=== PATIENT | female | born 1960 | race Caucasian/White ===

== ENCOUNTER 2016-03-16 11:37 | Emergency (ER) | payer OTHER ==
[~2016-03-16] VITALS: Ht 167.6 cm; Wt 55.0 kg
[~2016-03-16 11:37] MED LIST: FRRS300 PO; GLC5 PO; GLIPPOW PO; LISI-729 PO; METH2.5T PO; PRED-301 PO; SIMV20TA2 PO; SITA50TA3 PO
[2016-03-16 11:40] VITALS: Ht 167.6 cm; Wt 55.0 kg
[2016-03-16] MEDS ORDERED: METH2.5T PO (11:56)
[2016-03-16] MEDS ORDERED: GLIP5TAB3 PO (11:56)
--- NOTE | 2016-03-16 13:07 | DIAGNOSTIC IMAGING REPORT ---
LEFT HUMERUS MIN 2 VIEWS ROUTINE CLINICAL HISTORY: Left humeral pain status post trauma COMPARISON: None DISCUSSION: The bones are osteopenic. No acute fractures or dislocations are visualized. 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 Electronically signed by: Yordy Alexander M.D. 03/16/2016 1:05 PM Dictated Date/Time: 03/16/2016 1:05 PM
--- NOTE | 2016-03-16 13:56 | EMERGENCY ROOM VISIT NOTE ---
ED Visit Note First contact with patient: 12:25 Chief Complaint: Sore LEFT Arm and Shoulder History of Present Illness: Patient is a 55 year old female who presents to the emergency department this afternoon for evaluation of her LEFT neck and shoulder pain. She reports that while at work, the ceiling tiles collapsed striking her on the LEFT-sided neck and arm. She was not knocked to the ground. She did not lose consciousness. She complains of pain to the LEFT upper arm which has since resolved. She rates her current discomfort as a 0/ 10. The patient does take methotrexate as well as prednisone daily secondary to rheumatoid arthritis. She has had occult fractures in the past. Patient denies any neck pain, shoulder pain, numbness/tingling into the extremity, or new/worsening trauma since the event. Medications: Reviewed in discussed with the patient. Allergies: No known allergies. PMH: As above. SHx: Patient is a 55-year-old female who lives locally. ROS: All pertinent positive and negative review of systems are appropriately documented in the History of Present Illness. Physical Exam: VITAL SIGNS - Vital signs and nursing notes were reviewed. GENERAL - 55-year-old female appearing her stated age and in noticeable discomfort throughout the exam. NECK - FROM of the cervical spine. No spinous process or paraspinal muscle tenderness to palpation. No nuchal rigidity. LUNGS - Chest wall symmetric without accessory muscle use, intercostals retractions, or central cyanosis. Normal vesicular breath sounds CTA B/L. No wheezes, rales, or rhonchi appreciated. CARDIAC - RRR with S1/S2. No murmur, rubs, or gallops appreciated. MUSCULOSKELETAL - Active ROM of the LEFT shoulder was assessed as full. Developing ecchymosis over the lateral surface of the LEFT upper arm. No step- off deformities noted. Full range of motion with +/5 strength appreciated of the upper extremity. NEUROLOGIC - SENSORY: Spinothalamic tract was found to be intact with ability to discriminate sharp versus dull sensation at the level of the LEFT side of the neck down to the fingertips. No sensory deficits of the dorsal column were appreciated utilizing light touch for evaluation. VASCULAR - Capillary refill was brisk. +3/5 radial pulse palpated. IMAGING: LEFT HUMERUS MIN 2 VIEWS ROUTINE CLINICAL HISTORY: Left humeral pain status post trauma COMPARISON: None DISCUSSION: The bones are osteopenic. No acute fractures or dislocations are visualized. 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 ED Course: Patient was seen and evaluated by myself. Patient declines anything for pain while in the emergency department. She was provided an ice pack for comfort. X -ray of the affected arm was obtained. Imaging results as above. Imaging results were reviewed with the patient who acknowledges understanding. The patient was educated on worrisome symptoms for return visit to the emergency department. Patient discharged home in good condition. In the evaluation and treatment of this patient, the following differential diagnoses were considered: Shoulder Contusion, Shoulder Fracture, Shoulder Dislocation, Thoracic Outlet Syndrome, Adhesive Capsulitis, Rotator Cuff Tear, Proximal Clavicle Head Fracture, Apical Pneumonia, Pneumothorax, Hemothorax, or TB. Impression: LEFT Upper Extremity Contusion Discharge Instructions: You have been treated in the Emergency Department for a Contusion of the LEFT Upper Extremity. For pain control, you can use the following [id number] medicines (if >12 yo): - Regular strength (325mg/tab) Tylenol (acetaminophen) 2 tabs every 4-6 hours as needed. Do not exceed 12 tablets in a 24 hour period. Avoid taking more than 4 grams (4000 mg) of Tylenol per day. This includes any other sources of acetaminophen you may take on a regular basis. - Regular strength (200 mg/tab) Advil (ibuprofen) 1-2 tabs every 4-6 hours as needed. Do not exceed a dose of 3200 mg per day. If this is a recent injury (<24 hrs), ice can be applied to the area of pain for the first 3 days to help decrease pain and inflammation. Return to the Emergency Department if your current symptoms worsen despite treatment course outlined above, or if you develop any of the following symptoms : intractable pain despite aforementioned treatment course or new onset of numbness or tingling of the arm. Current/Historical Medications Scheduled Glipizide (Glucotrol), 5 MG PO DAILY Methotrexate Sodium (Methotrexate), 6 MG PO wkly Prednisone (Prednisone), 5 MG PO QAM Allergies Coded Allergies: No Known Allergies (Unverified , 10/10/09) Vital Signs Date Time Temp Pulse Resp B/P Pulse Ox O2 Delivery O2 Flow Rate FiO2 03/16/16 14:13 36.5 75 14 100 Room Air 03/16/16 14:13 75 14 145/69 100 03/16/16 11:40 36.5 95 16 146/73 100 Room Air Departure Information Impression Primary Impression: Contusion, upper extremity Dispostion Home / Self-Care Condition GOOD Referrals Cornelius Osorio M.D. (PCP) Patient Instructions My [facility] Additional Instructions You have been treated in the Emergency Department for a Contusion of the LEFT Upper Extremity. For pain control, you can use the following [id number] medicines (if >12 yo): - Regular strength (325mg/tab) Tylenol (acetaminophen) 2 tabs every 4-6 hours as needed. Do not exceed 12 tablets in a 24 hour period. Avoid taking more than 4 grams (4000 mg) of Tylenol per day. This includes any other sources of acetaminophen you may take on a regular basis. - Regular strength (200 mg/tab) Advil (ibuprofen) 1-2 tabs every 4-6 hours as needed. Do not exceed a dose of 3200 mg per day. If this is a recent injury (<24 hrs), ice can be applied to the area of pain for the first 3 days to help decrease pain and inflammation. Return to the Emergency Department if your current symptoms worsen despite treatment course outlined above, or if you develop any of the following symptoms : intractable pain despite aforementioned treatment course or new onset of numbness or tingling of the arm. Problem Qualifiers Primary Impression: Contusion, upper extremity Encounter type: initial encounter Laterality: left Qualified Codes: S40.022A - Contusion of left upper arm, initial encounter
[2016-03-16 14:13] VITALS: BP 145/69; PULSE 75; TEMP 36.5; O2SAT 100
== END 2016-03-16 14:14 | disposition home or self-care (01) ==
LOC: C.EDB 11:38 → C.EDD 14:14
DX: S40.022A Contusion of left upper arm, initial encounter (principal); W20.8XXA Other cause of strike by thrown, projected or falling object, initial encounter; Y99.0 Civilian activity done for income or pay; Z79.899 Other long term (current) drug therapy

== ENCOUNTER 2019-11-27 13:42 | Inpatient (IN) ==
[2019-11-27] MEDS ORDERED: VANCOMYCIN HCL 1,500 MG in SODIUM CHLORIDE 0.9% 500 ML IV ONE (14:15)
[2019-11-27] MEDS ORDERED: VANCOMYCIN CONSULT ACTIVE PRN ×2 (14:15→18:40)
[2019-11-27] MEDS ORDERED: cefTRIAXone SODIUM 1,000 MG/50 ML BAG IV STA (14:15)
--- NOTE | 2019-11-27 14:34 | Emergency Department Note ---
Impression & Plan Pressure ulcer of right leg, Traumatic open wound of right lower leg with delayed healing ED Provider Note NAME: ESTUARDO CAMILO AGE: 59 SEX: F : 1960 ARRIVES VIA: Walk-In INFORMANT: Patient, ED PROVIDER(S): Segundo Mccartney DO CHIEF COMPLAINT: Right lower extremity pain HPI: The patient is a 59-year-old female who presented to the emergency department at the request of the wound care center for an evaluation of an ulcer ation on the right leg. The patient had a right lower leg injury which led to a chronic wound that was not healing. She was referred to the wound care center approximately 3 weeks ago for this nonhealing wound. She had cultures obtained. She was on antibiotics. She was following up for frequent wound care. She had a wound VAC placed last week but started to develop another ulceration distally over the right ankle. This ulceration appears to be worsening and appears to now involve the deep structures. She has exposed tendon on the extensor surface of the right ankle. For this reason she was sent to the emergency department for further evaluation. She is been taking Cipro. She denies having any nausea or vomiting. She does have a burning sensation in the right ankle. The patient does not have any proximal swelling but does note swelling in the right foot as well as drainage from the wound. Cultures were obtained previously. ROS: See above HPI for pertinent positives & negatives. A total of 10 systems reviewed and were otherwise negative. PAST MEDICAL HISTORY: See Below PAST SURGICAL HISTORY: See Below FAMILY HISTORY: See Below SOCIAL HISTORY: See Below HOME MEDICATIONS: See Below ALLERGIES: See Below VITALS: See Below PHYSICAL EXAMINATION: GENERAL: Patient is awake alert in no acute distress patient is resting comfortably and showing no signs of anxiety EYES: The conjunctivae are clear. The pupils are round and reactive. EARS, NOSE, MOUTH AND THROAT: The nose is without any evidence of any deformity. NECK: The neck is nontender and supple. RESPIRATORY: Normal respiratory effort is noted there is no evidence of wheezing rhonchi or rales CARDIOVASCULAR: Regular rate and rhythm noted there no murmurs rubs or gallops normal S1 normal S2. GASTROINTESTINAL: The abdomen is soft. Abdomen is nontender. MUSCULOSKELETAL/EXTREMITIES: There is no evidence of gross deformity full range of motion is noted in the hips and shoulders. SKIN: There is erythema and swelling to the right lower extremity. There is an ulceration over the mid right lower leg. This is dressed with Vaseline gauze. There is also a large defect greater than 5 cm over the right flexor surface of the ankle. There is exposed extensor tendon noted. There is surrounding erythema. NEUROLOGIC: Patient is awake alert and oriented x3. MEDICAL DECISION MAKING: The patient is a 59-year-old female who presented to the emergency department from the [facility] care center for an evaluation of right lower extremity pain and u lceration. The patient had a wound VAC placed and developed an ulceration to her anterior right leg. This appears to be associated with a large area of missing skin and exposed extensor tendons. The patient was treated with IV fluids and IV antibiotics in the emergency department. She was reevaluated multiple times. I discussed her condition with the [facility]-call [facility]. She was also evaluated by Dr. Interiano from cardiology. He does recommend that we obtained arterial Dopplers to determine the patient's arterial status in her lower extremities. I discussed this with the patient. She was agreeable. I did review the patient's wound cultures prior to initiating antibiotic therapy. Triage Nursing notes reviewed. Prior medical records reviewed Vital Signs: reviewed and remarkable for hypotension Differential diagnosis: Cellulitis, abscess, MRSA infection, DVT, necrotizing fasciitis, dermatitis, drug eruption, allergic reaction, as well as other pathologies. ER treatment provided: See below Diagnostics interpreted by me: ECG: none Cardiac Monitoring: An order was placed for continuous cardiac monitoring. The monitor shows a rate of 82 bpm with sinus rhythm. Laboratory studies: As stated above and show below. Imaging studies: See below Consultation(s): 1520: I discussed this case with Jelena who is on-call for the [facility]. They will evaluate the patient Past Med/Surg History Medical History (Updated 11/27/19 @ 16:29 by Jelena Londono PA-C) CAD (coronary artery disease) Cardiac murmur A CHILD Diabetes mellitus, type 2 IDDM History of anesthesia reaction SLOW TO WAKE History of rheumatic fever as a child Hyperlipidemia Rheumatoid arthritis Surgical History History of cardiac cath 08/2017 - [facility] - SOB --> CABG - FOLLOWS W/ DR. PRESTON History of colonoscopy History of coronary artery bypass graft 08/2017 - [facility] - 3 VESSELS - FOLLOWS W/ DR. 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 Beliefs That Will Affect Care: None marital status: Current Living Situation: Spouse Feels Safe at Home: Yes Assistive Devices: Glasses Allergies Allergies Allergy/AdvReac Type Severity Reaction Status Date / Time Sulfa (Sulfonamide Allergy Rash Verified 11/27/19 13:24 Antibiotics) Home Meds Home Medications Medication Instructions Recorded Confirmed aspirin 81 mg PO QAM 05/13/18 11/27/19 carvedilol 3.125 mg PO BID 05/13/18 11/27/19 insulin NPH and regular human 20 unit SUBCUT BID 05/13/18 11/27/19 [Novolin 70/30 U-100 Insulin] lisinopril 2.5 mg PO QAM 05/13/18 11/27/19 multivitamin [One-A-Day Essential] 1 tab PO QAM 05/13/18 11/27/19 prednisone 7.5 mg PO QAM 05/13/18 11/27/19 acetaminophen [Tylenol Extra 500 mg PO TID 11/19/19 11/27/19 Strength] atorvastatin 20 mg PO HS 11/27/19 11/27/19 calcium carbonate [Calcium 500] 1,000 mg PO DAILY 11/27/19 11/27/19 cholecalciferol (vitamin D3) 1,250 mcg PO WK 11/27/19 11/27/19 folic acid 1 mg PO DAILY 11/27/19 11/27/19 methotrexate sodium [Methotrexate 15 mg PO FR 11/27/19 11/27/19 (Anti-Rheumatic)] valacyclovir [Valtrex] 500 mg PO DAILY 11/27/19 11/27/19 Previous Rx's Medication Instructions Recorded ciprofloxacin HCl 250 mg tablet 250 mg PO BID 14 Days #28 tab 11/22/19 Results & Data (ED) Vital Signs Vital Signs - 24 hr 11/27/19 13:54 11/27/19 15:29 Temperature 36.7 C Temperature Source Oral Pulse Rate 108 H Pulse Rate [Apical] 80 Respiratory Rate 19 19 Respiratory Depth Normal Normal Respiratory Pattern Regular Blood Pressure 120/63 Blood Pressure [Right Arm] 106/58 L Blood Pressure Mean 82 Blood Pressure Mean [Right Arm] 74 Pulse Oximetry 91 96 Oxygen Delivery Method Room Air Room Air Sepsis Recent Fever Within 48 Hours No Sepsis New/Unexplained Change in Mental Status N/A Sepsis Action Taken by Nursing No Action Required Home Medications Current Medication List: was personally reviewed by me Laboratory Data Attestation: I reviewed the patient's lab results. Result diagrams: 11/27/19 14:29 11/27/19 14:29 Lab Results 11/27/19 11/27/19 11/27/19 Range/Units 14:29 14:29 14:29 WBC 12.09 H (4.8-10.8) K/uL RBC 3.67 L (4.2-5.4) M/uL Hgb 11.3 L (12.0-16.0) g/dL Hct 34.9 L (37-47) % MCV 95.1 (80-100) fL MCH 30.8 (25-34) pg MCHC 32.4 (32-36) g/dL RDW Std Deviation 66.0 H (36.4-46.3) fL RDW Coeff of [place] 19.0 H (11.5-14.5) % Plt Count 280 (130-400) K/uL MPV 9.6 (7.4-10.4) fL Immature Gran % (Auto) 4.5 % Neut % (Auto) 82.6 % Lymph % (Auto) 6.7 % Green % (Auto) 5.7 % Eos % (Auto) 0.3 % Baso % (Auto) 0.2 % Neut # (Auto) 9.98 H (1.4-6.5) K/uL Lymph # (Auto) 0.81 L (1.2-3.4) K/uL Green # (Auto) 0.69 H (0.11-0.59) K/uL Eos # (Auto) 0.04 (0-0.5) K/uL Baso # (Auto) 0.03 (0-0.2) K/uL Immature Gran # (Auto) 0.54 H (0.00-0.02) K/uL ESR 49 H (0-21) mm/hr Sodium 141 (136-145) mmol/L Potassium 3.9 (3.5-5.1) mmol/L Chloride 110 H (98-107) mmol/L Carbon Dioxide 27 (21-32) mmol/L Anion Gap 4.0 (3-11) BUN 20 H (7-18) mg/dl Creatinine 1.09 (0.6-1.2) mg/dl Est Cr Clr Drug Dosing 51.4 ml/min Est GFR ( Amer) 63.9 Est GFR (Non-Af Amer) 55.1 BUN/Creatinine Ratio 17.9 (10-20) Glucose 136 H (70-99) mg/dl Lactate (0.4-2.0) mmol/L Calcium 9.8 (8.5-10.1) mg/dl Total Bilirubin 0.5 (0.2-1) mg/dl AST 20 (15-37) U/L ALT 18 (12-78) U/L Alkaline Phosphatase 76 (45-117) U/L Total Creatine Kinase (26-192) U/L C-Reactive Protein 3.61 H (0-0.29) mg/dl Total Protein 7.2 (6.4-8.2) gm/dl Albumin 2.8 L (3.4-5.0) gm/dl Globulin 4.4 H (2.5-4.0) gm/dl Albumin/Globulin Ratio 0.6 L (0.9-2) Procalcitonin (0-0.5) ng/ml 11/27/19 11/27/19 11/27/19 Range/Units 14:29 15:35 15:36 WBC (4.8-10.8) K/uL RBC (4.2-5.4) M/uL Hgb (12.0-16.0) g/dL Hct (37-47) % MCV (80-100) fL MCH (25-34) pg MCHC (32-36) g/dL RDW Std Deviation (36.4-46.3) fL RDW Coeff of [place] (11.5-14.5) % Plt Count (130-400) K/uL MPV (7.4-10.4) fL Immature Gran % (Auto) % Neut % (Auto) % Lymph % (Auto) % Green % (Auto) % Eos % (Auto) % Baso % (Auto) % Neut # (Auto) (1.4-6.5) K/uL Lymph # (Auto) (1.2-3.4) K/uL Green # (Auto) (0.11-0.59) K/uL Eos # (Auto) (0-0.5) K/uL Baso # (Auto) (0-0.2) K/uL Immature Gran # (Auto) (0.00-0.02) K/uL ESR (0-21) mm/hr Sodium (136-145) mmol/L Potassium (3.5-5.1) mmol/L Chloride (98-107) mmol/L Carbon Dioxide (21-32) mmol/L Anion Gap (3-11) BUN (7-18) mg/dl Creatinine (0.6-1.2) mg/dl Est Cr Clr Drug Dosing ml/min Est GFR ( Amer) Est GFR (Non-Af Amer) BUN/Creatinine Ratio (10-20) Glucose (70-99) mg/dl Lactate 1.8 (0.4-2.0) mmol/L Calcium (8.5-10.1) mg/dl Total Bilirubin (0.2-1) mg/dl AST (15-37) U/L ALT (12-78) U/L Alkaline Phosphatase (45-117) U/L Total Creatine Kinase 37 (26-192) U/L C-Reactive Protein (0-0.29) mg/dl Total Protein (6.4-8.2) gm/dl Albumin (3.4-5.0) gm/dl Globulin (2.5-4.0) gm/dl Albumin/Globulin Ratio (0.9-2) Procalcitonin 0.33 (0-0.5) ng/ml Administered Medications Vancomycin HCl 1,500 mg/ (Sodium Chloride) 530 mls @ 200 mls/hr IV NOW ONE Stop: 11/27/19 16:53 Last Admin: 11/27/19 14:37 Dose: 200 mls/hr Documented by: [id number] Discontinued Medications Ceftriaxone Sodium (Rocephin) 1,000 mg in 50 mls @ 100 mls/hr IV NOW STA Stop: 11/27/19 14:44 Last Infusion: 11/27/19 15:00 Dose: 0 mls/hr Documented by: [id number] Admin: 11/27/19 14:41 Dose: 100 mls/hr Documented by: [id number] Imaging Data Radiologist's Impression: XR ankle RT min 3V routine HISTORY: 59 years-old Female pain acute right ankle pain COMPARISON: None TECHNIQUE: 3 views of the right ankle FINDINGS: Bones appear mildly demineralized. Mild osteoarthritis of the midfoot and hindfoot. Soft tissue calcifications project over the medial malleolus. Arterial calcifications. No acute fracture, dislocation or opaque foreign body. Ill- defined lucencies project over the distal pretibial tissues which may be pro jectional or reflect soft tissue injury. IMPRESSION: No acute fracture or dislocation. ACT 112: Negative or not required by law. The above report was generated using voice recognition software. It may contain grammatical, syntax or spelling errors. Electronically signed by: Solo Hutchins M.D. 11/27/2019 2:57 PM Dictated: 11/27/191454 Transcribed: 11/27/191454 Blood Pressure Blood Pressure Findings: Low blood pressure Discharge Plan Visit Data Chief Complaint: Leg Injury/Pain Stated Complaint: SENT WOUND CLINIC RT LEG TENDON EXPOSED ED Provider: Segundo Mccartney Discharge Problem: Pressure ulcer of right leg, Traumatic open wound of right lower leg with delayed healing Patient Disposition: Being Evaluated by Hospitalist Condition: Good Forms Stand Alone Forms: My [facility] [employer] Prescriptions Prescriptions: No Action ciprofloxacin HCl 250 mg tablet 250 mg PO BID 14 Days Qty: 28 RF: 0 multivitamin [One-A-Day Essential] Tablet 1 tab PO QAM RF: 0 carvedilol 6.25 mg Tablet 3.125 mg PO BID RF: 0 prednisone 5 mg Tablet 7.5 mg PO QAM RF: 0 Novolin 70/30 U-100 Insulin 100 unit/mL (70-30) Suspension 20 unit SUBCUT BID RF: 0 aspirin 81 mg Tablet,Delayed Release (Dr/Ec) 81 mg PO QAM RF: 0 lisinopril 2.5 mg Tablet 2.5 mg PO QAM RF: 0 atorvastatin 20 mg Tablet 20 mg PO HS RF: 0 valacyclovir [Valtrex] 500 mg Tablet 500 mg PO DAILY RF: 0 methotrexate sodium [Methotrexate (Anti-Rheumatic)] 2.5 mg Tablet 15 mg PO FR RF: 0 folic acid 1 mg Tablet 1 mg PO DAILY RF: 0 cholecalciferol (vitamin D3) 1,250 mcg (50,000 unit) capsule 1,250 mcg PO WK RF: 0 calcium carbonate [Calcium 500] 500 mg calcium (1,250 mg) Tablet 1,000 mg PO DAILY RF: 0 acetaminophen [Tylenol Extra Strength] 500 mg Tablet 500 mg PO TID RF: 0 Referrals Referrals: Cornelius Osorio MD [Primary Care Provider] -
[2019-11-27 14:40] LABS: Basophils # (auto) 0.03 K/uL (0-0.2); Basophils % (auto) 0.2 %; Eosinophils # (auto) 0.04 K/uL (0-0.5); Eosinophils % (auto) 0.3 %; Hematocrit (blood only) 34.9 % (37-47); Hemoglobin 11.3 g/dL (12.0-16.0); Immature Granulocytes # (auto) 0.54 K/uL (0.00-0.02); Immature Granulocytes % (auto) 4.5 %; Lymphocytes # (auto) 0.81 K/uL (1.2-3.4); Lymphocytes % (auto) 6.7 %; Mean Corpuscular Hemoglobin 30.8 pg (25-34); Mean Corpuscular Hgb Conc 32.4 g/dL (32-36); Mean Corpuscular Volume 95.1 fL (80-100); Mean Platelet Volume 9.6 fL (7.4-10.4); Monocytes # (auto) 0.69 K/uL (0.11-0.59); Monocytes % (auto) 5.7 %; Neutrophils # (auto) 9.98 K/uL (1.4-6.5); Neutrophils % (auto) 82.6 %; Platelet Count 280 K/uL (130-400); Red Blood Count 3.67 M/uL (4.2-5.4); White Blood Count 12.09 K/uL (4.8-10.8)
--- NOTE | 2019-11-27 14:58 | XRay Report ---
XR ankle RT min 3V routine HISTORY: 59 years-old Female pain acute right ankle pain COMPARISON: None TECHNIQUE: 3 views of the right ankle FINDINGS: Bones appear mildly demineralized. Mild osteoarthritis of the midfoot and hindfoot. Soft tissue calci fications project over the medial malleolus. Arterial calcifications. No acute fracture, dislocation or opaque foreign body. Ill-defined lucencies project over the distal pretibial tissues which may be projectional or reflect soft tissue injury. IMPRESSION: No acute fracture or dislocation. ACT 112: Negative or not required by law. The above report was generated using voice recognition software. It may contain grammatical, syntax o r spelling errors. Electronically signed by: Solo Hutchins M.D. 11/27/2019 2:57 PM
[2019-11-27 15:06] LABS: Albumin Level 2.8 gm/dl (3.4-5.0); BUN Creatinine Ratio 17.9 (10-20); Bilirubin,Total 0.5 mg/dl (0.2-1); C Reactive Protein 3.61 mg/dl (0-0.29); Calcium 9.8 mg/dl (8.5-10.1); Creatinine Clr Calc Pharmacy 51.4 ml/min; Est GFR (African American) 63.9; Est GFR (Non-African American) 55.1; Potassium 3.9 mmol/L (3.5-5.1)
[2019-11-27 15:07] LABS: Albumin Globulin Ratio 0.6 (0.9-2); Globulin 4.4 gm/dl (2.5-4.0); Total Protein 7.2 gm/dl (6.4-8.2)
--- NOTE | 2019-11-27 16:03 | History & Physical Report ---
Date of Service November 27, 2019 Assessment & Plan (1) Ulcer of right ankle: (2) Traumatic open wound of right lower leg with delayed healing: This is a 59-year-old female with significant past medical history of insulin- dependent T2DM, CAD with history of CABG x3, HLD, CKD stage III, history of PAF, bilateral carotid artery stenosis, rheumatoid arthritis on immunosuppressants with methotrexate and prednisone, anemia, monoclonal paraproteinemia who presents to ED secondary to worsening wound to right lower extremity with tendon exposure x3 days. Pt with 2 wounds, Proximal tibial wound stage 2 - appears to be healing well - grew E. Coli and has been on Cipro as outpt Distal wound Stage 4 traumatic wound to R ankle with extensor tendon exposed admit to med tele continue broad spectrum antibiotics with vancomycin and zosyn wound cultures consult wound care and Dr. Rodriguez Vascular medicine on board - appreciate his input - recommending angiogram with likely b/l intervention consult ortho Dr. Murray Please refer to Dr. Galindo addendum for details regarding discussion with [facility] [place] (3) Diabetes mellitus, type 2: Last A1c 9.0 09/2018 Obtain A1c in a.m. NPH every 12 with parameters Consult glycemic pharmacy, appreciate their input (4) CAD (coronary artery disease): hx of 3V CABG 08/2017 (NOWAK to LAD, SVG to D1, SVG to OM1), ischemic cardiomyopathy EF 40 to 45% 11/2017 continue ASA, lisinopril, coreg, statin also hx of asymptomatic carotid artery disease - follows Vascular at [place] (5) Hyperlipidemia: continue statin (6) Rheumatoid arthritis: On prednisone 7.5 mg daily along with methotrexate 15 mg every Wednesday Hold methotrexate currently due to concern for infection Continue folic acid (7) Anemia: H&H stable, likely in setting of chronic disease H&H 11.3 and 34.9 (8) DVT prophylaxis: SQ Lovenox Disposition: admit to tele Follow up: PCP Dr. Osorio upon discharge Pt was seen and examined in collaboration with Dr. Galindo, please see addendum History of Present Illness Chief Complaint: Worsening wound to right lower extremity with tendon exposed x3 days. Primary Care Provider: Cornelius Osorio MD This is a 59-year-old female with significant past medical history of insulin- dependent T2DM, CAD with history of CABG x3, HLD, CKD stage III, history of PAF, bilateral carotid artery stenosis, rheumatoid arthritis on immunosuppressants with methotrexate and prednisone, anemia, monoclonal paraproteinemia who presents to ED secondary to worsening wound to right lower extremity with tendon exposure x3 days. Patient [place] [facility] [place] due to pretibial traumatic wound that she suffered in July 2019 when trying to enter father's home. She had a wound VAC in place as well as compressive dressing that was very tight. Dressing caused additional wound distally to proximal wound with eventual opening and wound exposure starting Thursday 11/23. Only minimal tendon was exposed at this time until today when a significant amount of tendon became exposed. Daughter at bedside and patient went to see wound clinic today who referred patient to ED for admission and IV antibiotics. Patient denies any fever, chills, sweats, lightheadedness, dizziness, chest pain, shortness breath, cough, nausea, vomiting, abdominal pain, change in bowel or urinary habits. Her appetite has otherwise been well. She currently denies any pain. In ED she was seen and evaluated and started on broad-spectrum IV antibiotics with Rocephin and IV vancomycin. As an outpatient she currently is on ciprofloxacin due to a positive culture for E. coli. Daughter is very displeased with wound. She has been on multiple antibiotics without significant improvement. She continues to bear weight on right lower extremity but only for transfer purposes to bathroom. In ED she remained hemodynamically stable. Lab work notable for WBC 12.09k, H&H 11.3 and 31.9, ESR 49, CRP 3.61, BUN 20, creatinine 1.09, glucose 136, procalcitonin 0.33. Vascular medicine was consulted in ED and recommended bilateral arterial Dopplers to rule out vascular disease due to prior history of CABG and carotid artery disease. Allergies Allergy/AdvReac Type Severity Reaction Status Date / Time Sulfa (Sulfonamide Allergy Rash Verified 11/27/19 13:24 Antibiotics) Home Medications Home Medications Medication Instructions Recorded Confirmed Type aspirin 81 mg PO QAM 05/13/18 11/27/19 History carvedilol 3.125 mg PO BID 05/13/18 11/27/19 History insulin NPH and regular human 20 unit SUBCUT BID 05/13/18 11/27/19 History [Novolin 70/30 U-100 Insulin] lisinopril 2.5 mg PO QAM 05/13/18 11/27/19 History multivitamin [One-A-Day Essential] 1 tab PO QAM 05/13/18 11/27/19 History prednisone 7.5 mg PO QAM 05/13/18 11/27/19 History acetaminophen [Tylenol Extra 500 mg PO TID 11/19/19 11/27/19 History Strength] ciprofloxacin HCl 250 mg tablet 250 mg PO BID 14 Days #28 tab 11/22/19 11/27/19 Rx atorvastatin 20 mg PO HS 11/27/19 11/27/19 History calcium carbonate [Calcium 500] 1,000 mg PO DAILY 11/27/19 11/27/19 History cholecalciferol (vitamin D3) 1,250 mcg PO WK 11/27/19 11/27/19 History folic acid 1 mg PO DAILY 11/27/19 11/27/19 History methotrexate sodium [Methotrexate 15 mg PO FR 11/27/19 11/27/19 History (Anti-Rheumatic)] valacyclovir [Valtrex] 500 mg PO DAILY 11/27/19 11/27/19 History Past Med/Surg History Medical History (Updated 11/27/19 @ 16:29 by Jelena Londono PA-C) CAD (coronary artery disease) Cardiac murmur A CHILD Diabetes mellitus, type 2 IDDM History of anesthesia reaction SLOW TO WAKE History of rheumatic fever as a child Hyperlipidemia Rheumatoid arthritis Surgical History History of cardiac cath 08/2017 - [facility] - SOB --> CABG - FOLLOWS W/ DR. PRESTON History of colonoscopy History of coronary artery bypass graft 08/2017 - [facility] - 3 VESSELS - FOLLOWS W/ DR. 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 Beliefs That Will Affect Care: None marital status: Current Living Situation: Spouse Feels Safe at Home: Yes Assistive Devices: Glasses Review of Systems Review of Systems: All systems reviewed & are unremarkable except as noted in HPI & below Physical Exam Physical Exam: Constitutional: WD/WN, vitals as above, NAD, sitting up in bed, pleasant, conversing easily Head: Normocephalic, Atraumatic Eyes: PERRL, conjunctivae normal, anicteric sclerae ENMT: external ear and nose normal, oropharynx normal Neck: trachea midline, no thyromegaly normal visual inspection Respiratory: normal respiratory effort, lungs clear to auscultation, no wheeze, rales, rhonchi. Normal insp/exp effort, no accessory muscle use Cardiovascular: RRR, 2/6 BAILEY at RUSB, no edema Vessels: no JVD or carotid bruit Chest: normal inspection of chest, sternotomy scar noted Abdomen: normal bowel sounds, soft, nontender, no hepatosplenomegaly Musculoskeletal: no cyanosis or clubbing, right lower extremity pretibial area wound x2, proximal wound 1 inch x 1 inch with well-appearing wound bed, distal wound erythematous edges with extensor tendon exposed managed by 1 inch, bilateral pedal pulse +2 and equal, skin warm Skin: no rashes, warm and dry normal turgor Neurologic: PERRL, EOMI, accommodation nl, no face palsy, no dysarthria CN's II-XI intact bilaterally and moves all extremities Psychiatric: A+Ox3, euthymic affect Lymphatic: no cervical or axillary lymphadenopathy : deferred Results & Data Results & Data ([facility]) Vital Signs (Past 12 Hours) Vital Signs Temp Pulse Pulse Resp BP BP Pulse Ox 11/27/19 15:29 80 19 106/58 L 96 11/27/19 13:54 36.7 C 108 H 19 120/63 91 Laboratory Results Short CBC 11/27/19 Range/Units 14:29 WBC 12.09 H (4.8-10.8) K/uL Hgb 11.3 L (12.0-16.0) g/dL Hct 34.9 L (37-47) % Plt Count 280 (130-400) K/uL BMP 10/05/20 14:29 Sodium 141 Potassium 3.9 Chloride 110 H Carbon Dioxide 27 BUN 20 H Creatinine 1.09 Glucose 136 H Calcium 9.8 Liver Function 11/27/19 Range/Units 14:29 Total Bilirubin 0.5 (0.2-1) mg/dl AST 20 (15-37) U/L ALT 18 (12-78) U/L Alkaline Phosphatase 76 (45-117) U/L Albumin 2.8 L (3.4-5.0) gm/dl Diagnostic Findings CXR: IMPRESSION: No acute fracture or dislocation. Medications Administered Vancomycin HCl 1,500 mg/ (Sodium Chloride) 530 mls @ 200 mls/hr IV NOW ONE Stop: 11/27/19 16:53 Last Admin: 11/27/19 14:37 Dose: 200 mls/hr Documented by: [id number] Discontinued Medications Ceftriaxone Sodium (Rocephin) 1,000 mg in 50 mls @ 100 mls/hr IV NOW STA Stop: 11/27/19 14:44 Last Infusion: 11/27/19 15:00 Dose: 0 mls/hr Documented by: [id number] Admin: 11/27/19 14:41 Dose: 100 mls/hr Documented by: [id number] Code Status & VTE Plan Code Status Full Code VTE Prophylaxis Plan VTE Prophylaxis will be ordered: Yes Supervising Physician Co-Signing Physician Notes I, Dr. Kenan Galindo, have seen and examined the patient Lindsey Eason with physician broker assistant and would like to comment that On Physical Exam General: no acute distress, patient had echocardiogram just completed Heart: regular heart rate Lung: clear to auscultation bilaterally, no wheezing Abdomen: soft, nontender, positive bowel sounds Neuro: moves all extremities, no facial droop Right lower extremity: there is a stage 2 healing ulcer above the right ankle. 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 Patient also had debridement of the 2nd ulcer around the right ankle area and left with some exp osure of the right ankle tendon and this wound has increased in size (now stage 4 ulcer with right ankle tendon exposed of 3 inches long and 1 inch wide) -patient was started on ceftriaxone and Vancomycin in the ED, transition to Zosyn and Vancomycin upon admission from ED by [facility] hospitalist team at [facility] -admitting hospitalist, discussed with [facility] in [place], about possibly needing plastic surgery evaluation. Dr. Rodney of plastic surgery discussed that the affected area not amenable for plastic surgery at this time and would like to have patient follow up with him or his plastic surgery clinic in [place]. Dr. Dougherty, the [facility] triage officer, was also made aware that patient and her family were unhappy with [facility] wound care clinic and that this is the only local service for inpatient wound care. Dr. Dougherty recommends that since patient can be treated with current services at [facility] at this time, that if further needs for hospital transfer can be discussed at later time since [facility] is short of hospital beds. Patient and family member informed about these telephone discussions and agree to be followed by [facility] wound care services as inpatient at this time -Vascular service Dr. Interiano also following the patient -Orthopedic consult also being requested by hospitalist team -monitor the renal function while on vancomycin -DVT prophylaxis with subcutaneous Lovenox for now -agree with other assessments and plans as documented by physician broker assistant -My colleague Dr. Gage will be following the patient as hospitalist starting on 11/28/2019
--- NOTE | 2019-11-27 16:10 | Vascular Medicine Consultation ---
Date of Consultation November 27, 2019 Assessment & Plan (1) Ulcer of right ankle: 2. Cellulitis 3. Suspected peripheral arterial disease 4. Insulin-dependent type 2 diabetes 5. Rheumatoid arthritis on chronic steroids 6. Chronic kidney disease, stage III 7. Ischemic heart disease, post three-vessel CABG Patient with progressing, large ulceration at the level of the ankle with visible tendon and concern for associated infection. Has been started on broad- spectrum IV antibiotics and is to be admitted. Patient is a longstanding diabetic and exam suggestive of tibial vessel/small vessel disease and potentially impaired distal arterial perfusion. Further imaging with arterial duplex pending. Suspect tibial imaging will be limited. In the setting of high risk wound favor potential angiography at some point. No changes to current cardiac regimen. Further recommendations pending duplex findings. History of Present Illness History of Present Illness Ms. Eason is a very pleasant 59-year-old woman seen in the emergency department for lower extremity ulceration in the setting of suspected PAD. Prior medical history remarkable for coronary artery disease post three-vessel CABG 08/2017 (NOAWK to LAD, SVG to D1, SVG to OM1), ischemic cardiomyopathy EF 40 to 45% 11/2017, mild mitral regurgitation insulin-dependent diabetes, rheumatoid arthritis on chronic steroids, stage III chronic kidney disease, anemia. Remote smoker for 6 years. Vascular history asymptomatic bilateral carotid artery stenosis being followed by [facility] vascular. No other history of vascular interventions. Right anterior anderson wound present since July 2019 occurring in the setting of fall. Treated at wound care center starting 09/2019. Treatment has included standard wound therapy, and multiple courses of antibiotics for wound cultures persistently growing E. coli, most recently on ciprofloxacin. For the last 10 days or so has had a wound VAC in place. Initial wound improving but has now developed a large ulceration involving the anterior aspect of the ankle with visible tendon, drainage and surrounding erythema. Seen by wound clinic today and directed to ED. No fevers or chills. No significant pain at rest. Prior to initial wound has been doing well. Active and denied any symptoms of claudication or rest pain Allergies Allergy/AdvReac Type Severity Reaction Status Date / Time Sulfa (Sulfonamide Allergy Rash Verified 11/27/19 13:24 Antibiotics) Home Medications Home Medications Medication Instructions Recorded Confirmed Type aspirin 81 mg PO QAM 05/13/18 11/27/19 History carvedilol 3.125 mg PO BID 05/13/18 11/27/19 History insulin NPH and regular human 20 unit SUBCUT BID 05/13/18 11/27/19 History [Novolin 70/30 U-100 Insulin] lisinopril 2.5 mg PO QAM 05/13/18 11/27/19 History multivitamin [One-A-Day Essential] 1 tab PO QAM 05/13/18 11/27/19 History prednisone 7.5 mg PO QAM 05/13/18 11/27/19 History acetaminophen [Tylenol Extra 500 mg PO TID 11/19/19 11/27/19 History Strength] ciprofloxacin HCl 250 mg tablet 250 mg PO BID 14 Days #28 tab 11/22/19 11/27/19 Rx atorvastatin 20 mg PO HS 11/27/19 11/27/19 History calcium carbonate [Calcium 500] 1,000 mg PO DAILY 11/27/19 11/27/19 History cholecalciferol (vitamin D3) 1,250 mcg PO WK 11/27/19 11/27/19 History folic acid 1 mg PO DAILY 11/27/19 11/27/19 History methotrexate sodium [Methotrexate 15 mg PO FR 11/27/19 11/27/19 History (Anti-Rheumatic)] valacyclovir [Valtrex] 500 mg PO DAILY 11/27/19 11/27/19 History Patient History Medical History (Updated 11/27/19 @ 16:29 by Jelena Londono PA-C) CAD (coronary artery disease) Cardiac murmur A CHILD Diabetes mellitus, type 2 IDDM History of anesthesia reaction SLOW TO WAKE History of rheumatic fever as a child Hyperlipidemia Rheumatoid arthritis Surgical History History of cardiac cath 08/2017 - [facility] - SOB --> CABG - FOLLOWS W/ DR. PRESTON History of colonoscopy History of coronary artery bypass graft 08/2017 - [facility] - 3 VESSELS - FOLLOWS W/ DR. PRESTON History of total knee replacement BL History of wisdom tooth extraction Hx of tonsillectomy Family History Brother Family hx of colon cancer Father Family history of diabetes mellitus Mother Family history of diabetes mellitus Aunt Family history of diabetes mellitus Grandmother (Maternal) Family history of diabetes mellitus Social History (Updated 11/27/19 @ 16:01 by Jelena Londono PA-C) Smoking Status: Former smoker Second Hand Exposure: No; Hx Alcohol Use: No Hx Substance Use: No Preferred Language: Sudanese Communication Ability: Effective Dermatology Sales Representative Required: No Beliefs That Will Affect Care: None marital status: Current Living Situation: Spouse Feels Safe at Home: Yes Assistive Devices: Glasses Review of Systems Review of Systems: All systems reviewed & are unremarkable except as noted in HPI & below Physical Exam Physical Exam: General: Comfortable, no acute distress Eyes: Sclerae anicteric, extraocular movements intact HENT: Oropharynx clear mucous membranes moist Lungs: Clear to auscultation bilaterally, no rhonchi or wheezes Cardiac: Regular rate and rhythm, 2 out of 6 holosystolic murmur at the apex Abdomen: Soft, nontender, nondistended, positive bowel sounds. Neuro: Nonfocal Psych: Alert orient x3, normal affect and mood Extremities/Vascular: -- 2+ radial bilaterally -- 2+ femoral bilaterally 2+ popliteal pulses bilaterally --Diminished DP and PT pulses bilaterally. Sluggish capillary refill bilaterally --Trace edema, erythema surrounding large ulceration over anterior aspect of right ankle. Visible tendon present. 2 cm superficial ulceration over anterior anderson without surrounding erythema. --Bilateral mild hyperpigmentation over anterior shins bilaterally. No varicose veins Results & Data ([facility]) Vital Signs (Past 12 Hours) Vital Signs Temp Pulse Pulse Resp BP BP Pulse Ox 11/27/19 15:29 80 19 106/58 L 96 11/27/19 13:54 98.1 F 108 H 19 120/63 91 PG Care Time/CCT Total # of Minutes Spent Total Time Spent with Patient: Total time spent is greater than 50% in coordination of care (as documented) at patient's floor/unit and/or counseling patient: Coding Level of Care Code 32943 Inpt Consult Level 4 Diagnoses Ulcer of right ankle L97.319
--- NOTE | 2019-11-27 18:25 | Ultrasound Report ---
US arterial duplex LE BI HISTORY: 59 years-old Female swelling acute pain and swelling of the lower extremities COMPARISON: Duplex venous Doppler study 08/19/2017 TECHNIQUE: Multiple real-time sonographic images of the lower extremity arterial structures were obta ined assessing grayscale appearance, color and spectral flow. Segmental blood pressures were also obt ained bilaterally. FINDINGS: SEGMENTAL BLOOD PRESSURES: Right: Brachial-129 (index); posterior tibial-noncompressible; dorsalis pedis-118 (0.87). Left: Brachial-126 (index); posterior tibial-140 (1.03); dorsalis pedis-143 (1.05). RIGHT: Multifocal calcified plaque. Triphasic waveforms are noted within the common femoral, profunda femori s, and superficial femoral arteries. Areas of triphasic and biphasic waveforms are noted within the p opliteal artery. Monophasic and biphasic waveforms within the calf arteries without occlusion or sign ificantly elevated peak velocities to suggest high-grade stenosis. LEFT: Multifocal calcified plaque. Triphasic waveforms are noted within the common femoral, femoris and sup erficial femoral arteries. Areas of triphasic and biphasic waveforms noted within the popliteal arter y. Scattered monophasic waveforms are noted within the calf arteries without occlusion or significant ly elevated peak systolic velocities to suggest high-grade stenosis. Notably, blunted monophasic wave forms with spectral broadening noted within the peroneal artery. IMPRESSION: 1. Atherosclerotic vascular disease with monophasic waveforms within the calf arteries. 2. No arterial occlusion or significantly elevated peak systolic velocities to suggest high-grade sammie nosis. ACT 112: Negative or not required by law. The above report was generated using voice recognition software. It may contain grammatical, syntax o r spelling errors. Electronically signed by: Solo Hutchins M.D. 11/27/2019 6:24 PM
[2019-11-27] MEDS ORDERED: GLUCOSE 40% GEL 15 GM TUBE PO PRN (18:40)
[2019-11-27] MEDS ORDERED: GLUCAGON FOR INJ 1 MG VIAL SQ PRN (18:40)
[2019-11-27] MEDS ORDERED: ACETAMINOPHEN 325 MG TAB PO PRN (18:40)
[2019-11-27] MEDS ORDERED: CARBOHYDRATES FOR HYPOGLYCEMIA PO PRN (18:40)
[2019-11-27] MEDS ORDERED: PIPERACILL/TAZOBAC CONSULT ACTIVE PRN (18:40)
[2019-11-27] MEDS ORDERED: ONDANSETRON INJ 2 MG/ML 2 ML VIAL IV PRN (18:40)
[2019-11-27] MEDS ORDERED: POLYETHYLENE (MIRALAX) 17 GM PACK PO PRN (18:40)
[2019-11-27] MEDS ORDERED: GLUCOSE 10 TABS/TUBE PO PRN (18:40)
[2019-11-27] MEDS ORDERED: ALUMINUM/MAGNESIUM SUSP 30 ML UDC PO PRN (18:40)
[2019-11-27] MEDS ORDERED: DEXTROSE 50% 50 ML SYRINGE IV PRN (18:40)
[2019-11-27] MEDS ORDERED: MAGNESIUM HYDROXIDE SUSP 30 ML UDC PO PRN (18:40)
[2019-11-27] MEDS ORDERED: PHARMACY GLYCEMIC MGMT CONSULT PRN (18:53)
--- NOTE | 2019-11-27 19:25 | Orthopedic Consultation ---
Date of Consultation November 27, 2019 Assessment & Plan (1) Unstageable pressure ulcer of ankle: (2) Traumatic open wound of right lower leg with delayed healing: This full-thickness skin loss is in a critical zone for healing. There is exposed tendon. The ulceration of the borders of the wound are very concerning for potential wound healing. I agree with vascular work-up for the ability to heal this area. No surgical irrigation debridement is indicated today. I recommend a plastic surgery consult for soft tissue coverage options, in coordination with vascular surgery. And I discussed with the patient and her family member margret that this may be an area that would require amputation for definitive treatment. This is a complicated decision with vascular and plastics. I defer management to vascular and plastic surgery opinion. No further inpatient orthopedic surgery needs for now. I suspect that she will be able to go outpatient status until definitive management can be coordinated. Recommend wound care opinion on dressing options. At a minimum, this should be dressed every 24-48 hours with a nonadherent dressing such as Adaptic and a light cover to ensure no gross contamination. Contact with further questions. History of Present Illness Reason for Consultation: Right lower extremity full-thickness wound with exposed tendon Attending Physician: Kenan Galindo MD History of Present Illness 59-year-old female who is undergoing treatment at the [facility] wound care clinic for a more proximal pretibial wound from trauma, unfortunate developed full-thickness skin loss anterior to the ankle is posing her anterior tibialis and toe extensor tendons. She has a history of vasculopathy, diabetes mellitus 2, and coronary artery disease. She also has bilateral total knees. Prior to undergoing treatment for this wound she was healthy and active. She denies any previous history of pretibial wounds from vascular origin. She was admitted due to development of this wound during interval exam today. This was an area that had significant compression from a compressive wrap to treat the other wound. The other one also had a wound VAC placed. Unfortunately, there was some pressure ulceration that was minimal in this area. On follow-up today had extended significantly and revealed significant soft tissue loss. There are also concerns for vascular disorder contributing to this wound. Allergies Allergy/AdvReac Type Severity Reaction Status Date / Time Sulfa (Sulfonamide Allergy Rash Verified 11/27/19 13:24 Antibiotics) Home Medications Home Medications Medication Instructions Recorded Confirmed Type aspirin 81 mg PO QAM 05/13/18 11/27/19 History carvedilol 3.125 mg PO BID 05/13/18 11/27/19 History insulin NPH and regular human 20 unit SUBCUT BID 05/13/18 11/27/19 History [Novolin 70/30 U-100 Insulin] lisinopril 2.5 mg PO QAM 05/13/18 11/27/19 History multivitamin [One-A-Day Essential] 1 tab PO QAM 05/13/18 11/27/19 History prednisone 7.5 mg PO QAM 05/13/18 11/27/19 History acetaminophen [Tylenol Extra 500 mg PO TID 11/19/19 11/27/19 History Strength] ciprofloxacin HCl 250 mg tablet 250 mg PO BID 14 Days #28 tab 11/22/19 11/27/19 Rx atorvastatin 20 mg PO HS 11/27/19 11/27/19 History calcium carbonate [Calcium 500] 1,000 mg PO DAILY 11/27/19 11/27/19 History cholecalciferol (vitamin D3) 1,250 mcg PO WK 11/27/19 11/27/19 History folic acid 1 mg PO DAILY 11/27/19 11/27/19 History methotrexate sodium [Methotrexate 15 mg PO FR 11/27/19 11/27/19 History (Anti-Rheumatic)] valacyclovir [Valtrex] 500 mg PO DAILY 11/27/19 11/27/19 History Patient History Medical History CAD (coronary artery disease) Cardiac murmur A CHILD Diabetes mellitus, type 2 IDDM History of anesthesia reaction SLOW TO WAKE History of rheumatic fever as a child Hyperlipidemia Rheumatoid arthritis Surgical History History of cardiac cath 08/2017 - [facility] - SOB --> CABG - FOLLOWS W/ DR. PRESTON History of colonoscopy History of coronary artery bypass graft 08/2017 - [facility] - 3 VESSELS - FOLLOWS W/ DR. PRESTON History of total knee replacement BL History of wisdom tooth extraction Hx of tonsillectomy Family History Brother Family hx of colon cancer Father Family history of diabetes mellitus Mother Family history of diabetes mellitus Aunt Family history of diabetes mellitus Grandmother (Maternal) Family history of diabetes mellitus Social History Smoking Status: Former smoker Second Hand Exposure: No; Hx Alcohol Use: No Hx Substance Use: No Preferred Language: Serbian Communication Ability: Effective Vending Mechanic Required: No Beliefs That Will Affect Care: None marital status: Current Living Situation: Spouse Current Living Situation Comment: Lives with spouse who has cancer Feels Safe at Home: Yes Assistive Devices: Glasses and Walker Review of Systems Review of Systems: All systems reviewed & are unremarkable except as noted in HPI & below Physical Exam Physical Exam: Right lower extremity: The dressings were removed to reveal a well granulated more proximal wound over the anterior compartment. More distally, there is an estimated 7 x 10 cm full-thickness skin loss exposing the tendinous portion of the tibialis anterior at the level of the ankle joint. There is no fely purulence or other evidence of infection. The wound margins appear to be ulcerated. She has full active range of motion of her digits and ankle. There is no palpable dorsalis pedis pulse however there was a 1+ posterior tibial pulse on palpation. Sensation was grossly intact to light touch in all distributions in the foot. Results & Data ([facility]) Vital Signs (Past 12 Hours) Vital Signs Temp Pulse Pulse Pulse Resp BP BP 11/27/19 18:40 36.5 C 91 H 19 132/79 11/27/19 18:00 80 19 138/63 11/27/19 15:29 80 19 106/58 L 11/27/19 13:54 36.7 C 108 H 19 120/63 Pulse Ox 11/27/19 18:40 98 11/27/19 18:00 100 11/27/19 15:29 96 11/27/19 13:54 91 PG Care Time/CCT Total # of Minutes Spent Total Time Spent with Patient: Total time spent is greater than 50% in coordination of care (as documented) at patient's floor/unit and/or counseling patient: Coding Level of Care Code 00950 Inpt Consult Level 3 Diagnoses Unstageable pressure ulcer of ankle L89.500 Traumatic open wound of right lower leg with delayed healing S81.801D
[2019-11-27] MEDS ORDERED: PIPERACILLIN/TAZOBACTAM 3.375 GM in DEXTROSE 5% 100 ML IV ONE (19:45)
[2019-11-27] MEDS: INSULIN ASPART 100 UNITS/ML 3 ML PEN SC SCH ×2 (20:26→21:00)
[2019-11-27] MEDS: ATORVASTATIN 20 MG TAB PO SCH (20:30)
[2019-11-27] MEDS: ACETAMINOPHEN 500 MG TAB PO SCH (20:31)
[2019-11-27] MEDS: carvediloL 3.125 MG TAB PO SCH (20:31)
[2019-11-27] MEDS ORDERED: INSULIN HUMAN NPH SC SCH (21:00)
[2019-11-27] MEDS ORDERED: INSULIN GLARGINE SOLOSTAR 100 UNITS/ML 3 ML PEN SC ONE (21:00)
--- NOTE | 2019-11-27 21:00 | Pharmacy Report ---
Pharmacy Abx Dose Short Note - Date of Service November 27, 2019 - Assessment & Plan Assessment 59 year old F receiving IV Vancomycin and Zosyn for treatment of R ankle ulcer Day # 1 of antimicrobial therapy. * No renal impairment noted. sCr = 1.09 mg/dL with estimated CrCl ~51 mL/min * Vancomycin 1500mg (~22 mg/kg) IV x 1 as a loading dose in the ED Patient meets criteria for vancomycin AUC dosing nomogram AUC/JUSTIN is the preferred PK/PD target for vancomycin Target AUC/JUSTIN = 400-600 AUC guided dosing is effective and associated with decreased risk of nephrotoxicity Plan Vancomycin * Initiate Vancomycin 750mg IV q12 per Vancomycin AUC protocol for CrCl 45-54 and weight 65-74 kg * Goal trough level for cellulitis: ~15 mcg/mL * Trough or random level ordered for: 11/29/19 @ 1330 Zosyn * Give Zosyn 3.375g IV x 1, then initiate Zosyn 3.375g IV q8 (extended infusion over 4 hours) for CrCl >20 mL/min Pharmacy will continue to follow and will adjust dose/frequency as necessary. Thank you.
[2019-11-27] MEDS: ENOXAPARIN INJ 40 MG/0.4 ML SYR SQ SCH (22:01)
[2019-11-28] MEDS ORDERED: INSULIN ASPART 100 UNITS/ML 3 ML PEN SC ONE (02:00)
[2019-11-28] MEDS: PIPERACILLIN/TAZOBACTAM 3.375 GM in DEXTROSE 5% 100 ML IV SCH ×3 (02:19→18:36)
[2019-11-28] MEDS: VANCOMYCIN HCL 750 MG in SODIUM CHLORIDE 0.9% 250 ML IV SCH ×2 (02:19→14:46)
[2019-11-28 07:20] LABS: Hematocrit (blood only) 35.5 % (37-47); Hemoglobin 10.8 g/dL (12.0-16.0); Mean Corpuscular Hemoglobin 29.1 pg (25-34); Mean Corpuscular Hgb Conc 30.4 g/dL (32-36); Mean Corpuscular Volume 95.7 fL (80-100); Mean Platelet Volume 9.2 fL (7.4-10.4); Platelet Count 262 K/uL (130-400); RDW Coefficient of Variation 19.4 % (11.5-14.5); RDW Standard Deviation 67.4 fL (36.4-46.3); Red Blood Count 3.71 M/uL (4.2-5.4); White Blood Count 9.18 K/uL (4.8-10.8)
[2019-11-28] MEDS: CALCIUM CARBONATE 1250MG TAB PO SCH (07:47)
[2019-11-28] MEDS: valACYclovir HCL 500 MG TABLET PO SCH (07:47)
[2019-11-28] MEDS: ACETAMINOPHEN 500 MG TAB PO SCH ×3 (07:47→20:36)
[2019-11-28] MEDS: MULTIVITAMIN TAB PO SCH (07:47)
[2019-11-28] MEDS: FOLIC ACID 1 MG TAB PO SCH (07:48)
[2019-11-28] MEDS: carvediloL 3.125 MG TAB PO SCH ×2 (07:48→20:35)
[2019-11-28] MEDS: ASPIRIN 81 MG ECTAB PO SCH (07:48)
[2019-11-28 07:53] LABS: Anisocytosis Present; Basophils # (auto) 0.02 K/uL (0-0.2); Basophils % (auto) 0.2 %; Eosinophils # (auto) 0.12 K/uL (0-0.5); Eosinophils % (auto) 1.3 %; Immature Granulocytes # (auto) 0.47 K/uL (0.00-0.02); Immature Granulocytes % (auto) 5.1 %; Lymphocytes # (auto) 1.46 K/uL (1.2-3.4); Lymphocytes % (auto) 15.9 %; Monocytes # (auto) 0.95 K/uL (0.11-0.59); Monocytes % (auto) 10.3 %; Neutrophils # (auto) 6.16 K/uL (1.4-6.5); Neutrophils % (auto) 67.2 %
[2019-11-28 08:10] LABS: Albumin Globulin Ratio 0.6 (0.9-2); Albumin Level 2.3 gm/dl (3.4-5.0); Bilirubin,Total 0.4 mg/dl (0.2-1); Calcium 9.1 mg/dl (8.5-10.1); Creatinine Clr Calc Pharmacy 44.4 ml/min; Est GFR (African American) 53.6; Est GFR (Non-African American) 46.3; Globulin 4.1 gm/dl (2.5-4.0); Magnesium 2.1 mg/dl (1.8-2.4); Potassium 3.4 mmol/L (3.5-5.1); Total Protein 6.4 gm/dl (6.4-8.2)
[2019-11-28] MEDS: INSULIN ASPART 100 UNITS/ML 3 ML PEN SC SCH ×5 (08:24→23:59)
[2019-11-28 08:43] LABS: Estimated Average Glucose 237 mg/dl; Hemoglobin A1C 9.9 % (4.5-5.6)
[2019-11-28] MEDS ORDERED: predniSONE 5 MG TAB PO SCH (09:00)
[2019-11-28] MEDS ORDERED: lisinopril 2.5 MG TAB PO SCH (09:00)
[2019-11-28] MEDS ORDERED: INSULIN GLARGINE SOLOSTAR 100 UNITS/ML 3 ML PEN SC ONE (09:00)
[2019-11-28] MEDS: SODIUM CHLORIDE 0.9% 1000ML 1,000 ML IV SCH ×2 (10:58→22:39)
--- NOTE | 2019-11-28 11:00 | Pharmacy Report ---
Glycemic Control Consultation - Date of Service November 28, 2019 - Scope Scope: Glycemic Pharmacist consulted for glycemic control and to write orders per [facility] inpatient glycemic control protocol. - Objective Weight: 68.2 kg [place]ks BSG (last 24hrs): 11/27/19 11/27/19 11/27/19 14:29 18:19 21:54 Glucose 136 H POC Glucose 135 H 192 H 11/28/19 11/28/19 11/28/19 02:10 07:06 07:47 Glucose 116 H POC Glucose 112 H 135 H Laboratory Data (last 24hrs): 11/27/19 11/28/19 14:29 07:06 Potassium 3.9 3.4 L Carbon Dioxide 27 23 Anion Gap 4.0 9.0 Creatinine 1.09 1.26 H Est Cr Clr Drug Dosing 51.4 44.4 HbA1c: Hemoglobin A1c 9.9 % (4.5-5.6) H 11/28/19 07:06 - Recent Pertinent Medications Outpatient Anti-diabetic Regimen: * Novolin 70/30 - 20 units SC BIDM * A1c = 9.9% (11/28/2019) Risk Factors for Insulin Resistance: * Steroids: * Prednisone 7.5 mg PO qAM * Infection: * Vancomycin + Zosyn for possible SST infection * Diets: * T2DM - Assessment & Plan Assessment & Plan: ASSESSMENT: * 59 yo F admitted secondary to worsening right lower extremity wound with tendon exposure. Pharmacy is consulted for inpatient glycemic management. Patient's most recent HbA1c is 9.9% which is uncontrolled. She is on chronic Prednisone at home secondary to PMHx of RA. * Upon admission, patient's BSG was well controlled at 135 mg/dL. She took her 20 units of 70/30 yesterday morning and was transitioned to Lantus last evening. She received 15 units of Lantus. Given that Lantus pen was already charged to patient, will continue with BID Lantus until pen is gone. * Fasting BSG today was 135 mg/dL - controlled * Novolog CF/CR to be adjusted as necessary PLAN FOR INPATIENT GLYCEMIC CONTROL: * Basal insulin * Lantus 10 units SQ BID * Bolus insulin * NovoLog per scale ACHS or Q6hrs while NPO * Goal Range: Low 110 mg/dL - High 140 mg/dL * Correction Factor: 20 mg/dL/unit * Nutritional / Prandial insulin per carb ratio of 1 unit per 7 grams CHO consumed * Please note that the plan above was derived based on current level of insulin resistance and hospital stress. These recommendations are appropriate for in patient admission only. Plan of care upon discharge will need to be reassessed to avoid potential outpatient hypo/hyperglycemia. Thank you.
[2019-11-28] MEDS ORDERED: GADOBUTROL 65ML VIAL IV ONE (14:13)
--- NOTE | 2019-11-28 15:00 | Magnetic Resonance Report ---
MR ankle RT wo/w con HISTORY: 59 years-old Female rt ankle non healing wound patient presents with reported chronic nonhe aling wound of the heel. COMPARISON: Right ankle radiographs 11/27/2019 TECHNIQUE: Multiplanar multisequence MRI of the right ankle was obtained both with and without the us e of 6.5 mL Gadavist FINDINGS: Motion degraded exam. Technologist reports that the patient was unable to withstand the entirety of t he study. The exam was then terminated with nodule of the sequences obtained. Lateral tendons appear intact. Peroneal tendons are intact. The tibialis posterior, flexor hallucis l ongus and flexor digitorum longus appear intact. The syndesmotic ligaments appear intact. There is mo derate thickening with intermediate T2 and PD signal involving the tibialis anterior compatible with tendinosis. Additionally, there is congestion high-grade split tearing at the level of the distal tib ia and talus extending for a length of approximately 2 cm. Fluid surrounding the tendon is noted with mild peripheral enhancement. Lisfranc ligament is partially imaged and appears intact. Intact Achill es tendon. Unremarkable plantar fascia. Spring ligament appears intact. There is diffuse atrophy of t he intrinsic musculature of the foot. Moderate diffuse subcutaneous edema. Moderate edema involves th e sinus Tarsi. Mild tibiotalar, subtalar and midfoot osteoarthritis. Arterial calcifications. No flui d collection to suggest abscess. No acute fracture, bone marrow edema or osseous erosion. No abnormal enhancement. IMPRESSION: 1. Motion degraded exam. The study was also prematurely terminated secondary to patient inability to complete the study. Not all of the sequences were obtained. 2. Tibialis anterior tendinosis with probable split tear. Additionally, there is tibialis anterior te nosynovitis with mild peripheral enhancement which is likely reactive. Infectious tenosynovitis is co nsidered less likely. 3. No evidence of osteomyelitis or abscess. 4. Moderate diffuse subcutaneous edema. Cellulitis, venous stasis or lymphedema are the differential considerations. ACT 112: Negative or not required by law. The above report was generated using voice recognition software. It may contain grammatical, syntax o r spelling errors. Electronically signed by: Solo Hutchins M.D. 11/28/2019 2:59 PM
--- NOTE | 2019-11-28 15:00 | Vascular Medicine ProgressNote ---
Date of Service November 28, 2019 Assessment & Plan (1) Ulcer of right ankle: 2. Cellulitis 3. Suspected peripheral arterial disease 4. Insulin-dependent type 2 diabetes 5. Rheumatoid arthritis on chronic steroids 6. Chronic kidney disease, stage III 7. Ischemic heart disease, post three-vessel CABG Remains on broad-spectrum antibiotics. MRI pending. Reviewed patient's arterial duplex. Right 0.87, left 1.03. PROTOTYPE ENGINEER to popliteal arteries widely patent. Has monophasic flow in right lower extremity tibials without clear evidence of high-grade stenosis. Recommend proceeding with right lower extremity angiogram to confirm adequate direct inline flow to large ulcer bed. Discussed procedure with patient and she is willing to proceed. Tentatively plan on procedure tomorrow morning, please keep n.p.o. Admission and Anticipated Discharge Date Admission Date: November 27, 2019 Subjective Feeling well today. No fevers or chills. No significant pain in right lower extremity. Review of Systems Review of Systems: All systems reviewed & are unremarkable except as noted in HPI & below Physical Exam Physical Exam: General: Comfortable, no acute distress Eyes: Sclerae anicteric, extraocular movements intact HENT: Oropharynx clear mucous membranes moist Lungs: Clear to auscultation bilaterally, no rhonchi or wheezes Cardiac: Regular rate and rhythm, 2 out of 6 holosystolic murmur at the apex Abdomen: Soft, nontender, nondistended, positive bowel sounds. Neuro: Nonfocal Psych: Alert orient x3, normal affect and mood Extremities/Vascular: --Diminished DP and PT pulses bilaterally. Sluggish capillary refill bilaterally --Right lower extremity dressing in place. No surrounding drainage, erythema. Wound clinic images reviewed Results & Data ([facility]) Vital Signs (Past 12 Hours) Vital Signs Temp Pulse Resp BP Pulse Ox 11/28/19 11:36 98.2 F 91 H 18 101/55 L 92 11/28/19 07:27 97.9 F 92 H 18 116/69 97 11/28/19 03:10 97.7 F 81 16 110/64 97 PG Care Time/CCT Total # of Minutes Spent Total Time Spent with Patient: Total time spent is greater than 50% in coordination of care (as documented) at patient's floor/unit and/or counseling patient: Coding Level of Care Code 04349 Subseq Hosp Care Lvl 3 Diagnoses Ulcer of right ankle L97.319
--- NOTE | 2019-11-28 17:05 | Hospitalist Progress Note ---
Date of Service November 28, 2019 Assessment & Plan (1) Ulcer of right ankle: (2) Traumatic open wound of right lower leg with delayed healing: This is a 59-year-old female with significant past medical history of insulin- dependent T2DM, CAD with history of CABG x3, HLD, CKD stage III, history of PAF, bilateral carotid artery stenosis, rheumatoid arthritis on immunosuppressants with methotrexate and prednisone, anemia, monoclonal paraproteinemia who presents to ED secondary to worsening wound to right lower extremity with tendon exposure x3 days. Pt with 2 wounds, Proximal tibial wound stage 2 - appears to be healing well - grew E. Coli and has been on Cipro as outpt Distal wound Stage 4 traumatic wound to R ankle with extensor tendon exposed Patient been followed up with wound care clinic with Dr. Rodriguez Had a small opening wound on right lower leg, which extended to a almost 3 cm open wounds with destruction of overlying skin and muscle, exposure of tendons No evidence of sepsis . Input from wound care doctor Lower extremity Doppler ultrasound shows no evidence of arterial stenosis, vascular surgery consulted, appreciate input, Plan for arterial angiogram in a.m. continue broad spectrum antibiotics with vancomycin and zosyn Ortho evaluation appreciated, no evidence of abscess, that needs to be drained MRI of right foot, no subcutaneous drainage or abscess collection noted, evidence of extensor tendinitis Given the presentation and rapid progression of skin ulcer, consideration for autoimmune skin disease: Patient has underlying rheumatoid arthritis already, versus pyoderma gangrenosum? Rheumatology consulted, plan of care discussed with on-call rheumatology Dr. Dill-patient follows with [facility] rheumatology in clinic Will be evaluated by rheumatology during this hospital stay Dermatology consulted (3) Diabetes mellitus, type 2: NPH every 12 with parameters Consult glycemic pharmacy, appreciate their input (4) CAD (coronary artery disease): hx of 3V CABG 08/2017 (NOWAK to LAD, SVG to D1, SVG to OM1), ischemic cardiomyopathy EF 40 to 45% 11/2017 continue ASA, lisinopril, coreg, statin also hx of asymptomatic carotid artery disease - follows Vascular at [place] V[facility] surgery Dr. Nam Rosado consulted, appreciate input Scheduled for arterial angiogram lower extremity tomorrow (5) Hyperlipidemia: continue statin (6) Rheumatoid arthritis: On prednisone 7.5 mg daily along with methotrexate 15 mg every Wednesday Hold methotrexate currently due to concern for infection Continue folic acid Rheumatology up-to-date, patient will be evaluated by rheumatology clinic for nonhealing skin ulcer (7) Anemia: H&H stable, likely in setting of chronic disease H&H 11.3 and 34.9 (8) DVT prophylaxis: SQ Lovenox Admission and Anticipated Discharge Date Admission Date: November 27, 2019 Subjective Seen and examined at bedside, Wound care attending Dr. Rodriguez is present as well, Right lower extremity open wound noted, with exposure of extensor tendon Patient reports minimum pain and discomfort that area, No fever or chills, Review of Systems Review of Systems: All systems reviewed & are unremarkable except as noted in HPI & below Musculoskeletal: Nonhealing open wound on right lower extremity Physical Exam Constitutional: WD/WN, vitals as above Eyes: PERRL, conjunctivae normal, anicteric sclerae ENMT: external ear and nose normal, oropharynx normal Neck: trachea midline, no thyromegaly Respiratory: normal respiratory effort, lungs clear to auscultation Cardiovascular: RRR, no murmur, no edema Gastrointestinal (Abdomen): normal bowel sounds, soft, nontender, no hepatosplenomegaly Musculoskeletal: Right lower extremity, nonhealing open wounds, with exposure of bit sharpener tendons, area of the wound noted to have purulent drainage A surrounding area of erythema noted Skin: + ulcer (Open wound on lower third of right leg) Nonhealing open wound on right lower extremity Neurologic: PERRL, EOMI, accommodation nl, no face palsy, no dysarthria Psychiatric: A+Ox3, euthymic affect Results & Data Results & Data ([facility]) Vital Signs (Past 12 Hours) Vital Signs Temp Pulse Resp BP Pulse Ox 11/28/19 15:05 36.6 C 112 H 17 94/59 L 97 11/28/19 11:36 36.8 C 91 H 18 101/55 L 92 11/28/19 07:27 36.6 C 92 H 18 116/69 97
--- NOTE | 2019-11-28 17:15 | Dermatology Progress Note ---
Date of Service November 28, 2019 Assessment & Plan Admission and Anticipated Discharge Date Admission Date: November 27, 2019 Subjective Stopped by patient's room to complete consult at 16:55. Patient/nursing were preparing for a scheduled infectious disease telemedicine consult with Satya at 1700. I will stop back (likely tomorrow at noon hour) to complete consult. Results & Data ([facility]) Vital Signs (Past 12 Hours) Vital Signs Temp Pulse Resp BP Pulse Ox 11/28/19 15:05 36.6 C 112 H 17 94/59 L 97 11/28/19 11:36 36.8 C 91 H 18 101/55 L 92 11/28/19 07:27 36.6 C 92 H 18 116/69 97 Coding Level of Care Code None
--- NOTE | 2019-11-28 17:20 | Communication Note ---
Date of Service: November 28, 2019 Contacted by [facility] infectious disease : Dr. Anselmo Pennington MRI of lower extremity shows a tenosynovitis, Gorge recommends to continue with broad-spectrum antibiotic with IV Zosyn and vancomycin Follow the wound culture report may need 4-6 weeks of IV antibiotics for tenosynovitis, will wait for the culture report come back Whitney Gage MD
--- NOTE | 2019-11-28 18:14 | Communication Note ---
Date of Service: November 28, 2019 pt noted to be borderline hypotensive BP 94/59 no symptoms of dizzy spell or lightheadedness on chronic prednisone therapy will D/c PO prednisone IV hydrocortisone stress dose 100 mg TID Acute renal failure on CKD stage 3: cr 1.2 hold lisinopril ordered for IV fluid 100 ml/hr scheduled for angiogram of rt lower ext tomorrow by Dr Pappas follow BMP no monitor renal function post contrast exposure Pt's sister Jenn present at bedside -updated , all questions answered Whitney Gage MD
--- NOTE | 2019-11-28 19:44 | Wound Consultation ---
Date of Consultation November 28, 2019 Assessment & Plan (1) Ulcer of right ankle: 59 year old female with rapidly deteriorating right ankle wound with exposed tendon. Patient was seen at bedside with Dr. Gage. Sed rate and CRP noted to be elevated even with patient on prednisone and methotrexate. No debridement was done. Wound will be dressed with adptic touch and aquacel ag. Will apply kaltistat until after MRI. Recommend mri, and rheumatology consult. Continue broad antibiotics. Will continue to follow while patient is in hospital. Thank you for the consult. Please call with any questions. (2) Traumatic open wound of right lower leg with delayed healing: Wound is clinically improving. Will hold wound vac. wound will be dressed with adaptic touch and aquacel ag. Will apply kaltistat until after MRI. History of Present Illness Reason for Consultation: Right leg wounds Attending Physician: Whitney Gage MD History of Present Illness This is a 59 year old female with a history of rheumatoid arthritis on prednisone and methotrexate, dyslipidemia, type 2 diabetes, traumatic wound of right leg and atypical wound of right ankle. Patient was receiving treatment of traumatic wound in the wound clinic. On 11/16 patient reported the coban wrap was to tight and was causing discomfort. Wrap was held. 11/19 patient returned for vac change. Leg noted to be red. Wound culture was obtained and wound vac was placed. Patient came in on 11/21 complaining of increased discomfort. It was noted there was an area on the anterior aspect of ankle that was draining. Wound vac held 1 day. Antibiotics changed to cipro. 11/22 wounds covered with adaptic and aquacel ag. Repeat culture was negative. Patient continued cipro. 11/23 distal wound worse. More exposed tendon. Wound dressed with adaptic touch, silvercel and coban lite. Patient returned on 11/26 for nurse visit. Wound is significantly worse. Patient referred to ED for evaluation. Atypical presentation of deep tissue injury needed further workup for infectious or autoimmune cause. e wounf Allergies Allergy/AdvReac Type Severity Reaction Status Date / Time Sulfa (Sulfonamide Allergy Rash Verified 11/27/19 13:24 Antibiotics) Home Medications Home Medications Medication Instructions Recorded Confirmed Type aspirin 81 mg PO QAM 05/13/18 11/27/19 History carvedilol 3.125 mg PO BID 05/13/18 11/27/19 History insulin NPH and regular human 20 unit SUBCUT BID 05/13/18 11/27/19 History [Novolin 70/30 U-100 Insulin] lisinopril 2.5 mg PO QAM 05/13/18 11/27/19 History multivitamin [One-A-Day Essential] 1 tab PO QAM 05/13/18 11/27/19 History prednisone 7.5 mg PO QAM 05/13/18 11/27/19 History acetaminophen [Tylenol Extra 500 mg PO TID 11/19/19 11/27/19 History Strength] ciprofloxacin HCl 250 mg tablet 250 mg PO BID 14 Days #28 tab 11/22/19 11/27/19 Rx atorvastatin 20 mg PO HS 11/27/19 11/27/19 History calcium carbonate [Calcium 500] 1,000 mg PO DAILY 11/27/19 11/27/19 History cholecalciferol (vitamin D3) 1,250 mcg PO WK 11/27/19 11/27/19 History folic acid 1 mg PO DAILY 11/27/19 11/27/19 History methotrexate sodium [Methotrexate 15 mg PO FR 11/27/19 11/27/19 History (Anti-Rheumatic)] valacyclovir [Valtrex] 500 mg PO DAILY 11/27/19 11/27/19 History Patient History Medical History CAD (coronary artery disease) Cardiac murmur A CHILD Diabetes mellitus, type 2 IDDM History of anesthesia reaction SLOW TO WAKE History of rheumatic fever as a child Hyperlipidemia Rheumatoid arthritis Surgical History History of cardiac cath 08/2017 - [facility] - SOB --> CABG - FOLLOWS W/ DR. PRESTON History of colonoscopy History of coronary artery bypass graft 08/2017 - [facility] - 3 VESSELS - FOLLOWS W/ DR. PRESTON History of total knee replacement BL History of wisdom tooth extraction Hx of tonsillectomy Family History Brother Family hx of colon cancer Father Family history of diabetes mellitus Mother Family history of diabetes mellitus Aunt Family history of diabetes mellitus Grandmother (Maternal) Family history of diabetes mellitus Social History Smoking Status: Former smoker Second Hand Exposure: No; Hx Alcohol Use: No Hx Substance Use: No Preferred Language: Israeli Communication Ability: Effective Poultry Hanger Required: No Beliefs That Will Affect Care: None marital status: Current Living Situation: Spouse Current Living Situation Comment: Lives with spouse who has cancer Feels Safe at Home: Yes Assistive Devices: Walker Review of Systems Review of Systems: All systems reviewed & are unremarkable except as noted in HPI & below Physical Exam Physical Exam: Temp Pulse Resp BP Pulse Ox 36.9 C 91 H 16 98/54 L 97 11/28/19 19:32 11/28/19 19:32 11/28/19 19:32 11/28/19 19:32 11/28/19 19:32 Constitutional: WD/WN, vitals as above Eyes: PERRL, conjunctivae normal, anicteric sclerae Skin: Wounds measuring as recorded in documentation. Distal wound with large area of exposed extensor tendon. Wound borders appear rolled. Proximal wound bed is clean and healthy appearing. Neurologic: awake; not confused Results & Data ([place]) Vital Signs (Past 12 Hours) Vital Signs Temp Pulse Resp BP Pulse Ox 11/28/19 19:32 36.9 C 91 H 16 98/54 L 97 11/28/19 15:05 36.6 C 112 H 17 94/59 L 97 11/28/19 11:36 36.8 C 91 H 18 101/55 L 92 Laboratory Results 11/28/19 11/28/19 11/28/19 Range/Units 16:39 11:51 07:47 WBC (4.8-10.8) K/uL RBC (4.2-5.4) M/uL Hgb (12.0-16.0) g/dL Hct (37-47) % MCV (80-100) fL MCH (25-34) pg MCHC (32-36) g/dL RDW Std Deviation (36.4-46.3) fL RDW Coeff of [place] (11.5-14.5) % Plt Count (130-400) K/uL MPV (7.4-10.4) fL Immature Gran % (Auto) % Neut % (Auto) % Lymph % (Auto) % [place] % (Auto) % Eos % (Auto) % Baso % (Auto) % Neut # (Auto) (1.4-6.5) K/uL Lymph # (Auto) (1.2-3.4) K/uL [place] # (Auto) (0.11-0.59) K/uL Eos # (Auto) (0-0.5) K/uL Baso # (Auto) (0-0.2) K/uL Immature Gran # (Auto) (0.00-0.02) K/uL Anisocytosis Sodium (136-145) mmol/L Potassium (3.5-5.1) mmol/L Chloride (98-107) mmol/L Carbon Dioxide (21-32) mmol/L Anion Gap (3-11) BUN (7-18) mg/dl Creatinine (0.6-1.2) mg/dl Est Cr Clr Drug Dosing ml/min Est GFR ( Amer) Est GFR (Non-Af Amer) BUN/Creatinine Ratio (-20) Glucose (70-99) mg/dl POC Glucose 240 H 283 H 135 H (70-99) mg/dl Estimat Average Glucose mg/dl Hemoglobin A1c (4.5-5.6) % Calcium (8.5-10.1) mg/dl Magnesium (1.8-2.4) mg/dl Total Bilirubin (0.2-1) mg/dl AST (15-37) U/L ALT (12-78) U/L Alkaline Phosphatase (45-117) U/L Total Protein (6.4-8.2) gm/dl Albumin (3.4-5.0) gm/dl Globulin (2.5-4.0) gm/dl Albumin/Globulin Ratio (0.9-2) 11/28/19 11/28/19 11/28/19 Range/Units 07:06 07:06 07:06 WBC 9.18 (4.8-10.8) K/uL RBC 3.71 L (4.2-5.4) M/uL Hgb 10.8 L (12.0-16.0) g/dL Hct 35.5 L (37-47) % MCV 95.7 (80-100) fL MCH 29.1 (25-34) pg MCHC 30.4 L (32-36) g/dL RDW Std Deviation 67.4 H (36.4-46.3) fL RDW Coeff of [place] 19.4 H (11.5-14.5) % Plt Count 262 (130-400) K/uL MPV 9.2 (7.4-10.4) fL Immature Gran % (Auto) 5.1 % Neut % (Auto) 67.2 % Lymph % (Auto) 15.9 % [place] % (Auto) 10.3 % Eos % (Auto) 1.3 % Baso % (Auto) 0.2 % Neut # (Auto) 6.16 (1.4-6.5) K/uL Lymph # (Auto) 1.46 (1.2-3.4) K/uL [place] # (Auto) 0.95 H (0.11-0.59) K/uL Eos # (Auto) 0.12 (0-0.5) K/uL Baso # (Auto) 0.02 (0-0.2) K/uL Immature Gran # (Auto) 0.47 H (0.00-0.02) K/uL Anisocytosis Present Sodium 143 (136-145) mmol/L Potassium 3.4 L (3.5-5.1) mmol/L Chloride 111 H (98-107) mmol/L Carbon Dioxide 23 (21-32) mmol/L Anion Gap 9.0 (3-11) BUN 20 H (7-18) mg/dl Creatinine 1.26 H (0.6-1.2) mg/dl Est Cr Clr Drug Dosing 44.4 ml/min Est GFR ( Amer) 53.6 Est GFR (Non-Af Amer) 46.3 BUN/Creatinine Ratio 16.0 (10-20) Glucose 116 H (70-99) mg/dl POC Glucose (70-99) mg/dl Estimat Average Glucose 237 mg/dl Hemoglobin A1c 9.9 H (4.5-5.6) % Calcium 9.1 (8.5-10.1) mg/dl Magnesium 2.1 (1.8-2.4) mg/dl Total Bilirubin 0.4 (0.2-1) mg/dl AST 18 (15-37) U/L ALT 14 (12-78) U/L Alkaline Phosphatase 62 (45-117) U/L Total Protein 6.4 (6.4-8.2) gm/dl Albumin 2.3 L (3.4-5.0) gm/dl Globulin 4.1 H (2.5-4.0) gm/dl Albumin/Globulin Ratio 0.6 L (0.9-2) 11/28/19 11/27/19 Range/Units 02:10 21:54 WBC (4.8-10.8) K/uL RBC (4.2-5.4) M/uL Hgb (12.0-16.0) g/dL Hct (37-47) % MCV (80-100) fL MCH (25-34) pg MCHC (32-36) g/dL RDW Std Deviation (36.4-46.3) fL RDW Coeff of [place] (11.5-14.5) % Plt Count (130-400) K/uL MPV (7.4-10.4) fL Immature Gran % (Auto) % Neut % (Auto) % Lymph % (Auto) % [place] % (Auto) % Eos % (Auto) % Baso % (Auto) % Neut # (Auto) (1.4-6.5) K/uL Lymph # (Auto) (1.2-3.4) K/uL [place] # (Auto) (0.11-0.59) K/uL Eos # (Auto) (0-0.5) K/uL Baso # (Auto) (0-0.2) K/uL Immature Gran # (Auto) (0.00-0.02) K/uL Anisocytosis Sodium (136-145) mmol/L Potassium (3.5-5.1) mmol/L Chloride (98-107) mmol/L Carbon Dioxide (21-32) mmol/L Anion Gap (3-11) BUN (7-18) mg/dl Creatinine (0.6-1.2) mg/dl Est Cr Clr Drug Dosing ml/min Est GFR ( Amer) Est GFR (Non-Af Amer) BUN/Creatinine Ratio (10-20) Glucose (70-99) mg/dl POC Glucose 112 H 192 H (70-99) mg/dl Estimat Average Glucose mg/dl Hemoglobin A1c (4.5-5.6) % Calcium (8.5-10.1) mg/dl Magnesium (1.8-2.4) mg/dl Total Bilirubin (0.2-1) mg/dl AST (15-37) U/L ALT (12-78) U/L Alkaline Phosphatase (45-117) U/L Total Protein (6.4-8.2) gm/dl Albumin (3.4-5.0) gm/dl Globulin (2.5-4.0) gm/dl Albumin/Globulin Ratio (0.9-2) Diagnostic Findings Arterial Duplex IMPRESSION: 1. Atherosclerotic vascular disease with monophasic waveforms within the calf arteries. 2. No arterial occlusion or significantly elevated peak systolic velocities to suggest high-grade stenosis. ankle xray IMPRESSION: No acute fracture or dislocation. PG Care Time/CCT Total # of Minutes Spent Total Time Spent with Patient: Total time spent is greater than 50% in coordination of care (as documented) at patient's floor/unit and/or counseling patient: Coding Level of Care Code 40299 Inpt Consult Level 3 Diagnoses Ulcer of right ankle L97.319 Traumatic open wound of right lower leg with delayed healing S81.801D
[2019-11-28] MEDS: HYDROCORTISONE SOD 100 MG in SYRINGE 0 ML IV SCH ×2 (20:35→20:48)
[2019-11-28] MEDS: ENOXAPARIN INJ 40 MG/0.4 ML SYR SQ SCH (20:36)
[2019-11-28] MEDS: ATORVASTATIN 20 MG TAB PO SCH (20:52)
[2019-11-28] MEDS ORDERED: INSULIN GLARGINE SOLOSTAR 100 UNITS/ML 3 ML PEN SC SCH (21:00)
[2019-11-29] MEDS: PIPERACILLIN/TAZOBACTAM 3.375 GM in DEXTROSE 5% 100 ML IV SCH ×3 (02:11→18:03)
[2019-11-29] MEDS: VANCOMYCIN HCL 750 MG in SODIUM CHLORIDE 0.9% 250 ML IV SCH ×3 (02:11→16:48)
[2019-11-29] MEDS: INSULIN ASPART 100 UNITS/ML 3 ML PEN SC SCH ×5 (04:53→22:58)
--- NOTE | 2019-11-29 07:07 | Rheumatology Consultation ---
Rheumatology Consultation DOS November 29, 2019 Assessment & Plan (1) Ulcer of right ankle: Given extend of the rapid development of her 2nd stage IV ulcer in the setting of RA, I am concerned about pyoderma gangrenosum vs neutrophilic dermatosis --Recommend biopsy of the ulcer to rule out an inflammatory/autoimmune skin involvement on top of the infection she has. If this cannot be done during this admission, would recommend outpatient follow-up with dermatology for biopsy --I will discuss with [facility] dermatology Present on Admission?: Yes (2) Rheumatoid arthritis: Her RA is stable with no active joint inflammation --hold methotrexate while on antibiotics --agree with IV steroids --if biopsy shows PG or ND, she will need more aggressive immunosuppression in addition to treatment of the cellulitis Present on Admission?: Yes (3) Diabetes mellitus, type 2: (4) Laceration of left index finger: Damage to nail status: without damage Encounter type: initial encounter Foreign body presence: without foreign body Qualified Code(s): S61.211A - Laceration without foreign body of left index finger without damage to nail, initial encounter History of Present Illness Attending Physician: Whitney Gage MD 59 year old woman with insulin dependent type 2 diabetes and rheumatoid arthritis for the past 32 years maintained on prednisone and methotrexate (past intolerance to leflunomide) who was in her usual state of health until july of this year when she reports that she tripped on a stoop at her father's home and injured her right lower leg. The wound was initially the size of a quarter. She tried to treat the wound but it would not heal so in September, she began to attend the wound center. The wound was debrided and dressing changes were applied. Wound cultures grew E.coli and she was treated with antibiotics. Subsequent cultures taken in October grew E.coli and a wound culture from 11/09/19 grew E.coli and Natalie. Towards the end of October, patient had a wound vac placed on the wound. She reports that last week in addition to the wound vac, she had a compression dressing applied to her right ankle which she felt was too tight. When the dressing was removed on 11/18/19 she took pictures of her right lower leg which she shared with me and it showed erythema along the lower part of her leg below the initial ulcer. There was no skin breakdown at the time. By Wednesday11/22/19 she noted a small area of skin breakdown along her anderson with small exposure of her tendon. On 11/24/19 she reported that her leg was again wrapped in the compression dressing. On 11/27/19 when she went for follow-up and the dressing was removed there was significant amount of tendon exposed so she was referred to the ED for further evaluation and was admitted to the medicine service. She reports that she has not had any fevers, chills, trouble breathing, or a flare of her RA during this time. She had been having bilateral hip pain in September for which she had received fluoro-guided corticosteroid injections to both hips by interventional radiology. Last month, she was seen by [facility] Rheumatology for shoulder pain and received local steroid injections. Otherwise she was doing well and had continued her home prednisone of 10 mg daily and methotrexate. Allergies Allergy/AdvReac Type Severity Reaction Status Date / Time Sulfa (Sulfonamide Allergy Rash Verified 11/27/19 13:24 Antibiotics) Home Medications Home Medications Medication Instructions Recorded Confirmed Type aspirin 81 mg PO QAM 05/13/18 11/27/19 History carvedilol 3.125 mg PO BID 05/13/18 11/27/19 History insulin NPH and regular human 20 unit SUBCUT BID 05/13/18 11/27/19 History [Novolin 70/30 U-100 Insulin] lisinopril 2.5 mg PO QAM 05/13/18 11/27/19 History multivitamin [One-A-Day Essential] 1 tab PO QAM 05/13/18 11/27/19 History prednisone 7.5 mg PO QAM 05/13/18 11/27/19 History acetaminophen [Tylenol Extra 500 mg PO TID 11/19/19 11/27/19 History Strength] ciprofloxacin HCl 250 mg tablet 250 mg PO BID 14 Days #28 tab 11/22/19 11/27/19 Rx atorvastatin 20 mg PO HS 11/27/19 11/27/19 History calcium carbonate [Calcium 500] 1,000 mg PO DAILY 11/27/19 11/27/19 History cholecalciferol (vitamin D3) 1,250 mcg PO WK 11/27/19 11/27/19 History folic acid 1 mg PO DAILY 11/27/19 11/27/19 History methotrexate sodium [Methotrexate 15 mg PO FR 11/27/19 11/27/19 History (Anti-Rheumatic)] valacyclovir [Valtrex] 500 mg PO DAILY 11/27/19 11/27/19 History Patient History Medical History CAD (coronary artery disease) Cardiac murmur A CHILD Diabetes mellitus, type 2 IDDM History of anesthesia reaction SLOW TO WAKE History of rheumatic fever as a child Hyperlipidemia Rheumatoid arthritis Surgical History History of cardiac cath 08/2017 - [facility] - SOB --> CABG - FOLLOWS W/ DR. PRESTON History of colonoscopy History of coronary artery bypass graft 08/2017 - [facility] - 3 VESSELS - FOLLOWS W/ DR. PRESTON History of total knee replacement BL History of wisdom tooth extraction Hx of tonsillectomy Family History Brother Family hx of colon cancer Father Family history of diabetes mellitus Mother Family history of diabetes mellitus Aunt Family history of diabetes mellitus Grandmother (Maternal) Family history of diabetes mellitus Social History Smoking Status: Former smoker Second Hand Exposure: No; Hx Alcohol Use: No Hx Substance Use: No Preferred Language: Persian Communication Ability: Effective Founding Partner Required: No Beliefs That Will Affect Care: None marital status: Current Living Situation: Spouse Current Living Situation Comment: Lives with spouse who has cancer Feels Safe at Home: Yes Assistive Devices: Walker Review of Systems Review of Systems: All systems reviewed & are unremarkable except as noted in HPI & below Musculoskeletal: + stiffness; no muscle weakness Integumentary: + non-healing lesions and + skin ulcer Physical Exam Physical Exam: Gen: she is lying in bed in no acute distress ENT: no oral ulcers, scleral anicteric Resp: clear to auscultation CV: tachycardic without murmur, rubs, or gallps Abdomen: non tender MSK: degenerative changes in the hands, no joint swelling Skin: large ulcer along the lateral aspect of right lower leg; open wound along right lower anderson with exposed tendon; erythema along dorsum of right foot 2+ dorsal pedal pulses on right lower leg; stitches on left index finger Results & Data ([facility]) Vital Signs (Past 12 Hours) Vital Signs Temp Pulse Pulse Resp BP Pulse Ox 11/29/19 03:49 36.5 C 100 H 14 138/79 98 11/29/19 02:24 90 11/28/19 23:13 36.5 C 87 18 128/65 96 11/28/19 19:32 36.9 C 91 H 16 98/54 L 97 11/27/2019 MRI of right ankle with and without contrast IMPRESSION: 1. Motion degraded exam. The study was also prematurely terminated secondary to patient inability to complete the study. Not all of the sequences were obtained. 2. Tibialis anterior tendinosis with probable split tear. Additionally, there is tibialis anterior tenosynovitis with mild peripheral enhancement which is likely reactive. Infectious tenosynovitis is considered less likely. 3. No evidence of osteomyelitis or abscess. 4. Moderate diffuse subcutaneous edema. Cellulitis, venous stasis or lymphedema are the differential considerations.
[2019-11-29] MEDS: CALCIUM CARBONATE 1250MG TAB PO SCH (07:48)
[2019-11-29] MEDS: HYDROCORTISONE SOD 100 MG in SYRINGE 0 ML IV SCH ×2 (07:48→15:55)
[2019-11-29] MEDS: ACETAMINOPHEN 500 MG TAB PO SCH ×3 (07:48→22:47)
[2019-11-29] MEDS: valACYclovir HCL 500 MG TABLET PO SCH (07:48)
[2019-11-29 07:49] LABS: BUN Creatinine Ratio 18.5 (10-20); Calcium 8.3 mg/dl (8.5-10.1); Creatinine Clr Calc Pharmacy 46.7 ml/min; Est GFR (African American) 56.9; Est GFR (Non-African American) 49.1; Potassium 3.7 mmol/L (3.5-5.1)
[2019-11-29] MEDS: ASPIRIN 81 MG ECTAB PO SCH (07:49)
[2019-11-29] MEDS: carvediloL 3.125 MG TAB PO SCH ×2 (07:49→22:49)
[2019-11-29] MEDS: MULTIVITAMIN TAB PO SCH (07:49)
[2019-11-29] MEDS: FOLIC ACID 1 MG TAB PO SCH (07:49)
[2019-11-29] MEDS ORDERED: INSULIN GLARGINE SOLOSTAR 100 UNITS/ML 3 ML PEN SC SCH (09:00)
[2019-11-29] MEDS ORDERED: ERGOCALCIFEROL 50,000 UNITS CAP PO SCH (09:00)
[2019-11-29] MEDS ORDERED: MIDAZOLAM HCL 5 MG/ML 1 ML VIAL ONE (09:09)
[2019-11-29] MEDS ORDERED: fentaNYL citrate 100 MCG/2 ML VIAL ONE (09:09)
[2019-11-29] MEDS ORDERED: niCARdipine HCL INJ 2.5 MG/ML 10 ML AMP ONE (09:09)
[2019-11-29] MEDS ORDERED: HEPARIN (PORCINE) 1000 UNIT/ML 10 ML (CATH LAB USE ONLY) ONE (09:10)
[2019-11-29] MEDS ORDERED: NITROGLYCERIN/D5W 100MCG/ML 20ML SYR ONE (09:16)
--- NOTE | 2019-11-29 09:24 | Pre Anesthesia Assessment ---
Date of Service November 29, 2019 Pre Sedation Assessment Vital Signs Temp Pulse Pulse Resp BP BP Pulse Ox 11/29/19 08:55 85 17 102/53 L 98 11/29/19 07:48 97.9 F 94 H 17 136/80 94 11/29/19 03:49 97.7 F 100 H 14 138/79 98 11/29/19 02:24 90 11/28/19 23:13 97.7 F 87 18 128/65 96 11/28/19 19:32 98.4 F 91 H 16 98/54 L 97 11/28/19 15:05 97.9 F 112 H 17 94/59 L 97 11/28/19 11:36 98.2 F 91 H 18 101/55 L 92 Cardiovascular RRR, no murmur, no edema Respiratory normal respiratory effort, lungs clear to auscultation Pre-Sedation Airway Assessment Smoking Status: Former smoker Hx Sleep Apnea: No Hx Difficult Intubation: No Short, Thick Neck: No Thyromental Distance: > or= 3.5 Finger Breadths Oral Cavity: + WNL Mallampati Class: III ASA: ASA3 NPO Status Date of Last Intake of Fluids: 11/28/19 Time of Last Intake of Fluids: 21:00 Date of Last Intake of Solid Food: 11/28/19 Time of Last Intake of Solid Foods: 21:00 Procedure Planning Contraindications for Sedation: none Current Medications Reviewed: Yes Notes The planned sedation has been discussed with the patient. Informed Consent was obtained. I have identified the patient, determined the appropriateness of sedation and have assessed the patient immediately prior to the procedure. All medicine(s) and interventions are by my order.
--- NOTE | 2019-11-29 10:17 | Post Anesthesia Assessment ---
Date of Service November 29, 2019 Post Sedation Assessment Vital Signs Temp Pulse Pulse Resp BP BP Pulse Ox 11/29/19 10:06 79 16 104/56 L 99 11/29/19 08:55 85 17 102/53 L 98 11/29/19 07:48 97.9 F 94 H 17 136/80 94 11/29/19 03:49 97.7 F 100 H 14 138/79 98 11/29/19 02:24 90 11/28/19 23:13 97.7 F 87 18 128/65 96 11/28/19 19:32 98.4 F 91 H 16 98/54 L 97 11/28/19 15:05 97.9 F 112 H 17 94/59 L 97 11/28/19 11:36 98.2 F 91 H 18 101/55 L 92 Recovery Score Activity: Moves 4 extremities Respiration: Deep Breath/Cough Circulation: +/-20% PreAnes Value Consciousness: Fully Awake Oxygen Saturation: > 92% On Room Air Post Anesthesia Score: 10 Discharge Sedation Level of Care: Fast Track Phase II Post Sedation Plan On clinical assessment, the patient appears to have tolerated the sedation without complications. Patient is recovering as anticipated. Patient will continue to be monitored by nursing and may be discharged when sedation discharge criteria are met per below protocol. Upon Completions of procedure up to 15 minutes continue every 5 minute vital signs and the P.A.R. score; then discharge to a Phase I or Fast Track to Phase II per the following guidelines: * Discharge Patient to appropriate Phase II area if PAR is 8 or greater or return to pre- procedure baseline. The post - procedure orders will be as directed. * If PAR score is less than 8 or not return to pre-procedure baseline then patient will follow Phase I monitoring till PAR is reached for Phase II. The Phase I may be done in procedure room or may call to secure a Phase I area. * If naloxone or flumazenil are used for reversal, hold in Phase I for continued monitoring from when last reversal dose was given for a minimum of 60 minutes or longer pending the nurse and/or physician discretion of patient condition before discharge to Phase II. Please call the Sedation Physician to re-evaluate and complete post-note for discharge to Phase II area. Do NOT discharge from procedure sedation or Phase 1 until post- sedation evaluation note is complete by procedure /sedation MD Sedation Discharge Instructions to be given to the patient at discharge to home.
--- NOTE | 2019-11-29 10:20 | Endovascular Procedure Note ---
PG Endovascular Procedure Rpt Pre & Post Diagnosis Operation Date: 11/29/19 10:00 <No data on this case meets the specified criteria> I identified the patient and participated in the time-out.: Yes Procedure Operation Date: 11/29/19 10:00 Actual Procedures p Angio Extremity Unilateral - Renato Interiano MD Surgeon Nam Interiano MD Tank Builder Carlos Estimated Blood Loss 5 Findings See Below Aortacalcified, no aneurysmal or stenotic disease Right lower extremity Iliacs, PACKAGING DESIGN ENGINEER widely patent SFA with luminal irregularities, 30% proximal popliteal stenosis Anterior tibial artery widely patent to the foot and gives off DPA without significant disease TPT 30 to 40% stenosis. RIPRAP PLACING SUPERVISOR and peroneal widely patent the foot. RIPRAP PLACING SUPERVISOR gives off medial and lateral plantar arteries without significant disease Left lower extremity Iliacs, PACKAGING DESIGN ENGINEER widely patent SFA, popliteal with luminal irregularities VARGAS, peroneal, RIPRAP PLACING SUPERVISOR widely patent to the ankle Fluids 65 Anesthesia Type RN Sedation Radiation Exposure (mGv) Radiation (mGy): 82 Contrast Contrast: 55 Complications none Disposition Disposition: PCU Description of Procedure Left common femoral artery access obtained under ultrasound guidance using micropuncture needle Aortography, bilateral iliac angiography via RIM catheter Using rim, glide advantage wire 0.35 quick cross catheter placed to SFA distal angiography Mynx device used for left PACKAGING DESIGN ENGINEER closure Summary: 1. Right lower extremitywidely patent iliacs, SFA. 30% proximal popliteal, 30 to 40% TPT. Widely patent three-vessel runoff to the foot with direct inline flow to ulcer bed via disease-free anterior tibial artery. 2. Left lower extremitywidely patent iliacs, SFA, popliteal artery with three-vessel distal runoff. 3. Abdominal aortano significant aneurysmal or stenotic disease Recommendations: Lower extremity arterial supply adequate for wound healing. Continue current ASCVD risk factor modification. I attest to the content of the Intraoperative Record and any orders documented therein. Any exceptions are noted below. Vascular Charges Angiography/Venography Procedure 1: Angiography/Venography charges: [id number] Aortography, abd + b/l iliofem LE, catheter, radiological S&I Procedure 2: Angiography/Venography charges: [id number] Initial 3rd order or selective abd, pelvic, or LE branch Additional Services Procedure 1: Additional Services Charges: 53932 Ultrasound guidance - vascular access Procedure 2: Additional Services Charges: 63178 Moderate sedation initial 15 min
--- NOTE | 2019-11-29 10:45 | Vascular Medicine ProgressNote ---
Date of Service November 29, 2019 Assessment & Plan (1) Ulcer of right ankle: 2. Cellulitis 3. Suspected peripheral arterial disease 4. Insulin-dependent type 2 diabetes 5. Rheumatoid arthritis on chronic steroids 6. Chronic kidney disease, stage III 7. Ischemic heart disease, post three-vessel CABG Right lower extremity angiography revealed only mild peripheral arterial disease. Current ulceration is not secondary to large vessel disease and arterial blood supply should be adequate for wound healing. Ulcer unlikely to be venous in nature. Agree with additional work-up for uncommon causes of lower extremity ulcers. Continue ASCVD risk factor modification Admission and Anticipated Discharge Date Admission Date: November 27, 2019 Subjective Doing well this morning. No significant pain involving right lower extremity. Underwent uncomplicated bilateral lower extremity angiogram this morning. Review of Systems Review of Systems: All systems reviewed & are unremarkable except as noted in HPI & below Physical Exam Physical Exam: General: Comfortable, no acute distress HEENT: Sclerae anicteric, mucous membranes moist Lungs: Clear to auscultation bilaterally Cardiac: Regular rate and rhythm Abdomen: Soft, nontender Extremities: Warm, well perfused, right lower extremity dressed without surrounding erythema Neuro: Nonfocal Psych: Alert orient x3, normal affect and mood Results & Data ([facility]) Vital Signs (Past 12 Hours) Vital Signs Temp Pulse Pulse Resp BP BP Pulse Ox 11/29/19 10:35 74 16 119/56 L 99 11/29/19 10:20 78 16 110/56 L 98 11/29/19 10:06 79 16 104/56 L 99 11/29/19 08:55 85 17 102/53 L 98 11/29/19 07:48 97.9 F 94 H 17 136/80 94 11/29/19 03:49 97.7 F 100 H 14 138/79 98 11/29/19 02:24 90 11/28/19 23:13 97.7 F 87 18 128/65 96 PG Care Time/CCT Total # of Minutes Spent Total Time Spent with Patient: Total time spent is greater than 50% in coordination of care (as documented) at patient's floor/unit and/or counseling patient: Coding Level of Care Code 31301 Subseq Hosp Care Lvl 3 Diagnoses Ulcer of right ankle L97.319
--- NOTE | 2019-11-29 11:04 | Pharmacy Report ---
Pharmacy Glycemic Short Note 2 - Date of Service November 29, 2019 - Glycemic Short BSG Results (Last 24 hours): OUTPATIENT ANTIDIABETIC REGIMEN: * Novolin 70/30 - 20 units SC BID * HbA1c = 9.9% (11/28/2019) ASSESSMENT: 11/28: * Lindsey received a total of 72 units of insulin yesterday * 20 units basal + 52 units bolus * BSGs were [phone] mg/dL yesterday - uncontrolled * Fasting BSG was 224 mg/dL this AM - uncontrolled * Patient was switched from Prednisone 7.5 mg PO qAM to Hydrocortisone 100 mg IV Q8H last evening (equivalent to 75 mg of prednisone daily). This likely explains the elevated fasting BSG from this morning. * Will increased basal insulin dose today to account for this * Glucocorticoids most significantly effect post-prandial BSGs. Her post- prandial BSGs were significantly elevated yesterday even prior to the switch in steroids. Therefore, I will tighten her CF/CR further this morning. * Continue with current goal range as tight glycemic control can help facilitate wound/infection healing. 11/27: * 59 yo F admitted secondary to worsening right lower extremity wound with tendon exposure. Pharmacy is consulted for inpatient glycemic management. Patient's most recent HbA1c is 9.9% which is uncontrolled. She is on chronic Prednisone at home secondary to PMHx of RA. * Upon admission, patient's BSG was well controlled at 135 mg/dL. She took her 20 units of 70/30 yesterday morning and was transitioned to Lantus last evening. She received 15 units of Lantus. Given that Lantus pen was already charged to patient, will continue with BID Lantus until pen is gone. * Fasting BSG today was 135 mg/dL - controlled * Novolog CF/CR to be adjusted as necessary PLAN FOR INPATIENT GLYCEMIC CONTROL: * Basal insulin - increased * Lantus 20 units SQ qAM x 1 * Lantus 5-15 units SQ HS x 1 (see eMAR for further details) * Bolus insulin - tightened * NovoLog per scale ACHS or Q6hrs while NPO * Goal Range: Low 110 mg/dL - High 140 mg/dL * Correction Factor: 12 mg/dL/unit * Nutritional / Prandial insulin per carb ratio of 1 unit per 4 grams CHO consumed PLAN FOR DISCHARGE: * HbA1c from this admission was 9.9% - uncontrolled. The ideal A1c for this patient given her age and comorbidities would be less than 7.0%. * Patient will most likely require an increase in 70/30 insulin dose prior to discharge. 70/30 insulin is usually given as 2/3 TDD in the AM and 1/3 TDD in the PM. An increase in her AM dose would also coincide with her daily prednisone dose. Specific dose adjustments to follow once stress dose steroids are discontinued.
[2019-11-29] MEDS ORDERED: VANCOMYCIN TROUGH ONE (13:30)
--- NOTE | 2019-11-29 14:59 | Dermatology Consultation ---
Date of Consultation November 29, 2019 Assessment & Plan (1) Ulcer of right ankle: Lesion is definitely compatible with pyoderma gangrenosum based on its rapid expansion, her history of associated underlying disease (RA) and potential inciting pathergy (?pressure/trauma from prior compression bandage). Pyoderma gangrenosum is a diagnosis of exclusion, so all other potential etiologies do need to be ruled out: - Punch biopsy taken from the ulcer edge to further assess. The histopathology for PG is nonspecific, but it will allow to assess for/rule out other potential causes (i.e. Vasculitis/vasculopathy). - Additional tissue sample taken from the ulcer edge to assess for any deep inf ection (Bacterial, AFB, Fungal) - Vascular workup appears to rule out a direct circulatory cause. - Agree with systemic steroids as per Rheumatology at this point. She likely will need additional, steroid-sparing immunosuppression that will be driven by treatment of her underlying RA. - Agree with current local wound care at this point. Surgical debridement of any kind should be avoided. I question whether there will be the need for grafting once diagnosis is established and any inflammation/infection is controlled given the depth and location of this particular wound Present on Admission?: Yes History of Present Illness Reason for Consultation: Nonhealing ulceration on the right lower leg Requesting Physician: Whitney Gage MD Attending Physician: Aim Cao MD History of Present Illness Patient is a 59-year-old woman with significant past medical history including CAD, longstanding rheumatoid arthritis and type 2 diabetes mellitus [facility] a worsening ulceration on the right anterior ankle. Following history was taken from the patient, her son and her sister. They report that around the end of July she had a traumatic ulceration on the right anderson when she tripped getting into her father's house. Patient and her son report that the lesion was initially about the size of a quarter, maybe slightly larger. It would not completely heal at home, so she started seeing [facility] in September. According to her son, the lesion did not rapidly expand during the time treating it at home. This wound was apparently treated with debridement and dressing changes. She did have cultures performed which grew E coli and Natalie on different occasions. She was treated with courses of antibiotics to help treat the presumed secondary infection. Towards the end of October a wound vac was apparently placed on this wound in order to promote further healing. Her sister reports that a compression wrap was also applied over top of the wound VAC down to the level of the ankle, which they thought was maybe too tight. Her sister shows me photos from 11/18/2019 at the time that the compression wrap was removed. There is some linear erythema extending vertically along the right anterior ankle. At that time there was no skin breakdown. A small area of skin breakdown was noted 3-4 days later along the right anterior ankle, exposing a small area of her tendon. Over the next 5- 7 days it seemed to rapidly progress to the point on 11/27/2019 when she was seen in follow-up [facility]. The dressing was removed and there was a much larger and deeper area of ulceration with more exposed tendon. She was sent to the ER for additional evaluation and admission. As mentioned, she does have a longstanding history of rheumatoid arthritis for the past 30+ years, and she has been maintained on prednisone and methotrexate. At the time of admission, she was on prednisone 7.5 mg in the morning and methotrexate 15 mg weekly. She is followed by [facility] rheumatology. She denies a history of other ulcerations on the legs in the past. Since admission, she has been treated with broad-spectrum antibiotics (IV vancomycin and Zosyn) for possible secondary infection. A culture taken from the right ankle wound at the time of admission shows only minimal growth of coag-negative staph. Other consultations obtained since admission include Orthopedics on 11/27/2019, who did not see any reason for surgical debridement at this time. She has been followed by Vascular, who has performed both arterial duplex studies and and angiogram of the right lower leg. The arterial duplex did not show any sign for occlusion or stenosis. Angiogram of the right lower leg performed today revealed only mild peripheral arterial disease. [facility] rheumatology saw the patient this morning and reports that her RA stable. They are holding her methotrexate while on antibiotics and have transitioned her to IV steroids. There is some concern for possible pyoderma gangrenosum contributing to the ulceration given her history. Patient denies any pain in the lower leg currently. She otherwise reports that she is feeling well today. No other skin complaints. Allergies Allergy/AdvReac Type Severity Reaction Status Date / Time Sulfa (Sulfonamide Allergy Rash Verified 11/27/19 13:24 Antibiotics) Home Medications Home Medications Medication Instructions Recorded Confirmed Type aspirin 81 mg PO QAM 05/13/18 11/27/19 History carvedilol 3.125 mg PO BID 05/13/18 11/27/19 History insulin NPH and regular human 20 unit SUBCUT BID 05/13/18 11/27/19 History [Novolin 70/30 U-100 Insulin] lisinopril 2.5 mg PO QAM 05/13/18 11/27/19 History multivitamin [One-A-Day Essential] 1 tab PO QAM 05/13/18 11/27/19 History prednisone 7.5 mg PO QAM 05/13/18 11/27/19 History acetaminophen [Tylenol Extra 500 mg PO TID 11/19/19 11/27/19 History Strength] ciprofloxacin HCl 250 mg tablet 250 mg PO BID 14 Days #28 tab 11/22/19 11/27/19 Rx atorvastatin 20 mg PO HS 11/27/19 11/27/19 History calcium carbonate [Calcium 500] 1,000 mg PO DAILY 11/27/19 11/27/19 History cholecalciferol (vitamin D3) 1,250 mcg PO WK 11/27/19 11/27/19 History folic acid 1 mg PO DAILY 11/27/19 11/27/19 History methotrexate sodium [Methotrexate 15 mg PO FR 11/27/19 11/27/19 History (Anti-Rheumatic)] valacyclovir [Valtrex] 500 mg PO DAILY 11/27/19 11/27/19 History Patient History Medical History CAD (coronary artery disease) Cardiac murmur A CHILD Diabetes mellitus, type 2 IDDM History of anesthesia reaction SLOW TO WAKE History of rheumatic fever as a child Hyperlipidemia Rheumatoid arthritis Surgical History History of cardiac cath 08/2017 - [facility] - SOB --> CABG - FOLLOWS W/ DR. PRESTON History of colonoscopy History of coronary artery bypass graft 08/2017 - [facility] - 3 VESSELS - FOLLOWS W/ DR. PRESTON History of total knee replacement BL History of wisdom tooth extraction Hx of tonsillectomy Family History Brother Family hx of colon cancer Father Family history of diabetes mellitus Mother Family history of diabetes mellitus Aunt Family history of diabetes mellitus Grandmother (Maternal) Family history of diabetes mellitus Social History Smoking Status: Former smoker Second Hand Exposure: No; Hx Alcohol Use: No Hx Substance Use: No Preferred Language: Bhutanese Communication Ability: Effective Social Media Marketer Required: No Beliefs That Will Affect Care: None marital status: Current Living Situation: Spouse Current Living Situation Comment: Lives with spouse who has cancer Feels Safe at Home: Yes Assistive Devices: Walker Review of Systems Review of Systems: All systems reviewed & are unremarkable except as noted in HPI & below Musculoskeletal: + stiffness Integumentary: + skin ulcer Physical Exam Constitutional: WD/WN, vitals as above Skin: Right anterior ankle - 7.5cm x 2.5cm well-defined, geometric deep ulceration with erythematous, somewhat edematous border; +mild pustulation at the base; +exposed tendon Right mid anderson - well-healing, clean-based superficial ulceration Results & Data ([facility]) Vital Signs (Past 12 Hours) Vital Signs Temp Pulse Pulse Resp BP BP Pulse Ox 11/29/19 11:00 36.6 C 74 18 115/75 99 11/29/19 10:59 36.4 C L 74 16 117/75 99 11/29/19 10:54 70 11/29/19 10:35 74 16 119/56 L 99 11/29/19 10:20 78 16 110/56 L 98 11/29/19 10:06 79 16 104/56 L 99 11/29/19 08:55 85 17 102/53 L 98 11/29/19 07:48 36.6 C 94 H 17 136/80 94 11/29/19 03:49 36.5 C 100 H 14 138/79 98 PG Care Time/CCT Total # of Minutes Spent Total Time Spent with Patient: Total time spent is greater than 50% in co ordination of care (as documented) at patient's floor/unit and/or counseling patient: Coding Level of Care Code 88276 Inpt Consult Level 2 Diagnoses Ulcer of right ankle L97.312 Non-pressure ulcer stage: with fat layer exposed CPT Codes Punch Biopsy of 1 Lesion - [id number] ([id number]) Dermatology Procedure Derm Punch Biopsy Skin Lesion Number Lesion #1: Procedure performed by: Vickey Piña MD Indication: Vasculitis vs. Vasculopathy vs. PG vs. Deep fungal/bacterial infection Discussed: Patient, Risks, Benefits, Alternatives, Infection, Bleeding, Allergic Reaction and Consent Obtained/Signed Anesthesia:: Lidocaine with Epi 1% (2cc) Location: Right ankle ulcer edge Type of Biopsy: H & E Preparation: Alcohol Biopsy Technique: Punch 4mm Dressing: Pressure Dressing Applied Specimen Sent to Pathology: Yes Patient Status: Tolerated Well Complications:: No Complications Lesion #2: Procedure performed by: Vickey Piña MD Indication: Vasculitis vs. Vasculopathy vs. PG vs. Deep fungal/bacterial infection Discussed: Patient, Risks, Benefits, Alternatives, Infection, Bleeding, Allergic Reaction and Consent Obtained/Signed Anesthesia:: Lidocaine with Epi 1% (2cc) Location: Right ankle ulcer edge Type of Biopsy: Bacterial/AFB and Fungal tissue culture (bisected) Preparation: Alcohol Biopsy Technique: Punch 4mm Dressing: Pressure Dressing Applied Specimen Sent to Microbiology: Yes Patient Status: Tolerated Well Complications:: No Complications (1) Ulcer of right ankle Non-pressure ulcer stage: with fat layer exposed Qualified Code(s): L97.312 - Non-pressure chronic ulcer of right ankle with fat layer exposed
--- NOTE | 2019-11-29 15:14 | Hospitalist Progress Note ---
Date of Service November 29, 2019 Assessment & Plan (1) Ulcer of right ankle: (2) Traumatic open wound of right lower leg with delayed healing: This is a 59-year-old female with significant past medical history of insulin-dependent T2DM, CAD with history of CABG x3, HLD, CKD stage III, history of PAF, bilateral carotid artery stenosis, rheumatoid arthritis on immunosuppressants with methotrexate and prednisone, anemia, monoclonal paraproteinemia who presents to ED secondary to worsening wound to right lower extremity with tendon exposure x3 days. Distal wound Stage 4 traumatic wound to R ankle with extensor tendon exposed Failed outpatient therapy with cipro after wound cx grew E. Coli Right ankle MRI showed tibialis anterior tendinosis with probable split tear. Additionally, there is tibialis anterior tenosynovitis with mild peripheral enhancement which is likely reactive. No evidence of osteomyelitis or abscess. Moderate diffuse subcutaneous edema. Arterial doppler showed o arterial occlusion or significantly elevated peak systolic velocities to suggest high-grade stenosis. Right lower extremity angiography revealed only mild peripheral arterial disease. Current ulceration is not secondary to large vessel disease and arterial blood supply should be adequate for wound healing. has been follow with the wound care clinic Dr. Rodriguez Will hold wound vac as per wound provider dr. Clark No evidence of sepsis Ortho evaluation appreciated, no evidence of abscess, that needs to be drained Continue IV abx with Zosyn and Vanco Rheumatology on board recommended biopsy to evaluate for pyoderma gangrenosum vs neutrophilic dermatosis Dermatology on board and plan to do the biopsy later today continue daily wound care (3) Diabetes mellitus, type 2: HgbA1c 9.9 on this admission Pharmacy on board for glycemic management On Lantus and novolog sliding scale (4) CAD (coronary artery disease): hx of 3V CABG 08/2017 (NOWAK to LAD, SVG to D1, SVG to OM1), ischemic cardiomyopathy EF 40 to 45% 11/2017 continue ASA, lisinopril, coreg, statin also hx of asymptomatic carotid artery disease - follows Vascular at [place] Stable (5) Hyperlipidemia: continue statin (6) Rheumatoid arthritis: On prednisone 7.5 mg daily along with methotrexate 15 mg every Wednesday outpatient Continue to hold methotrexate currently due to concern for infection On Hydrocotisone TID stress dose, will decrease to 50mg TID (7) Anemia: H&H stable, likely in setting of chronic disease H&H 11.3 and 34.9 (8) DVT prophylaxis: SQ Lovenox CODE STATUS FULL CODE Admission and Anticipated Discharge Date Admission Date: November 27, 2019 Subjective Pt was seen and examined Lying in bed with no distress Pt said that she does not have any pain in the right foot Sister at bedside and provided with updates Denies any chest pain, palpitation, dizziness and SOB Physical Exam Physical Exam: General- No acute distress Head- atraumatic Eyes- PERRL, EOMI, ENT- oropharynx clear Neck- supple, no JVD Lungs- clear to auscultation Heart- regular rhythm; no murmur Abdomen- normal bowel sounds, soft, nontender Extremities- no calf tenderness, Right lower extremity, nonhealing open wounds, with exposure of medication nurse tendons Skin: + ulcer (Open wound on lower third of right leg) Nonhealing open wound on right lower extremity Neuro- alert, oriented x 3; PERRL, EOMI; no facial palsy; no dysarthria Results & Data Results & Data ([facility]) Vital Signs (Past 12 Hours) Vital Signs Temp Pulse Pulse Resp BP BP Pulse Ox 11/29/19 14:58 36.6 C 84 19 110/54 L 100 11/29/19 11:00 36.6 C 74 18 115/75 99 11/29/19 10:59 36.4 C L 74 16 117/75 99 11/29/19 10:54 70 11/29/19 10:35 74 16 119/56 L 99 11/29/19 10:20 78 16 110/56 L 98 11/29/19 10:06 79 16 104/56 L 99 11/29/19 08:55 85 17 102/53 L 98 11/29/19 07:48 36.6 C 94 H 17 136/80 94 11/29/19 03:49 36.5 C 100 H 14 138/79 98
--- NOTE | 2019-11-29 15:24 | Pharmacy Report ---
Pharmacy Abx Dose Short Note - Date of Service November 29, 2019 - Assessment & Plan Assessment 59 year old F receiving Vancomycin and Zosyn for treatment of R ankle cellulitis * Day #3 of abx therapy * Afebrile. White count improving. Renal fxn stable. * No evidence of osteomyelitis on CT. Plan Vancomycin * Trough level of 14.4 mcg/mL is subtherapeutic * Change to 750 mg IV every 10 hours * Goal trough level: 15 - 20 mcg/mL * Trough level ordered for tomorrow at 1130 Zosyn * Continue 3.375 gm IV every 8 hours Pharmacy will continue to follow and will adjust dose/frequency as necessary. Thank you.
[2019-11-29] MEDS ORDERED: INSULIN GLARGINE SOLOSTAR 100 UNITS/ML 3 ML PEN SC ONE (21:00)
[2019-11-29] MEDS: ENOXAPARIN INJ 40 MG/0.4 ML SYR SQ SCH (22:47)
[2019-11-29] MEDS: HYDROCORTISONE SOD 50 MG in SYRINGE 0 ML IV SCH (22:47)
[2019-11-29] MEDS: ATORVASTATIN 20 MG TAB PO SCH (22:49)
[2019-11-30] MEDS: INSULIN ASPART 100 UNITS/ML 3 ML PEN SC SCH ×6 (00:26→21:11)
[2019-11-30] MEDS: PIPERACILLIN/TAZOBACTAM 3.375 GM in DEXTROSE 5% 100 ML IV SCH ×3 (03:07→17:16)
[2019-11-30] MEDS: VANCOMYCIN HCL 750 MG in SODIUM CHLORIDE 0.9% 250 ML IV SCH ×2 (03:09→12:12)
[2019-11-30] MEDS: CALCIUM CARBONATE 1250MG TAB PO SCH (09:01)
[2019-11-30] MEDS: FOLIC ACID 1 MG TAB PO SCH (09:01)
[2019-11-30] MEDS: carvediloL 3.125 MG TAB PO SCH ×2 (09:01→21:09)
[2019-11-30] MEDS: ASPIRIN 81 MG ECTAB PO SCH (09:02)
[2019-11-30] MEDS: ACETAMINOPHEN 500 MG TAB PO SCH ×3 (09:02→21:20)
[2019-11-30] MEDS: HYDROCORTISONE SOD 50 MG in SYRINGE 0 ML IV SCH ×3 (09:02→21:06)
[2019-11-30] MEDS: valACYclovir HCL 500 MG TABLET PO SCH (09:03)
[2019-11-30] MEDS: MULTIVITAMIN TAB PO SCH (09:03)
--- NOTE | 2019-11-30 09:13 | Pharmacy Report ---
Pharmacy Glycemic Short Note 2 - Date of Service November 30, 2019 - Glycemic Short BSG Results (Last 24 hours): OUTPATIENT ANTIDIABETIC REGIMEN: * Novolin 70/30 - 20 units SC BID * HbA1c = 9.9% (11/28/2019) ASSESSMENT: 11/29: * Patient received a total of 105 units of insulin yesterday (45% increase from previous day) * 35 units basal + 70 units bolus * BSGs were [phone] mg/dL - uncontrolled * Fasting BSG this AM was 266 mg/dL - uncontrolled and worsening * Will increase basal insulin dose again today (~40%) * Remains on hydrocortisone IV but dose was decreased to 50 mg TID last evening * Lunchtime BSG was 100 mg/dL * Significant drop from AM fasting BSG. Will not adjust insulin regimen at this time. * Will have second shift pharmacist follow-up with PM BSGs. If continued trend downwards, regimen will need loosened. 11/28: * Lindsey received a total of 72 units of insulin yesterday * 20 units basal + 52 units bolus * BSGs were [phone] mg/dL yesterday - uncontrolled * Fasting BSG was 224 mg/dL this AM - uncontrolled * Patient was switched from Prednisone 7.5 mg PO qAM to Hydrocortisone 100 mg IV Q8H last evening (equivalent to 75 mg of prednisone daily). This likely explains the elevated fasting BSG from this morning. * Will increased basal insulin dose today to account for this * Glucocorticoids most significantly effect post-prandial BSGs. Her post- prandial BSGs were significantly elevated yesterday even prior to the switch in steroids. Therefore, I will tighten her CF/CR further this morning. * Continue with current goal range as tight glycemic control can help facilitate wound/infection healing. 11/27: * 59 yo F admitted secondary to worsening right lower extremity wound with tendon exposure. Pharmacy is consulted for inpatient glycemic management. Patient's most recent HbA1c is 9.9% which is uncontrolled. She is on chronic Prednisone at home secondary to PMHx of RA. * Upon admission, patient's BSG was well controlled at 135 mg/dL. She took her 20 units of 70/30 yesterday morning and was transitioned to Lantus last evening. She received 15 units of Lantus. Given that Lantus pen was already charged to patient, will continue with BID Lantus until pen is gone. * Fasting BSG today was 135 mg/dL - controlled * Novolog CF/CR to be adjusted as necessary PLAN FOR INPATIENT GLYCEMIC CONTROL: * Basal insulin - increased 40% * Lantus 25 units SQ BID * Bolus insulin - no change * NovoLog per scale ACHS or Q6hrs while NPO * Goal Range: Low 110 mg/dL - High 140 mg/dL * Correction Factor: 12 mg/dL/unit * Nutritional / Prandial insulin per carb ratio of 1 unit per 4 grams CHO consumed PLAN FOR DISCHARGE: * HbA1c from this admission was 9.9% - uncontrolled. The ideal A1c for this patient given her age and comorbidities would be less than 7.0%. * Patient will most likely require an increase in 70/30 insulin dose prior to discharge. 70/30 insulin is usually given as 2/3 TDD in the AM and 1/3 TDD in the PM. An increase in her AM dose would also coincide with her daily prednisone dose. Specific dose adjustments to follow once stress dose steroids are discontinued.
[2019-11-30] MEDS ORDERED: INSULIN GLARGINE SOLOSTAR 100 UNITS/ML 3 ML PEN SC SCH ×2 (09:15)
[2019-11-30] MEDS ORDERED: VANCOMYCIN TROUGH ONE (11:30)
[2019-11-30 12:01] LABS: Creatinine Clr Calc Pharmacy 46.3 ml/min; Est GFR (African American) 56.3; Est GFR (Non-African American) 48.6
--- NOTE | 2019-11-30 13:31 | Pharmacy Report ---
Pharmacy Abx Dose Short Note - Date of Service November 30, 2019 - Assessment & Plan Assessment 59 year old F receiving Vancomycin and Zosyn for treatment of R ankle cellulitis * Day #4 of abx therapy * Afebrile. Renal fxn stable * No evidence of osteomyelitis on CT * Awaiting [employer] ID input prior to de-escalation Plan Vancomycin * Trough level of 21.5 mcg/mL is supratherapeutic * Change to 750 mg IV every 12 hours * Goal trough level: 15 to 20 mcg/mL * Trough or random level ordered for: 12/02/2019 Pharmacy will continue to follow and will adjust dose/frequency as necessary. Thank you.
[2019-11-30] MEDS ORDERED: EUCERIN CR 120 GM JAR EXT PRN (15:00)
--- NOTE | 2019-11-30 19:15 | Hospitalist Progress Note ---
Date of Service November 30, 2019 Assessment & Plan (1) Ulcer of right ankle: (2) Traumatic open wound of right lower leg with delayed healing: This is a 59-year-old female with significant past medical history of insulin-dependent T2DM, CAD with history of CABG x3, HLD, CKD stage III, history of PAF, bilateral carotid artery stenosis, rheumatoid arthritis on immunosuppressants with methotrexate and prednisone, anemia, monoclonal paraproteinemia who presents to ED secondary to worsening wound to right lower extremity with tendon exposure x3 days. Distal wound Stage 4 traumatic wound to R ankle with extensor tendon exposed Failed outpatient therapy with cipro after wound cx grew E. Coli Right ankle MRI showed tibialis anterior tendinosis with probable split tear. Additionally, there is tibialis anterior tenosynovitis with mild peripheral enhancement which is likely reactive. No evidence of osteomyelitis or abscess. Moderate diffuse subcutaneous edema. Arterial doppler showed o arterial occlusion or significantly elevated peak systolic velocities to suggest high-grade stenosis. Right lower extremity angiography revealed only mild peripheral arterial disease. Current ulceration is not secondary to large vessel disease and arterial blood supply should be adequate for wound healing. has been follow with the wound care clinic Dr. Rodriguez Will hold wound vac as per wound provider dr. Clark No evidence of sepsis Ortho evaluation appreciated, no evidence of abscess, that needs to be drained ID on board and recommended to continue IV abx with Zosyn and Vanco for now Will discuss with ID for final abx course Rheumatology on board recommended biopsy to evaluate for pyoderma gangrenosum vs neutrophilic dermatosis Dermatology on board Very high probability for Pyoderma gangrenosum Punch biopsy taken from the ulcer edge to further assess, waiting for result continue daily wound care Continue IV steroid for now (3) Diabetes mellitus, type 2: HgbA1c 9.9 on this admission Pharmacy on board for glycemic management On Lantus and novolog sliding scale (4) CAD (coronary artery disease): hx of 3V CABG 08/2017 (NOWAK to LAD, SVG to D1, SVG to OM1), ischemic cardiomyopathy EF 40 to 45% 11/2017 continue ASA, lisinopril, coreg, statin also hx of asymptomatic carotid artery disease - follows Vascular at [place] Stable (5) Hyperlipidemia: continue statin (6) Rheumatoid arthritis: On prednisone 7.5 mg daily along with methotrexate 15 mg every Wednesday outpatient Continue to hold methotrexate currently due to concern for infection Continue Hydrocortisone TID 50mg (7) Anemia: H&H stable, likely in setting of chronic disease H&H 11.3 and 34.9 (8) DVT prophylaxis: SQ Lovenox CODE STATUS FULL CODE Admission and Anticipated Discharge Date Admission Date: November 27, 2019 Subjective Pt was seen and examined Lying in bed with no distress Pt said that she feel fine She said that she does not have any pain in her right LE Denies any chest pain, palpitation, dizziness and SOB Physical Exam Physical Exam: General- No acute distress Head- atraumatic Eyes- PERRL, EOMI, ENT- oropharynx clear Neck- supple, no JVD Lungs- clear to auscultation Heart- regular rhythm; no murmur Abdomen- normal bowel sounds, soft, nontender Extremities- no calf tenderness, Right lower extremity, nonhealing open wounds, with exposure of post office clerk tendons Skin: + ulcer (Open wound on lower third of right leg) Nonhealing open wound on right lower extremity Neuro- alert, oriented x 3; PERRL, EOMI; no facial palsy; no dysarthria Results & Data Results & Data ([facility]) Vital Signs (Past 12 Hours) Vital Signs Pulse Resp BP Pulse Ox 11/30/19 11:12 77 18 117/67 98 (1) Ulcer of right ankle Non-pressure ulcer stage: with fat layer exposed Qualified Code(s): L97.312 - Non-pressure chronic ulcer of right ankle with fat layer exposed
[2019-11-30] MEDS ORDERED: INSULIN GLARGINE SOLOSTAR 100 UNITS/ML 3 ML PEN SC ONE (21:00)
[2019-11-30] MEDS: ENOXAPARIN INJ 40 MG/0.4 ML SYR SQ SCH (21:09)
[2019-11-30] MEDS: ATORVASTATIN 20 MG TAB PO SCH (21:09)
[2019-12-01] MEDS: VANCOMYCIN HCL 750 MG in SODIUM CHLORIDE 0.9% 250 ML IV SCH ×3 (00:07→23:15)
[2019-12-01] MEDS: PIPERACILLIN/TAZOBACTAM 3.375 GM in DEXTROSE 5% 100 ML IV SCH ×3 (02:28→18:04)
[2019-12-01 06:36] LABS: Hematocrit (blood only) 29.9 % (37-47); Hemoglobin 9.5 g/dL (12.0-16.0); Mean Corpuscular Hemoglobin 30.3 pg (25-34); Mean Corpuscular Hgb Conc 31.8 g/dL (32-36); Mean Corpuscular Volume 95.2 fL (80-100); Mean Platelet Volume 9.2 fL (7.4-10.4); Nucleated RBC # (auto) 0.03 K/uL (0-0); Nucleated RBC % (auto) 0.3 %; Platelet Count 254 K/uL (130-400); RDW Coefficient of Variation 18.8 % (11.5-14.5); RDW Standard Deviation 65.8 fL (36.4-46.3); Red Blood Count 3.14 M/uL (4.2-5.4); White Blood Count 12.09 K/uL (4.8-10.8)
[2019-12-01 07:07] LABS: BUN Creatinine Ratio 23.2 (10-20); Calcium 8.6 mg/dl (8.5-10.1); Creatinine Clr Calc Pharmacy 45.5 ml/min; Est GFR (African American) 55.2; Est GFR (Non-African American) 47.6; Potassium 3.1 mmol/L (3.5-5.1)
[2019-12-01] MEDS ORDERED: INSULIN GLARGINE SOLOSTAR 100 UNITS/ML 3 ML PEN SC ONE ×2 (08:00→21:00)
--- NOTE | 2019-12-01 08:34 | Pharmacy Report ---
Pharmacy Glycemic Short Note 2 - Date of Service December 01, 2019 - Glycemic Short BSG Results (Last 24 hours): 11/30/19 11/30/19 11/30/19 08:59 11:18 16:56 Glucose POC Glucose 266 H 100 H 238 H 11/30/19 12/01/19 12/01/19 20:26 06:07 08:20 Glucose 98 POC Glucose 236 H 85 OUTPATIENT ANTIDIABETIC REGIMEN: * Novolin 70/30 - 20 units SC BID * HbA1c = 9.9% (11/28/2019) ASSESSMENT: 11/30: * Fasting AM BSG with significant drop down to 98 mg/dL w random AM lab draw and 85 mg/dL on POC. Etiology of significant decrease is both likely 2nd higher Lantus doses yesterday and steroid taper. Will decrease Lantus. * Two BSG's >180 mg/dL yesterday despite steroid taper. Of the last four BSG's >180 mg/dL, all of them occurred after the patient consumed >40 g CHO at the preceeding meal, suggesting a tighter CHO ratio is indicated. Will tighten. * Note - this regimen will require significant adjustment if/when steroids are adjusted 11/29: * Patient received a total of 105 units of insulin yesterday (45% increase from previous day) * 35 units basal + 70 units bolus * BSGs were [phone] mg/dL - uncontrolled * Fasting BSG this AM was 266 mg/dL - uncontrolled and worsening * Will increase basal insulin dose again today (~40%) * Remains on hydrocortisone IV but dose was decreased to 50 mg TID last evening * Lunchtime BSG was 100 mg/dL * Significant drop from AM fasting BSG. Will not adjust insulin regimen at this time. * Will have second shift pharmacist follow-up with PM BSGs. If continued trend downwards, regimen will need loosened. 11/28: * Lindsey received a total of 72 units of insulin yesterday * 20 units basal + 52 units bolus * BSGs were [phone] mg/dL yesterday - uncontrolled * Fasting BSG was 224 mg/dL this AM - uncontrolled * Patient was switched from Prednisone 7.5 mg PO qAM to Hydrocortisone 100 mg IV Q8H last evening (equivalent to 75 mg of prednisone daily). This likely explains the elevated fasting BSG from this morning. * Will increased basal insulin dose today to account for this * Glucocorticoids most significantly effect post-prandial BSGs. Her post- prandial BSGs were significantly elevated yesterday even prior to the switch in steroids. Therefore, I will tighten her CF/CR further this morning. * Continue with current goal range as tight glycemic control can help facilitate wound/infection healing. 11/27: * 59 yo F admitted secondary to worsening right lower extremity wound with tendon exposure. Pharmacy is consulted for inpatient glycemic management. Patient's most recent HbA1c is 9.9% which is uncontrolled. She is on chronic Prednisone at home secondary to PMHx of RA. * Upon admission, patient's BSG was well controlled at 135 mg/dL. She took her 20 units of 70/30 yesterday morning and was transitioned to Lantus last evening. She received 15 units of Lantus. Given that Lantus pen was already charged to patient, will continue with BID Lantus until pen is gone. * Fasting BSG today was 135 mg/dL - controlled * Novolog CF/CR to be adjusted as necessary PLAN FOR INPATIENT GLYCEMIC CONTROL: * Basal insulin - decrease * Lantus 20 units SQ x1 this AM with additional 0-10 units tonight based on BSG * Bolus insulin - tighten CHO ratio * NovoLog per scale ACHS or Q6hrs while NPO * Goal Range: Low 110 mg/dL - High 140 mg/dL * Correction Factor: 12 mg/dL/unit * Nutritional / Prandial insulin per carb ratio of 1 unit per 3.5 grams CHO consumed PLAN FOR DISCHARGE: * HbA1c from this admission was 9.9% - uncontrolled. The ideal A1c for this patient given her age and comorbidities would be less than 7.0%. * Patient will most likely require an increase in 70/30 insulin dose prior to discharge. 70/30 insulin is usually given as 2/3 TDD in the AM and 1/3 TDD in the PM. An increase in her AM dose would also coincide with her daily prednisone dose. Specific dose adjustments to follow once stress dose steroids are discontinued.
[2019-12-01] MEDS: CALCIUM CARBONATE 1250MG TAB PO SCH (08:37)
[2019-12-01] MEDS: ASPIRIN 81 MG ECTAB PO SCH (08:37)
[2019-12-01] MEDS: carvediloL 3.125 MG TAB PO SCH ×2 (08:37→20:46)
[2019-12-01] MEDS: valACYclovir HCL 500 MG TABLET PO SCH (08:37)
[2019-12-01] MEDS: FOLIC ACID 1 MG TAB PO SCH (08:37)
[2019-12-01] MEDS: HYDROCORTISONE SOD 50 MG in SYRINGE 0 ML IV SCH ×3 (08:37→20:50)
[2019-12-01] MEDS: ACETAMINOPHEN 500 MG TAB PO SCH ×3 (08:38→20:45)
[2019-12-01] MEDS: MULTIVITAMIN TAB PO SCH (08:38)
[2019-12-01] MEDS: INSULIN ASPART 100 UNITS/ML 3 ML PEN SC SCH ×4 (08:39→20:53)
[2019-12-01] MEDS ORDERED: POTASSIUM CHLORIDE 20 MEQ TABCR PO STA (08:52)
--- NOTE | 2019-12-01 20:07 | Hospitalist Progress Note ---
Date of Service December 01, 2019 Assessment & Plan (1) Ulcer of right ankle: (2) Traumatic open wound of right lower leg with delayed healing: This is a 59-year-old female with significant past medical history of insulin-dependent T2DM, CAD with history of CABG x3, HLD, CKD stage III, history of PAF, bilateral carotid artery stenosis, rheumatoid arthritis on immunosuppressants with methotrexate and prednisone, anemia, monoclonal paraproteinemia who presents to ED secondary to worsening wound to right lower extremity with tendon exposure x3 days. Distal wound Stage 4 traumatic wound to R ankle with extensor tendon exposed Failed outpatient therapy with cipro after wound cx grew E. Coli Right ankle MRI showed tibialis anterior tendinosis with probable split tear. Additionally, there is tibialis anterior tenosynovitis with mild peripheral enhancement which is likely reactive. No evidence of osteomyelitis or abscess. Moderate diffuse subcutaneous edema. Arterial doppler showed o arterial occlusion or significantly elevated peak systolic velocities to suggest high-grade stenosis. Right lower extremity angiography revealed only mild peripheral arterial disease. Current ulceration is not secondary to large vessel disease and arterial blood supply should be adequate for wound healing. has been follow with the wound care clinic Dr. Rodriguez Will hold wound vac as per wound provider dr. Clark No evidence of sepsis Ortho evaluation appreciated, no evidence of abscess, that needs to be drained ID on board and recommended to continue IV abx with Zosyn and Vanco for now Will discuss with ID for final abx course Rheumatology on board recommended biopsy to evaluate for pyoderma gangrenosum vs neutrophilic dermatosis Dermatology on board Very high probability for Pyoderma gangrenosum Punch biopsy taken from the ulcer edge to further assess, waiting for result continue daily wound care Continue IV steroid for now 11/30 biopsy result showed skin with ulceration, fibropurulent exudate, and focal vasculitis of small blood vessels in the deep dermis. Prominent features of a stasis ulcer, such as dermal hemosiderin, are not seen. Similarly, features suggestive of a "true" vasculitis are not present either. While the overall findings are somewhat non-specific, these features would be consistent with pyoderma gangrenosum in the correct clinical context. Case discussed with [facility] Dr. Piña that said that dx is pyoderma gangrenosum (Diagnosis of exclusion) Will transition to PO prednisone 60mg daily than taper by 10mg weekly No debridement as per dermatology Will need to see patient soon in his office (His office will arrange for that) Case discussed with Rheumatology Dr. Thornton that recommended to hold the Metrotrexate while on abx Will need to follow up with rheumatology Continue follow up with wound care clinic and continue daily wound change Case discussed with ID in [facility] that recommended to continue the Vanco IV for 4 weeks and discontinued the Zosyn Will need weekly CBC, BMP and Vanco trough weekly Will discuss with case mabgement to arrange for abx infusion outpatient Will get a picc line tomorrow (3) Diabetes mellitus, type 2: HgbA1c 9.9 on this admission Pharmacy on board for glycemic management On Lantus and novolog sliding scale (4) CAD (coronary artery disease): hx of 3V CABG 08/2017 (NOWAK to LAD, SVG to D1, SVG to OM1), ischemic cardiomyopathy EF 40 to 45% 11/2017 continue ASA, lisinopril, coreg, statin also hx of asymptomatic carotid artery disease - follows Vascular at [place] Stable (5) Hyperlipidemia: continue statin (6) Rheumatoid arthritis: On prednisone 7.5 mg daily along with methotrexate 15 mg every Wednesday outpatient Continue to hold methotrexate currently due to concern for infection On IV Hydrocortisone TID 50mg, will transition to PO prednisone tomorrow Continue to hold Metrotrexate while on abx (7) Anemia: H&H stable, likely in setting of chronic disease H&H 11.3 and 34.9 (8) DVT prophylaxis: SQ Lovenox CODE STATUS FULL CODE Admission and Anticipated Discharge Date Admission Date: November 27, 2019 Subjective Pt was seen and examined Lying in bed with no distress Pt said that she feels ok Denies any chest pain, palpitation, dizziness and SOB Physical Exam Physical Exam: General- No acute distress Head- atraumatic Eyes- PERRL, EOMI, ENT- oropharynx clear Neck- supple, no JVD Lungs- clear to auscultation Heart- regular rhythm; no murmur Abdomen- normal bowel sounds, soft, nontender Extremities- no calf tenderness, Right lower extremity, nonhealing open wounds, with exposure of overnight babysitter tendons Skin: + ulcer (Open wound on lower third of right leg) Nonhealing open wound on right lower extremity Neuro- alert, oriented x 3; PERRL, EOMI; no facial palsy; no dysarthria Results & Data Results & Data ([place]) Vital Signs (Past 12 Hours) Vital Signs Temp Pulse Resp BP Pulse Ox 12/01/19 15:21 36.4 C L 66 16 117/66 99 12/01/19 08:35 67 (1) Ulcer of right ankle Non-pressure ulcer stage: with fat layer exposed Qualified Code(s): L97.312 - Non-pressure chronic ulcer of right ankle with fat layer exposed
[2019-12-01] MEDS: ATORVASTATIN 20 MG TAB PO SCH (20:46)
[2019-12-01] MEDS: ENOXAPARIN INJ 40 MG/0.4 ML SYR SQ SCH (21:24)
[2019-12-02 06:54] LABS: Creatinine Clr Calc Pharmacy 57.7 ml/min; Est GFR (African American) 73.6; Est GFR (Non-African American) 63.5
[2019-12-02] MEDS: MULTIVITAMIN TAB PO SCH (08:29)
[2019-12-02] MEDS: carvediloL 3.125 MG TAB PO SCH ×2 (08:29→21:25)
[2019-12-02] MEDS: ASPIRIN 81 MG ECTAB PO SCH (08:30)
[2019-12-02] MEDS: valACYclovir HCL 500 MG TABLET PO SCH (08:30)
[2019-12-02] MEDS: CALCIUM CARBONATE 1250MG TAB PO SCH (08:30)
[2019-12-02] MEDS: FOLIC ACID 1 MG TAB PO SCH (08:30)
[2019-12-02] MEDS: predniSONE 20 MG TAB PO SCH (08:31)
[2019-12-02] MEDS: ACETAMINOPHEN 500 MG TAB PO SCH ×3 (08:37→21:26)
[2019-12-02] MEDS: INSULIN ASPART 100 UNITS/ML 3 ML PEN SC SCH ×4 (08:56→21:25)
[2019-12-02] MEDS ORDERED: INSULIN HUMAN NPH SC SCH (09:00)
[2019-12-02] MEDS ORDERED: INSULIN GLARGINE SOLOSTAR 100 UNITS/ML 3 ML PEN SC SCH (09:00)
[2019-12-02] MEDS ORDERED: VANCOMYCIN TROUGH ONE (11:30)
[2019-12-02 11:37] LABS: Hematocrit (blood only) 27.5 % (37-47); Hemoglobin 8.5 g/dL (12.0-16.0); Mean Corpuscular Hemoglobin 29.9 pg (25-34); Mean Corpuscular Hgb Conc 30.9 g/dL (32-36); Mean Corpuscular Volume 96.8 fL (80-100); Mean Platelet Volume 9.5 fL (7.4-10.4); Nucleated RBC # (auto) 0.13 K/uL (0-0); Nucleated RBC % (auto) 0.9 %; Platelet Count 279 K/uL (130-400); RDW Coefficient of Variation 19.2 % (11.5-14.5); RDW Standard Deviation 66.4 fL (36.4-46.3); Red Blood Count 2.84 M/uL (4.2-5.4); White Blood Count 14.36 K/uL (4.8-10.8)
--- NOTE | 2019-12-02 13:45 | Pharmacy Report ---
Pharmacy Abx Dose Short Note - Date of Service December 02, 2019 - Assessment & Plan Assessment 59 year old F receiving vancomycin for ulcer of right ankle/wound infection. Discussed with provider and patient to have half-way IV antibiotics. Cost issue with daptomycin, therefore want to utilize vancomycin on discharge. Spoke with case management, and home health services only able to give antibiotics at certain times outpatient (8 am, 8pm). Patient anticipated to be discharged on Sunday 12/03 Plan Vancomycin * Trough level this morning came back therapeutic at ~19.7 mcg/ml - goal level ~15 mcg/ml. No evidence of osteo/abscess so lower trough level appropriate * Will hold noon vancomycin dose and push back to start later this evening so that we can get on , regimen for outpatient purposes. * Estimated kinetics: t 1/2~13 hrs, ke~0.05 hr-1, Crcl 57 ml/min. Estimated level at time of next dose still would be close to therapeutic level ~13 mcg/ml * Will plan to obtain level prior to the 0800 dose on 12/03 before patient leaves to ensure therapeutic. Scr is improving today so dosing increase may be warranted, however will wait for next level Pharmacy will continue to follow and will adjust dose/frequency as necessary. Thank you.
--- NOTE | 2019-12-02 15:10 | Pharmacy Report ---
Glycemic Control Progress Note - Date of Service December 02, 2019 - Scope Glycemic Pharmacist consulted for glycemic control to write orders per [facility] inpatient glycemic control protocol. - Objective Accuchecks BSG(last 24 hours):: 12/01/19 12/01/19 12/02/19 17:20 20:34 08:17 POC Glucose 214 H 179 H 126 H 12/02/19 12:27 POC Glucose 181 H HbA1c:: Hemoglobin A1c 9.9 % (4.5-5.6) H 11/28/19 07:06 - Recent Pertinent Medications The patient is currently receiving: * Basal insulin: Lantus 20 units in the morning and 5 units in the evening * Correctional Insulin: Novolog Correction per scale ACHS Goal Range: Low 110 mg/dL - High 140 mg/dL Correction Factor: 12 mg/dL/unit * Prandial insulin: Per carb ratio of 1 unit per 3.5 grams CHO consumed - Outpatient Anti-Diabetic Meds Novolin 70/30 -- 20 units BID - Assessment & Plan ASSESSMENT: * See progress note from 11/28/2019 for more background info, in short: * Pt receiving SQ basal bolus insulin regimen for hyperglycemia secondary to baseline DM (outpatient regimen on hold), infection (currently on vancomycin), and steroids (was on hydrocortisone 50 mg IV TID which was stopped yesterday and started on prednisone 60 mg today). * Patient is currently receiving an average of 76 units of insulin per day * 25 units of basal insulin * 51 units of prandial/correctional insulin * BSGs ranging 85 - 214 mg/dl over the past 24hrs * Changes needed to insulin regimen: * AM Fasting BSG = 126 mg/dl. This is in goal range for patient based on inpatient targets and co-morbidities. Start Lantus 25 units daily as BSGs in the evening may be artificially elevated. Will start NPH 28 units SQ daily for PO prednisone. * Post-prandial BSGs were elevated yesterday but with addition of NPH for prednisone, will loosen CF/CR slightly. * Total daily dose = ~70 units. Expect daily dose to change with change from IV to PO steroids. PLAN FOR INPATIENT GLYCEMIC CONTROL: * STARTING Lantus 25 units SQ daily + NPH 28 units SQ daily * Continuing correction factor of 12 mg/dl/unit * TIGHTENING carb ratio to 1 unit per 4 grams CHO consumed * Continuing goal range of Low 110 mg/dL - High 140 mg/dL * Please note that the plan above was derived based on current level of insulin resistance and hospital stress. These recommendations are appropriate for inpatient admission only. Plan of care upon discharge will need to be reassessed to avoid potential outpatient hypo/hyperglycemia. Thank you.
--- NOTE | 2019-12-02 18:46 | Hospitalist Progress Note ---
Date of Service December 02, 2019 Assessment & Plan (1) Ulcer of right ankle: (2) Traumatic open wound of right lower leg with delayed healing: This is a 59-year-old female with significant past medical history of insulin-dependent T2DM, CAD with history of CABG x3, HLD, CKD stage III, history of PAF, bilateral carotid artery stenosis, rheumatoid arthritis on immunosuppressants with methotrexate and prednisone, anemia, monoclonal paraproteinemia who presents to ED secondary to worsening wound to right lower extremity with tendon exposure x3 days. Distal wound Stage 4 traumatic wound to R ankle with extensor tendon exposed Failed outpatient therapy with cipro after wound cx grew E. Coli Right ankle MRI showed tibialis anterior tendinosis with probable split tear. Additionally, there is tibialis anterior tenosynovitis with mild peripheral enhancement which is likely reactive. No evidence of osteomyelitis or abscess. Moderate diffuse subcutaneous edema. Arterial doppler showed o arterial occlusion or significantly elevated peak systolic velocities to suggest high-grade stenosis. Right lower extremity angiography revealed only mild peripheral arterial disease. Current ulceration is not secondary to large vessel disease and arterial blood supply should be adequate for wound healing. has been follow with the wound care clinic Dr. Rodriguez Will hold wound vac as per wound provider dr. Clark No evidence of sepsis Ortho evaluation appreciated, no evidence of abscess, that needs to be drained ID on board and recommended to continue IV abx with Zosyn and Vanco for now Will discuss with ID for final abx course Rheumatology on board recommended biopsy to evaluate for pyoderma gangrenosum vs neutrophilic dermatosis Dermatology on board Very high probability for Pyoderma gangrenosum Punch biopsy taken from the ulcer edge to further assess, waiting for result continue daily wound care Continue IV steroid for now 12/01 biopsy result showed skin with ulceration, fibropurulent exudate, and focal vasculitis of small blood vessels in the deep dermis. Prominent features of a stasis ulcer, such as dermal hemosiderin, are not seen. Similarly, features suggestive of a "true" vasculitis are not present either. While the overall findings are somewhat non-specific, these features would be consistent with pyoderma gangrenosum in the correct clinical context. Case discussed with [facility] Dr. Piña that said that dx is pyoderma gangrenosum (Diagnosis of exclusion) Will transition to PO prednisone 60mg daily than taper by 10mg weekly No debridement as per dermatology Will need to see patient soon in his office (His office will arrange for that) Case discussed with Rheumatology Dr. Thornton that recommended to hold the Metrotrexate while on abx Will need to follow up with rheumatology Continue follow up with wound care clinic and continue daily wound change Case discussed with ID in [facility] that recommended to continue the Vanco IV for 4 weeks and discontinued the Zosyn Will need weekly CBC, BMP and Vanco trough weekly Will discuss with case mabgement to arrange for abx infusion outpatient Will get a picc line tomorrow (3) Diabetes mellitus, type 2: HgbA1c 9.9 on this admission Pharmacy on board for glycemic management On Lantus and novolog sliding scale (4) CAD (coronary artery disease): hx of 3V CABG 08/2017 (NOWAK to LAD, SVG to D1, SVG to OM1), ischemic cardiomyopathy EF 40 to 45% 11/2017 continue ASA, lisinopril, coreg, statin also hx of asymptomatic carotid artery disease - follows Vascular at [place] Stable (5) Hyperlipidemia: continue statin (6) Rheumatoid arthritis: On prednisone 7.5 mg daily along with methotrexate 15 mg every Wednesday outpatient Continue to hold methotrexate currently due to concern for infection On IV Hydrocortisone TID 50mg, will transition to PO prednisone tomorrow Continue to hold Metrotrexate while on abx (7) Anemia: H&H stable, likely in setting of chronic disease H&H 11.3 and 34.9 (8) DVT prophylaxis: SQ Lovenox CODE STATUS FULL CODE Admission and Anticipated Discharge Date Admission Date: November 27, 2019 Subjective Pt was seen and examined Lying in bed with no distress Pt said that she feels ok Denies any chest pain, palpitation, dizziness and SOB Physical Exam Physical Exam: General- No acute distress Head- atraumatic Eyes- PERRL, EOMI, ENT- oropharynx clear Neck- supple, no JVD Lungs- clear to auscultation Heart- regular rhythm; no murmur Abdomen- normal bowel sounds, soft, nontender Extremities- no calf tenderness, Right lower extremity, nonhealing open wounds, with exposure of camp housekeeper tendons Skin: + ulcer (Open wound on lower third of right leg) Nonhealing open wound on right lower extremity Neuro- alert, oriented x 3; PERRL, EOMI; no facial palsy; no dysarthria Results & Data Results & Data ([place]) Vital Signs (Past 12 Hours) Vital Signs Temp Pulse Pulse Resp BP Pulse Ox 12/02/19 15:45 36.8 C 76 18 127/71 97 12/02/19 08:33 89 146/78 H 97 12/02/19 07:50 36.7 C 69 16 127/65 99 (1) Ulcer of right ankle Non-pressure ulcer stage: with fat layer exposed Qualified Code(s): L97.312 - Non-pressure chronic ulcer of right ankle with fat layer exposed
[2019-12-02] MEDS: VANCOMYCIN HCL 750 MG in SODIUM CHLORIDE 0.9% 250 ML IV SCH (21:25)
[2019-12-02] MEDS: ATORVASTATIN 20 MG TAB PO SCH (21:25)
[2019-12-02] MEDS: ENOXAPARIN INJ 40 MG/0.4 ML SYR SQ SCH (21:27)
[2019-12-03 06:40] LABS: Est GFR (African American) 75.5; Est GFR (Non-African American) 65.1
[2019-12-03] MEDS: VANCOMYCIN HCL 750 MG in SODIUM CHLORIDE 0.9% 250 ML IV SCH ×2 (07:47→19:39)
[2019-12-03] MEDS: carvediloL 3.125 MG TAB PO SCH ×2 (08:37→20:43)
[2019-12-03] MEDS: ASPIRIN 81 MG ECTAB PO SCH (08:37)
[2019-12-03] MEDS: FOLIC ACID 1 MG TAB PO SCH (08:38)
[2019-12-03] MEDS: MULTIVITAMIN TAB PO SCH (08:38)
[2019-12-03] MEDS: CALCIUM CARBONATE 1250MG TAB PO SCH (08:38)
[2019-12-03] MEDS: predniSONE 20 MG TAB PO SCH (08:38)
[2019-12-03] MEDS: valACYclovir HCL 500 MG TABLET PO SCH (08:38)
[2019-12-03] MEDS: ACETAMINOPHEN 500 MG TAB PO SCH ×3 (08:57→20:43)
[2019-12-03] MEDS ORDERED: INSULIN HUMAN NPH SC SCH ×2 (09:00→16:30)
[2019-12-03] MEDS: INSULIN ASPART 100 UNITS/ML 3 ML PEN SC SCH ×4 (09:11→20:44)
[2019-12-03] MEDS: INSULIN HUMAN NPH SC SCH (09:13)
[2019-12-03 09:17] LABS: Hematocrit (blood only) 24.2 % (37-47); Hemoglobin 7.8 g/dL (12.0-16.0); Mean Corpuscular Hemoglobin 30.7 pg (25-34); Mean Corpuscular Hgb Conc 32.2 g/dL (32-36); Mean Corpuscular Volume 95.3 fL (80-100); Mean Platelet Volume 9.4 fL (7.4-10.4); Nucleated RBC # (auto) 0.14 K/uL (0-0); Nucleated RBC % (auto) 1.3 %; Platelet Count 264 K/uL (130-400); RDW Coefficient of Variation 19.4 % (11.5-14.5); RDW Standard Deviation 66.1 fL (36.4-46.3); Red Blood Count 2.54 M/uL (4.2-5.4); White Blood Count 10.74 K/uL (4.8-10.8)
[2019-12-03] MEDS: LACTOBACILLUS ACIDOPHILUS (FLORANEX) TAB PO SCH ×2 (11:41→20:42)
--- NOTE | 2019-12-03 14:44 | Pharmacy Report ---
Glycemic Control Progress Note - Date of Service December 03, 2019 - Scope Glycemic Pharmacist consulted for glycemic control to write orders per [facility] inpatient glycemic control protocol. - Objective Accuchecks BSG(last 24 hours):: 12/02/19 12/02/19 12/03/19 17:04 20:43 08:08 POC Glucose 162 H 219 H 69 L* 12/03/19 12/03/19 08:09 12:14 POC Glucose 70 136 H HbA1c:: Hemoglobin A1c 9.9 % (4.5-5.6) H 11/28/19 07:06 - Recent Pertinent Medications The patient is currently receiving: * Basal insulin: Lantus 25 units every 24 hours + NPH 28 units SQ qAM * Correctional Insulin: Novolog Correction per scale ACHS Goal Range: Low 110 mg/dL - High 140 mg/dL Correction Factor: 12 mg/dL/unit * Prandial insulin: Per carb ratio of 1 unit per 4 grams CHO consumed - Outpatient Anti-Diabetic Meds Novoloin 70/30 --> 20 units BIDM - Assessment & Plan ASSESSMENT: * See progress note from 11/28/2019 for more background info, in short: * Pt receiving SQ basal bolus insulin regimen for hyperglycemia secondary to baseline DM (outpatient regimen on hold),stress/infection (currently on long- term vancomycin), and prednisone 60 mg daily. * Patient is currently receiving an average of 105 units of insulin per day * 53 units of basal insulin * 52 units of prandial/correctional insulin * BSGs ranging 126 - 219 mg/dl over the past 24hrs * Changes needed to insulin regimen: * AM Fasting BSG = 70 mg/dl. This is below goal range for patient based on inpatient targets and co-morbidities. Since patient is being sent home tomorrow, transitioned off Lantus to just NPH. Will start with 35 units th is morning (28 units for steroid coverage + additional 7 units for basal) then 15 units with dinner for total of 50 units today. * Post-prandial BSGs were elevated yesterday. Instead of increasing NPH will tighten carbohydrate coverage. * Total daily dose = ~110-120 units. Tightened insulin as mentioned above. PLAN FOR INPATIENT GLYCEMIC CONTROL: * INCREASING NPH to 35 units SQ QAM + 15 units SQ with dinner * D/C Lantus * Continuing correction factor of 12 mg/dl/unit * TIGHTENING carb ratio to 1 unit per 3 grams CHO consumed * Continuing goal range OF Low 110 mg/dL - High 140 mg/dL RECOMMENDATIONS FOR DISCHARGE: * WITH PREDNISONE 60 MG DAILY * Novolin 70/30 --> 60 units with breakfast and 30 units with dinner (please note will probably need titrated upwards). * WITH PREDNISONE 50 MG DAILY * Novolin 70/30 --> 54 units with breakfast and 27 units with dinner. * WITH PREDNISONE 40 MG DAILY * Novolin 70/30 --> 50 units with breakfast and 23 units with dinner. * WITH PREDNISONE 30 MG DAILY * Novolin 70/30 --> 45 units with breakfast and 20 units with dinner. * WITH PREDNISONE 20 MG DAILY * Novolin 70/30 --> 40 units with breakfast and 20 units with dinner. * WITH PREDNISONE 10 MG DAILY * Novolin 70/30 --> 35 units with breakfast and 20 units with dinner. * Please note that the plan above was derived based on current level of insulin resistance and hospital stress. These recommendations are appropriate for inpatient admission only. Plan of care upon discharge will need to be reassessed to avoid potential outpatient hypo/hyperglycemia. Thank you.
--- NOTE | 2019-12-03 19:51 | Hospitalist Progress Note ---
Date of Service December 03, 2019 Assessment & Plan (1) Pyoderma gangrenosum: (2) Ulcer of right ankle: (3) Traumatic open wound of right lower leg with delayed healing: This is a 59-year-old female with significant past medical history of insulin-dependent T2DM, CAD with history of CABG x3, HLD, CKD stage III, history of PAF, bilateral carotid artery stenosis, rheumatoid arthritis on immunosuppressants with methotrexate and prednisone, anemia, monoclonal paraproteinemia who presents to ED secondary to worsening wound to right lower extremity with tendon exposure x3 days. Distal wound Stage 4 traumatic wound to R ankle with extensor tendon exposed Failed outpatient therapy with cipro after wound cx grew E. Coli Right ankle MRI showed tibialis anterior tendinosis with probable split tear. Additionally, there is tibialis anterior tenosynovitis with mild peripheral enhancement which is likely reactive. No evidence of osteomyelitis or abscess. Moderate diffuse subcutaneous edema. Arterial doppler showed o arterial occlusion or significantly elevated peak systolic velocities to suggest high-grade stenosis. Right lower extremity angiography revealed only mild peripheral arterial disease. Current ulceration is not secondary to large vessel disease and arterial blood supply should be adequate for wound healing. has been follow with the wound care clinic Dr. Rodriguez Will hold wound vac as per wound provider dr. Clark No evidence of sepsis Ortho evaluation appreciated, no evidence of abscess, that needs to be drained ID on board and recommended to continue IV abx with Zosyn and Vanco for now Will discuss with ID for final abx course Rheumatology on board recommended biopsy to evaluate for pyoderma gangrenosum vs neutrophilic dermatosis Dermatology on board Very high probability for Pyoderma gangrenosum Punch biopsy taken from the ulcer edge to further assess, waiting for result continue daily wound care Continue IV steroid for now 12/03 biopsy result showed skin with ulceration, fibropurulent exudate, and focal vasculitis of small blood vessels in the deep dermis. Prominent features of a stasis ulcer, such as dermal hemosiderin, are not seen. Similarly, features suggestive of a "true" vasculitis are not present either. While the overall findings are somewhat non-specific, these features would be consistent with pyoderma gangrenosum in the correct clinical context. Case discussed with Dermathology Dr. Piña that said that dx is pyoderma gangrenosum (Diagnosis of exclusion) Will transition to PO prednisone 60mg daily than taper by 10mg weekly No debridement as per dermatology Will need to see patient soon in his office (His office will arrange for that) Case discussed with Rheumatology Dr. Thornton that recommended to hold the Metrotrexate while on abx Will need to follow up with rheumatology Continue follow up with wound care clinic and continue daily wound change Case discussed with ID in [facility] that recommended to continue the Vanco IV for 4 weeks and discontinued the Zosyn Will need weekly CBC, BMP and Vanco trough weekly Will discuss with case management to arrange for abx infusion outpatient Will get a picc line Consent signed after discussed PICC line risks with Sister and patient such as bleeding, infection, clot, nerve puncture, pain,... (4) Diabetes mellitus, type 2: HgbA1c 9.9 on this admission Pharmacy on board for glycemic management On Lantus and novolog sliding scale (5) CAD (coronary artery disease): hx of 3V CABG 08/2017 (NOWAK to LAD, SVG to D1, SVG to OM1), ischemic cardiomyopathy EF 40 to 45% 11/2017 continue ASA, lisinopril, coreg, statin also hx of asymptomatic carotid artery disease - follows Vascular at [place] Stable (6) Hyperlipidemia: continue statin (7) Rheumatoid arthritis: On prednisone 7.5 mg daily along with methotrexate 15 mg every Wednesday outpatient Continue to hold methotrexate currently due to concern for infection On IV Hydrocortisone TID 50mg, will transition to PO prednisone tomorrow Continue to hold Metrotrexate while on abx (8) Anemia: H&H stable, likely in setting of chronic disease H&H 11.3 and 34.9 (9) DVT prophylaxis: SQ Lovenox CODE STATUS FULL CODE Admission and Anticipated Discharge Date Admission Date: November 27, 2019 Subjective Pt was seen and examined Lying in bed with no distress with sister at bedside Pt said that she feels fine She said that she will be able to afford the copay for the Vanco Denies any chest pain, palpitation, dizziness and SOB Physical Exam Physical Exam: General- No acute distress Head- atraumatic Eyes- PERRL, EOMI, ENT- oropharynx clear Neck- supple, no JVD Lungs- clear to auscultation Heart- regular rhythm; no murmur Abdomen- normal bowel sounds, soft, nontender Extremities- no calf tenderness, Right lower extremity, nonhealing open wounds, with exposure of registered nurse teacher tendons Skin: + ulcer (Open wound on lower third of right leg) Nonhealing open wound on right lower extremity Neuro- alert, oriented x 3; PERRL, EOMI; no facial palsy; no dysarthria Results & Data Results & Data ([facility]) Vital Signs (Past 12 Hours) Vital Signs Temp Pulse Resp BP Pulse Ox 12/03/19 15:26 36.7 C 82 18 119/64 96 12/03/19 08:36 75 149/74 H 99 (1) Ulcer of right ankle Non-pressure ulcer stage: with fat layer exposed Qualified Code(s): L97.312 - Non-pressure chronic ulcer of right ankle with fat layer exposed
[2019-12-03] MEDS: ATORVASTATIN 20 MG TAB PO SCH (20:43)
[2019-12-03] MEDS: ENOXAPARIN INJ 40 MG/0.4 ML SYR SQ SCH (21:38)
[2019-12-04 07:02] LABS: Creatinine Clr Calc Pharmacy 63.6 ml/min; Est GFR (African American) 82.8; Est GFR (Non-African American) 71.4
[2019-12-04] MEDS ORDERED: VANCOMYCIN TROUGH ONE (07:30)
[2019-12-04] MEDS: VANCOMYCIN HCL 750 MG in SODIUM CHLORIDE 0.9% 250 ML IV SCH (08:56)
[2019-12-04] MEDS: CALCIUM CARBONATE 1250MG TAB PO SCH (08:58)
[2019-12-04] MEDS: valACYclovir HCL 500 MG TABLET PO SCH (08:58)
[2019-12-04] MEDS: ASPIRIN 81 MG ECTAB PO SCH (08:59)
[2019-12-04] MEDS: MULTIVITAMIN TAB PO SCH (08:59)
[2019-12-04] MEDS: predniSONE 20 MG TAB PO SCH (08:59)
[2019-12-04] MEDS: carvediloL 3.125 MG TAB PO SCH (08:59)
[2019-12-04] MEDS: FOLIC ACID 1 MG TAB PO SCH (08:59)
[2019-12-04] MEDS: LACTOBACILLUS ACIDOPHILUS (FLORANEX) TAB PO SCH (09:00)
[2019-12-04] MEDS: INSULIN ASPART 100 UNITS/ML 3 ML PEN SC SCH ×2 (09:03→12:44)
[2019-12-04] MEDS: INSULIN HUMAN NPH SC SCH (09:04)
[2019-12-04] MEDS: ACETAMINOPHEN 500 MG TAB PO SCH ×2 (09:10→13:41)
[2019-12-04] MEDS ORDERED: POTASSIUM CHLORIDE 20 MEQ TABCR PO STA (09:25)
[2019-12-04 09:51] LABS: Hematocrit (blood only) 25.2 % (37-47); Hemoglobin 7.9 g/dL (12.0-16.0); Mean Corpuscular Hemoglobin 30.3 pg (25-34); Mean Corpuscular Hgb Conc 31.3 g/dL (32-36); Mean Corpuscular Volume 96.6 fL (80-100); Mean Platelet Volume 9.6 fL (7.4-10.4); Nucleated RBC # (auto) 0.15 K/uL (0-0); Nucleated RBC % (auto) 1.4 %; Platelet Count 269 K/uL (130-400); RDW Standard Deviation 67.9 fL (36.4-46.3); Red Blood Count 2.61 M/uL (4.2-5.4); White Blood Count 10.95 K/uL (4.8-10.8)
--- NOTE | 2019-12-04 10:06 | Pharmacy Report ---
Pharmacy Abx Dose Short Note - Date of Service December 04, 2019 - Assessment & Plan Assessment 59 year old F receiving Vancomycin for treatment of right ankle wound/ulcer * Day #8 of Vancomycin therapy for CoNS growing in wound culture. ID has recommended 4 weeks of vancomycin (stop date = 12/25/2019). * Patient is planning on returning home with HH services and a PICC line to finish course of IV Vancomycin. HH services can only administer vancomycin at 0800 and 2000 so inpatient regimen was transitioned to these times. Plan Vancomycin * Trough level of 18.0 mcg/mL is therapeutic * Continue dose of 750 mg IV every 12 hours (0800 & 2000) Discharge Recommendations * Draw SCr every 2-3 days and CBC weekly. * Draw Vancomycin trough level 1-2 x per week * Goal trough level is ~ 15 mcg/mL. Supratherapeutic troughs (greater than 20 mcg/mL will require an adjustment in vancomycin dose and/or dosing interval). * Trough levels should be drawn 30 minutes prior to the next infusion time. * Recommend obtaining next trough on 12/07/2019 @ 0730. * Last dose should be 12/25/2019 at 2000. Pharmacy will continue to follow and will adjust dose/frequency as necessary. Thank you.
--- NOTE | 2019-12-04 14:02 | Hospitalist Progress Note ---
Date of Service December 04, 2019 Assessment & Plan (1) Pyoderma gangrenosum: (2) Ulcer of right ankle: (3) Traumatic open wound of right lower leg with delayed healing: This is a 59-year-old female with significant past medical history of insulin-dependent T2DM, CAD with history of CABG x3, HLD, CKD stage III, history of PAF, bilateral carotid artery stenosis, rheumatoid arthritis on immunosuppressants with methotrexate and prednisone, anemia, monoclonal paraproteinemia who presents to ED secondary to worsening wound to right lower extremity with tendon exposure x3 days. Distal wound Stage 4 traumatic wound to R ankle with extensor tendon exposed Failed outpatient therapy with cipro after wound cx grew E. Coli Right ankle MRI showed tibialis anterior tendinosis with probable split tear. Additionally, there is tibialis anterior tenosynovitis with mild peripheral enhancement which is likely reactive. No evidence of osteomyelitis or abscess. Moderate diffuse subcutaneous edema. Arterial doppler showed o arterial occlusion or significantly elevated peak systolic velocities to suggest high-grade stenosis. Right lower extremity angiography revealed only mild peripheral arterial disease. Current ulceration is not secondary to large vessel disease and arterial blood supply should be adequate for wound healing. has been follow with the wound care clinic Dr. Rodriguez Will hold wound vac as per wound provider dr. Clark No evidence of sepsis Ortho evaluation appreciated, no evidence of abscess, that needs to be drained ID on board and recommended to continue IV abx with Zosyn and Vanco for now Will discuss with ID for final abx course Rheumatology on board recommended biopsy to evaluate for pyoderma gangrenosum vs neutrophilic dermatosis Dermatology on board Very high probability for Pyoderma gangrenosum Punch biopsy taken from the ulcer edge to further assess, waiting for result continue daily wound care Continue IV steroid for now 12/03 biopsy result showed skin with ulceration, fibropurulent exudate, and focal vasculitis of small blood vessels in the deep dermis. Prominent features of a stasis ulcer, such as dermal hemosiderin, are not seen. Similarly, features suggestive of a "true" vasculitis are not present either. While the overall findings are somewhat non-specific, these features would be consistent with pyoderma gangrenosum in the correct clinical context. Case discussed with Dermathology Dr. Piña that said that dx is pyoderma gangrenosum (Diagnosis of exclusion) Will transition to PO prednisone 60mg daily than taper by 10mg weekly No debridement as per dermatology Will need to see patient soon in his office (His office will arrange for that) Case discussed with Rheumatology Dr. Thornton that recommended to hold the Metrotrexate while on abx Will need to follow up with rheumatology Continue follow up with wound care clinic and continue daily wound change Case discussed with ID in [facility] that recommended to continue the Vanco IV for 4 weeks and discontinued the Zosyn Will need weekly CBC, BMP and Vanco trough weekly Case management arranged for outpatient abx infusion with Vanco Consent signed after discussed PICC line risks with Sister and patient such as bleeding, infection, clot, nerve puncture, pain,... PICC line placed (4) Diabetes mellitus, type 2: HgbA1c 9.9 on this admission Pharmacy on board for glycemic management On Lantus and novolog sliding scale (5) CAD (coronary artery disease): hx of 3V CABG 08/2017 (NOWAK to LAD, SVG to D1, SVG to OM1), ischemic cardiomyopathy EF 40 to 45% 11/2017 continue ASA, lisinopril, coreg, statin also hx of asymptomatic carotid artery disease - follows Vascular at [place] Stable (6) Hyperlipidemia: continue statin (7) Rheumatoid arthritis: On prednisone 7.5 mg daily along with methotrexate 15 mg every Wednesday outpatient Continue to hold methotrexate currently due to concern for infection On IV Hydrocortisone TID 50mg, will transition to PO prednisone tomorrow Continue to hold Metrotrexate while on abx Follow up with rheumatology outpatient (8) Anemia: H&H stable, likely in setting of chronic disease hgb 7.9 today Check CBC 1 week (9) DVT prophylaxis: SQ Lovenox CODE STATUS FULL CODE Admission and Anticipated Discharge Date Admission Date: November 27, 2019 Subjective Pt was seen and examined Lying in bed with no distress Pt said that she feels fine Denies any chest pain, palpitation, dizziness and SOB Physical Exam Physical Exam: General- No acute distress Head- atraumatic Eyes- PERRL, EOMI, ENT- oropharynx clear Neck- supple, no JVD Lungs- clear to auscultation Heart- regular rhythm; no murmur Abdomen- normal bowel sounds, soft, nontender Extremities- no calf tenderness, Right lower extremity, nonhealing open wounds, with exposure of mechatronics technician tendons Skin: + ulcer (Open wound on lower third of right leg) Nonhealing open wound on right lower extremity Neuro- alert, oriented x 3; PERRL, EOMI; no facial palsy; no dysarthria Results & Data Results & Data ([facility]) Vital Signs (Past 12 Hours) Vital Signs Temp Pulse Resp BP Pulse Ox 12/04/19 07:46 36.4 C L 86 16 113/67 98 (1) Ulcer of right ankle Non-pressure ulcer stage: with fat layer exposed Qualified Code(s): L97.312 - Non-pressure chronic ulcer of right ankle with fat layer exposed
--- NOTE | 2019-12-04 14:49 | Pharmacy Report ---
Pharmacy Glycemic Short Note 2 - Date of Service December 04, 2019 - Glycemic Short BSG Results (Last 24 hours): OUTPATIENT ANTIDIABETIC REGIMEN: * Novolin 70/30 - 20 units SC BID * HbA1c = 9.9% (11/28/2019) ASSESSMENT: 12/03: * Patient required a total of 112 units of insulin yesterday * 50 units basal + 62 units bolus * BSGs were 19-71-189-197-154 mg/dL - adequate control * Fasting BSG this AM was 58 mg/dL. Patient required 15 gms of carbohydrates to improve BSG to 106 mg/dL. Recheck was then 101 mg/dL. * Given this event, will decrease PM NPH dose this evening to prevent hypoglycemia * No changes made to Novolog parameters at this time 11/30: * Fasting AM BSG with significant drop down to 98 mg/dL w random AM lab draw and 85 mg/dL on POC. Etiology of significant decrease is both likely 2nd higher Lantus doses yesterday and steroid taper. Will decrease Lantus. * Two BSG's >180 mg/dL yesterday despite steroid taper. Of the last four BSG's >180 mg/dL, all of them occurred after the patient consumed >40 g CHO at the preceeding meal, suggesting a tighter CHO ratio is indicated. Will tighten. * Note - this regimen will require significant adjustment if/when steroids are adjusted PLAN FOR INPATIENT GLYCEMIC CONTROL: * Basal insulin - decrease * NPH 35 units qAM (with prednisone) * NPH 10 units qPM * Bolus insulin - no change * NovoLog per scale ACHS or Q6hrs while NPO * Goal Range: Low 110 mg/dL - High 140 mg/dL * Correction Factor: 12 mg/dL/unit * Nutritional / Prandial insulin per carb ratio of 1 unit per 3.5 grams CHO consumed PLAN FOR DISCHARGE: * HbA1c from this admission was 9.9% - uncontrolled. The ideal A1c for this patient given her age and comorbidities would be less than 7.0%. * WITH PREDNISONE 60 MG DAILY * Novolin 70/30 --> 60 units with breakfast and 30 units with dinner (please note will probably need titrated upwards). * WITH PREDNISONE 50 MG DAILY * Novolin 70/30 --> 54 units with breakfast and 27 units with dinner. * WITH PREDNISONE 40 MG DAILY * Novolin 70/30 --> 50 units with breakfast and 23 units with dinner. * WITH PREDNISONE 30 MG DAILY * Novolin 70/30 --> 45 units with breakfast and 20 units with dinner. * WITH PREDNISONE 20 MG DAILY * Novolin 70/30 --> 40 units with breakfast and 20 units with dinner. * WITH PREDNISONE 10 MG DAILY * Novolin 70/30 --> 35 units with breakfast and 20 units with dinner.
--- NOTE | 2019-12-05 11:40 | Discharge Summary ---
Date of Service December 04, 2019 Admission HPI Per Admitting Provider This is a 59-year-old female with significant past medical history of insulin- dependent T2DM, CAD with history of CABG x3, HLD, CKD stage III, history of PAF, bilateral carotid artery stenosis, rheumatoid arthritis on immunosuppressants with methotrexate and prednisone, anemia, monoclonal paraproteinemia who presents to ED secondary to worsening wound to right lower extremity with tendon exposure x3 days. Patient has been following [facility] wound clinic due to pretibial traumatic wound that she suffered in July 2019 when trying to enter father's home. She had a wound VAC in place as well as compressive dressing that was very tight. Dressing caused additional wound distally to proximal wound with eventual opening and wound exposure starting Thursday 11/23. Only minimal tendon was exposed at this time until today when a significant amount of tendon became exposed. Daughter at bedside and patient went to see wound clinic today who referred patient to ED for admission and IV antibiotics. Patient denies any fever, chills, sweats, lightheadedness, dizziness, chest pain, shortness breath, cough, nausea, vomiting, abdominal pain, change in bowel or urinary habits. Her appetite has otherwise been well. She currently denies any pain. In ED she was seen and evaluated and started on broad-spectrum IV antibiotics with Rocephin and IV vancomycin. As an outpatient she currently is on ciprofloxacin due to a positive culture for E. coli. Daughter is very displeased with wound. She has been on multiple antibiotics without significant improvement. She continues to bear weight on right lower extremity but only for transfer purposes to bathroom. In ED she remained hemodynamically stable. Lab work notable for WBC 12.09k, H&H 11.3 and 31.9, ESR 49, CRP 3.61, BUN 20, creatinine 1.09, glucose 136, procalcitonin 0.33. Vascular medicine was consulted in ED and recommended bilateral arterial Dopplers to rule out vascular disease due to prior history of CABG and carotid artery disease. Admission Exam Per Admitting Provider Constitutional: WD/WN, vitals as above, NAD, sitting up in bed, pleasant, conversing easily Head: Normocephalic, Atraumatic Eyes: PERRL, conjunctivae normal, anicteric sclerae ENMT: external ear and nose normal, oropharynx normal Neck: trachea midline, no thyromegaly normal visual inspection Respiratory: normal respiratory effort, lungs clear to auscultation, no wheeze, rales, rhonchi. Normal insp/exp effort, no accessory muscle use Cardiovascular: RRR, 2/6 BAILEY at RUSB, no edema Vessels: no JVD or carotid bruit Chest: normal inspection of chest, sternotomy scar noted Abdomen: normal bowel sounds, soft, nontender, no hepatosplenomegaly Musculoskeletal: no cyanosis or clubbing, right lower extremity pretibial area wound x2, proximal wound 1 inch x 1 inch with well-appearing wound bed, distal wound erythematous edges with extensor tendon exposed managed by 1 inch, bilateral pedal pulse +2 and equal, skin warm Skin: no rashes, warm and dry normal turgor Neurologic: PERRL, EOMI, accommodation nl, no face palsy, no dysarthria CN's II-XI intact bilaterally and moves all extremities Psychiatric: A+Ox3, euthymic affect Lymphatic: no cervical or axillary lymphadenopathy : deferred Principal Diagnosis (1) Pyoderma gangrenosum: (2) Ulcer of right ankle: (3) Traumatic open wound of right lower leg with delayed healing: (4) Diabetes mellitus, type 2: (5) CAD (coronary artery disease): (6) Hyperlipidemia: (7) Rheumatoid arthritis: (8) Anemia: Discharge Exam General- No acute distress Head- atraumatic Eyes- PERRL, EOMI, ENT- oropharynx clear Neck- supple, no JVD Lungs- clear to auscultation Heart- regular rhythm; no murmur Abdomen- normal bowel sounds, soft, nontender Extremities- no calf tenderness, Right lower extremity, nonhealing open wounds, with exposure of box feeder tendons Skin: + ulcer (Open wound on lower third of right leg) Nonhealing open wound on right lower extremity Neuro- alert, oriented x 3; PERRL, EOMI; no facial palsy; no dysarthria Discharge Data Allergies Allergy/AdvReac Type Severity Reaction Status Date / Time Sulfa (Sulfonamide Allergy Rash Verified 11/27/19 13:24 Antibiotics) Consultations 11/27/19 15:19 ED Decision to Admit Stat 11/27/19 16:08 Consult Orthopedic Surgery Routine 11/27/19 18:40 Consult Case Management - Discharge Planning Routine Consult Wound Care Provider Routine 11/28/19 11:19 Consult Infectious Diseases Routine 11/28/19 11:20 Consult Vascular Surgery Routine 11/28/19 12:07 Consult Dermatology Routine Consult Rheumatology Routine 11/28/19 14:32 Consult Wound Care Provider Routine Procedures Performed Operation Date: 11/29/19 10:00 Actual Procedures p Angio Extremity Bilateral - Renato Interiano MD s Placement Art Occlusive Device - Renato Interiano MD s Ultrasound Vascular Access - Renato Interiano MD s SC Select Cath ALEP 3rd Order - Renato Interiano MD Ordered Studies 11/27/19 15:08 US arterial duplex LE BI Stat 11/28/19 11:18 MR ankle RT wo/w con Routine 11/29/19 06:47 CL Cath Imgs for PACS use only Routine MR ankle RT wo/w con HISTORY: 59 years-old Female rt ankle non healing wound patient presents with reported chronic nonhealing wound of the heel. COMPARISON: Right ankle radiographs 11/27/2019 TECHNIQUE: Multiplanar multisequence MRI of the right ankle was obtained both with and without the use of 6.5 mL Gadavist FINDINGS: Motion degraded exam. Technologist reports that the patient was unable to withstand the entirety of the study. The exam was then terminated with nodule of the sequences obtained. Lateral tendons appear intact. Peroneal tendons are intact. The tibialis posterior, flexor hallucis longus and flexor digitorum longus appear intact. The syndesmotic ligaments appear intact. There is moderate thickening with intermediate T2 and PD signal involving the tibialis anterior compatible with tendinosis. Additionally, there is congestion high-grade split tearing at the level of the distal tibia and talus extending for a length of approximately 2 cm. Fluid surrounding the tendon is noted with mild peripheral enhancement. Lisf ranc ligament is partially imaged and appears intact. Intact Achilles tendon. Unremarkable plantar fascia. Spring ligament appears intact. There is diffuse atrophy of the intrinsic musculature of the foot. Moderate diffuse subcutaneous edema. Moderate edema involves the sinus Tarsi. Mild tibiotalar, subtalar and midfoot osteoarthritis. Arterial calcifications. No fluid collection to suggest abscess. No acute fracture, bone marrow edema or osseous erosion. No abnormal enhancement. IMPRESSION: 1. Motion degraded exam. The study was also prematurely terminated secondary to patient inability to complete the study. Not all of the sequences were obtained. 2. Tibialis anterior tendinosis with probable split tear. Additionally, there is tibialis anterior tenosynovitis with mild peripheral enhancement which is likely reactive. Infectious tenosynovitis is considered less likely. 3. No evidence of osteomyelitis or abscess. 4. Moderate diffuse subcutaneous edema. Cellulitis, venous stasis or lymphedema are the differential considerations. ACT 112: Negative or not required by law. The above report was generated using voice recognition software. It may contain grammatical, syntax or spelling errors. Electronically signed by: Solo Hutchins M.D. 11/28/2019 2:59 PM Dictated: 11/28/19 143 Transcribed: 11/28/19 143 US arterial duplex LE BI HISTORY: 59 years-old Female swelling acute pain and swelling of the lower extremities COMPARISON: Duplex venous Doppler study 08/19/2017 TECHNIQUE: Multiple real-time sonographic images of the lower extremity arterial structures were obtained assessing grayscale appearance, color and spectral flow. Segmental blood pressures were also obtained bilaterally. FINDINGS: SEGMENTAL BLOOD PRESSURES: Right: Brachial-129 (index); posterior tibial-noncompressible; dorsalis pedis- 118 (0.87). Left: Brachial-126 (index); posterior tibial-140 (1.03); dorsalis pedis-143 (1.05). RIGHT: Multifocal calcified plaque. Triphasic waveforms are noted within the common femoral, profunda femoris, and superficial femoral arteries. Areas of triphasic and biphasic waveforms are noted within the popliteal artery. Monophasic and biphasic waveforms within the calf arteries without occlusion or significantly elevated peak velocities to suggest high-grade stenosis. LEFT: Multifocal calcified plaque. Triphasic waveforms are noted within the common femoral, femoris and superficial femoral arteries. Areas of triphasic and biphasic waveforms noted within the popliteal artery. Scattered monophasic waveforms are noted within the calf arteries without occlusion or significantly elevated peak systolic velocities to suggest high-grade stenosis. Notably, blunted monophasic waveforms with spectral broadening noted within the peroneal artery. IMPRESSION: 1. Atherosclerotic vascular disease with monophasic waveforms within the calf arteries. 2. No arterial occlusion or significantly elevated peak systolic velocities to suggest high-grade stenosis. ACT 112: Negative or not required by law. The above report was generated using voice recognition software. It may contain grammatical, syntax or spelling errors. Electronically signed by: Solo Hutchins M.D. 11/27/2019 6:24 PM Dictated: 11/27/191818 Transcribed: 11/27/191818 XR ankle RT min 3V routine HISTORY: 59 years-old Female pain acute right ankle pain COMPARISON: None TECHNIQUE: 3 views of the right ankle FINDINGS: Bones appear mildly demineralized. Mild osteoarthritis of the midfoot and hindfoot. Soft tissue calcifications project over the medial malleolus. Arterial calcifications. No acute fracture, dislocation or opaque foreign body. Ill- defined lucencies project over the distal pretibial tissues which may be projectional or reflect soft tissue injury. IMPRESSION: No acute fracture or dislocation. ACT 112: Negative or not required by law. The above report was generated using voice recognition software. It may contain grammatical, syntax or spelling errors. Electronically signed by: Solo Hutchins M.D. 11/27/2019 2:57 PM Dictated: 11/27/191454 Transcribed: 11/27/191454 Diabetes Follow up Diabetes Follow-up Needed for HgbA1c >9% Hospital Course (1) Pyoderma gangrenosum: (2) Ulcer of right ankle: (3) Traumatic open wound of right lower leg with delayed healing: This is a 59-year-old female with significant past medical history of insulin-dependent T2DM, CAD with history of CABG x3, HLD, CKD stage III, history of PAF, bilateral carotid artery stenosis, rheumatoid arthritis on immunosuppres sants with methotrexate and prednisone, anemia, monoclonal paraproteinemia who presents to ED secondary to worsening wound to right lower extremity with tendon exposure x3 days. Distal wound Stage 4 traumatic wound to R ankle with extensor tendon exposed Failed outpatient therapy with cipro after wound cx grew E. Coli Right ankle MRI showed tibialis anterior tendinosis with probable split tear. A dditionally, there is tibialis anterior tenosynovitis with mild peripheral enhancement which is likely reactive. No evidence of osteomyelitis or abscess. Moderate diffuse subcutaneous edema. Arterial doppler showed o arterial occlusion or significantly elevated peak systolic velocities to suggest high-grade stenosis. Right lower extremity angiography revealed only mild peripheral arterial disease. Current ulceration is not secondary to large vessel disease and arterial blood supply should be adequate for wound healing. has been follow with the wound care clinic Dr. Rodriguez Will hold wound vac as per wound provider dr. Clark No evidence of sepsis Ortho evaluation appreciated, no evidence of abscess, that needs to be drained ID on board and recommended to continue IV abx with Zosyn and Vanco for now Will discuss with ID for final abx course Rheumatology on board recommended biopsy to evaluate for pyoderma gangrenosum vs neutrophilic dermatosis Dermatology on board Very high probability for Pyoderma gangrenosum Punch biopsy taken from the ulcer edge to further assess, waiting for result continue daily wound care Continue IV steroid for now 12/03 biopsy result showed skin with ulceration, fibropurulent exudate, and focal vasculitis of small blood vessels in the deep dermis. Prominent features of a stasis ulcer, such as dermal hemosiderin, are not seen. Similarly, features suggestive of a "true" vasculitis are not present either. While the overall findings are somewhat non-specific, these features would be consistent with pyoderma gangrenosum in the correct clinical context. Case discussed with Dermathology Dr. Piña that said that dx is pyoderma gangrenosum (Diagnosis of exclusion) Will transition to PO prednisone 60mg daily than taper by 10mg weekly No debridement as per dermatology Will need to see patient soon in his office (His office will arrange for that) Case discussed with Rheumatology Dr. Thornton that recommended to hold the Metrotrexate while on abx Will need to follow up with rheumatology Continue follow up with wound care clinic and continue daily wound change Case discussed with [place] [facility] that recommended to continue the Vanco IV for 4 weeks and discontinued the Zosyn Will need weekly CBC, BMP and Vanco trough weekly Case management arranged for outpatient abx infusion with Vanco Consent signed after discussed PICC line risks with Sister and patient such as bleeding, infection, clot, nerve puncture, pain,... PICC line placed (4) Diabetes mellitus, type 2: HgbA1c 9.9 on this admission Pharmacy on board for glycemic management On Lantus and novolog sliding scale (5) CAD (coronary artery disease): hx of 3V CABG 08/2017 (NOWAK to LAD, SVG to D1, SVG to OM1), ischemic cardiomyopathy EF 40 to 45% 11/2017 continue ASA, lisinopril, coreg, statin also hx of asymptomatic carotid artery disease - follows Vascular at [place] Stable (6) Hyperlipidemia: continue statin (7) Rheumatoid arthritis: On prednisone 7.5 mg daily along with methotrexate 15 mg every Wednesday outpatient Continue to hold methotrexate currently due to concern for infection On IV Hydrocortisone TID 50mg, will transition to PO prednisone tomorrow Continue to hold Metrotrexate while on abx Follow up with rheumatology outpatient (8) Anemia: H&H stable, likely in setting of chronic disease hgb 7.9 today Check CBC 1 week (9) DVT prophylaxis: SQ Lovenox CODE STATUS FULL CODE Total Time Total Time Spent Total Time Spent (In Minutes): 35 minutes Total Time Includes: Examination of the Patient, Discharge Planning, Medication Reconciliation, Communication With Other Providers and Other Discharge Plan Discharge Items Patient Disposition: Home - Home Health Services Reason For Visit: TRAUMATIC WOUND W/EXPOSED EXTENSOR TENDON OF R SAURABH Discharge Diagnosis: (1) Pyoderma gangrenosum: (2) Ulcer of right ankle: (3) Traumatic open wound of right lower leg with delayed healing: (4) Diabetes mellitus, type 2: (5) CAD (coronary artery disease): (6) Hyperlipidemia: (7) Rheumatoid arthritis: (8) Anemia: Condition on Discharge: Good Activity: Resume your previous activity Non-emergency contact: Primary Care Provider Call non-emergency contact if: you have any medication questions and your temperature is above 101 Follow-up/Referrals: Cornelius Osorio MD [Primary Care Provider] - 12/11/19 9:40 am (Date & Time 12/11/2019 9:40 AM Provider Cornelius Osorio MD [facility] ) Vickey Piña MD [Physician] - 12/14/19 9:45 am Diet: Carb Consistent or DM2 Addtl Attending Provider Instructions: Follow up with your primary care provider Dr. Osorio on 12/11/19 @ 9:40 AM Follow up with dermatology Dr. Piña on 12/14/19 @ 9:45 AM Follow up with Rheumatology Dr. Easley (office will call you for the appointment) Follow up with wound care clinic Follow up with [facility] Infectious disease to evaluate if antibiotic needs to extend the course longer Check Vancomycin Trough level, CBC and BMP weekly while on IV vancomycin Continue daily wound care Wound care recommend to avoid any trauma to wound/wound edges such as pulling of stuck dressing or rubbing wound. Wet stuck dressing to facilitate with removal. Do not Allow wet dressing to remain in place. Change dressing every day. Fall precaution Continue prednisone 60mg daily, then taper weekly by 10mg Continue to hold Metrotrexate while on antibiotic (Your rheumatology will tell you when to resume it) Increase potassium supplement in your diet Pending Studies at Discharge: No Stand-Alone Forms: My [facility], Smoking Cessation Medications and DC Order Prescriptions: New vancomycin 750 mg recon soln 750 mg IV Q12H 28 Days Qty: 56 RF: 0 prednisone 20 mg Tablet 60 mg PO UD Qty: 70 RF: 0 Lactobacillus acidoph-L.bulgar [Floranex] 1 million cell Tablet 4 tab PO BID 30 Days Qty: 240 RF: 0 Continued multivitamin [One-A-Day Essential] Tablet 1 tab PO QAM RF: 0 carvedilol 6.25 mg Tablet 3.125 mg PO BID RF: 0 Novolin 70/30 U-100 Insulin 100 unit/mL (70-30) Suspension 20 unit SUBCUT BID RF: 0 aspirin 81 mg Tablet,Delayed Release (Dr/Ec) 81 mg PO QAM RF: 0 lisinopril 2.5 mg Tablet 2.5 mg PO QAM RF: 0 atorvastatin 20 mg Tablet 20 mg PO HS RF: 0 valacyclovir [Valtrex] 500 mg Tablet 500 mg PO DAILY RF: 0 folic acid 1 mg Tablet 1 mg PO DAILY RF: 0 cholecalciferol (vitamin D3) 1,250 mcg (50,000 unit) capsule 1,250 mcg PO WK RF: 0 calcium carbonate [Calcium 500] 500 mg calcium (1,250 mg) Tablet 1,000 mg PO DAILY RF: 0 acetaminophen [Tylenol Extra Strength] 500 mg Tablet 500 mg PO TID RF: 0 Discontinued ciprofloxacin HCl 250 mg tablet 250 mg PO BID 14 Days Qty: 28 RF: 0 prednisone 5 mg Tablet 7.5 mg PO QAM RF: 0 methotrexate sodium [Methotrexate (Anti-Rheumatic)] 2.5 mg Tablet 15 mg PO FR RF: 0 Discharge Orders: Discharge Order (Routine); Ordered 12/04/19 Ordered By: Ami Torre/Other Patient Handouts: Caring for Your PICC Dc Admission Data Admit Date/Time: 11/27/19 15:52 Attending Provider: Ami Cao Admit Provider: Kenan Galindo Primary Care Provider: Cornelius Osorio Other Providers: Dejan Rodriguez ; Whitney Gage ; Kenan Galindo ; Doc Murray ; Renato Interiano ; Vickey Piña ; Bowen Easley ; Abdirizak Allen ; Miguel A Martin ; Anselmo Pennington I. ; Abdirashid Corrigan II ; Jordana Vega ; Allan Jacobo ; [facility] Other Interventions: Discharge Summary Assessment (RN) Last Done: 12/04/19 11:47
== END 2019-12-04 16:51 | disposition home health service (06) | DRG 603 ==
LOC: ED 13:42 → 2N 15:52 → SUATTDRO 15:52 → 2N 18:00 → 2S 11-29 11:08 → 3E 11-30 19:31
PROC: CLB.AEB (2019-11-29 10:00)

== ENCOUNTER 2020-01-27 23:46 | Inpatient (IN) ==
[2020-01-28] MEDS ORDERED: SODIUM CHLORIDE 0.9% 1000ML 1,000 ML IV SCH (00:15)
[2020-01-28 00:24] LABS: Basophils # (auto) 0.02 K/uL (0-0.2); Basophils % (auto) 0.1 %; Eosinophils # (auto) 0.02 K/uL (0-0.5); Eosinophils % (auto) 0.1 %; Hematocrit (blood only) 25.8 % (37-47); Hemoglobin 7.5 g/dL (12.0-16.0); Immature Granulocytes # (auto) 0.53 K/uL (0.00-0.02); Immature Granulocytes % (auto) 2.9 %; Lymphocytes # (auto) 1.46 K/uL (1.2-3.4); Mean Corpuscular Hemoglobin 24.5 pg (25-34); Mean Corpuscular Hgb Conc 29.1 g/dL (32-36); Mean Corpuscular Volume 84.3 fL (80-100); Mean Platelet Volume 9.3 fL (7.4-10.4); Monocytes # (auto) 1.81 K/uL (0.11-0.59); Monocytes % (auto) 9.9 %; Neutrophils # (auto) 14.41 K/uL (1.4-6.5); Platelet Count 396 K/uL (130-400); RDW Coefficient of Variation 17.7 % (11.5-14.5); RDW Standard Deviation 54.9 fL (36.4-46.3); Red Blood Count 3.06 M/uL (4.2-5.4); White Blood Count 18.25 K/uL (4.8-10.8)
[2020-01-28 00:48] LABS: Base Excess VBG -2.1 mEq/L; HCO3 VBG 23 mmol/L; PCO2 VBG 45 mmHg (38-50); PO2 VBG 25 mmHg; pH VBG 7.34 (7.36-7.41)
[2020-01-28 01:07] LABS: Polychromasia 1+
[2020-01-28 01:12] LABS: Oxygen Saturation VBG < 60.0 %
[2020-01-28 01:12] LABS: Albumin Globulin Ratio 0.6 (0.9-2); BUN Creatinine Ratio 10.2 (10-20); Beta-Hydroxybutyrate 1.92 mg/dl (0.2-2.81); Bilirubin,Total 0.3 mg/dl (0.2-1); Calcium 10.7 mg/dl (8.5-10.1); Creatinine Clr Calc Pharmacy 24.8 ml/min; Est GFR (African American) 28.1; Est GFR (Non-African American) 24.3; Globulin 3.1 gm/dl (2.5-4.0); Magnesium 1.8 mg/dl (1.8-2.4); Potassium 4.4 mmol/L (3.5-5.1); Thyroid Stimulating Hormone 1.43 uIu/ml (0.300-4.500); Total Protein 5.1 gm/dl (6.4-8.2); Troponin I 0.033 ng/ml (0-0.045)
[2020-01-28] MEDS ORDERED: VANCOMYCIN CONSULT ACTIVE PRN (01:15)
[2020-01-28] MEDS ORDERED: PIPERACILL/TAZOBAC CONSULT ACTIVE PRN (01:15)
[2020-01-28] MEDS ORDERED: VANCOMYCIN HCL 1,250 MG in SODIUM CHLORIDE 0.9% 500 ML IV ONE (01:15)
[2020-01-28] MEDS ORDERED: PIPERACILLIN/TAZOBACTAM 4.5 GM/120 ML BAG IV ONE (01:15)
[2020-01-28] MEDS ORDERED: NovoLIN-R INSULIN PER UNIT CHARGE SC STA (01:18)
[2020-01-28] MEDS ORDERED: DEXAMETHASONE SOD PHOSPHATE 4 MG in SYRINGE 0 ML IV STA (01:53)
[2020-01-28 01:59] LABS: INR 1.2 (0.9-1.1); Partial Thromboplastin Ratio 0.7; Prothrombin Time 12.1 Seconds (9.0-12.0)
[2020-01-28] MEDS ORDERED: PANTOPRAZOLE BOLUS/DRIP 1 EA IV STA (02:21)
[2020-01-28] MEDS ORDERED: PANTOprazole 80 MG in DEXTROSE 5% 100 ML IV ONE (02:21)
[2020-01-28] MEDS ORDERED: LACTATED RINGER'S 1,000 ML IV ONE (02:41)
--- NOTE | 2020-01-28 02:48 | Emergency Department Note ---
History of Present Illness General Chief complaint: Hyperglycemia Stated complaint: WEAKNESS/DIARRHEA/HYPERGLYCEMIA History of Present Illness This is a 59-year-old female presenting to the emergency department for evaluation of elevated blood sugar at home. The patient states that she was not feeling very well today and has had intermittent diarrheal illness for the past few weeks. The patient did give a C. difficile sample for the [facility] lab yesterday that was negative. The patient was feeling lightheaded and confused this evening. She did not take her insulin until much later in the day compared to normal. There is possible history of unresponsive episode that did not persist and EMS was contacted. On arrival EMS noted that her blood sugar was greater than 450 and her blood pressure was roughly 60/30. The patient has several comorbidities and now presents to the ER for evaluation. She does not have reports of recent fever or exposure to Covid or other infectious disease. She does have a longstanding pressure ulcer of the right lower leg that has been treated with IV vancomycin recently. The patient rates her current discomfort a 3/10. She did receive roughly 500 mL of normal saline prehospital, and does feel slightly better after this. Home Medications Medication Instructions Recorded Confirmed Type Novolin 70/30 U-100 Insulin 20 unit SUBCUT BID 05/13/18 01/28/20 History carvedilol 3.125 mg PO BID 05/13/18 01/28/20 History lisinopril 2.5 mg PO QAM 05/13/18 01/28/20 History multivitamin [One-A-Day Essential] 1 tab PO QAM 05/13/18 01/28/20 History acetaminophen [Tylenol Extra 500 mg PO TID PRN 11/19/19 01/28/20 History Strength] atorvastatin 20 mg PO HS 11/27/19 01/28/20 History calcium carbonate [Calcium 500] 1,000 mg PO DAILY 11/27/19 01/28/20 History cholecalciferol (vitamin D3) 1,250 mcg PO WK 11/27/19 01/28/20 History valacyclovir [Valtrex] 500 mg PO DAILY 11/27/19 01/28/20 History aspirin 81 mg PO DAILY 01/28/20 01/28/20 History prednisone 7.5 mg PO DAILY 01/28/20 01/28/20 History Allergies Allergy/AdvReac Type Severity Reaction Status Date / Time Sulfa (Sulfonamide Allergy Intermediate Rash Verified 01/28/20 00:19 Antibiotics) Past Med/Surg History Medical History (Updated 01/28/20 @ 02:52 by Jairo Parsons PA-C) Cardiac murmur A CHILD History of anesthesia reaction SLOW TO WAKE History of rheumatic fever as a child Ulcer of right ankle Surgical History (Updated 01/28/20 @ 02:44 by Jairo Parsons PA-C) History of cardiac cath 08/2017 - [facility] - SOB --> CABG - FOLLOWS W/ DR. PRESTON History of colonoscopy History of coronary artery bypass graft 08/2017 - [facility] - 3 VESSELS - FOLLOWS W/ DR. PRESTON History of total knee replacement BL History of wisdom tooth extraction Hx of tonsillectomy Family History Brother Family hx of colon cancer Father Family history of diabetes mellitus Mother Family history of diabetes mellitus Aunt Family history of diabetes mellitus Grandmother (Maternal) Family history of diabetes mellitus Social History Smoking Status: Former smoker Second Hand Exposure: No; Hx Alcohol Use: No Hx Substance Use: No Preferred Language: [place] Communication Ability: Effective Mathematics Academic Chair Required: No Beliefs That Will Affect Care: None marital status: Current Living Situation: Spouse Current Living Situation Comment: Lives with spouse who has cancer Feels Safe at Home: Yes Assistive Devices: Walker Review of Systems A total of 10 systems reviewed and were otherwise negative Physical Exam Vital Signs Vital Signs - 24 hr 01/27/20 23:51 01/27/20 23:52 01/27/20 23:59 Temperature 36.4 C L Temperature Source Oral Pulse Rate 107 H 107 H 105 H Pulse Rate from SpO2 Sensor 105 H Respiratory Rate 20 20 14 Respiratory Effort / Characteristics Non-Labored Spontaneous Respiratory Depth Normal Blood Pressure 69/46 L 69/46 L 68/41 L Blood Pressure Mean 53 56 44 Pulse Oximetry 98 96 Oxygen Delivery Method Room Air Sepsis New/Unexplained Change in Mental Status N/A Sepsis Action Taken by Nursing No Action Required 01/28/20 00:01 01/28/20 00:09 01/28/20 00:15 Temperature Temperature Source Pulse Rate 105 H 106 H 111 H Pulse Rate from SpO2 Sensor 105 H 106 H Respiratory Rate 14 12 16 Respiratory Effort / Characteristics Respiratory Depth Blood Pressure 69/43 L 70/41 L 68/48 L Blood Pressure Mean 44 44 52 Pulse Oximetry 95 95 Oxygen Delivery Method Sepsis New/Unexplained Change in Mental Status Sepsis Action Taken by Nursing 01/28/20 00:17 01/28/20 00:30 01/28/20 00:41 Temperature Temperature Source Pulse Rate 89 90 Pulse Rate from SpO2 Sensor 90 88 Respiratory Rate 17 16 Respiratory Effort / Characteristics Respiratory Depth Blood Pressure 83/44 L 84/40 L Blood Pressure Mean 50 52 Pulse Oximetry 98 94 96 Oxygen Delivery Method Room Air Sepsis New/Unexplained Change in Mental Status Sepsis Action Taken by Nursing 01/28/20 01:15 01/28/20 01:30 01/28/20 01:45 Temperature Temperature Source Pulse Rate 91 H 93 H 91 H Pulse Rate from SpO2 Sensor 92 H 92 H Respiratory Rate 20 20 15 Respiratory Effort / Characteristics Respiratory Depth Blood Pressure 86/41 L 94/56 L 79/34 L Blood Pressure Mean 44 69 53 Pulse Oximetry 97 96 Oxygen Delivery Method Sepsis New/Unexplained Change in Mental Status Sepsis Action Taken by Nursing 01/28/20 01:47 Temperature Temperature Source Pulse Rate 97 H Pulse Rate from SpO2 Sensor 97 H Respiratory Rate 16 Respiratory Effort / Characteristics Respiratory Depth Blood Pressure 100/44 L Blood Pressure Mean 55 Pulse Oximetry 98 Oxygen Delivery Method Sepsis New/Unexplained Change in Mental Status Sepsis Action Taken by Nursing VITALS: Vitals are noted on the nurse's note and reviewed by myself. Vital signs with tachycardia and hypotension. GENERAL: Pale white female who appears ill on examination. She is answering questions appropriately. HEAD: Normocephalic atraumatic. HEART: Regular rate and rhythm without murmurs gallops or rubs. LUNGS: Clear to auscultation bilaterally without wheezes, rales or rhonchi. No retractions or accessory muscle use. ABDOMEN: Positive normal bowel sounds x 4. Soft, nontender, without masses or organomegaly. No guarding or rebound tenderness. MUSCULOSKELETAL: No muscle atrophy, erythema, or edema noted. Full range of motion in all extremities. There is a large healing pressure ulcer along the right lower anterior tibia which appears chronic. No distinct purulence noted. Neurovascular status appears intact distally. NEURO: Patient was alert and oriented to person place and time. CN II through XII grossly intact. GCS 15 Course Administered Medications Vancomycin HCl 1,250 mg/ (Sodium Chloride) 525 mls @ 200 mls/hr IV NOW ONE Stop: 01/28/20 03:52 Last Admin: 01/28/20 01:42 Dose: 200 mls/hr Documented by: [id number] Discontinued Medications Sodium Chloride (Nss 1000ml) 1,000 mls @ 999 mls/hr IV .Q1H1M NIESHA Stop: 01/28/20 01:15 Last Infusion: 01/28/20 01:28 Dose: 0 mls/hr Documented by: [id number] Admin: 01/28/20 00:24 Dose: 999 mls/hr Documented by: [id number] Piperacillin Sod/Tazobactam Sod (Zosyn) 4.5 gm in 120 mls @ 240 mls/hr IV NOW ONE Stop: 01/28/20 01:44 Last Admin: 01/28/20 01:42 Dose: 240 mls/hr Documented by: [id number] Insulin Human Regular (Novolin-R Insulin Per Unit Charge) 10 units SC NOW STA Stop: 01/28/20 01:19 Last Admin: 01/28/20 01:43 Dose: 10 units Documented by: [id number] Cosigned by: [id number] Critical Care Time Critical Care Time: Yes I have personally spent greater than 39 minutes of critical care time in the direct management of this patient. This includes bedside care, interpretation of diagnostic studies, and testing, discussion with consultants, patient, and family members, and other required patient management activities. This 39 minutes is in excess of all separately billable procedures. Medical Decision Making Differential Diagnosis Differential diagnosis: Etiologies such as sepsis, UTI, pneumonia, bacteremia, metabolic process, electrolyte abnormalities, cardiac sources, intracerebral event, intra-abdominal process, toxicological process, neurologic process, as well as others were entertained. Laboratory Data Result diagrams: 01/28/20 00:12 01/28/20 00:12 Lab Results 01/27/20 01/28/20 01/28/20 Range/Units 23:56 00:12 00:12 WBC 18.25 H (4.8-10.8) K/uL RBC 3.06 L (4.2-5.4) M/uL Hgb 7.5 L (12.0-16.0) g/dL Hct 25.8 L (37-47) % MCV 84.3 (80-100) fL MCH 24.5 L (25-34) pg MCHC 29.1 L (32-36) g/dL RDW Std Deviation 54.9 H (36.4-46.3) fL RDW Coeff of [place] 17.7 H (11.5-14.5) % Plt Count 396 (130-400) K/uL MPV 9.3 (7.4-10.4) fL Immature Gran % (Auto) 2.9 % Neut % (Auto) 79.0 % Lymph % (Auto) 8.0 % [place] % (Auto) 9.9 % Eos % (Auto) 0.1 % Baso % (Auto) 0.1 % Neut # (Auto) 14.41 H (1.4-6.5) K/uL Lymph # (Auto) 1.46 (1.2-3.4) K/uL [place] # (Auto) 1.81 H (0.11-0.59) K/uL Eos # (Auto) 0.02 (0-0.5) K/uL Baso # (Auto) 0.02 (0-0.2) K/uL Immature Gran # (Auto) 0.53 H (0.00-0.02) K/uL Polychromasia 1+ PT Cancelled INR Cancelled APTT Cancelled PTT Ratio Cancelled VBG pH (7.36-7.41) VBG pCO2 (38-50) mmHg VBG pO2 mmHg VBG HCO3 mmol/L VBG O2 Saturation % VBG Base Excess mEq/L Barometric Pressure mm/Hg Sodium (136-145) mmol/L Potassium (3.5-5.1) mmol/L Chloride (98-107) mmol/L Carbon Dioxide (21-32) mmol/L Anion Gap (3-11) BUN (7-18) mg/dl Creatinine (0.6-1.2) mg/dl Est Cr Clr Drug Dosing ml/min Est GFR ( Amer) Est GFR (Non-Af Amer) BUN/Creatinine Ratio (10-20) Glucose (70-99) mg/dl POC Glucose 432 H* (70-99) mg/dl Lactate (0.4-2.0) mmol/L Calcium (8.5-10.1) mg/dl Magnesium (1.8-2.4) mg/dl Total Bilirubin (0.2-1) mg/dl AST (15-37) U/L ALT (12-78) U/L Alkaline Phosphatase (45-117) U/L Ammonia (11-32) umol/L Total Creatine Kinase (26-192) U/L Troponin I (0-0.045) ng/ml Total Protein (6.4-8.2) gm/dl Albumin (3.4-5.0) gm/dl Globulin (2.5-4.0) gm/dl Albumin/Globulin Ratio (0.9-2) Lipase (73-393) U/L Beta-Hydroxybutyric Acd (0.2-2.81) mg/dl TSH (0.300-4.500) uIu/ml SARS-CoV-2 Ag (Rapid) (Negative) Blood Type Antibody Screen 01/28/20 01/28/20 01/28/20 Range/Units 00:12 00:22 00:22 WBC (4.8-10.8) K/uL RBC (4.2-5.4) M/uL Hgb (12.0-16.0) g/dL Hct (37-47) % MCV (80-100) fL MCH (25-34) pg MCHC (32-36) g/dL RDW Std Deviation (36.4-46.3) fL RDW Coeff of [place] (11.5-14.5) % Plt Count (130-400) K/uL MPV (7.4-10.4) fL Immature Gran % (Auto) % Neut % (Auto) % Lymph % (Auto) % [place] % (Auto) % Eos % (Auto) % Baso % (Auto) % Neut # (Auto) (1.4-6.5) K/uL Lymph # (Auto) (1.2-3.4) K/uL [place] # (Auto) (0.11-0.59) K/uL Eos # (Auto) (0-0.5) K/uL Baso # (Auto) (0-0.2) K/uL Immature Gran # (Auto) (0.00-0.02) K/uL Polychromasia PT INR APTT PTT Ratio VBG pH 7.34 L (7.36-7.41) VBG pCO2 45 (38-50) mmHg VBG pO2 25 mmHg VBG HCO3 23 mmol/L VBG O2 Saturation < 60.0 % VBG Base Excess -2.1 mEq/L Barometric Pressure 733.1 mm/Hg Sodium 138 (136-145) mmol/L Potassium 4.4 (3.5-5.1) mmol/L Chloride 103 (98-107) mmol/L Carbon Dioxide 23 (21-32) mmol/L Anion Gap 12.0 H (3-11) BUN 22 H (7-18) mg/dl Creatinine 2.15 H (0.6-1.2) mg/dl Est Cr Clr Drug Dosing 24.8 ml/min Est GFR ( Amer) 28.1 Est GFR (Non-Af Amer) 24.3 BUN/Creatinine Ratio 10.2 (10-20) Glucose 370 H* (70-99) mg/dl POC Glucose (70-99) mg/dl Lactate (0.4-2.0) mmol/L Calcium 10.7 H (8.5-10.1) mg/dl Magnesium 1.8 (1.8-2.4) mg/dl Total Bilirubin 0.3 (0.2-1) mg/dl AST 13 L (15-37) U/L ALT 9 L (12-78) U/L Alkaline Phosphatase 52 (45-117) U/L Ammonia 15.0 (11-32) umol/L Total Creatine Kinase 31 (26-192) U/L Troponin I 0.033 (0-0.045) ng/ml Total Protein 5.1 L (6.4-8.2) gm/dl Albumin 2.0 L (3.4-5.0) gm/dl Globulin 3.1 (2.5-4.0) gm/dl Albumin/Globulin Ratio 0.6 L (0.9-2) Lipase 266 (73-393) U/L Beta-Hydroxybutyric Acd 1.92 (0.2-2.81) mg/dl TSH 1.430 (0.300-4.500) uIu/ml SARS-CoV-2 Ag (Rapid) (Negative) Blood Type Antibody Screen 01/28/20 01/28/20 01/28/20 Range/Units 00:22 00:33 01:17 WBC (4.8-10.8) K/uL RBC (4.2-5.4) M/uL Hgb (12.0-16.0) g/dL Hct (37-47) % MCV (80-100) fL MCH (25-34) pg MCHC (32-36) g/dL RDW Std Deviation (36.4-46.3) fL RDW Coeff of [place] (11.5-14.5) % Plt Count (130-400) K/uL MPV (7.4-10.4) fL Immature Gran % (Auto) % Neut % (Auto) % Lymph % (Auto) % [place] % (Auto) % Eos % (Auto) % Baso % (Auto) % Neut # (Auto) (1.4-6.5) K/uL Lymph # (Auto) (1.2-3.4) K/uL [place] # (Auto) (0.11-0.59) K/uL Eos # (Auto) (0-0.5) K/uL Baso # (Auto) (0-0.2) K/uL Immature Gran # (Auto) (0.00-0.02) K/uL Polychromasia PT INR APTT PTT Ratio VBG pH (7.36-7.41) VBG pCO2 (38-50) mmHg VBG pO2 mmHg VBG HCO3 mmol/L VBG O2 Saturation % VBG Base Excess mEq/L Barometric Pressure mm/Hg Sodium (136-145) mmol/L Potassium (3.5-5.1) mmol/L Chloride (98-107) mmol/L Carbon Dioxide (21-32) mmol/L Anion Gap (3-11) BUN (7-18) mg/dl Creatinine (0.6-1.2) mg/dl Est Cr Clr Drug Dosing ml/min Est GFR ( Amer) Est GFR (Non-Af Amer) BUN/Creatinine Ratio (10-20) Glucose (70-99) mg/dl POC Glucose 329 H* (70-99) mg/dl Lactate 6.6 H* (0.4-2.0) mmol/L Calcium (8.5-10.1) mg/dl Magnesium (1.8-2.4) mg/dl Total Bilirubin (0.2-1) mg/dl AST (15-37) U/L ALT (12-78) U/L Alkaline Phosphatase (45-117) U/L Ammonia (11-32) umol/L Total Creatine Kinase (26-192) U/L Troponin I (0-0.045) ng/ml Total Protein (6.4-8.2) gm/dl Albumin (3.4-5.0) gm/dl Globulin (2.5-4.0) gm/dl Albumin/Globulin Ratio (0.9-2) Lipase (73-393) U/L Beta-Hydroxybutyric Acd (0.2-2.81) mg/dl TSH (0.300-4.500) uIu/ml SARS-CoV-2 Ag (Rapid) (Negative) Blood Type A Positive Antibody Screen NEGATIVE 01/28/20 01/28/20 Range/Units 01:30 02:05 WBC (4.8-10.8) K/uL RBC (4.2-5.4) M/uL Hgb (12.0-16.0) g/dL Hct (37-47) % MCV (80-100) fL MCH (25-34) pg MCHC (32-36) g/dL RDW Std Deviation (36.4-46.3) fL RDW Coeff of [place] (11.5-14.5) % Plt Count (130-400) K/uL MPV (7.4-10.4) fL Immature Gran % (Auto) % Neut % (Auto) % Lymph % (Auto) % [place] % (Auto) % Eos % (Auto) % Baso % (Auto) % Neut # (Auto) (1.4-6.5) K/uL Lymph # (Auto) (1.2-3.4) K/uL [place] # (Auto) (0.11-0.59) K/uL Eos # (Auto) (0-0.5) K/uL Baso # (Auto) (0-0.2) K/uL Immature Gran # (Auto) (0.00-0.02) K/uL Polychromasia PT 12.1 H INR 1.2 H APTT 20.0 L PTT Ratio 0.7 VBG pH (7.36-7.41) VBG pCO2 (38-50) mmHg VBG pO2 mmHg VBG HCO3 mmol/L VBG O2 Saturation % VBG Base Excess mEq/L Barometric Pressure mm/Hg Sodium (136-145) mmol/L Potassium (3.5-5.1) mmol/L Chloride (98-107) mmol/L Carbon Dioxide (21-32) mmol/L Anion Gap (3-11) BUN (7-18) mg/dl Creatinine (0.6-1.2) mg/dl Est Cr Clr Drug Dosing ml/min Est GFR ( Amer) Est GFR (Non-Af Amer) BUN/Creatinine Ratio (10-20) Glucose (70-99) mg/dl POC Glucose (70-99) mg/dl Lactate (0.4-2.0) mmol/L Calcium (8.5-10.1) mg/dl Magnesium (1.8-2.4) mg/dl Total Bilirubin (0.2-1) mg/dl AST (15-37) U/L ALT (12-78) U/L Alkaline Phosphatase (45-117) U/L Ammonia (11-32) umol/L Total Creatine Kinase (26-192) U/L Troponin I (0-0.045) ng/ml Total Protein (6.4-8.2) gm/dl Albumin (3.4-5.0) gm/dl Globulin (2.5-4.0) gm/dl Albumin/Globulin Ratio (0.9-2) Lipase (73-393) U/L Beta-Hydroxybutyric Acd (0.2-2.81) mg/dl TSH (0.300-4.500) uIu/ml SARS-CoV-2 Ag (Rapid) Negative (Negative) Blood Type Antibody Screen Imaging Data Radiologist's Impression: Preliminary Findings Only See Final Report For Complete Findings CT HEAD: No ICH, mass effect or edema. No evidence of acute cortical stroke. Visualized sinuses and mastoid air cells are clear. ECG Data Attestation: I personally reviewed and interpreted this ECG as follows: Indication: + altered mental status Additional Comments: Sinus tachycardia with occasional Premature ventricular complexes @105 bpm Possible Left atrial enlargement Bifascicular block Question Septal infarct , age undetermined Abnormal ECG When compared with ECG of 07-DEC-2019 19:29, Premature ventricular complexes are now Present. Question Septal infarct now Present Blood Pressure Blood Pressure Findings: Low blood pressure Blood Pressure Disposition: further management by hospitalist MDM Narrative Physical exam and history were performed. Nursing notes, EMR, and Medication List were personally reviewed. Patient appears to be quite ill on presentation. Her blood pressure is quite low and pulse is elevated. She was evaluated immediately upon arrival to the ER. She has had roughly 500 mL of saline prehospital, and the additional 500 was provided. A second liter of fluid was ordered. She does have 1 IV prehospital, and second IV was placed. Blood work was obtained. Patient was placed on the bus driver/monitor and sent to CT scan for imaging of her head becaus e of her vague confusion symptoms. Bedside glucose was in the 400s. Blood cultures and lactic acid were gathered. The patient's blood work is as above and was reviewed. She has an elevated white blood cell count of 18,000. She is anemic at 7.5. Lactic acid is notably elevated at 6.6 and she was given IV vancomycin and IV Zosyn. Additionally she was given subcutaneous insulin which brought her sugar down into the 300s. Ammonia is normal. Troponin, while negative, is detectable at 0.033. Beta hydroxy is normal. COVID-19 was negative. Type and screen was gathered. BUN is 22 and creatinine is 2.15. CT scan was reviewed by myself and radiology showing no acute process in the head. An order was placed for continuous cardiac monitoring. The monitor shows a rate of 97 with normal sinus rhythm. The case was discussed with my attending physician, Dr. Fragoso, who remained involved in patient care and decision making. The patient's course is concerning for septic shock with multiple systems involved. After fluids and starting antibiotics the patient symptomatically felt improved. Her blood pressure slowly and steadily improved after hydration and antibiotics. Overall the patient does not appear well for discharge home. Case was discussed with both the on-call hospitalist as well as the on-call ICU provider. Please see their dictations for further patient course, plan, and disposition. The chart was completed utilizing [employer] Speech Voice Recognition Software. Grammatical errors, random word insertions, pronoun errors, and incomplete sentences are an occasional consequence of this system due to software limitations, ambient noise, and hardware issues. Any formal questions or concerns about the content, text, or information contained within the body of this dictation should be directly addressed to the provider for clarification. . Impression & Plan Septic shock, Unstageable pressure ulcer of ankle, Sepsis, DWAYNE (acute kidney injury), Anemia, Hyperglycemia, Acute hypotension Discharge Plan Visit Data Chief Complaint: Hyperglycemia Stated Complaint: WEAKNESS/DIARRHEA/HYPERGLYCEMIA ED Provider: Josephine Fragoso ED Midlevel Provider: Jairo Parsons Discharge Problem: Septic shock, Unstageable pressure ulcer of ankle, Sepsis, DWAYNE (acute kidney injury), Anemia, Hyperglycemia, Acute hypotension Forms Stand Alone Forms: [facility] Prescriptions Prescriptions: No Action multivitamin [One-A-Day Essential] Tablet 1 tab PO QAM RF: 0 carvedilol 6.25 mg Tablet 3.125 mg PO BID RF: 0 Novolin 70/30 U-100 Insulin 100 unit/mL (70-30) Suspension 20 unit SUBCUT BID RF: 0 lisinopril 2.5 mg Tablet 2.5 mg PO QAM RF: 0 atorvastatin 20 mg Tablet 20 mg PO HS RF: 0 valacyclovir [Valtrex] 500 mg Tablet 500 mg PO DAILY RF: 0 cholecalciferol (vitamin D3) 1,250 mcg (50,000 unit) capsule 1,250 mcg PO WK RF: 0 calcium carbonate [Calcium 500] 500 mg calcium (1,250 mg) Tablet 1,000 mg PO DAILY RF: 0 acetaminophen [Tylenol Extra Strength] 500 mg Tablet 500 mg PO TID PRN (Reason: Pain) RF: 0 prednisone 5 mg tablet 7.5 mg PO DAILY RF: 0 aspirin 81 mg Tablet,Chewable 81 mg PO DAILY RF: 0 Referrals Referrals: Cornelius Osorio MD [Primary Care Provider] - Discharge Problem: Unstageable pressure ulcer of ankle Qualifiers: Laterality: right Qualified Code(s): L89.510 - Pressure ulcer of right ankle, unstageable Sepsis Qualifiers: Sepsis type: sepsis due to unspecified organism Sepsis acute organ dysfunction status: with acute organ dysfunction Severe sepsis acute organ dysfunction type: acute renal failure Acute renal failure type: unspecified Severe sepsis shock status: unspecified Qualified Code(s): A41.9 - Sepsis, unspecified organism Anemia Qualifiers: Anemia type: unspecified type Qualified Code(s): D64.9 - Anemia, unspecified
--- NOTE | 2020-01-28 03:37 | History & Physical Report ---
Date of Service January 28, 2020 Assessment & Plan (1) Hypotension: Multifactorial : Septic shock Immunocompromised patient History rheumatoid arthritis on steroid Rx Potential sources include : UTI, endocarditis Hypovolemia UGIB (ddx : Gastritis, PUD) Hemoglobin drop from baseline ARF, clinical dehydration secondary to diarrheal illness (outpatient stool C. difficile was negative) Possible adrenal insufficiency hx chronic systolic heart failure secondary ischemic cardiomyopathy (EF 40%, TTE 2018), patient on the dry side hx CAD status post CABG/PVD PAF, patient NSR DM2 insulin requiring, suboptimal control as of recent hemoglobin A1c of 9.01 December 2019 past tobacco abuse ICU admission given potential need for pressor tx in consideration of patient's cardiomyopathy CS, Daptomycin, Cefepime for now IVF, follow lactic acid Obtain UA CT abdomen pelvis RE abdominal pain IV PPI GI consult RE U GIB Hold aspirin for now given UGI B Transfuse PRBC to maintain hemoglobin greater than 8 given history of CAD Decadron 1 dose now for possible adrenal insufficiency. Appropriate to hold home BP medications for now given hypotension. IV insulin BG goal [id number] Update hemoglobin A1c DVT prophylaxis. TEDS (pharmacologic anticoagulation contraindicated with U GIB, SCDs contraindicated given history PAD) Full code Total critical care time was 50 minutes. Text document was generated using [employer] voice recognition software. It may contain grammatical or spelling errors. Kindly contact undersigned for clarification of any documentation item in question. History of Present Illness Chief Complaint: Diarrhea, weakness, lightheadedness Primary Care Provider: Cornelius Osorio MD History obtained from patient and records. Medical history significant for chronic systolic heart failure secondary ischemic cardiomyopathy (EF 40%, TTE 2018), CAD status post CABG, PVD, PAF, HTN, DM2 insulin requiring, rheumatoid arthritis on chronic steroid Rx, chronic anemia (baseline hemoglobin 8), past tobacco abuse. Last confinement November 2023 traumatic ulcerated wound right ankle. No osteomyelitis on MRI. Probable pyoderma gangrenosum on ulcerated wound biopsy. Patient discharged on 4-week IV Vancomycin course and steroid taper with improvement of ulcerated wound as per patient. Home Methotrexate held on discharge. IV Vancomycin course completed last month. Patient currently down to usual daily prednisone dose of 7.5 mg daily for rheumatoid arthritis as per records. 2 weeks history of diarrhea symptoms, dark tarry stools without emesis with achy abdominal discomfort. No chest pain, no S OB, no cough symptoms. No issues with right ankle wound as per patient Denies OTC NSAID intake. Poor appetite. Lightheadedness symptoms and hyperglycemia more than usual noted at home the last 2 days. Outpatient stool C. difficile obtained yesterday was negative. At the ER, patient SBP noted to be 60s. Patient received Vancomycin, Zosyn, NSS for sepsis. SBP currently 80s. IV insulin given for blood glucose of 300s. 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 Allergies Allergy/AdvReac Type Severity Reaction Status Date / Time Sulfa (Sulfonamide Allergy Intermediate Rash Verified 01/28/20 00:19 Antibiotics) Home Medications Medication Instructions Recorded Confirmed Type Novolin 70/30 U-100 Insulin 20 unit SUBCUT BID 05/13/18 01/28/20 History carvedilol 3.125 mg PO BID 05/13/18 01/28/20 History lisinopril 2.5 mg PO QAM 05/13/18 01/28/20 History multivitamin [One-A-Day Essential] 1 tab PO QAM 05/13/18 01/28/20 History acetaminophen [Tylenol Extra 500 mg PO TID PRN 11/19/19 01/28/20 History Strength] atorvastatin 20 mg PO HS 11/27/19 01/28/20 History calcium carbonate [Calcium 500] 1,000 mg PO DAILY 11/27/19 01/28/20 History cholecalciferol (vitamin D3) 1,250 mcg PO WK 11/27/19 01/28/20 History valacyclovir [Valtrex] 500 mg PO DAILY 11/27/19 01/28/20 History aspirin 81 mg PO DAILY 01/28/20 01/28/20 History prednisone 7.5 mg PO DAILY 01/28/20 01/28/20 History Past Med/Surg History Medical History (Updated 01/28/20 @ 04:29 by Kenneth Llanos MD) Cardiac murmur A CHILD History of anesthesia reaction SLOW TO WAKE History of rheumatic fever as a child Ulcer of right ankle Surgical History (Updated 01/28/20 @ 02:44 by Jairo Parsons PA-C) History of cardiac cath 08/2017 - [facility] - SOB --> CABG - FOLLOWS W/ DR. PRESTON History of colonoscopy History of coronary artery bypass graft 08/2017 - [facility] - 3 VESSELS - FOLLOWS W/ DR. PRESTON History of total knee replacement BL History of wisdom tooth extraction Hx of tonsillectomy Family History Brother Family hx of colon cancer Father Family history of diabetes mellitus Mother Family history of diabetes mellitus Aunt Family history of diabetes mellitus Grandmother (Maternal) Family history of diabetes mellitus Social History Smoking Status: Former smoker Second Hand Exposure: No; Hx Alcohol Use: No Hx Substance Use: No Preferred Language: Cape Verdean Communication Ability: Effective Oracle Adf Developer Required: No Beliefs That Will Affect Care: None marital status: Current Living Situation: Spouse Current Living Situation Comment: Lives with spouse who has cancer Feels Safe at Home: Yes Assistive Devices: Walker Review of Systems Review of Systems: As per HPI, all 10 systems reviewed, all other ROS negative Physical Exam Physical Exam: GENERAL: Comfortable, slightly anxious, chronically ill, no respiratory distress SKIN: Pallor, warm HEENT: Bespectacled, pale palpebral conjunctivae, no ptosis, dry buccal mucosa NECK : Supple, no tenderness CHEST : CTA, no tenderness HEART : RRR, apical systolic murmur ABDOMEN: Some distention, nontender RECTAL : Intact sphincter, melanotic stool (FOBT positive) EXTREMITIES : Dressing over right ankle, no other conspicuous deformities noted NEUROLOGIC : Coherent, no facial asymmetry, no other gross focality Results & Data Results & Data ([facility]) Vital Signs (Past 12 Hours) Vital Signs Temp Pulse Resp BP Pulse Ox 01/28/20 03:17 103 H 15 80/43 L 96 01/28/20 03:00 88 21 97/52 L 100 01/28/20 02:45 94 H 16 83/48 L 100 01/28/20 02:31 90 15 84/40 L 100 01/28/20 02:23 96 H 17 87/46 L 100 01/28/20 02:15 100 H 16 83/49 L 100 01/28/20 02:00 90 14 84/45 L 96 01/28/20 01:47 97 H 16 100/44 L 98 01/28/20 01:45 91 H 15 79/34 L 96 01/28/20 01:30 93 H 20 94/56 L 97 01/28/20 01:15 91 H 20 86/41 L 01/28/20 00:41 90 16 84/40 L 96 01/28/20 00:30 89 17 83/44 L 94 01/28/20 00:17 98 01/28/20 00:15 111 H 16 68/48 L 95 01/28/20 00:09 106 H 12 70/41 L 95 01/28/20 00:01 105 H 14 69/43 L 01/27/20 23:59 105 H 14 68/41 L 96 01/27/20 23:52 107 H 20 69/46 L 01/27/20 23:51 36.4 C L 107 H 20 69/46 L 98 Laboratory Results Laboratory Results WBC 18.25 K/uL (4.8-10.8) H 01/28/20 00:12 RBC 3.06 M/uL (4.2-5.4) L 01/28/20 00:12 Hgb 7.5 g/dL (12.0-16.0) L 01/28/20 00:12 Hct 25.8 % (37-47) L 01/28/20 00:12 MCV 84.3 fL (80-100) 01/28/20 00:12 MCH 24.5 pg (25-34) L 01/28/20 00:12 MCHC 29.1 g/dL (32-36) L 01/28/20 00:12 RDW Std Deviation 54.9 fL (36.4-46.3) H 01/28/20 00:12 RDW Coeff of [place] 17.7 % (11.5-14.5) H 01/28/20 00:12 Plt Count 396 K/uL (130-400) 01/28/20 00:12 MPV 9.3 fL (7.4-10.4) 01/28/20 00:12 Immature Gran % (Auto) 2.9 % 01/28/20 00:12 Neut % (Auto) 79.0 % 01/28/20 00:12 Lymph % (Auto) 8.0 % 01/28/20 00:12 [place] % (Auto) 9.9 % 01/28/20 00:12 Eos % (Auto) 0.1 % 01/28/20 00:12 Baso % (Auto) 0.1 % 01/28/20 00:12 Neut # (Auto) 14.41 K/uL (1.4-6.5) H 01/28/20 00:12 Lymph # (Auto) 1.46 K/uL (1.2-3.4) 01/28/20 00:12 [place] # (Auto) 1.81 K/uL (0.11-0.59) H 01/28/20 00:12 Eos # (Auto) 0.02 K/uL (0-0.5) 01/28/20 00:12 Baso # (Auto) 0.02 K/uL (0-0.2) 01/28/20 00:12 Immature Gran # (Auto) 0.53 K/uL (0.00-0.02) H 01/28/20 00:12 Polychromasia 1+ 01/28/20 00:12 PT 12.1 Seconds (9.0-12.0) H 01/28/20 01:30 INR 1.2 (0.9-1.1) H 01/28/20 01:30 APTT 20.0 Seconds (21.0-31.0) L 01/28/20 01:30 PTT Ratio 0.7 01/28/20 01:30 VBG pH 7.34 (7.36-7.41) L 01/28/20 00:22 VBG pCO2 45 mmHg (38-50) 01/28/20 00:22 VBG pO2 25 mmHg 01/28/20 00:22 VBG HCO3 23 mmol/L 01/28/20 00:22 VBG O2 Saturation < 60.0 % 01/28/20 00:22 VBG Base Excess -2.1 mEq/L 01/28/20 00:22 Barometric Pressure 733.1 mm/Hg 01/28/20 00:22 Sodium 138 mmol/L (136-145) 01/28/20 00:12 Potassium 4.4 mmol/L (3.5-5.1) 01/28/20 00:12 Chloride 103 mmol/L (98-107) 01/28/20 00:12 Carbon Dioxide 23 mmol/L (21-32) 01/28/20 00:12 Anion Gap 12.0 (3-11) H 01/28/20 00:12 BUN 22 mg/dl (7-18) H 01/28/20 00:12 Creatinine 2.15 mg/dl (0.6-1.2) H 01/28/20 00:12 Est Cr Clr Drug Dosing 24.8 ml/min 01/28/20 00:12 Est GFR ( Amer) 28.1 01/28/20 00:12 Est GFR (Non-Af Amer) 24.3 01/28/20 00:12 BUN/Creatinine Ratio 10.2 (10-20) 01/28/20 00:12 Glucose 370 mg/dl (70-99) H* 01/28/20 00:12 POC Glucose 329 mg/dl (70-99) H* 01/28/20 01:17 Lactate 6.6 mmol/L (0.4-2.0) H* 01/28/20 00:22 Calcium 10.7 mg/dl (8.5-10.1) H 01/28/20 00:12 Magnesium 1.8 mg/dl (1.8-2.4) 01/28/20 00:12 Total Bilirubin 0.3 mg/dl (0.2-1) 01/28/20 00:12 AST 13 U/L (15-37) L 01/28/20 00:12 ALT 9 U/L (12-78) L 01/28/20 00:12 Alkaline Phosphatase 52 U/L (45-117) 01/28/20 00:12 Ammonia 15.0 umol/L (11-32) 01/28/20 00:22 Total Creatine Kinase 31 U/L (26-192) 01/28/20 00:12 Troponin I 0.033 ng/ml (0-0.045) 01/28/20 00:12 Total Protein 5.1 gm/dl (6.4-8.2) L 01/28/20 00:12 Albumin 2.0 gm/dl (3.4-5.0) L 01/28/20 00:12 Globulin 3.1 gm/dl (2.5-4.0) 01/28/20 00:12 Albumin/Globulin Ratio 0.6 (0.9-2) L 01/28/20 00:12 Lipase 266 U/L (73-393) 01/28/20 00:12 Beta-Hydroxybutyric Acd 1.92 mg/dl (0.2-2.81) 01/28/20 00:12 TSH 1.430 uIu/ml (0.300-4.500) 01/28/20 00:12 Random Cortisol 30.99 mcg/dl 01/28/20 00:12 SARS-CoV-2 Ag (Rapid) Negative (Negative) 01/28/20 02:05 Blood Type A Positive 01/28/20 00:33 Antibody Screen NEGATIVE 01/28/20 00:[address] head initial read: No ICH, mass-effect or edema. No evidence of acute cortical stroke. Chest x-ray as per my interpretation: Elevated left hemidiaphragm, no infiltrate EKG as per my interpretation : Rate 105, sinus tachycardia, LAD, LAFB, RBBB, no ischemia, PVCs
[2020-01-28] MEDS: PANTOprazole 40 MG in DEXTROSE 5% 100 ML IV SCH ×5 (03:47→22:48)
[2020-01-28] MEDS ORDERED: ICU PROTOCOL FOR HYPERGLYCEMIA PRN (04:53)
[2020-01-28] MEDS ORDERED: PROMETHAZINE HCL 6.25 MG in SODIUM CHLORIDE 0.9% 50 ML IV PRN (04:53)
[2020-01-28] MEDS ORDERED: HYDROmorphone INJ 0.5 MG/0.5 ML SYR IV PRN (04:53)
[2020-01-28] MEDS ORDERED: INSULIN PROTOCOL GOAL RANGE ONE (04:53)
[2020-01-28] MEDS ORDERED: POTASSIUM CHLORIDE CRTAB 20 MEQ TABCR PO STA (04:53)
[2020-01-28] MEDS ORDERED: MAGNESIUM SULFATE / D5W 1 GM/100 ML BAG IV ONE (04:53)
[2020-01-28] MEDS ORDERED: ACETAMINOPHEN 325 MG TAB PO PRN (04:53)
[2020-01-28] MEDS ORDERED: INSULIN REGULAR 250 UNITS in SODIUM CHLORIDE 0.9% 247.5 ML IV SCH (04:53)
[2020-01-28] MEDS ORDERED: traMADol HCL 50 MG TABLET PO PRN (04:53)
[2020-01-28] MEDS ORDERED: SODIUM CHLORIDE 0.9% 250 ML IV PRN (04:53)
--- NOTE | 2020-01-28 05:13 | Critical Care Consultation ---
Date of Consultation January 28, 2020 Assessment & Plan (1) Septic shock: Impression: 59-year-old female presents to the ICU with hypotension and suspected septic shock Neuro - Currently alert and oriented, confusion appears to be resolved and likely secondary to a previous hypotension which has since improved. CT the head was unremarkable. Ammonia within normal limits. Cardiac - Hypotension/shock?Patient initially presented with a systolic blood pressure in the 60s, now improved to the 80s/90s after IV fluid resuscitation -We will hold on vasosuppressor support for the time being as patient has showed improvement with fluids, however given history of ischemic cardiomyopathy will be cautious with fluids -We will obtain echo this a.m., troponins negative -Most likely due to sepsis, see management below -Patient is on prednisone 7.5 mg daily, was given dexamethasone in the ED, random cortisol of 30. Will place on 50 mg hydrocortisone every 6 hours for now -Patient also found to be anemic and suspicious for GI bleed, to undergo 1 unit RBC transfusion for now, see management below -Improving, continue to monitor in ICU for now Respiratory - Currently maintaining sats on room air, no respiratory distress. No history of pulmonary disease Careful with IV fluid resuscitation considering that the patient has ischemic cardiomyopathy. Chest x-ray following 2 L bolus in the emergency department without evidence of pulmonary congestion. Continuous monitoring pulse ox GI - GI bleedpatient reports intermittent diarrhea for the past 2 weeks and presents as anemic, Hemoccult positive -Transfusing 1 unit RBCs and started on Protonix drip -CT abdomen pending read -GI consulted will follow up recommendations -N.p.o. for now -Trending H&H RENAL/LYTES - AKIlikely ATN in the setting of hypotension -Expect to improve with fluid resuscitation and map management -Continue to trend with routine BMPs, monitor electrolytes and replete as indicated -Avoid nephrotoxins and renally adjust medications -Hold lisinopril -Maintain maps greater than 65, continue IV fluid resuscitation - Strict I's and O's ENDO - DM type II (uncontrolled)currently hyperglycemic and A1c on previous admission of 9, repeat pending -Continue with sliding scale, BHA within normal limit -ICU hyperglycemic protocol HEME - Anemiapatient with recent hemoglobins 7-8 on last admissions, likely related to chronic illness but cannot rule out GI bleed vomited at this time -Undergoing 1 unit RBC transfusion as patient is currently hypotensive and has history of ischemic cardiomyopathy -We will continue to trend H&H and transfuse as indicated -Anemia work-up pending Lactic acidosispatient with lactate of 6 on admission, now improving following IV fluid resuscitation -Etiology ischemic versus sepsis -Continue to trend, continue IV fluid resuscitation and maintain maps greater than 65 ID - Sepsis?Unsure of source at this time as patient has been experiencing intermittent diarrhea over the past 2 weeks and also has a chronic wound that is undergoing treatment with vancomycin to the right lower extremity -Chest x-ray unremarkable, UA is pending, blood cultures pending -Lactate significantly elevated but improving -Vancomycin and Zosyn for now -CT abdomen pending -Obtaining CT of the right lower extremity for rule out osteomyelitis LINES/IV ACCESS - Peripheral IVs, patient currently not requiring vasopressors but will insert CVC and A-line if she declines DVT PROPHYLAXIS - SCDs CODE STATUS: I did speak with patient regarding her CODE STATUS and she stated that in the event she were to experience cardiac arrest she would not like chest compressions or defibrillation, however she was open to intubation and mechanical ventilation should she need it along with medications. Thank you for allowing us to participate in the care of this patient. Please refer to my attending physician's documentation for any further recommendations. (2) Hypotension: (3) Sepsis: (4) DWAYNE (acute kidney injury): (5) Anemia: (6) Hyperglycemia: (7) Traumatic open wound of right lower leg with delayed healing: Supervising Physician Co-Signing Physician Notes I evaluated the patient this morning and received signout from Brad VANESSA. The patient has undifferentiated shock and lactic acidosis. Etiologies include possible hemorrhagic shock and septic shock. She does have a history of pyoderma gangrenosum. CT of her leg did not demonstrate any osteomyelitis. We are following blood cultures. Procalcitonin was within normal limits. She is status post [address] abdomen suggest possible gastric ulceration. Gastroenterology consult has been placed. Continue to trend hemoglobin. Hold antiplatelet and anticoagulation. Continue IV hydration. She is on cefepime and daptomycin. I have also ordered Flagyl for possible gastric source. She notes that she had a C. difficile test yesterday which was negative. Continue hydrocortisone for possible adrenal insufficiency. Continue PPI drip. CT abdomen also notes a 4.8 x 2.8 cm oval-shaped circumscribed hyperdense focus in the bladder and a 4.7 cm left adnexal hyperdense focus. Pelvic ultrasound was recommended. This can be followed up on the floor. If she is stable and not requiring pressors by the afternoon, then she could transfer to the floor with telemetry. History of Present Illness Attending Physician: Ami Cao MD History of Present Illness Ms. Eason is a 59-year-old female with PMH significant for ischemic cardiomyopathy (s/p CABG), DM type II, RA, PAF who presented to the emergency department with complaints of elevated blood sugar at home, and intermittent diarrhea x2 weeks, and lightheadedness and confusion that started this afternoon. She had a recent hospitalization for a infection to the right lower extremity for which she was receiving IV vancomycin at home through PICC line which has recently completed. In the emergency department, blood pressure found to be roughly 60/30, she was given 2 L crystalloid and showed some improvement but continued to be hypotensive. She was also found to have lactic acidosis of 6 and an DWAYNE. Hemoglobin 7.5 and she was given 1 unit RBCs. Patient currently being transferred to the ICU for further management at this time. Currently patient is alert and oriented and does not appear to be in distress on exam. She denies headache, current dizziness, syncopal events, sore throat, fevers, or recent illness. She denies shortness of breath, wheezing, chest pain, palpitations, or abdominal pain. She reports urine stream and frequency is unchanged. She denies pain to the wound of the right lower extremity. She did verify that she has been having intermittent diarrhea over the past 2 weeks with last case on Wednesday. She denies black tarry stools or fely blood in stool. Allergies Allergy/AdvReac Type Severity Reaction Status Date / Time Sulfa (Sulfonamide Allergy Intermediate Rash Verified 01/28/20 00:19 Antibiotics) Home Medications Medication Instructions Recorded Confirmed Type Novolin 70/30 U-100 Insulin 20 unit SUBCUT BID 05/13/18 01/28/20 History carvedilol 3.125 mg PO BID 05/13/18 01/28/20 History lisinopril 2.5 mg PO QAM 05/13/18 01/28/20 History multivitamin [One-A-Day Essential] 1 tab PO QAM 05/13/18 01/28/20 History acetaminophen [Tylenol Extra 500 mg PO TID PRN 11/19/19 01/28/20 History Strength] atorvastatin 20 mg PO HS 11/27/19 01/28/20 History calcium carbonate [Calcium 500] 1,000 mg PO DAILY 11/27/19 01/28/20 History cholecalciferol (vitamin D3) 1,250 mcg PO WK 11/27/19 01/28/20 History valacyclovir [Valtrex] 500 mg PO DAILY 11/27/19 01/28/20 History aspirin 81 mg PO DAILY 01/28/20 01/28/20 History prednisone 7.5 mg PO DAILY 01/28/20 01/28/20 History Patient History Medical History Cardiac murmur A CHILD History of anesthesia reaction SLOW TO WAKE History of rheumatic fever as a child Ulcer of right ankle Surgical History History of cardiac cath 08/2017 - [facility] - [facility] --> CABG - FOLLOWS W/ DR. PRESTON History of colonoscopy History of coronary artery bypass graft 08/2017 - [facility] - 3 VESSELS - FOLLOWS W/ DR. PRESTON History of total knee replacement BL History of wisdom tooth extraction Hx of tonsillectomy Family History Brother Family hx of colon cancer Father Family history of diabetes mellitus Mother Family history of diabetes mellitus Aunt Family history of diabetes mellitus Grandmother (Maternal) Family history of diabetes mellitus Social History Smoking Status: Former smoker Smoking End Date: 2013; Second Hand Exposure: No; Hx Alcohol Use: No Hx Substance Use: No Preferred Language: [place]guillan Communication Ability: Effective Supervisor Diagnostic Required: No Beliefs That Will Affect Care: None marital status: Current Living Situation: Spouse Current Living Situation Comment: Spouse Other Information That Helps Us Care for You: No Feels Safe at Home: Yes Safety Concerns: Feels Safe At This Time Assistive Devices: Glasses and Wheelchair Review of Systems Review of Systems: All systems reviewed & are unremarkable except as noted in HPI & below Physical Exam Constitutional: + frail appearing, cooperative and comfortable Eyes: PERRL, conjunctivae normal, anicteric sclerae ENMT: external ear and nose normal, oropharynx normal Neck: trachea midline, no thyromegaly Respiratory: normal respiratory effort, lungs clear to auscultation Cardiovascular: RRR, no murmur, no edema Heart Sounds: normal S1 and normal S2 Vessels: no JVD Extremities: normal capillary refill; no edema Gastrointestinal (Abdomen): normal bowel sounds, soft, nontender, no hepatosplenomegaly Musculoskeletal: no cyanosis or clubbing, extremities motor strength 5/5 Neurologic: PERRL, EOMI, accommodation nl, no face palsy, no dysarthria Psychiatric: A+Ox3, euthymic affect Results & Data Results & Data ([facility]) Vital Signs (Past 12 Hours) Vital Signs Temp Pulse Resp BP Pulse Ox 01/28/20 04:00 94 H 17 88/40 L 96 01/28/20 03:46 106 H 15 99/41 L 100 01/28/20 03:30 93 H 13 85/47 L 99 01/28/20 03:17 103 H 15 80/43 L 96 01/28/20 03:00 88 21 97/52 L 100 01/28/20 02:45 94 H 16 83/48 L 100 01/28/20 02:31 90 15 84/40 L 100 01/28/20 02:23 96 H 17 87/46 L 100 01/28/20 02:15 100 H 16 83/49 L 100 01/28/20 02:00 90 14 84/45 L 96 01/28/20 01:47 97 H 16 100/44 L 98 01/28/20 01:45 91 H 15 79/34 L 96 01/28/20 01:30 93 H 20 94/56 L 97 01/28/20 01:15 91 H 20 86/41 L 01/28/20 00:41 90 16 84/40 L 96 01/28/20 00:30 89 17 83/44 L 94 01/28/20 00:17 98 01/28/20 00:15 111 H 16 68/48 L 95 01/28/20 00:09 106 H 12 70/41 L 95 01/28/20 00:01 105 H 14 69/43 L 01/27/20 23:59 105 H 14 68/41 L 96 01/27/20 23:52 107 H 20 69/46 L 01/27/20 23:51 36.4 C L 107 H 20 69/46 L 98 Coding Level of Care Code 23273 Office/OBS Consult Lvl 5 Diagnoses Septic shock A41.9; R65.21 Hypotension I95.9 Sepsis A41.9; R65.20; N17.9 Acute renal failure type: unspecified Sepsis acute organ dysfunction status: with acute organ dysfunction Sepsis type: sepsis due to unspecified organism Severe sepsis acute organ dysfunction type: acute renal failure Severe sepsis shock status: unspecified DWAYNE (acute kidney injury) N17.9 Anemia D64.9 Anemia type: unspecified type Hyperglycemia R73.9 Traumatic open wound of right lower leg with delayed healing S81.801D (1) Anemia Anemia type: unspecified type Qualified Code(s): D64.9 - Anemia, unspecified (2) Sepsis Acute renal failure type: unspecified Sepsis acute organ dysfunction status: with acute organ dysfunction Sepsis type: sepsis due to unspecified organism Severe sepsis acute organ dysfunction type: acute renal failure Severe sepsis shock status: unspecified Qualified Code(s): A41.9 - Sepsis, unspecified organism; R65.20 - Severe sepsis without septic shock; N17.9 - Acute kidney failure, unspecified
[2020-01-28] MEDS ORDERED: SODIUM CHLORIDE 0.9% 1000ML 500 ML IV ONE (05:50)
[2020-01-28 06:04] LABS: Estimated Average Glucose 171 mg/dl; Hemoglobin A1C 7.6 % (4.5-5.6)
[2020-01-28] MEDS ORDERED: GLUCOSE 40% GEL 15 GM TUBE PO PRN (06:09)
[2020-01-28] MEDS ORDERED: GLUCAGON FOR INJ 1 MG VIAL SQ PRN (06:09)
[2020-01-28] MEDS ORDERED: DEXTROSE 50% 50 ML SYRINGE IV PRN (06:09)
[2020-01-28] MEDS ORDERED: GLUCOSE 10 TABS/TUBE PO PRN (06:09)
[2020-01-28] MEDS ORDERED: CARBOHYDRATES FOR HYPOGLYCEMIA PO PRN (06:09)
[2020-01-28] MEDS: SODIUM CHLORIDE 0.9% 1000ML 1,000 ML IV SCH ×4 (06:11→22:26)
[2020-01-28] MEDS ORDERED: PHARMACY GLYCEMIC MGMT CONSULT PRN (06:20)
[2020-01-28 06:26] LABS: Appearance Urine Turbid (Clear); Bacteria Urine Automated 2+ (Negative); Bilirubin Urine Negative (Negative); Blood Urine 2+ (Negative); Color Urine Yellow; Epithelial Cell Urine Auto >30 /lpf (0-5); Glucose Urine UA 2+ (Negative); Ketones Urine Negative (Negative); Leukocyte Esterase Urine 3+ (Negative); Nitrite Urine Negative (Negative); Protein Urine 2+ (Negative); Specific Gravity Urine 1.017 (1.000-1.030); Urobilinogen Urine Negative (Negative); WBC Urine Automated >30 /hpf (0-5); pH Urine 5.5 (4.5-7.5)
[2020-01-28] MEDS ORDERED: INSULIN GLARGINE SOLOSTAR 100 UNITS/ML 3 ML PEN SC ONE ×2 (06:45→21:00)
[2020-01-28] MEDS ORDERED: CEFEPIME CONSULT ACTIVE PRN (06:50)
[2020-01-28 06:57] LABS: Cast Urine Automated 0 /lpf (0-5)
[2020-01-28] MEDS: INSULIN ASPART 100 UNITS/ML 3 ML PEN SC SCH ×4 (07:06→23:43)
--- NOTE | 2020-01-28 07:15 | CT Scan Report ---
CT head/brain wo con CLINICAL HISTORY: confusion COMPARISON STUDY: No previous studies for comparison. TECHNIQUE: Axial CT of the brain is performed from the vertex to the skull base. IV contrast was not administered for this examination. A dose lowering technique was utilized adhering to the principles of ALARA. CT DOSE: 614.27 mGy.cm FINDINGS: No intra or extra-axial mass lesions are visualized. There is no CT evidence of acute cortical infarc tion. There is no evidence of midline shift. There is no acute hemorrhage. No calvarial fractures ar e visualized. There are patchy white matter hypodensities likely on a small vessel basis. There is no evidence of pathologic ventricular dilatation. There is no evidence of acute sinusitis IMPRESSION: No acute intracranial findings ACT 112: Negative or not required by law. Electronically signed by: Yordy Alexander M.D. 01/28/2020 7:14 AM
[2020-01-28] MEDS ORDERED: INSULIN ASPART 100 UNITS/ML 3 ML PEN SC SCH (07:30)
--- NOTE | 2020-01-28 07:39 | XRay Report ---
XR chest 1V portable CLINICAL HISTORY: sepsis COMPARISON STUDY: Chest radiograph September 17, 2019. FINDINGS: Interval median sternotomy is noted. Cardiac size is normal. There is no evidence for pulmo nary edema. Mild left basilar opacity favors atelectasis. Elevation of the left hemidiaphragm has dev eloped since prior examination. There is no pneumothorax or pleural effusion. IMPRESSION: Interval development of mild elevation of the left hemidiaphragm since prior exam. Left basilar opaci ty favors atelectasis. ACT 112: Negative or not required by law. Electronically signed by: Paco Hanson M.D. 01/28/2020 7:38 AM
--- NOTE | 2020-01-28 07:49 | CT Scan Report ---
CT OF THE RIGHT ANKLE WITHOUT CONTRAST CLINICAL HISTORY: sepsis w/ R ankle wound. Evaluate for osteomyelitis. COMPARISON STUDY: Right ankle radiographs November 27, 2019. MRI of the right ankle November 28, 2019. TECHNIQUE: Axial images of the right ankle were obtained without IV contrast. Sagittal and coronal re constructions were viewed. Automated exposure control was utilized for the study. A dose lowering te chnique was utilized adhering to the principles of ALARA. FINDINGS: Note is made of a wound overlying the anterior medial aspect of the distal right tibia. The re is adjacent edema and several nodules of soft tissue gas. This represents cellulitis. Sensitivity for detection of abscess is diminished on this unenhanced exam but no well-defined fluid collection i s noted. There is slight indistinctness of the subjacent cortex of the distal right tibia. No clear b wiley destruction is present. No additional osseous abnormalities are identified. Alignment of the righ t ankle is anatomic. There is no acute fracture. There is extensive vascular calcification. Talar dom e is intact. IMPRESSION: Wound with associated cellulitis overlying the anteromedial aspect of the distal right tibia. Slight indistinctness of the subjacent cortex of the distal right tibia. The findings are equivocal for oste omyelitis. No definite bony destruction. ACT 112: Negative or not required by law. Electronically signed by: Paco Hanson M.D. 01/28/2020 7:47 AM
[2020-01-28] MEDS ORDERED: CEFEPIME 2,000 MG in SYRINGE 0 ML IV SCH (08:00)
[2020-01-28] MEDS ORDERED: LACTATED RINGER'S 1,000 ML IV SCH (08:00)
--- NOTE | 2020-01-28 08:09 | CT Scan Report ---
CT OF THE ABDOMEN AND PELVIS WITHOUT CONTRAST CLINICAL HISTORY: Abdominal pain. COMPARISON STUDY: No previous studies for comparison. TECHNIQUE: Axial images of the abdomen and pelvis were obtained without IV contrast. Images were revi ewed in the axial, sagittal, and coronal planes. Automated exposure control was utilized for the josseline dy. A dose lowering technique was utilized adhering to the principles of ALARA. FINDINGS: Note is made of mild elevation of the left hemidiaphragm. There is hyperdense material with in the gastric fundus and proximal body of the stomach. The stomach is mildly distended. Note is made of wall thickening of the proximal duodenum with adjacent infiltration. There is also apparent extra luminal gas along the medial wall of the proximal duodenum shown best on axial image 143 of 496. No p eripancreatic infiltration is noted. The gallbladder is not distended. Evaluation of the abdomen and pelvis is suboptimal as unenhanced examination. The liver, adrenal glands and left kidney are unremar kable. There is moderate right renal atrophy. There is no evidence for a bowel obstruction. Colonic d iverticulosis is noted without evidence for acute diverticulitis. There is no evidence for acute appe ndicitis. Note is made of a 4.7 x 2.1 cm left adnexal hyperdense focus on axial image 381 of 496. The re is also a 4.8 x 2.8 cm oval-shaped circumscribed hyperdense focus anterior to the bladder within t he space of Retzius. Note is made of mild bladder wall thickening with mild adjacent infiltration. An old L2 compression fracture is noted. There is an old fracture of the right inferior pubic ramus. Se regis osteoarthrosis of the right hip is noted. No suspicious osseous lesions are noted. No acute frac tures are identified within visualized skeletal structures. IMPRESSION: 1. Wall thickening of the proximal duodenum with adjacent infiltration. Small amount of gas along the medial wall of the duodenum could reflect a contained perforation or ulcer. These findings suggest p eptic ulcer disease. Findings discussed with Dr. Cao at time of dictation. 2. Hyperdense material within the stomach. This probably reflects ingested contents although hemorrha ge could appear similar. 3. 4.8 x 2.8 cm oval-shaped circumscribed hyperdense focus anterior to the bladder within the space o f Retzius. Although this could reflect a urachal remnant, this is more inferior than expected. This f inding is indeterminate and could reflect a cyst or solid lesion. This can be assessed on follow-up p elvic ultrasound. 4. 4.7 x 2.1 cm left adnexal hyperdense focus. This could reflect a left ovarian mass, cyst or endome trioma. Follow-up pelvic ultrasound is recommended. 5. Bladder wall thickening with adjacent infiltration which favor cystitis. ACT 112: Negative or not required by law. Electronically signed by: Paco Hanson M.D. 01/28/2020 8:07 AM
[2020-01-28] MEDS: HYDROCORTISONE SOD 50 MG in SYRINGE 0 ML IV SCH ×3 (08:16→20:22)
[2020-01-28] MEDS: MULTIVITAMIN TAB PO SCH (08:16)
--- NOTE | 2020-01-28 08:18 | Pharmacy Report ---
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 and suspected septic shock * Currently ordered broad spectrum antibiotics and hydrocortisone 50 mg IV q6h * BSG of 432 mg/dL with pH of 7.34 and anion gap of 12 on presentation * Given 10 units IV insulin bolus -> BSG of 158 mg/dL this morning * Will continue to manage with SC insulin * Currently NPO * Protonix gtt (in D5W) infusing PLAN FOR INPATIENT GLYCEMIC CONTROL: * Hold outpatient oral diabetes medications * Basal insulin * Lantus 20 units x 1 this morning * Lantus scale tonight to provide 0-10 units based on BSG (see EHR for details) * Bolus insulin * NovoLog per scale ACHS or Q6hrs while NPO * Goal Range: Low 110 mg/dL - High 140 mg/dL * Correction Factor: 20 mg/dL/unit * Nutritional / Prandial insulin per carb ratio of 1 unit per 7 grams CHO consumed PLAN FOR DISCHARGE: * tbd
--- NOTE | 2020-01-28 08:59 | Orthopedic Consultation ---
Date of Consultation January 28, 2020 Assessment & Plan (1) Traumatic open wound of right lower leg with delayed healing: (2) Pyoderma gangrenosum: The wound seems to be healing. She has a diagnosis of pyoderma gangrenosum from the oil well engineer and she is scheduled to meet with a plastic surgeon, Dr. Sneed, on February 06. According to the patient, the oil well engineer and the plastic surgeon feel they can treat this with a skin flap. According to the patient, the wound is improving. She has been admitted with hypotension and possible septic shock. I went over the CT scan personally with the radiologist. He does not feel that there is any osteomyelitis in the distal tibia at this time however he says he cannot ruled it out 100%. There is really no bony destruction. The elevated white blood cell count may be secondary to her cystitis or her duodenal ulcer. Her wound seems to be improving. At this time I think we should treat the other potential causes for infection. If those improve and if we have difficulty figuring out where the source of infection is coming from, then a repeat MRI of the right leg may be necessary. We will continue to follow. Present on Admission?: Yes History of Present Illness Reason for Consultation: Right distal tibial wound Attending Physician: Ami Cao MD History of Present Illness Lindsey is a pleasant 59-year-old female with hyperglycemia who is been dealing with a left distal tibial wound. It started about 2 months ago. She was treated at wound clinic for another wound and she fell that a compressive wrap was placed too tight around the anterior distal tibia. She went on to develop all wound in that area. She was in the hospital in early November. MRI at that time showed no signs of osteomyelitis. There was a rather large wound at that time with exposed anterior tibial tendon and extensor tendons. Dermatology and plastics were consulted. She has since been treated by wound care. They use Aquacel and Telfa dressings. She has been followed by dermatology and they have diagnosed her with pyoderma gangrenosum (which is a diagnosis of exclusion). Dr. Piña the oil well engineer made it clear in his last note that debridement is contraindicated. She also has an appointment to see Dr. Sneed, a plastic surgeon, on February 06. According to the patient, Dr. Sneed and Dr. Piña he feel that the wound can be covered with a flap. Unfortunately, she was admitted to the hospital last night with a possible septic shock. Her white blood cell count was elevated and she was hypotensive. CT scan of her abdomen pelvis did show duodenal ulcer station and cystitis. CT scan of the right leg did not show any bony destruction but he cannot completely rule out osteomyelitis. Orthopedics was consulted to evaluate and treat. Allergies Allergy/AdvReac Type Severity Reaction Status Date / Time Sulfa (Sulfonamide Allergy Intermediate Rash Verified 01/28/20 00:19 Antibiotics) Home Medications Medication Instructions Recorded Confirmed Type Novolin 70/30 U-100 Insulin 20 unit SUBCUT BID 05/13/18 01/28/20 History carvedilol 3.125 mg PO BID 05/13/18 01/28/20 History lisinopril 2.5 mg PO QAM 05/13/18 01/28/20 History multivitamin [One-A-Day Essential] 1 tab PO QAM 05/13/18 01/28/20 History acetaminophen [Tylenol Extra 500 mg PO TID PRN 11/19/19 01/28/20 History Strength] atorvastatin 20 mg PO HS 11/27/19 01/28/20 History calcium carbonate [Calcium 500] 1,000 mg PO DAILY 11/27/19 01/28/20 History cholecalciferol (vitamin D3) 1,250 mcg PO WK 11/27/19 01/28/20 History valacyclovir [Valtrex] 500 mg PO DAILY 11/27/19 01/28/20 History aspirin 81 mg PO DAILY 01/28/20 01/28/20 History prednisone 7.5 mg PO DAILY 01/28/20 01/28/20 History Patient History Medical History Cardiac murmur A CHILD History of anesthesia reaction SLOW TO WAKE History of rheumatic fever as a child Ulcer of right ankle Surgical History History of cardiac cath 08/2017 - [facility] - SOB --> CABG - FOLLOWS W/ DR. PRESTON History of colonoscopy History of coronary artery bypass graft 08/2017 - [facility] - 3 VESSELS - FOLLOWS W/ DR. 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 Beliefs That Will Affect Care: None marital status: Current Living Situation: Spouse Current Living Situation Comment: Spouse Other Information That Helps Us Care for You: No Feels Safe at Home: Yes Safety Concerns: Feels Safe At This Time Assistive Devices: Glasses and Wheelchair Review of Systems Review of Systems: All systems reviewed & are unremarkable except as noted in HPI & below Physical Exam Constitutional: WD/WN, vitals as above Eyes: PERRL, conjunctivae normal, anicteric sclerae ENMT: external ear and nose normal, oropharynx normal Neck: trachea midline, no thyromegaly Respiratory: normal respiratory effort Cardiovascular: RRR, no murmur, no edema Gastrointestinal (Abdomen): normal bowel sounds, soft, nontender, no hepatosplenomegaly Musculoskeletal: On physical examination of the right leg, I remove the dressing. There is some granulation covering the tibialis anterior. There is a wound of about 10 cm x 3 cm along the length of her anterior distal tibia. She has 5 out of 5 muscle strength with dorsiflexion plantarflexion of the right foot. I do not see any other large ulcerations. She does have a heel pad on her right heel. Psychiatric: A+Ox3, euthymic affect Results & Data ([facility]) Vital Signs (Past 12 Hours) Vital Signs Temp Pulse Pulse Resp BP BP Pulse Ox 01/28/20 07:49 36.7 C 104 H 14 113/62 100 01/28/20 06:49 36.4 C L 103 H 17 97/52 L 100 01/28/20 06:19 36.4 C L 104 H 15 92/47 L 98 01/28/20 06:04 36.4 C L 102 H 15 89/46 L 97 01/28/20 05:58 36.4 C L 106 H 16 92/47 L 97 01/28/20 05:47 36.7 C 105 H 18 87/45 L 98 01/28/20 05:41 94 H 15 87/45 L 99 01/28/20 04:53 36.7 C 93 H 13 88/45 L 01/28/20 04:41 36.7 C 97 H 23 88/45 L 96 01/28/20 04:00 94 H 17 88/40 L 96 01/28/20 03:46 106 H 15 99/41 L 100 01/28/20 03:30 93 H 13 85/47 L 99 01/28/20 03:17 103 H 15 80/43 L 96 01/28/20 03:00 88 21 97/52 L 100 01/28/20 02:45 94 H 16 83/48 L 100 01/28/20 02:31 90 15 84/40 L 100 01/28/20 02:23 96 H 17 87/46 L 100 01/28/20 02:15 100 H 16 83/49 L 100 01/28/20 02:00 90 14 84/45 L 96 01/28/20 01:47 97 H 16 100/44 L 98 01/28/20 01:45 91 H 15 79/34 L 96 01/28/20 01:30 93 H 20 94/56 L 97 01/28/20 01:15 91 H 20 86/41 L 01/28/20 00:41 90 16 84/40 L 96 01/28/20 00:30 89 17 83/44 L 94 01/28/20 00:17 98 01/28/20 00:15 111 H 16 68/48 L 95 01/28/20 00:09 106 H 12 70/41 L 95 01/28/20 00:01 105 H 14 69/43 L 01/27/20 23:59 105 H 14 68/41 L 96 01/27/20 23:52 107 H 20 69/46 L 01/27/20 23:51 36.4 C L 107 H 20 69/[address] scan of the right leg was reviewed by myself as well as radiology interpretation. It did show some signs of cellulitis. We cannot definitively rule out osteomyelitis however, the bony destruction did not look bad. I spoke with the radiologist personally. He can completely rule out osteomyelitis but he does not think that is likely the cause of infection. We just do not see any bony destruction. An MRI would really be a better test to rule out osteomyelitis. PG Care Time/CCT Total # of Minutes Spent Total Time Spent with Patient: Total time spent is greater than 50% in coordination of care (as documented) at patient's floor/unit and/or counseling patient: Coding Level of Care Code 77884 Inpt Consult Level 5 Diagnoses Traumatic open wound of right lower leg with delayed healing S81.801D Pyoderma gangrenosum L88
[2020-01-28 10:11] LABS: Basophils # (auto) 0.02 K/uL (0-0.2); Basophils % (auto) 0.2 %; Hematocrit (blood only) 24.6 % (37-47); Hemoglobin 7.4 g/dL (12.0-16.0); Immature Granulocytes # (auto) 0.34 K/uL (0.00-0.02); Immature Granulocytes % (auto) 2.6 %; Lymphocytes # (auto) 0.71 K/uL (1.2-3.4); Lymphocytes % (auto) 5.3 %; Mean Corpuscular Hemoglobin 25.3 pg (25-34); Mean Corpuscular Hgb Conc 30.1 g/dL (32-36); Mean Corpuscular Volume 84.2 fL (80-100); Mean Platelet Volume 9.4 fL (7.4-10.4); Monocytes # (auto) 0.38 K/uL (0.11-0.59); Monocytes % (auto) 2.9 %; Neutrophils # (auto) 11.85 K/uL (1.4-6.5); Platelet Count 204 K/uL (130-400); RDW Coefficient of Variation 16.6 % (11.5-14.5); RDW Standard Deviation 51.2 fL (36.4-46.3); Red Blood Count 2.92 M/uL (4.2-5.4)
[2020-01-28 10:30] LABS: BUN Creatinine Ratio 20.8 (10-20); Calcium 9.4 mg/dl (8.5-10.1); Creatinine Clr Calc Pharmacy 38.4 ml/min; Est GFR (African American) 44.9; Est GFR (Non-African American) 38.7; Potassium 4.5 mmol/L (3.5-5.1)
[2020-01-28 10:37] LABS: RBC Morphology Unremarkable
[2020-01-28] MEDS: metroNIDAZOLE 500 MG/100 ML BAG IV SCH ×2 (10:43→17:34)
--- NOTE | 2020-01-28 11:41 | Electrocardiogram Report ---
Test Reason : Blood Pressure : / mmHG Vent. Rate : 105 BPM Atrial Rate : 105 BPM P-R Int : 176 ms QRS Dur : 118 ms QT Int : 376 ms P-R-T Axes : 057 -63 054 degrees QTc Int : 496 ms Sinus tachycardia with occasional Premature ventricular complexes Possible Left atrial enlargement Right bundle branch block Left anterior fascicular block Bifascicular block Abnormal ECG When compared with ECG of 07-DEC-2019 19:29, Premature ventricular complexes are now Present T wave inversion no longer evident in Lateral leads Confirmed by Segundo Hernández ([id number]) on 01/28/2020 11:41:18 AM Referred By: REFERRED SELF Confirmed By:Segundo Hernández
[2020-01-28] MEDS ORDERED: DAPTOmycin 350 MG in SYRINGE 0 ML IV SCH (16:00)
[2020-01-28 16:24] LABS: Hematocrit (blood only) 25.6 % (37-47); Hemoglobin 7.7 g/dL (12.0-16.0)
--- NOTE | 2020-01-28 17:09 | Hospitalist Progress Note ---
Date of Service January 28, 2020 Assessment & Plan (1) Septic shock: Met sepsis criteria on admission with elevated WBC, Tachycardia, Hypotension, elevated lactate and procalcitonin Possible related UTI vs wound in the lower extremity UA positive for leukocytes and bacteria Received vanco and zosyn in the ER Received fluid hydration Blood, wound and urine cx pending Continue abx with cefepime and daptomycin for now Continue monitor in the ICU for now (2) Hypotension: Mostly due to septic shock Hydrocortisone IV for possible adrenal insufficiency Continue IVF Lisinopril on hold Anemia Possible related to UGI bleed since Pt has been having dark stool Hgb on admission 7.5, received 1 unit PRBC, repeat hgb 7.7 Gastro consult pending Continue PPI drip for now Will keep NPO to eval for possible EGD in am Questionable perforated ulcer vs Peptic ulcer CT scan showed wall thickening of the proximal duodenum with adjacent infiltration. Small amount of gas along the medial wall of the duodenum could reflect a contained perforation or ulcer. Imaging finding discussed with radiology that said that the finding mostly showed peptic ulcer disease Waiting for GI eval Will keep NPO for now Diarrhea Stools negative for Cdiff Continue monitor electrolytes Bladder mass CT showed 4.8 x 2.8 cm oval-shaped circumscribed hyperdense focus anterior to the bladder within the space of Retzius. Will need a pelvic u/s once stable Pyoderma gangrenosum: Ulcer of right ankle: Traumatic open wound of right lower leg with delayed healing Completed a long course of antibiotic and steroid last month Continue follow up with dermatology and plastic surgery Diabetes mellitus, type 2: Last HgbA1c 9.9 Pharmacy on board for glycemic management On Lantus and novolog sliding scale CAD (coronary artery disease): Hx of 3V CABG 08/2017 (NOWAK to LAD, SVG to D1, SVG to OM1), ischemic cardiomyopathy EF 40 to 45% 11/2017 continue ASA, lisinopril, coreg, statin Stable Hyperlipidemia: Continue statin Rheumatoid arthritis: On Methotrexate 15 mg every Wednesday outpatient Will hold methotrexate currently due to concern for infection On IV Hydrocortisone 50mg QID started for Adrenal insufficiency Follow up with rheumatology outpatient DVT prophylaxis SCD due to Low hgb and dark stool CODE STATUS NO chest compression, Ok for mechanical Ventilation Disposition Will transfer out of the ICU Admission and Anticipated Discharge Date Admission Date: January 28, 2020 Subjective Pt was seen and examined Lying in bed with no distress Pt said that she feels much better She said that she had 3 lose Bowel movement today Denies any chest pain, palpitation, dizziness and SOB Physical Exam Physical Exam: General- No acute distress Head- atraumatic Eyes- PERRL, EOMI, ENT- oropharynx clear Neck- supple, no JVD Lungs- clear to auscultation Heart- regular rhythm; no murmur Abdomen- normal bowel sounds, soft, nontender Extremities- no calf tenderness, Right lower extremity with dressing wrap Neuro- alert, oriented x 3; PERRL, EOMI; no facial palsy; no dysarthria Results & Data Results & Data ([facility]) Vital Signs (Past 12 Hours) Vital Signs Temp Pulse Pulse Resp BP BP Pulse Ox 01/28/20 16:00 105 H 15 98 01/28/20 15:53 105 H 15 107/55 L 99 01/28/20 15:50 104 H 18 97 01/28/20 15:40 120 H 18 97 01/28/20 15:38 113 H 23 113/55 L 98 01/28/20 15:30 111 H 18 98 01/28/20 15:23 113 H 17 124/58 L 99 01/28/20 15:20 111 H 27 H 99 01/28/20 15:10 115 H 13 69 L 01/28/20 15:08 110 H 14 105/71 100 01/28/20 15:00 114 H 19 94 01/28/20 14:53 112 H 17 107/58 L 100 01/28/20 14:50 114 H 17 99 01/28/20 14:49 37 C 106 H 22 103/64 99 01/28/20 14:40 110 H 16 98 01/28/20 14:38 109 H 14 108/52 L 99 01/28/20 14:30 111 H 25 H 100 01/28/20 14:24 118 H 16 103/64 86 L 01/28/20 14:20 110 H 15 98 01/28/20 14:10 110 H 7 L 98 01/28/20 14:08 111 H 1 L 113/56 L 98 01/28/20 14:00 108 H 6 L 100 01/28/20 13:53 112 H 17 100/50 L 100 01/28/20 13:50 110 H 18 93 01/28/20 13:40 109 H 26 H 100 01/28/20 13:38 112 H 26 H 108/52 L 98 01/28/20 13:30 108 H 14 100 01/28/20 13:23 111 H 19 100/53 L 100 01/28/20 13:20 117 H 15 69 L 01/28/20 13:10 107 H 14 99 01/28/20 13:08 108 H 12 115/59 L 99 01/28/20 13:00 109 H 9 L 99 01/28/20 12:53 112 H 23 95/51 L 99 01/28/20 12:50 111 H 7 L 97 01/28/20 12:40 111 H 17 97 01/28/20 12:38 111 H 13 103/55 L 99 01/28/20 12:30 113 H 22 99 01/28/20 12:23 111 H 15 104/58 L 100 01/28/20 12:20 111 H 23 100 01/28/20 12:10 109 H 21 82 L 01/28/20 12:08 112 H 15 117/54 L 99 01/28/20 12:00 36.6 C 107 H 109 H 14 104/58 L 98 01/28/20 11:53 107 H 11 L 98/55 L 99 01/28/20 11:50 107 H 15 98 01/28/20 11:40 108 H 16 97 01/28/20 11:38 109 H 15 113/52 L 97 01/28/20 11:30 113 H 16 98 01/28/20 11:23 108 H 16 121/52 L 98 01/28/20 11:20 108 H 17 98 01/28/20 11:10 109 H 17 99 01/28/20 11:08 107 H 15 95/44 L 98 01/28/20 10:53 107 H 16 96/59 L 99 01/28/20 10:38 107 H 13 99/51 L 99 01/28/20 10:30 108 H 14 99 01/28/20 10:23 107 H 15 114/56 L 99 01/28/20 10:08 107 H 16 107/44 L 100 01/28/20 10:00 107 H 13 99 01/28/20 09:53 105 H 19 107/51 L 100 01/28/20 09:38 106 H 21 110/61 100 01/28/20 09:30 109 H 17 100 01/28/20 09:23 105 H 20 100/52 L 100 01/28/20 09:08 108 H 14 103/55 L 100 01/28/20 09:00 108 H 14 100 01/28/20 08:53 108 H 10 L 112/58 L 99 01/28/20 08:38 107 H 12 113/54 L 98 01/28/20 08:30 105 H 20 99 01/28/20 08:23 103 H 14 97/55 L 98 01/28/20 08:07 105 H 16 113/62 98 01/28/20 08:00 104 H 16 98 01/28/20 07:52 103 H 16 101/50 L 98 01/28/20 07:49 36.7 C 104 H 14 113/62 100 01/28/20 07:37 103 H 17 99/54 L 99 01/28/20 07:31 102 H 14 99 01/28/20 07:23 109 H 22 79/49 L 91 01/28/20 07:07 102 H 14 99/48 L 99 01/28/20 07:00 103 H 15 98 01/28/20 06:49 36.4 C L 103 H 17 97/52 L 100 01/28/20 06:19 36.4 C L 104 H 15 92/47 L 98 01/28/20 06:04 36.4 C L 102 H 15 89/46 L 97 01/28/20 05:58 36.4 C L 106 H 16 92/47 L 97 01/28/20 05:47 36.7 C 105 H 18 87/45 L 98 01/28/20 05:41 94 H 15 87/45 L 99
[2020-01-28] MEDS: CEFEPIME 2,000 MG in SYRINGE 0 ML IV SCH (20:22)
[2020-01-28] MEDS ORDERED: ATORVASTATIN 20 MG TAB PO SCH (21:00)
[2020-01-28 23:23] LABS: Hematocrit (blood only) 25.3 % (37-47); Hemoglobin 7.7 g/dL (12.0-16.0)
[2020-01-29] MEDS: metroNIDAZOLE 500 MG/100 ML BAG IV SCH ×2 (02:04→10:56)
[2020-01-29] MEDS: PANTOprazole 40 MG in DEXTROSE 5% 100 ML IV SCH ×4 (03:50→19:33)
[2020-01-29] MEDS: HYDROCORTISONE SOD 50 MG in SYRINGE 0 ML IV SCH ×3 (04:23→19:45)
[2020-01-29 04:46] LABS: Hematocrit (blood only) 25.4 % (37-47); Hemoglobin 7.6 g/dL (12.0-16.0); Mean Corpuscular Hemoglobin 25.3 pg (25-34); Mean Corpuscular Hgb Conc 29.9 g/dL (32-36); Mean Corpuscular Volume 84.7 fL (80-100); Mean Platelet Volume 9.5 fL (7.4-10.4); Platelet Count 191 K/uL (130-400); RDW Coefficient of Variation 16.7 % (11.5-14.5); White Blood Count 17.41 K/uL (4.8-10.8)
[2020-01-29] MEDS: SODIUM CHLORIDE 0.9% 1000ML 1,000 ML IV SCH (05:02)
[2020-01-29 05:31] LABS: BUN Creatinine Ratio 33.7 (10-20); Creatinine Clr Calc Pharmacy 47.1 ml/min; Est GFR (African American) 57.5; Est GFR (Non-African American) 49.6; Potassium 3.1 mmol/L (3.5-5.1)
[2020-01-29] MEDS: INSULIN ASPART 100 UNITS/ML 3 ML PEN SC SCH ×3 (06:03→16:59)
[2020-01-29 06:18] LABS: Magnesium 1.9 mg/dl (1.8-2.4); Phosphorus 1.7 mg/dl (2.5-4.9)
[2020-01-29] MEDS ORDERED: POTASSIUM PHOS 3 MMOL/1 ML INFUSION IV STA ×3 (06:34→07:54)
[2020-01-29] MEDS ORDERED: POTASSIUM CHLORIDE CRTAB 20 MEQ TABCR PO STA (06:34)
[2020-01-29] MEDS ORDERED: MAGNESIUM SULFATE / D5W 1 GM/100 ML BAG IV ONE (06:35)
[2020-01-29] MEDS ORDERED: POTASSIUM PHOSPHATE 21 MMOL in SODIUM CHLORIDE 0.9% 500 ML IV ONE (06:45)
[2020-01-29] MEDS: MULTIVITAMIN TAB PO SCH (08:21)
[2020-01-29] MEDS: CEFEPIME 2,000 MG in SYRINGE 0 ML IV SCH (08:30)
--- NOTE | 2020-01-29 08:31 | Critical Care Progress Note ---
Date of Service January 29, 2020 Assessment & Plan (1) Septic shock: Impression: 59-year-old female presents to the ICU with hypotension and suspected septic shock Neuro - Confusion: Resolved -. Ammonia within normal limits. Cardiac - Hypotension/shock, resolved -Reviewed echo -Noted with segmental hypokinesis with akinesis with mild global hypokinesis -Repeat echo and troponins, may be pre-existing type II disease with underlying anemia -Stress dose steroid, transitioning back to 7.5 mg prednisone daily -2 units packed red blood cells on hand as needed Respiratory - Currently maintaining sats on room air, no respiratory distress. No history of pulmonary disease Careful with IV fluid resuscitation considering that the patient has ischemic cardiomyopathy. Chest x-ray following 2 L bolus in the emergency department without evidence of pulmonary congestion. Continuous monitoring pulse ox GI - GI bleedpatient reports intermittent diarrhea for the past 2 weeks and presents as anemic, Hemoccult positive -Transfusing 1 unit RBCs and started on Protonix drip -Carafate 1 g 3 times daily tabs -CT abdomen reviewed with GI and general surgery -N.p.o. for now -Trending H&H RENAL/LYTES - AKIlikely ATN in the setting of hypotension: Resolved -Continue to trend with routine BMPs, monitor electrolytes and replete as indicated -Avoid nephrotoxins and renally adjust medications -Hold lisinopril: Anticipate restart tomorrow -Maintain maps greater than 65, continue IV fluid resuscitation - Remove [place] ENDO - DM type II (uncontrolled)currently hyperglycemic and A1c on previous admission of 9, repeat pending -Continue with sliding scale, BHA within normal limit -ICU hyperglycemic protocol Long-term steroid use -Received stress dose will transition to prednisone 7.5 daily HEME - Anemiapatient with recent hemoglobins 7-8 on last admissions, likely related to chronic illness but cannot rule out GI bleed vomited at this time -Received 1 unit packed red blood cells -H&H at 1400 and 10 PM then a.m. labs -Anemia: Gastrointestinal losses -Patient received 1 unit packed red blood cells and no significant climb, I also believe that this is secondary to volume resuscitation Lactic acidosisresolved ID - Sepsisdiscussed with GI, general surgery, orthopedic surgery. -Likely urine source -IV Rocephin to minimize p.o. intake -Vancomycin and Zosyn discontinued -Possible ulcer perforation versus deep cratered ulcer: Discussed with surgery -No indication for prophylactic antibiotics, discontinue Diflucan and Flagyl -Discussed with orthopedics, reassuring soft tissue culture obtained previously, no antibiotic coverage at this time for skin and soft tissue/osteomyelitis infections LINES/IV ACCESS - Peripheral IVs, DVT PROPHYLAXIS - SCDs CODE STATUS: I did speak with patient regarding her CODE STATUS and she stated that in the event she were to experience cardiac arrest she would not like chest compressions or defibrillation, however she was open to intubation and mechanical ventilation should she need it along with medications. (2) Hypotension: (3) Sepsis: (4) DWAYNE (acute kidney injury): (5) Anemia: (6) Hyperglycemia: (7) Traumatic open wound of right lower leg with delayed healing: Admission and Anticipated Discharge Date Admission Date: January 28, 2020 Supervising Physician Co-Signing Physician Notes Patient was discussed on multidisciplinary rounds I have personally spent 55 minutes of critical care time in the direct management of this patient. This is a life/limb threatening event. This includes time spent evaluating patient, direct bedside care, chart review, placing orders, interpretation of diagnostic studies, discussion with consultants, patient, and/or family members regarding treatment decisions, as well as other required patient management activities. This time is exclusive of all separately billable procedures, and teaching time and separate from and in addition to any other critical care service time. Subjective Patient states she feels better than yesterday, no overall complaints beyond nausea after taking a potassium pill this morning Pt was seen and examined Lying in bed with no distress Pt said that she feels much better She said that she had 3 lose Bowel movement today Denies any chest pain, palpitation, dizziness and SOB Review of Systems Review of Systems: No abdominal pain, positive nausea, no fevers Physical Exam Physical Exam: General: Alert. nontoxic. Skin: Warm, dry, Head: Atraumatic Ears, nose, mouth and throat: airway patent Cardiovascular: Normal peripheral perfusion Respiratory: no respiratory distress Gastrointestinal: Soft nontender, nondistended, no hepatomegaly, no guarding no rebound negative rise of eggs negative Dyson sign this is a nonsurgical abdomen Musculoskeletal: No deformity Results & Data Results & Data ([facility]) Vital Signs (Past 12 Hours) Vital Signs Temp Pulse Resp BP Pulse Ox 01/29/20 05:24 80 15 116/47 L 100 01/29/20 04:24 36.7 C 96 H 17 96/71 L 100 01/29/20 03:43 36.7 C 01/29/20 03:24 87 12 122/55 L 100 01/29/20 02:24 83 13 112/46 L 98 01/29/20 01:24 86 13 98/44 L 98 01/29/20 00:24 98 H 15 108/49 L 98 01/29/20 00:00 110 H 01/28/20 23:31 36.6 C 01/28/20 23:24 110 H 23 115/57 L 100 01/28/20 22:24 100 H 15 107/60 100 01/28/20 21:24 107 H 24 114/58 L 01/28/20 21:09 98 H 16 112/47 L 100 01/28/20 20:54 109 H 27 H 92/78 L 93 01/28/20 20:38 107 H 19 104/62 98 Laboratory Results 01/29/20 01/29/20 01/29/20 Range/Units 06:02 04:33 04:33 WBC (4.8-10.8) K/uL RBC (4.2-5.4) M/uL Hgb (12.0-16.0) g/dL Hct (37-47) % MCV (80-100) fL MCH (25-34) pg MCHC (32-36) g/dL RDW Std Deviation (36.4-46.3) fL RDW Coeff of [place] (11.5-14.5) % Plt Count (130-400) K/uL MPV (7.4-10.4) fL Immature Gran % (Auto) % Neut % (Auto) % Lymph % (Auto) % [place] % (Auto) % Eos % (Auto) % Baso % (Auto) % Neut # (Auto) (1.4-6.5) K/uL Lymph # (Auto) (1.2-3.4) K/uL [place] # (Auto) (0.11-0.59) K/uL Eos # (Auto) (0-0.5) K/uL Baso # (Auto) (0-0.2) K/uL Immature Gran # (Auto) (0.00-0.02) K/uL RBC Morphology Sodium 143 (136-145) mmol/L Potassium 3.1 L D (3.5-5.1) mmol/L Chloride 116 H (98-107) mmol/L Carbon Dioxide 20 L (21-32) mmol/L Anion Gap 7.0 (3-11) BUN 40 H (7-18) mg/dl Creatinine 1.19 (0.6-1.2) mg/dl Est Cr Clr Drug Dosing 47.1 ml/min Est GFR ( Amer) 57.5 Est GFR (Non-Af Amer) 49.6 BUN/Creatinine Ratio 33.7 H (10-20) Glucose 155 H (70-99) mg/dl POC Glucose 165 H (70-99) mg/dl Lactate (0.4-2.0) mmol/L Calcium 8.0 L (8.5-10.1) mg/dl Phosphorus 1.7 L (2.5-4.9) mg/dl Magnesium 1.9 (1.8-2.4) mg/dl Procalcitonin (0-0.5) ng/ml 01/29/20 01/28/20 01/28/20 Range/Units 04:33 23:27 22:26 WBC 17.41 H (4.8-10.8) K/uL RBC 3.00 L (4.2-5.4) M/uL Hgb 7.6 L 7.7 L (12.0-16.0) g/dL Hct 25.4 L 25.3 L (37-47) % MCV 84.7 (80-100) fL MCH 25.3 (25-34) pg MCHC 29.9 L (32-36) g/dL RDW Std Deviation 51.0 H (36.4-46.3) fL RDW Coeff of [place] 16.7 H (11.5-14.5) % Plt Count 191 (130-400) K/uL MPV 9.5 (7.4-10.4) fL Immature Gran % (Auto) % Neut % (Auto) % Lymph % (Auto) % [place] % (Auto) % Eos % (Auto) % Baso % (Auto) % Neut # (Auto) (1.4-6.5) K/uL Lymph # (Auto) (1.2-3.4) K/uL [place] # (Auto) (0.11-0.59) K/uL Eos # (Auto) (0-0.5) K/uL Baso # (Auto) (0-0.2) K/uL Immature Gran # (Auto) (0.00-0.02) K/uL RBC Morphology Sodium (136-145) mmol/L Potassium (3.5-5.1) mmol/L Chloride (98-107) mmol/L Carbon Dioxide (21-32) mmol/L Anion Gap (3-11) BUN (7-18) mg/dl Creatinine (0.6-1.2) mg/dl Est Cr Clr Drug Dosing ml/min Est GFR ( Amer) Est GFR (Non-Af Amer) BUN/Creatinine Ratio (10-20) Glucose (70-99) mg/dl POC Glucose 163 H (70-99) mg/dl Lactate (0.4-2.0) mmol/L Calcium (8.5-10.1) mg/dl Phosphorus (2.5-4.9) mg/dl Magnesium (1.8-2.4) mg/dl Procalcitonin (0-0.5) ng/ml 01/28/20 01/28/20 01/28/20 Range/Units 20:09 17:40 16:16 WBC (4.8-10.8) K/uL RBC (4.2-5.4) M/uL Hgb 7.7 L (12.0-16.0) g/dL Hct 25.6 L (37-47) % MCV (80-100) fL MCH (25-34) pg MCHC (32-36) g/dL RDW Std Deviation (36.4-46.3) fL RDW Coeff of [place] (11.5-14.5) % Plt Count (130-400) K/uL MPV (7.4-10.4) fL Immature Gran % (Auto) % Neut % (Auto) % Lymph % (Auto) % [place] % (Auto) % Eos % (Auto) % Baso % (Auto) % Neut # (Auto) (1.4-6.5) K/uL Lymph # (Auto) (1.2-3.4) K/uL [place] # (Auto) (0.11-0.59) K/uL Eos # (Auto) (0-0.5) K/uL Baso # (Auto) (0-0.2) K/uL Immature Gran # (Auto) (0.00-0.02) K/uL RBC Morphology Sodium (136-145) mmol/L Potassium (3.5-5.1) mmol/L Chloride (98-107) mmol/L Carbon Dioxide (21-32) mmol/L Anion Gap (3-11) BUN (7-18) mg/dl Creatinine (0.6-1.2) mg/dl Est Cr Clr Drug Dosing ml/min Est GFR ( Amer) Est GFR (Non-Af Amer) BUN/Creatinine Ratio (10-20) Glucose (70-99) mg/dl POC Glucose 166 H 171 H (70-99) mg/dl Lactate (0.4-2.0) mmol/L Calcium (8.5-10.1) mg/dl Phosphorus (2.5-4.9) mg/dl Magnesium (1.8-2.4) mg/dl Procalcitonin (0-0.5) ng/ml 01/28/20 01/28/20 01/28/20 Range/Units 11:47 09:56 09:56 WBC 13.30 H (4.8-10.8) K/uL RBC 2.92 L (4.2-5.4) M/uL Hgb 7.4 L (12.0-16.0) g/dL Hct 24.6 L (37-47) % MCV 84.2 (80-100) fL MCH 25.3 (25-34) pg MCHC 30.1 L (32-36) g/dL RDW Std Deviation 51.2 H (36.4-46.3) fL RDW Coeff of [place] 16.6 H (11.5-14.5) % Plt Count 204 (130-400) K/uL MPV 9.4 (7.4-10.4) fL Immature Gran % (Auto) 2.6 % Neut % (Auto) 89.0 % Lymph % (Auto) 5.3 % [place] % (Auto) 2.9 % Eos % (Auto) 0.0 % Baso % (Auto) 0.2 % Neut # (Auto) 11.85 H (1.4-6.5) K/uL Lymph # (Auto) 0.71 L (1.2-3.4) K/uL [place] # (Auto) 0.38 (0.11-0.59) K/uL Eos # (Auto) 0.00 (0-0.5) K/uL Baso # (Auto) 0.02 (0-0.2) K/uL Immature Gran # (Auto) 0.34 H (0.00-0.02) K/uL RBC Morphology Unremarkable Sodium (136-145) mmol/L Potassium (3.5-5.1) mmol/L Chloride (98-107) mmol/L Carbon Dioxide (21-32) mmol/L Anion Gap (3-11) BUN (7-18) mg/dl Creatinine (0.6-1.2) mg/dl Est Cr Clr Drug Dosing ml/min Est GFR ( Amer) Est GFR (Non-Af Amer) BUN/Creatinine Ratio (10-20) Glucose (70-99) mg/dl POC Glucose 237 H (70-99) mg/dl Lactate (0.4-2.0) mmol/L Calcium (8.5-10.1) mg/dl Phosphorus (2.5-4.9) mg/dl Magnesium (1.8-2.4) mg/dl Procalcitonin 5.87 H (0-0.5) ng/ml 01/28/20 01/28/20 Range/Units 09:56 09:56 WBC (4.8-10.8) K/uL RBC (4.2-5.4) M/uL Hgb (12.0-16.0) g/dL Hct (37-47) % MCV (80-100) fL MCH (25-34) pg MCHC (32-36) g/dL RDW Std Deviation (36.4-46.3) fL RDW Coeff of [place] (11.5-14.5) % Plt Count (130-400) K/uL MPV (7.4-10.4) fL Immature Gran % (Auto) % Neut % (Auto) % Lymph % (Auto) % [place] % (Auto) % Eos % (Auto) % Baso % (Auto) % Neut # (Auto) (1.4-6.5) K/uL Lymph # (Auto) (1.2-3.4) K/uL [place] # (Auto) (0.11-0.59) K/uL Eos # (Auto) (0-0.5) K/uL Baso # (Auto) (0-0.2) K/uL Immature Gran # (Auto) (0.00-0.02) K/uL RBC Morphology Sodium 142 (136-145) mmol/L Potassium 4.5 (3.5-5.1) mmol/L Chloride 110 H (98-107) mmol/L Carbon Dioxide 25 (21-32) mmol/L Anion Gap 7.0 (3-11) BUN 30 H (7-18) mg/dl Creatinine 1.46 H D (0.6-1.2) mg/dl Est Cr Clr Drug Dosing 38.4 ml/min Est GFR ( Amer) 44.9 Est GFR (Non-Af Amer) 38.7 BUN/Creatinine Ratio 20.8 H (10-20) Glucose 210 H (70-99) mg/dl POC Glucose (70-99) mg/dl Lactate 1.4 (0.4-2.0) mmol/L Calcium 9.4 (8.5-10.1) mg/dl Phosphorus (2.5-4.9) mg/dl Magnesium (1.8-2.4) mg/dl Procalcitonin (0-0.5) ng/ml Coding Level of Care Code Critical Care 1st 30-74 mins Diagnoses Septic shock A41.9; R65.21 Hypotension I95.9 Sepsis A41.9; R65.20; N17.9 Acute renal failure type: unspecified Sepsis acute organ dysfunction status: with acute organ dysfunction Sepsis type: sepsis due to unspecified organism Severe sepsis acute organ dysfunction type: acute renal failure Severe sepsis shock status: unspecified DWAYNE (acute kidney injury) N17.9 Anemia D64.9 Anemia type: unspecified type Hyperglycemia R73.9 Traumatic open wound of right lower leg with delayed healing S81.801D Time Spent (min) 55 (1) Anemia Anemia type: unspecified type Qualified Code(s): D64.9 - Anemia, unspecified (2) Sepsis Acute renal failure type: unspecified Sepsis acute organ dysfunction status: with acute organ dysfunction Sepsis type: sepsis due to unspecified organism Severe sepsis acute organ dysfunction type: acute renal failure Severe sepsis shock status: unspecified Qualified Code(s): A41.9 - Sepsis, unspecified organism; R65.20 - Severe sepsis without septic shock; N17.9 - Acute kidney fail ure, unspecified
--- NOTE | 2020-01-29 08:38 | Gastrointestinal Consultation ---
Date of Consultation January 29, 2020 Assessment & Plan (1) Melena: Pt is a 59 y/o female admitted w septic shock, GI consulted for melena, anemia; CT abd/pelvis concerning for contained duodenal perforation - NPO - PPI gtt - Defer EGD eval given concern for perforation and no availability of endoclip. Recommend Surgery consult and consider transfer to tertiary care center if no surgical intervention to be done here. - GI to sign off; please recall prn Supervising Physician Co-Signing Physician Notes I saw and evaluated the patient. We are consulted with regard to her presentation with melena. The patient does have a history of nausea and abdominal discomfort which is now improved. A CT scan seems to indicate that she may have a localized perforation in the region of her duodenum. Physical examination Frail appearing female no obvious distress Mild epigastric tenderness noted Impression: Patient presents with symptoms suggestive of a gastrointestinal bleed likely from a duodenal ulcer. Given the patient's SPECT of perforation endoscopic evaluation is probably not in her best interest at the present time as her bleeding seems to have abated. I would recommend a general surgery consultation to determine if patient should be likely managed or referred to a tertiary center. History of Present Illness Reason for Consultation: UGI bleed Requesting Physician: Dr. Ami Cao Attending Physician: Dr. Carroll Chan History of Present Illness Pt is a 59 y/o female currently admitted w septic shock - urine cx growing Gram neg. bacilli, RLE cellulitis vs possible osteomyelitis; seen for suspected UGI bleeding. She notices black tarry stools at home for about 2 days. + nausea, generalized abd discomfort. Hgb stable around 7, not improved with 1U PRBC transfusion yesterday. CT abd/pelvis showed signs of wall thickening of the proximal duodenum with adjacent infiltration. Small amount of gas along the medial wall of the duodenum could reflect a contained perforation or ulcer, findings suggest peptic ulcer disease. She denies ASA, anticoag at home. She denies NSAIDs, but on Prednisone for RA. Never had EGD before. Family hx of rectal ca, last colonoscopy in 2012 showed sigmoid diverticulosis Allergies Allergy/AdvReac Type Severity Reaction Status Date / Time Sulfa (Sulfonamide Allergy Intermediate Rash Verified 01/28/20 00:19 Antibiotics) Home Medications Medication Instructions Recorded Confirmed Type Novolin 70/30 U-100 Insulin 20 unit SUBCUT BID 05/13/18 01/28/20 History carvedilol 3.125 mg PO BID 05/13/18 01/28/20 History lisinopril 2.5 mg PO QAM 05/13/18 01/28/20 History multivitamin [One-A-Day Essential] 1 tab PO QAM 05/13/18 01/28/20 History acetaminophen [Tylenol Extra 500 mg PO TID PRN 11/19/19 01/28/20 History Strength] atorvastatin 20 mg PO HS 11/27/19 01/28/20 History calcium carbonate [Calcium 500] 1,000 mg PO DAILY 11/27/19 01/28/20 History cholecalciferol (vitamin D3) 1,250 mcg PO WK 11/27/19 01/28/20 History valacyclovir [Valtrex] 500 mg PO DAILY 11/27/19 01/28/20 History aspirin 81 mg PO DAILY 01/28/20 01/28/20 History prednisone 7.5 mg PO DAILY 01/28/20 01/28/20 History Patient History Medical History Cardiac murmur A CHILD History of anesthesia reaction SLOW TO WAKE History of rheumatic fever as a child Ulcer of right ankle Surgical History History of cardiac cath 08/2017 - [facility] - SOB --> CABG - FOLLOWS W/ DR. PRESTON History of colonoscopy History of coronary artery bypass graft 08/2017 - [facility] - 3 VESSELS - FOLLOWS W/ DR. 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 Required: No Beliefs That Will Affect Care: None marital status: Current Living Situation: Spouse Current Living Situation Comment: Spouse Other Information That Helps Us Care for You: No Feels Safe at Home: Yes Safety Concerns: Feels Safe At This Time Assistive Devices: Glasses Review of Systems Review of Systems: All systems reviewed & are unremarkable except as noted in HPI & below Physical Exam Constitutional: WD/WN, vitals as above well groomed, cooperative and comfortable Eyes: PERRL, conjunctivae normal, anicteric sclerae ENMT: external ear and nose normal, oropharynx normal Respiratory: normal respiratory effort, lungs clear to auscultation Cardiovascular: RRR, no murmur, no edema Gastrointestinal (Abdomen): normal bowel sounds, soft, nontender, no hepatosplenomegaly Skin: no rashes, warm and dry no jaundice Neurologic: Motor/Sensory: no asterixis Psychiatric: A+Ox3, euthymic affect Lymphatic: no lymphedema Results & Data ([facility]) Vital Signs (Past 12 Hours) Vital Signs Temp Pulse Resp BP Pulse Ox 01/29/20 05:24 80 15 116/47 L 100 01/29/20 04:24 36.7 C 96 H 17 96/71 L 100 01/29/20 03:43 36.7 C 01/29/20 03:24 87 12 122/55 L 100 01/29/20 02:24 83 13 112/46 L 98 01/29/20 01:24 86 13 98/44 L 98 01/29/20 00:24 98 H 15 108/49 L 98 01/29/20 00:00 110 H 01/28/20 23:31 36.6 C 01/28/20 23:24 110 H 23 115/57 L 100 01/28/20 22:24 100 H 15 107/60 100 01/28/20 21:24 107 H 24 114/58 L 01/28/20 21:09 98 H 16 112/47 L 100 01/28/20 20:54 109 H 27 H 92/78 L 93 01/28/20 20:38 107 H 19 104/[address] OF THE ABDOMEN AND PELVIS WITHOUT CONTRAST CLINICAL HISTORY: Abdominal pain. COMPARISON STUDY: No previous studies for comparison. TECHNIQUE: Axial images of the abdomen and pelvis were obtained without IV contrast. Images were reviewed in the axial, sagittal, and coronal planes. Automated exposure control was utilized for the study. A dose lowering t echnique was utilized adhering to the principles of ALARA. FINDINGS: Note is made of mild elevation of the left hemidiaphragm. There is hyperdense material within the gastric fundus and proximal body of the stomach. The stomach is mildly distended. Note is made of wall thickening of the proximal duodenum with adjacent infiltration. There is also apparent extraluminal gas along the medial wall of the proximal duodenum shown best on axial image 143 of 496. No peripancreatic infiltration is noted. The gallbladder is not distended. Evaluation of the abdomen and pelvis is suboptimal as unenhanced examination. The liver, adrenal glands and left kidney are unremarkable. There is moderate right renal atrophy. There is no evidence for a bowel obstruction. Colonic diverticulosis is noted without evidence for acute diverticulitis. There is no evidence for acute appendicitis. Note is made of a 4.7 x 2.1 cm left adnexal hyperdense focus on axial image 381 of 496. There is also a 4.8 x 2.8 cm oval- shaped circumscribed hyperdense focus anterior to the bladder within the space of [place]. Note is made of mild bladder wall thickening with mild adjacent infiltration. An old L2 compression fracture is noted. There is an old fracture of the right inferior pubic ramus. Severe osteoarthrosis of the right hip is noted. No suspicious osseous lesions are noted. No acute fractures are identified within visualized skeletal structures. IMPRESSION: 1. Wall thickening of the proximal duodenum with adjacent infiltration. Small amount of gas along the medial wall of the duodenum could reflect a contained perforation or ulcer. These findings suggest peptic ulcer disease. Findings discussed with Dr. Cao at time of dictation. 2. Hyperdense material within the stomach. This probably reflects ingested contents although hemorrhage could appear similar. 3. 4.8 x 2.8 cm oval-shaped circumscribed hyperdense focus anterior to the bladder within the space of [place]. Although this could reflect a urachal remnant, this is more inferior than expected. This finding is indeterminate and could reflect a cyst or solid lesion. This can be assessed on follow-up pelvic ultrasound. 4. 4.7 x 2.1 cm left adnexal hyperdense focus. This could reflect a left ovarian mass, cyst or endometrioma. Follow-up pelvic ultrasound is recommended. 5. Bladder wall thickening with adjacent infiltration which favor cystitis.
[2020-01-29] MEDS ORDERED: INSULIN GLARGINE SOLOSTAR 100 UNITS/ML 3 ML PEN SC SCH (09:00)
[2020-01-29] MEDS: FLUCONAZOLE 200 MG/100 ML BAG IV SCH ×4 (10:56→15:39)
[2020-01-29] MEDS: NORMOSOL-R 1,000 ML IV SCH (11:11)
[2020-01-29] MEDS ORDERED: Nursing to Pharmacy Communication SCH (11:15)
--- NOTE | 2020-01-29 11:31 | Surgery Consultation ---
Date of Consultation January 29, 2020 Assessment & Plan (1) Melena: (2) Septic shock: (3) Sepsis: (4) Anemia: (5) Duodenal ulcer: Discussed with ICU Dr. Martinez as well as internal medicine Dr. Cao.... Currently there is no indication for urgent or emergent surgical intervention. The presumed diagnosis is penetrating ulcer and I agree I would not recommend EGD currently for risk of perforation. Continue to monitor H&H and transfuse if needed. She is on Protonix drip. I am also recommending oral Carafate 4 times a day. I will continue to follow along closely. History of Present Illness Attending Physician: Ami Cao MD History of Present Illness Patient recently admitted for sepsis of unknown source. She does have a right leg wound and also had a urinary tract infection. CT scan has revealed what is likely a penetrating ulcer in the duodenum. There was concern for contained perforation. The patient did have some melena and some anemia requiring 1 unit of packed red blood cells. She is currently feeling fine. She has no abdominal pain or nausea. She has been on oral steroids for over 30 years. Allergies Allergy/AdvReac Type Severity Reaction Status Date / Time Sulfa (Sulfonamide Allergy Intermediate Rash Verified 01/28/20 00:19 Antibiotics) Home Medications Medication Instructions Recorded Confirmed Type Novolin 70/30 U-100 Insulin 20 unit SUBCUT BID 05/13/18 01/28/20 History carvedilol 3.125 mg PO BID 05/13/18 01/28/20 History lisinopril 2.5 mg PO QAM 05/13/18 01/28/20 History multivitamin [One-A-Day Essential] 1 tab PO QAM 05/13/18 01/28/20 History acetaminophen [Tylenol Extra 500 mg PO TID PRN 11/19/19 01/28/20 History Strength] atorvastatin 20 mg PO HS 11/27/19 01/28/20 History calcium carbonate [Calcium 500] 1,000 mg PO DAILY 11/27/19 01/28/20 History cholecalciferol (vitamin D3) 1,250 mcg PO WK 11/27/19 01/28/20 History valacyclovir [Valtrex] 500 mg PO DAILY 11/27/19 01/28/20 History aspirin 81 mg PO DAILY 01/28/20 01/28/20 History prednisone 7.5 mg PO DAILY 01/28/20 01/28/20 History Patient History Medical History Cardiac murmur A CHILD History of anesthesia reaction SLOW TO WAKE History of rheumatic fever as a child Ulcer of right ankle Surgical History History of cardiac cath 08/2017 - [facility] - SOB --> CABG - FOLLOWS W/ DR. PRESTON History of colonoscopy History of coronary artery bypass graft 08/2017 - [facility] - 3 VESSELS - FOLLOWS W/ DR. 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 Beliefs That Will Affect Care: None marital status: Current Living Situation: Spouse Current Living Situation Comment: Spouse Other Information That Helps Us Care for You: No Feels Safe at Home: Yes Safety Concerns: Feels Safe At This Time Assistive Devices: Glasses Review of Systems Review of Systems: All systems reviewed & are unremarkable except as noted in HPI & below Physical Exam Constitutional: WD/WN, vitals as above no acute distress and not ill appearing Eyes: PERRL, conjunctivae normal, anicteric sclerae EOM intact bilaterally ENMT: external ear and nose normal, oropharynx normal Ears: no hearing impairment Neck: trachea midline, no thyromegaly Respiratory: normal respiratory effort; no respiratory distress and does not use accessory muscles Cardiovascular: Rate/Rhythm: regular rate and regular rhythm Gastrointestinal (Abdomen): Soft. Nontender. No palpable abnormality. No gu arding or rebound. Psychiatric: Orientation: alert, oriented x 3 and cooperative Results & Data ([facility]) Vital Signs (Past 12 Hours) Vital Signs Temp Pulse Resp BP Pulse Ox 01/29/20 05:24 80 15 116/47 L 100 01/29/20 04:24 36.7 C 96 H 17 96/71 L 100 01/29/20 03:43 36.7 C 01/29/20 03:24 87 12 122/55 L 100 01/29/20 02:24 83 13 112/46 L 98 01/29/20 01:24 86 13 98/44 L 98 01/29/20 00:24 98 H 15 108/49 L 98 01/29/20 00:00 110 H 01/28/20 23:31 36.6 C PG Care Time/CCT Total # of Minutes Spent Total Time Spent with Patient: Total time spent is greater than 50% in coordination of care (as documented) at patient's floor/unit and/or counseling patient: Coding Level of Care Code 69024 Inpt Consult Level 4 Diagnoses Melena K92.1 Septic shock A41.9; R65.21 Sepsis A41.9; R65.20; N17.9 Acute renal failure type: unspecified Sepsis acute organ dysfunction status: with acute organ dysfunction Sepsis type: sepsis due to unspecified organism Severe sepsis acute organ dysfunction type: acute renal failure Severe sepsis shock status: unspecified Anemia D64.9 Anemia type: unspecified type Duodenal ulcer K26.9 (1) Sepsis Acute renal failure type: unspecified Sepsis acute organ dysfunction status: with acute organ dysfunction Sepsis type: sepsis due to unspecified organism Severe sepsis acute organ dysfunction type: acute renal failure Severe sepsis shock status: unspecified Qualified Code(s): A41.9 - Sepsis, unspecified organism; R65.20 - Severe sepsis without septic shock; N17.9 - Acute kidney failure, unspecified (2) Anemia Anemia type: unspecified type Qualified Code(s): D64.9 - Anemia, unspecified
--- NOTE | 2020-01-29 12:13 | Pharmacy Report ---
Pharmacy Glycemic Short Note 2 - Date of Service January 29, 2020 - Glycemic Short BSG Results (Last 24 hours): 01/28/20 01/28/20 01/28/20 11:47 17:40 20:09 Glucose POC Glucose 237 H 171 H 166 H 01/28/20 01/29/20 01/29/20 23:27 04:33 06:02 Glucose 155 H POC Glucose 163 H 165 H 01/29/20 11:35 Glucose POC Glucose 155 H OUTPATIENT ANTIDIABETIC REGIMEN: * Novolin 70/30: 20 units SC BID - non-compliance suspected * Chronic prednisone 7.5 mg PO daily * HbA1c: 7.6% (01/28/20) ASSESSMENT: 01/28: * Over the last 24 hrs 34 units of SQ insulin have been administered while toy ent is NPO * BSG 165 this AM. Will order Lantus 25 units SQ x 1 given needs over last 24 hrs while NPO. NPO status continues today. 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 * Currently ordered broad spectrum antibiotics and hydrocortisone 50 mg IV q6h * BSG of 432 mg/dL with pH of 7.34 and anion gap of 12 on presentation * Given 10 units IV insulin bolus -> BSG of 158 mg/dL this morning * Will continue to manage with SC insulin * Currently NPO * Protonix gtt (in D5W) infusing PLAN FOR INPATIENT GLYCEMIC CONTROL: * Basal insulin * Lantus 25 units x 1 this morning * Bolus insulin * NovoLog per scale ACHS or Q6hrs while NPO * Goal Range: Low 110 mg/dL - High 140 mg/dL * Correction Factor: 20 mg/dL/unit * Nutritional / Prandial insulin per carb ratio of 1 unit per 7 grams CHO consumed PLAN FOR DISCHARGE: * to be determined
[2020-01-29] MEDS ORDERED: SODIUM CHLORIDE 0.9% 250 ML IV PRN ×2 (15:14→16:33)
--- NOTE | 2020-01-29 15:21 | Communication Note ---
Date of Service: January 29, 2020 Review of EKG today has changes that are reassuring however the patient's troponins are elevated, I will continue to trend troponins and add an additional unit of packed red blood cells to increase oxygen carrying capacity as a believe the patient may have type II ischemia related to low oxygen carrying capacity and pre-existing cardiovascular disease. Patient remains chest pain or shortness of breath free, I do not believe that there is urgent need for urgent cardiac evaluation Coding Level of Care Code None
--- NOTE | 2020-01-29 16:03 | Electrocardiogram Report ---
Test Reason : Blood Pressure : / mmHG Vent. Rate : 073 BPM Atrial Rate : 073 BPM P-R Int : 216 ms QRS Dur : 124 ms QT Int : 404 ms P-R-T Axes : 057 -54 027 degrees QTc Int : 445 ms Sinus rhythm with 1st degree A-V block Right bundle branch block Left anterior fascicular block Bifascicular block Abnormal ECG When compared with ECG of 27-JAN-2020 23:53, Premature ventricular complexes are no longer Present MN interval has increased T wave inversion more evident in Anterior leads Confirmed by Segundo Hernández ([id number]) on 01/29/2020 4:02:21 PM Referred By: REFERRED SELF Confirmed By:Segundo Hernández
[2020-01-29 16:04] LABS: Hemoglobin 6.5 g/dL (12.0-16.0)
[2020-01-29] MEDS: SUCRALFATE 1 GM TAB PO SCH ×2 (16:55→20:52)
[2020-01-29] MEDS: INSULIN GLARGINE SOLOSTAR 100 UNITS/ML 3 ML PEN SC SCH ×2 (16:57→20:58)
[2020-01-29] MEDS ORDERED: cefTRIAXone SODIUM 1,000 MG in DEXTROSE 5% 50 ML IV SCH (18:00)
--- NOTE | 2020-01-29 20:35 | Hospitalist Progress Note ---
Date of Service January 29, 2020 Assessment & Plan (1) Septic shock: Met sepsis criteria on admission with elevated WBC, Tachycardia, Hypotension, elevated lactate and procalcitonin Possible related UTI vs wound in the lower extremity UA positive for leukocytes and bacteria Received vanco and zosyn in the ER Received fluid hydration Blood, wound and urine cx no growth Continue abx with cefepime and daptomycin for now Dapto and cefepime were discontinued, then starting on Ceftriaxone Continue monitor in the ICU for now (2) Hypotension: Mostly due to septic shock Hydrocortisone IV for possible adrenal insufficiency BP has been stable Continue to Lisinopril on hold Anemia Possible related to UGI bleed since Pt has been having dark stool Hgb on admission 7.5, received 1 unit PRBC on 01/28 Hgb dropped to 6.5 this afternoon, received an additional 2 units PRBC Gastro on board Continue PPI drip for now No EGD due to risk of perforation and and no availability of endoclip Will monitor H/H Questionable perforated ulcer vs Peptic ulcer CT scan showed wall thickening of the proximal duodenum with adjacent infiltration. Small amount of gas along the medial wall of the duodenum could reflect a contained perforation or ulcer. Imaging finding discussed with radiology that said that the finding mostly showed peptic ulcer disease Surgey on board Case discussed with Dr. Jeronimo and no indication for urgent or emergent surgical intervention. No EGD due to risk of perforation. recommended Carafate QID Continue monitor closely Diarrhea Stools negative for Cdiff Continue monitor electrolytes Bladder mass CT showed 4.8 x 2.8 cm oval-shaped circumscribed hyperdense focus anterior to the bladder within the space of Retzius. Will need a pelvic u/s once stable Elevated troponin Possible related to demand ischemia due to low hgb Troponin bumped to 0.05 Denies any chest pain EKG showed no ischemic changes Will trend troponin Continue monitor closely Pyoderma gangrenosum: Ulcer of right ankle: Traumatic open wound of right lower leg with delayed healing Completed a long course of antibiotic and steroid last month Continue follow up with dermatology and plastic surgery Diabetes mellitus, type 2: Last HgbA1c 9.9 Pharmacy on board for glycemic management On Lantus and novolog sliding scale CAD (coronary artery disease): Hx of 3V CABG 08/2017 (NOWAK to LAD, SVG to D1, SVG to OM1), ischemic cardiomyopathy EF 40 to 45% 11/2017 continue ASA, lisinopril, coreg, statin Stable Hyperlipidemia: Continue statin Rheumatoid arthritis: On Methotrexate 15 mg every Wednesday outpatient Will hold methotrexate currently due to concern for infection On IV Hydrocortisone 50mg QID started for Adrenal insufficiency Follow up with rheumatology outpatient DVT prophylaxis SCD due to Low hgb and dark stool CODE STATUS NO chest compression, Ok for mechanical Ventilation Disposition Continue monitor in the ICU Admission and Anticipated Discharge Date Admission Date: January 28, 2020 Subjective Pt was seen and examined for follow up diarrhea and dark stools Lying in bed with no distress Pt said that she feels much ok She continues to have diarrhea Denies any chest pain, palpitation, dizziness and SOB Physical Exam Physical Exam: General- No acute distress Head- atraumatic Eyes- PERRL, EOMI, ENT- oropharynx clear Neck- supple, no JVD Lungs- clear to auscultation Heart- regular rhythm; no murmur Abdomen- normal bowel sounds, soft, nontender Extremities- no calf tenderness, Right lower extremity with dressing wrap Neuro- alert, oriented x 3; PERRL, EOMI; no facial palsy; no dysarthria Results & Data Results & Data ([facility]) Vital Signs (Past 12 Hours) Vital Signs Temp Pulse Pulse Resp BP BP Pulse Ox 01/29/20 18:40 36.9 C 76 20 122/63 100 01/29/20 18:20 91 H 25 H 93 01/29/20 18:10 91 H 21 99 01/29/20 18:08 92 H 18 99 01/29/20 18:07 36.9 C 86 19 134/58 L 99 01/29/20 18:00 85 18 99 01/29/20 17:52 94 H 16 143/70 H 99 01/29/20 17:46 36.9 C 92 H 18 135/69 100 01/29/20 17:45 83 20 99 01/29/20 17:37 36.8 C 92 H 18 135/68 100 01/29/20 17:30 96 H 17 99 01/29/20 17:22 36.7 C 96 H 15 133/56 L 99 01/29/20 17:15 92 H 20 100 01/29/20 17:08 36.7 C 82 25 H 145/50 H 99 01/29/20 17:00 99 H 20 98 01/29/20 16:52 93 H 13 135/59 L 100 01/29/20 16:50 86 19 100 01/29/20 16:49 36.9 C 92 H 18 135/69 100 01/29/20 16:24 73 19 134/54 L 99 01/29/20 16:00 87 18 100 01/29/20 15:24 81 24 118/52 L 100 01/29/20 15:00 74 22 100 01/29/20 14:00 76 14 100 01/29/20 13:24 72 13 122/48 L 100 01/29/20 13:00 80 26 H 100 01/29/20 12:24 88 16 117/50 L 85 L 01/29/20 12:00 79 17 100 01/29/20 11:40 36.6 C 01/29/20 11:24 89 22 115/54 L 100 01/29/20 11:00 75 23 100 01/29/20 10:49 85 15 112/51 L 100 01/29/20 10:24 83 17 112/51 L 100 01/29/20 10:00 79 4 L 100 01/29/20 09:25 89 19 106/53 L 96 01/29/20 09:00 101 H 21 100
[2020-01-30] MEDS: INSULIN ASPART 100 UNITS/ML 3 ML PEN SC SCH ×5 (00:31→21:09)
[2020-01-30] MEDS: PANTOprazole 40 MG in DEXTROSE 5% 100 ML IV SCH ×5 (00:53→21:05)
[2020-01-30] MEDS: NORMOSOL-R 1,000 ML IV SCH ×2 (00:53→13:17)
[2020-01-30 01:10] LABS: Hematocrit (blood only) 29.7 % (37-47); Hemoglobin 9.5 g/dL (12.0-16.0)
[2020-01-30] MEDS: HYDROCORTISONE SOD 50 MG in SYRINGE 0 ML IV SCH (05:00)
[2020-01-30 05:25] LABS: Creatinine Clr Calc Pharmacy 54.9 ml/min; Est GFR (African American) 69.2; Est GFR (Non-African American) 59.7
[2020-01-30 05:46] LABS: Troponin I 0.66 ng/ml (0-0.045)
[2020-01-30 07:28] LABS: INR 1.1 (0.9-1.1); Prothrombin Time 11.3 Seconds (9.0-12.0)
[2020-01-30 07:42] LABS: Basophils # (auto) 0.02 K/uL (0-0.2); Basophils % (auto) 0.2 %; Hematocrit (blood only) 29.4 % (37-47); Hemoglobin 9.4 g/dL (12.0-16.0); Immature Granulocytes # (auto) 0.54 K/uL (0.00-0.02); Immature Granulocytes % (auto) 4.4 %; Lymphocytes # (auto) 0.94 K/uL (1.2-3.4); Lymphocytes % (auto) 7.6 %; Mean Corpuscular Hemoglobin 27.2 pg (25-34); Mean Corpuscular Volume 85.2 fL (80-100); Mean Platelet Volume 9.6 fL (7.4-10.4); Monocytes # (auto) 0.57 K/uL (0.11-0.59); Monocytes % (auto) 4.6 %; Neutrophils % (auto) 83.2 %; Nucleated RBC # (auto) 0.02 K/uL (0-0); Nucleated RBC % (auto) 0.2 %; Platelet Count 156 K/uL (130-400); RDW Coefficient of Variation 16.1 % (11.5-14.5); RDW Standard Deviation 50.1 fL (36.4-46.3); Red Blood Count 3.45 M/uL (4.2-5.4); White Blood Count 12.37 K/uL (4.8-10.8)
[2020-01-30 07:44] LABS: BUN Creatinine Ratio 22.9 (10-20); Calcium 7.7 mg/dl (8.5-10.1); Creatinine Clr Calc Pharmacy 57.1 ml/min; Est GFR (African American) 72.7; Est GFR (Non-African American) 62.7; Potassium 2.7 mmol/L (3.5-5.1)
[2020-01-30] MEDS ORDERED: POTASSIUM PHOS 3 MMOL/1 ML INFUSION IV STA (08:10)
[2020-01-30 08:20] LABS: Phosphorus 1.4 mg/dl (2.5-4.9)
[2020-01-30] MEDS ORDERED: POTASSIUM PHOSPHATE 20 MMOL in SODIUM CHLORIDE 0.9% 500 ML IV ONE (08:45)
--- NOTE | 2020-01-30 08:49 | Surgery Progress Note ---
Date of Service January 30, 2020 Assessment & Plan (1) Duodenal ulcer: H&H stable, WBC improved would transfer for IR if rebleeds may have full liquids seen with Dr. Jeronimo as above.... pt doing ok from my [place]. ok to try full liquids. continue current care. no evidence of active bleed. Admission and Anticipated Discharge Date Admission Date: January 28, 2020 Subjective minimal periumbilical pain, no nausea, on clears Physical Exam Gastrointestinal (Abdomen): Inspection/Auscultation: abdomen not distended Percussion/Palpation: abdomen soft; abdomen nontender Results & Data ([facility]) Vital Signs (Past 12 Hours) Vital Signs Temp Pulse Resp BP Pulse Ox 01/30/20 08:00 69 01/30/20 06:15 76 16 137/59 L 96 01/30/20 05:15 75 20 153/75 H 96 01/30/20 04:15 36.5 C 67 13 141/70 H 97 01/30/20 03:15 77 15 139/63 97 01/30/20 02:15 84 18 148/59 H 97 01/30/20 01:15 75 20 133/67 97 01/30/20 00:15 86 20 136/66 99 01/29/20 23:26 79 01/29/20 23:00 37 C 76 18 141/65 H 99 01/29/20 22:36 37.0 C 73 18 140/60 99 01/29/20 21:36 37 C 81 18 134/72 100 01/29/20 21:21 37 C 81 18 139/72 100 01/29/20 21:06 37.0 C 82 18 134/56 L 100 01/29/20 20:51 37.0 C 82 18 139/85 100 PG Care Time/CCT Total # of Minutes Spent Total Time Spent with Patient: Total time spent is greater than 50% in coordination of care (as documented) at patient's floor/unit and/or counseling patient: Coding Level of Care Code 22139 Subseq Hosp Care Lvl 1 Diagnoses Duodenal ulcer K26.9
[2020-01-30] MEDS: predniSONE 2.5 MG TAB PO SCH (09:00)
[2020-01-30] MEDS: MULTIVITAMIN TAB PO SCH (09:00)
--- NOTE | 2020-01-30 09:39 | Critical Care Progress Note ---
Date of Service January 30, 2020 Assessment & Plan (1) Septic shock: Impression: 59-year-old female presents to the ICU with hypotension and suspected septic shock Neuro - Confusion: Resolved -. Ammonia within normal limits. Cardiac - Hypotension/shock, resolved -Reviewed echo -Noted with segmental hypokinesis with akinesis with mild global hypokinesis -Repeat echo and troponins, may be pre-existing type II disease with underlying anemia -Stress dose steroid, transitioning back to 7.5 mg prednisone daily -2 units packed red blood cells on hand as needed Coronary artery disease EKG changes/abnormal EKG Elevated troponins -Likely related to decreased oxygen carrying capacity from blood loss acute anemia -Discussed with general surgery may require cardiac evaluation in future wants acute GI issues are stable -Would need significant anticoagulation which is strongly contraindicated at this time Respiratory - Currently maintaining sats on room air, no respiratory distress. No history of pulmonary disease GI - GI bleedpatient reports intermittent diarrhea for the past 2 weeks and presents as anemic, Hemoccult positive -continuing Protonix drip until tomorrow morning around 0 200 -Start 40 twice daily Protonix IV in a.m. -Carafate 1 g 3 times daily tabs -Duration to continue while in hospital unless changed per general surgery -CT abdomen reviewed with GI and general surgery -Full liquids RENAL/LYTES - AKIlikely ATN in the setting of hypotension: Resolved -Continue to trend with routine BMPs, monitor electrolytes and replete as indicated Hypokalemia: 20 mmol potassium phosphate -2 tabs Neutra-Phos twice daily x2 days -20 M EQ's potassium chloride IV -20 Eligio use K-Xiao twice daily x1 day -Restart lisinopril - Remove [place] ENDO - DM type II (uncontrolled)currently hyperglycemic and A1c on previous admission of 9, repeat pending -Continue with sliding scale, BHA within normal limit -ICU hyperglycemic protocol Long-term steroid use -Received stress dose will transition to prednisone 7.5 daily HEME - Anemiapatient with recent hemoglobins 7-8 on last admissions, likely related to chronic illness but cannot rule out GI bleed vomited at this time -Received 3 unit packed red blood cells -Daily H&H -Anemia: Gastrointestinal losses -Received 3 units packed red blood cells in total and has had adequate response Lactic acidosisresolved ID - Sepsisdiscussed with GI, general surgery, orthopedic surgery. -Citrobacter UTI -Oral Omnicef x4 days to finish 7-day duration LINES/IV ACCESS - Peripheral IVs, DVT PROPHYLAXIS - SCDs CODE STATUS: I did speak with patient regarding her CODE STATUS and she stated that in the event she were to experience cardiac arrest she would not like chest compressions or defibrillation, however she was open to intubation and mechanical ventilation should she need it along with medications. PT OT consulted stable for downgrade out of ICU to telemetry status (2) Hypotension: (3) Sepsis: (4) DWAYNE (acute kidney injury): (5) Anemia: (6) Hyperglycemia: (7) Traumatic open wound of right lower leg with delayed healing: Admission and Anticipated Discharge Date Admission Date: January 28, 2020 Subjective Patient complains of nausea and belching. No significant abdominal pain no shortness of breath no chest pain no fevers no chills Review of Systems Review of Systems: As per HPI Physical Exam Physical Exam: General: Alert. nontoxic. Skin: Warm, dry, Head: Atraumatic Ears, nose, mouth and throat: airway patent Cardiovascular: Normal peripheral perfusion Respiratory: no respiratory distress Gastrointestinal: Soft nontender, nondistended, no hepatomegaly, no guarding no rebound negative rise of eggs negative Dyson sign this is a nonsurgical abdomen Musculoskeletal: No deformity Results & Data Results & Data ([facility]) Vital Signs (Past 12 Hours) Vital Signs Temp Pulse Resp BP Pulse Ox 01/30/20 08:00 69 01/30/20 06:15 76 16 137/59 L 96 01/30/20 05:15 75 20 153/75 H 96 01/30/20 04:15 36.5 C 67 13 141/70 H 97 01/30/20 03:15 77 15 139/63 97 01/30/20 02:15 84 18 148/59 H 97 01/30/20 01:15 75 20 133/67 97 01/30/20 00:15 86 20 136/66 99 01/29/20 23:26 79 01/29/20 23:00 37 C 76 18 141/65 H 99 01/29/20 22:36 37.0 C 73 18 140/60 99 Coding Level of Care Code 21136 Subseq Hosp Care Lvl 3 Diagnoses Septic shock A41.9; R65.21 Hypotension I95.9 Sepsis A41.9; R65.20; N17.9 Acute renal failure type: unspecified Sepsis acute organ dysfunction status: with acute organ dysfunction Sepsis type: sepsis due to unspecified organism Severe sepsis acute organ dysfunction type: acute renal failure Severe sepsis shock status: unspecified DWAYNE (acute kidney injury) N17.9 Anemia D64.9 Anemia type: unspecified type Hyperglycemia R73.9 Traumatic open wound of right lower leg with delayed healing S81.801D (1) Anemia Anemia type: unspecified type Qualified Code(s): D64.9 - Anemia, unspecified (2) Sepsis Acute renal failure type: unspecified Sepsis acute organ dysfunction status: with acute organ dysfunction Sepsis type: sepsis due to unspecified organism Severe sepsis acute organ dysfunction type: acute renal failure Severe sepsis shock status: unspecified Qualified Code(s): A41.9 - Sepsis, unspecified organism; R65.20 - Severe sepsis without septic shock; N17.9 - Acute kidney failure, unspecified
[2020-01-30] MEDS: POT PHOSPHATE MONOBASIC W/ SOD TAB PO SCH ×2 (10:34→21:11)
[2020-01-30] MEDS: POTASSIUM CHLORIDE / WTR 10 MEQ/100 ML PLCT IV SCH ×3 (10:34→13:37)
[2020-01-30] MEDS: SUCRALFATE 1 GM TAB PO SCH ×4 (10:35→21:06)
[2020-01-30] MEDS: POTASSIUM CHLORIDE 20 MEQ/15 ML UDC PO SCH ×2 (10:35→21:07)
[2020-01-30] MEDS ORDERED: FLUCONAZOLE 200 MG/100 ML BAG IV SCH (12:00)
[2020-01-30] MEDS: CEFDINIR 300 MG CAP PO SCH ×2 (12:39→21:10)
--- NOTE | 2020-01-30 12:59 | Pharmacy Report ---
Pharmacy Glycemic Short Note 2 - Date of Service January 30, 2020 - Glycemic Short BSG Results (Last 24 hours): 01/29/20 01/29/20 01/30/20 16:26 20:55 00:03 Glucose POC Glucose 135 H 153 H 136 H 01/30/20 01/30/20 01/30/20 05:49 06:48 11:11 Glucose 96 POC Glucose 90 175 H OUTPATIENT ANTIDIABETIC REGIMEN: * Novolin 70/30: 20 units SC BID - non-compliance suspected * Chronic prednisone 7.5 mg PO daily * HbA1c: 7.6% (01/28/20) ASSESSMENT: 01/29: * BSGs well controlled over last 24 hrs * Fasting BSG at goal this AM with 24 units basal on board - however BSG is below 100, therefore will hold basal dose this AM and resume when BSG above 100 and diet advanced * Pt is currently ordered T2DM diet, will continue current Novolog CF / CR and follow post-prandial trend * Hydrocortisone IV has been d/cd, pt has resumed her home dose of Prednisone 7.5mg daily, pantoprazole gtt continues (mixed in D5W) however will be converted to IV BID dosing tomorrow AM 01/28: * Over the last 24 hrs 34 units of SQ insulin have been administered while patient is NPO * BSG 165 this AM. Will order Lantus 25 units SQ x 1 given needs over last 24 hrs while NPO. NPO status continues today. 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 * Currently ordered broad spectrum antibiotics and hydrocortisone 50 mg IV q6h * BSG of 432 mg/dL with pH of 7.34 and anion gap of 12 on presentation * Given 10 units IV insulin bolus -> BSG of 158 mg/dL this morning * Will continue to manage with SC insulin * Currently NPO * Protonix gtt (in D5W) infusing PLAN FOR INPATIENT GLYCEMIC CONTROL: * Basal insulin * Lantus 6 units x 1 with dinner, then BID per the following scale: * 0 units if BSG less than 110 * 12 units if BSG 110-180 * 16 units if BSG above 180 * Bolus insulin * NovoLog per scale ACHS or Q6hrs while NPO * Goal Range: Low 110 mg/dL - High 140 mg/dL * Correction Factor: 20 mg/dL/unit * Nutritional / Prandial insulin per carb ratio of 1 unit per 7 grams CHO consumed PLAN FOR DISCHARGE: * to be determined
--- NOTE | 2020-01-30 14:58 | Electrocardiogram Report ---
Test Reason : Blood Pressure : / mmHG Vent. Rate : 083 BPM Atrial Rate : 083 BPM P-R Int : 230 ms QRS Dur : 130 ms QT Int : 394 ms P-R-T Axes : 059 -53 004 degrees QTc Int : 462 ms Sinus rhythm with 1st degree A-V block Right bundle branch block Left anterior fascicular block Bifascicular block Abnormal ECG When compared with ECG of 29-JAN-2020 14:12, No significant change was found Confirmed by Segundo Hernández ([id number]) on 01/30/2020 2:58:16 PM Referred By: REFERRED SELF Confirmed By:Segundo Hernández
[2020-01-30 15:49] LABS: Calcium 7.4 mg/dl (8.5-10.1); Est GFR (African American) 75.5; Est GFR (Non-African American) 65.1; Potassium 3.6 mmol/L (3.5-5.1)
[2020-01-30 16:04] LABS: Phosphorus 3.2 mg/dl (2.5-4.9); Troponin I 0.502 ng/ml (0-0.045)
[2020-01-30] MEDS ORDERED: INSULIN GLARGINE SOLOSTAR 100 UNITS/ML 3 ML PEN SC SCH (16:30)
--- NOTE | 2020-01-30 16:45 | Dermatology Progress Note ---
Date of Service January 30, 2020 Assessment & Plan (1) Pyoderma gangrenosum: I stopped over to see the patient informally as she was to have an outpatient appointment yesterday that was canceled due to her current hospitalization. She reports that her right leg ulceration continues to gradu ally improve. Discussed with her that I reviewed the wound care photo that was taken yesterday, and I agree that it appears to be gradually healing. She is now on her maintenance dose of prednisone 7.5 mg daily. Discussed with patient that I did have a phone conversation with [facility] last week regarding my continued recommendation for steroid sparing immunosuppression using a biologic agents such as Humira. They are in agreement. They were holding on getting approval until she was seen by Plastic surgery so as to make sure no surgical intervention would take place. I discussed with Rheumatology that I would strongly advise against any mechanical debridement or surgical intervention at this point. Rheumatology is moving forward with gaining Humira approval. For now, she should continue her current low-dose prednisone 7.5 mg daily as well as daily wound care. Discussed with patient that I can see her in the office when she has been discharged from the hospital for additional evaluation. She was advised to contact the office to schedule that appointment upon discharge. Present on Admission?: Yes Admission and Anticipated Discharge Date Admission Date: January 28, 2020 Results & Data ([facility]) Vital Signs (Past 12 Hours) Vital Signs Temp Pulse Pulse Pulse Resp BP BP 01/30/20 15:25 36.3 C L 76 18 134/68 01/30/20 12:32 36.6 C 77 01/30/20 10:15 79 25 H 135/59 L 01/30/20 08:00 36.6 C 69 01/30/20 06:15 76 16 137/59 L 01/30/20 05:15 75 20 153/75 H Pulse Ox 01/30/20 15:25 97 01/30/20 12:32 01/30/20 10:15 99 01/30/20 08:00 01/30/20 06:15 96 01/30/20 05:15 96 PG Care Time/CCT Total # of Minutes Spent Total Time Spent with Patient: Total time spent is greater than 50% in coordination of care (as documented) at patient's floor/unit and/or counseling patient: Coding Level of Care Code None Diagnoses Pyoderma gangrenosum L88
[2020-01-30] MEDS: INSULIN GLARGINE SOLOSTAR 100 UNITS/ML 3 ML PEN SC SCH ×2 (17:40→21:08)
--- NOTE | 2020-01-30 20:18 | Hospitalist Progress Note ---
Date of Service January 30, 2020 Assessment & Plan (1) Septic shock: Met sepsis criteria on admission with elevated WBC, Tachycardia, Hypotension, elevated lactate and procalcitonin Possible related UTI vs wound in the lower extremity UA positive for leukocytes and bacteria Received vanco and zosyn in the ER Received fluid hydration Blood, wound and urine cx no growth Continue abx with cefepime and daptomycin for now Dapto and cefepime were discontinued, then starting on Ceftriaxone Transition to PO Cefdinir resolved (2) Hypotension: Mostly due to septic shock Hydrocortisone IV for possible adrenal insufficiency, discontinued Her home dose prednisone resumed BP has been stable resolved Anemia Possible related to UGI bleed since Pt has been having dark stool Hgb on admission 7.5, received 1 unit PRBC on 01/28 Hgb dropped to 6.5 this afternoon, received an additional 2 units PRBC on 01/29 Gastro on board Hgb 9.4 today Continue PPI drip for now No EGD due to risk of perforation and and no availability of endoclip Will monitor H/H and transfuse if needed Would need to transfer for IR if rebleeds as per surgery Questionable perforated ulcer vs Peptic ulcer CT scan showed wall thickening of the proximal duodenum with adjacent infiltration. Small amount of gas along the medial wall of the duodenum could reflect a contained perforation or ulcer. Imaging finding discussed with radiology that said that the finding mostly showed peptic ulcer disease Surgery on board Case discussed with Dr. Jeronimo and no indication for urgent or emergent surgical intervention. Would need to transfer for IR if rebleeds as per surgery No EGD due to risk of perforation. Diet advanced to full liquid recommended Carafate QID Continue monitor closely Diarrhea Stools negative for Cdiff Continue monitor electrolytes Will add loperamide prn Bladder mass CT showed 4.8 x 2.8 cm oval-shaped circumscribed hyperdense focus anterior to the bladder within the space of Retzius. Will need a pelvic u/s once stable Elevated troponin Possible related to demand ischemia due to low hgb Troponin bumped from 0.05, then peaked to 0.66, now trending down to 0.5 Denies any chest pain EKG showed no ischemic changes Continue monitor closely Pyoderma gangrenosum: Ulcer of right ankle: Traumatic open wound of right lower leg with delayed healing Completed a long course of antibiotic and steroid last month Continue follow up with dermatology and plastic surgery Continue prednisone 7.5 mg daily Plan to transition on Humira outpatient Avoid any mechanical debridement or surgical intervention as per dermatology Diabetes mellitus, type 2: Last HgbA1c 9.9 Pharmacy on board for glycemic management On Lantus and novolog sliding scale CAD (coronary artery disease): Hx of 3V CABG 08/2017 (NOWAK to LAD, SVG to D1, SVG to OM1), ischemic cardiomyopathy EF 40 to 45% 11/2017 continue ASA, lisinopril, coreg, statin Stable Hyperlipidemia: Continue statin Rheumatoid arthritis: On Methotrexate 15 mg every Wednesday outpatient Will hold methotrexate currently due to concern for infection On IV Hydrocortisone 50mg QID started for Adrenal insufficiency Follow up with rheumatology outpatient DVT prophylaxis SCD due to Low hgb and dark stool CODE STATUS NO chest compression, Ok for mechanical Ventilation Disposition Will discharge once medically stable Admission and Anticipated Discharge Date Admission Date: January 28, 2020 Subjective Pt was seen and examined for dark stools and anemia Pt said that she feels much better She said that she continues to have diarrhea Nurse said that her last bowel movement was dark Denies any chest pain, palpitation, dizziness and SOB Physical Exam Physical Exam: General- No acute distress Head- atraumatic Eyes- PERRL, EOMI, ENT- oropharynx clear Neck- supple, no JVD Lungs- clear to auscultation Heart- regular rhythm; no murmur Abdomen- normal bowel sounds, soft, nontender Extremities- no calf tenderness, Right lower extremity with dressing wrap Neuro- alert, oriented x 3; PERRL, EOMI; no facial palsy; no dysarthria Results & Data Results & Data ([facility]) Vital Signs (Past 12 Hours) Vital Signs Temp Pulse Pulse Pulse Resp BP BP 01/30/20 20:00 36.4 C L 74 18 138/72 01/30/20 16:00 83 01/30/20 15:25 36.3 C L 76 18 134/68 01/30/20 12:32 36.6 C 77 01/30/20 10:15 79 25 H 135/59 L Pulse Ox 01/30/20 20:00 100 01/30/20 16:00 01/30/20 15:25 97 01/30/20 12:32 01/30/20 10:15 99
[2020-01-30 21:03] LABS: Hematocrit (blood only) 31.6 % (37-47)
[2020-01-30] MEDS: LOPERAMIDE HCL 2 MG CAP PO PRN ×2 (21:06→22:43)
[2020-01-31] MEDS: PANTOprazole 40 MG in DEXTROSE 5% 100 ML IV SCH (00:45)
[2020-01-31] MEDS: INSULIN ASPART 100 UNITS/ML 3 ML PEN SC SCH ×4 (06:14→21:16)
[2020-01-31] MEDS ORDERED: ACETAMINOPHEN 325 MG TAB PO PRN (07:34)
[2020-01-31 07:46] LABS: Basophils # (auto) 0.02 K/uL (0-0.2); Basophils % (auto) 0.2 %; Eosinophils # (auto) 0.05 K/uL (0-0.5); Eosinophils % (auto) 0.5 %; Hematocrit (blood only) 30.4 % (37-47); Hemoglobin 9.7 g/dL (12.0-16.0); Immature Granulocytes # (auto) 0.35 K/uL (0.00-0.02); Immature Granulocytes % (auto) 3.2 %; Lymphocytes % (auto) 13.7 %; Mean Corpuscular Hemoglobin 27.2 pg (25-34); Mean Corpuscular Hgb Conc 31.9 g/dL (32-36); Mean Corpuscular Volume 85.4 fL (80-100); Mean Platelet Volume 9.6 fL (7.4-10.4); Monocytes # (auto) 0.95 K/uL (0.11-0.59); Monocytes % (auto) 8.7 %; Neutrophils % (auto) 73.7 %; Platelet Count 154 K/uL (130-400); RDW Coefficient of Variation 16.5 % (11.5-14.5); RDW Standard Deviation 51.1 fL (36.4-46.3); Red Blood Count 3.56 M/uL (4.2-5.4); White Blood Count 10.97 K/uL (4.8-10.8)
[2020-01-31] MEDS: PANTOprazole 40 MG in SYRINGE 0 ML IV SCH ×2 (07:47→20:06)
[2020-01-31] MEDS: SUCRALFATE 1 GM TAB PO SCH ×4 (07:48→20:07)
[2020-01-31] MEDS: POT PHOSPHATE MONOBASIC W/ SOD TAB PO SCH ×2 (07:48→20:06)
[2020-01-31] MEDS: MULTIVITAMIN TAB PO SCH (07:49)
[2020-01-31] MEDS: predniSONE 2.5 MG TAB PO SCH (07:49)
[2020-01-31] MEDS: CEFDINIR 300 MG CAP PO SCH ×2 (07:50→20:06)
[2020-01-31] MEDS: lisinopril 2.5 MG TAB PO SCH (07:50)
[2020-01-31 08:38] LABS: BUN Creatinine Ratio 11.5 (10-20); Calcium 7.8 mg/dl (8.5-10.1); Creatinine Clr Calc Pharmacy 56.6 ml/min; Est GFR (African American) 71.8; Est GFR (Non-African American) 61.9; Potassium 2.9 mmol/L (3.5-5.1)
[2020-01-31] MEDS ORDERED: POTASSIUM CHLORIDE CRTAB 20 MEQ TABCR PO STA (08:46)
[2020-01-31] MEDS ORDERED: D5W AND 1/2NSS 1,000 ML IV SCH (09:00)
--- NOTE | 2020-01-31 09:19 | Hospitalist Progress Note ---
Date of Service January 31, 2020 Assessment & Plan (1) Septic shock: -As per ED notes on 01/28/2020 " This is a 59-year-old female presenting to the emergency department for evaluation of elevated blood sugar at home. The patient states that she was not feeling very well today and has had intermittent diarrheal illness for the past few weeks. The patient did give a C. difficile sample for the [facility] lab yesterday that was negative. The patient was feeling lightheaded and confused this evening. She did not take her insulin until much later in the day compared to normal. There is possible history of unresponsive episode that did not persist and EMS was contacted. On arrival EMS noted that her blood sugar was greater than 450 and her blood pressure was roughly 60/30. The patient has several comorbidities and now presents to the ER for evaluation. She does not have reports of recent fever or exposure to Covid or other infectious disease. She does have a longstanding pressure ulcer of the right lower leg that has been treated with IV vancomycin recently. " -based on other hospitalization notes that patient initially met sepsis criteria on admission with elevated WBC, Tachycardia, Hypotension, elevated lactate and procalcitonin; initial concerns were whether these symptoms were related to wound of right lower extremity or urinary tract infection; however all her cultures (blood culture, wound culture, urine culture) had no growth -her antibiotic course has included initial vancomycin and Zosyn in the ER , then transitioned cefepime and daptomycin, then transitioned to ceftriaxone, and then oral cefdinir (the last dose of cefdinir to be completed on 02/03/2020 -01/31/2020 updates: Patient denies loose bowel movement today. Patient does not have abdomen or throat pain. Breathing comfortable on room air. No shortness of breath. No chest pain. No dizziness. Patient reports she is ambulatory. Denies other symptoms on review of systems. She reports she tolerated the liquid diet from 01/30/2020. Her diet is to be advanced to solid diabetes diet starting on 01/31/2020. Her potassium is 2.9 on 01/31/2020 likely from loose bowel movement. She is to ge additional potassium supplements in the hospital. In the AM of 01/31/2020 she had some low serum blood glucose and there is mild elevation of serum sodium to 146 and so patient will get D5 1/2 normal saline at 80 cc/hr for 1000 ml. (2) Hypotension: -patient was initially managed by ICU physician on this admission -hypotension on admission resolved, she had trial of hydrocortisone IV which was then discontinued -currently on home dose prednisone (3) Melena: Anemia Possible duodenal ulcer -initial concerns on admission was possible Upper Gastrointestinal Bleed because patient had reported dark stool and she presented with low hemoglobin on admission -Hgb on admission 7.5, received 1 unit PRBC on 01/29/2020; Hgb dropped to 6.5 this afternoon, received an additional 2 units PRBC on 01/30/2020 -patient also was given IV protonics -Gastroenterology was initially consulted but because patient's CT abdomen/pelvis was concerning for contained duodenal perforation, there were no plans by gastroenterology to immediately perform upper endoscopy for the patient and they requested general surgery consult -General surgery consult has followed the patient and no acute surgical interventions. Patient was given full liquid diet on 01/30/2020. -as of 01/31/2020, the hemoglobin stable around 10 to upper 9; patient diet advanced Diarrhea Hypokalemia -Stools negative for C.diff -loperamide prn -hypokalemia likely from GI losses; potassium supplements ordered to be given on 01/31/202020 Bladder mass -her abdomen CT showed 4.8 x 2.8 cm oval-shaped circumscribed hyperdense focus anterior to the bladder within the space of Retzius. -patient denies hematuria -complete pelvic ultrasound ordered Pyoderma gangrenosum, Ulcer of right ankle -Traumatic open wound of right lower leg with delayed healing, Completed a long course of antibiotic and steroid last month -continue her current low-dose prednisone 7.5 mg daily as well as daily wound care as per dermatology Dr. Piña on 01/30/2020; patient to make the outpatient dermatology clinic followuo Rheumatoid arthritis -her outpatient Methotrexate 15 mg every Wednesday is held while in the hospital while on antibiotics -on home dose prednisone Diabetes mellitus Type 2 with care home current use of insulin -her outpatient HgbA1c 9.9 -Pharmacy on board for glycemic management while in the hospital to manage the diabetes with Lantus and novolog sliding scale CAD (coronary artery disease) Elevated Troponin on this admission -Hx of 3V CABG 08/2017 (NOWAK to LAD, SVG to D1, SVG to OM1), ischemic cardiomyopathy EF 40 to 45% 11/2017 -Elevated troponin possible related to demand ischemia due to low Hgb. Troponin bumped from 0.05, then peaked to 0.66, and then trending down. no chest pain on this admission -continue ASA, lisinopril, coreg, statin DVT prophylaxis: SCD on left leg because of right anderson in dressing, not on pharmacological anticoagulation because of anemia CODE STATUS NO chest compression, Ok for mechanical Ventilation Admission and Anticipated Discharge Date Admission Date: January 28, 2020 Subjective Patient denies loose bowel movement today. Patient does not have abdomen or throat pain. Breathing comfortable on room air. No shortness of breath. No chest pain. No dizziness. Patient reports she is ambulatory. Denies other symptoms on review of systems. She reports she tolerated the liquid diet from 01/30/2020. Her diet is to be advanced to solid diabetes diet starting on 01/31/2020. Her potassium is 2.9 on 01/31/2020 likely from loose bowel movement. She is to ge additional potassium supplements in the hospital. In the AM of 01/31/2020 she had some low serum blood glucose and there is mild elevation of serum sodium to 146 and so patient will get D5 1/2 normal saline at 80 cc/hr for 1000 ml. Review of Systems Review of Systems: All systems reviewed & are unremarkable except as noted in Subjective Physical Exam Constitutional: comfortable Eyes: PERRL, conjunctivae normal, anicteric sclerae EOM intact bilaterally ENMT: external ear and nose normal, oropharynx normal Neck: trachea midline, no thyromegaly normal visual inspection Respiratory: normal respiratory effort, lungs clear to auscultation Cardiovascular: Rate/Rhythm: regular rate and regular rhythm Gastrointestinal (Abdomen): normal bowel sounds, soft, nontender, no hepatosplenomegaly Musculoskeletal: Head/Neck/Chest: normocephalic Extremities: + lower leg abnormality (right anderson dressing) Neurologic: PERRL, EOMI, accommodation nl, no face palsy, no dysarthria CN's II-XI intact bilaterally Psychiatric: A+Ox3, euthymic affect Results & Data Results & Data ([facility]) Vital Signs (Past 12 Hours) Vital Signs Temp Pulse Pulse Resp BP Pulse Ox 01/31/20 07:28 36.3 C L 82 18 112/65 98 01/31/20 07:24 83 01/31/20 03:00 36.5 C 63 20 103/60 97 01/31/20 00:00 69 01/30/20 23:10 36.4 C L 75 18 120/55 L 99
[2020-01-31] MEDS: POTASSIUM CHLORIDE / WTR 10 MEQ/100 ML PLCT IV SCH ×3 (09:35→12:25)
[2020-01-31] MEDS: INSULIN GLARGINE SOLOSTAR 100 UNITS/ML 3 ML PEN SC SCH ×2 (09:39→21:18)
--- NOTE | 2020-01-31 09:41 | Surgery Progress Note ---
Date of Service January 31, 2020 Assessment & Plan (1) Duodenal ulcer: Patient reports improvement in symptoms, denies n/v/abdominal pain Tolerating full liquids yesterday Hbg is stable at 9.7, WBC 10 Diet has been advanced this AM No plans for surgical intervention from our standpoint, if rebleeds consider transfer for IR management as above. doing much better. hemodynamically stable. would keep on carafate at d/c for at least a month and continue PPI bid. will sign off. please call if needed. Admission and Anticipated Discharge Date Admission Date: January 28, 2020 Subjective Patient reports feeling well overall. Denies nausea/vomiting or abdominal pain. Tolerated full liquid diet without issue. Says diarrhea is improved with imodium. Physical Exam Physical Exam: awake/alert Respiratory: normal respiratory effort Gastrointestinal (Abdomen): Inspection/Auscultation: abdomen not distended Percussion/Palpation: abdomen soft; abdomen nontender Results & Data ([facility]) Vital Signs (Past 12 Hours) Vital Signs Temp Pulse Pulse Resp BP Pulse Ox 01/31/20 07:28 36.3 C L 82 18 112/65 98 01/31/20 07:24 83 01/31/20 03:00 36.5 C 63 20 103/60 97 01/31/20 00:00 69 01/30/20 23:10 36.4 C L 75 18 120/55 L 99 PG Care Time/CCT Total # of Minutes Spent Total Time Spent with Patient: Total time spent is greater than 50% in coordination of care (as documented) at patient's floor/unit and/or counseling patient: Coding Level of Care Code 61132 Subseq Hosp Care Lvl 3 Diagnoses Duodenal ulcer K26.9
[2020-01-31] MEDS: THIAMINE HCL 100 MG in SYRINGE 9 ML IV SCH (10:04)
[2020-01-31] MEDS: FOLIC ACID 1 MG in SYRINGE 9.8 ML IV SCH (10:04)
--- NOTE | 2020-01-31 12:15 | Ultrasound Report ---
US pelvic complete HISTORY: 59 years-old Female bladder mass patient presents with a reported mass of the urinary bladd er. COMPARISON: CT abdomen and pelvis 01/29/2020 TECHNIQUE: Multiple real-time sonographic images of the deep pelvic structures were obtained both tra nsabdominally and transvaginally assessing grayscale appearance and color flow FINDINGS: TRANSABDOMINAL: Anterior to the urinary bladder there is an ovoid hypoechoic complex avascular structure with circums cribed margins measuring 4.7 x 3.3 x 2.3 cm. Anteflexed uterus measures 6.0 x 2.4 x 3.5 cm. Ovaries are not well visualized. TRANSVAGINAL: Uterus measures 6.3 x 2.6 x 4.0 cm. No myometrial mass lesion identified. Endometrium measures 3 mm i n thickness. Probable nabothian cysts of the cervix. Urinary bladder is debris-filled and demonstrate s hypervascular thickened wall along its anterior margin measuring up to 8 mm. Within the left adnexal distribution there is a hypoechoic complex ovoid avascular structure which me asures 4.0 x 2.4 x 2.6 cm which obscures the left ovary. Right ovary is not diagnostically visualized . IMPRESSION: 1. There are two heterogeneous hypoechoic avascular lesions within the pelvis as above, one of which is located anterior to the urinary bladder within the space of Retzius and one is located within left adnexum. These lesions are suggestive of probable endometriomas. 2. The bilateral ovaries are not visualized. 3. Urinary bladder debris is noted with nonspecific anterior urinary bladder wall thickening. Finding s should be correlated with urinalysis and possibly cystoscopy if of further clinical concern. ACT 112: Negative or not required by law. The above report was generated using voice recognition software. It may contain grammatical, syntax o r spelling errors. Electronically signed by: Solo Hutchins M.D. 01/31/2020 12:14 PM
--- NOTE | 2020-01-31 14:32 | Pharmacy Report ---
Glycemic Control Progress Note - Date of Service January 31, 2020 - Scope Glycemic Pharmacist consulted for glycemic control to write orders per [facility] inpatient glycemic control protocol. - Objective Accuchecks BSG(last 24 hours):: 01/30/20 01/30/20 01/30/20 15:15 16:55 20:48 Glucose 150 H POC Glucose 136 H 168 H 01/31/20 01/31/20 01/31/20 06:06 06:09 06:23 Glucose POC Glucose 61 L* 58 L* 87 01/31/20 01/31/20 01/31/20 07:23 07:33 11:54 Glucose 88 POC Glucose 78 108 H HbA1c:: Hemoglobin A1c 7.6 % (4.5-5.6) H 01/28/20 00:12 - Recent Pertinent Medications The patient is currently receiving: * Basal insulin: Lantus 6 units SQ x 1 then 12 units at bedtime * Correctional Insulin: Novolog Correction per scale ACHS Goal Range: Low 110 mg/dL - High 140 mg/dL Correction Factor: 20 mg/dL/unit * Prandial insulin: Per carb ratio of 1 unit per 7 grams CHO consumed * Oral Agents: - Outpatient Anti-Diabetic Meds Novolin 70/30 -- 20 units BID (non-compliant) home prednisone 7.5 mg daily - Assessment & Plan ASSESSMENT: * See progress note from 01/28/20 for more background info, in short: * Pt receiving SQ basal bolus insulin regimen for hyperglycemia secondary to baseline DM (outpatient regimen on hold). Patient currently on home dose of prednisone 7.5 mg daily (was on HC 50 mg IV q8) * Patient is currently receiving an average of 23 units of insulin per day * 18 units of basal insulin * 5 units of prandial/correctional insulin * BSGs ranging 90 - 168 mg/dl over the past 24hrs * Changes needed to insulin regimen: * AM Fasting BSG = 61 mg/dl. This is below goal range for patient based on inpatient targets and co-morbidities. Held insulin this morning. Adjusted parameters on Lantus scale. * Post-prandial BSGs were controlled yesterday. Loosened to weight-based stress of 3 Novolog with start of diet. * Total daily dose = ? units. Unclear right now as patient just started diet. PLAN FOR INPATIENT GLYCEMIC CONTROL: * Loosening Lantus to 0-12 units SQ BID * Loosening correction factor to 25 mg/dl/unit * Loosening carb ratio to 1 unit per 8 grams CHO consumed * Continuing goal range of Low 110 mg/dL - High 140 mg/dL * Please note that the plan above was derived based on current level of insulin resistance and hospital stress. These recommendations are appropriate for inpat ient admission only. Plan of care upon discharge will need to be reassessed to avoid potential outpatient hypo/hyperglycemia. Thank you.
[2020-02-01] MEDS: LOPERAMIDE HCL 2 MG CAP PO PRN (00:05)
[2020-02-01 02:06] LABS: Hematocrit (blood only) 21.1 % (37-47); Hemoglobin 6.6 g/dL (12.0-16.0); Mean Corpuscular Hemoglobin 27.2 pg (25-34); Mean Corpuscular Hgb Conc 31.3 g/dL (32-36); Mean Corpuscular Volume 86.8 fL (80-100); Mean Platelet Volume 9.5 fL (7.4-10.4); Platelet Count 154 K/uL (130-400); RDW Coefficient of Variation 16.9 % (11.5-14.5); RDW Standard Deviation 52.8 fL (36.4-46.3); Red Blood Count 2.43 M/uL (4.2-5.4); White Blood Count 14.33 K/uL (4.8-10.8)
[2020-02-01] MEDS ORDERED: SODIUM CHLORIDE 0.9% 250 ML IV PRN ×7 (02:13→16:56)
[2020-02-01 02:14] LABS: Albumin Globulin Ratio 0.8 (0.9-2); Albumin Level 1.7 gm/dl (3.4-5.0); BUN Creatinine Ratio 11.2 (10-20); Bilirubin,Total 0.3 mg/dl (0.2-1); Calcium 6.4 mg/dl (8.5-10.1); Creatinine Clr Calc Pharmacy 54.9 ml/min; Est GFR (African American) 69.2; Est GFR (Non-African American) 59.7; Globulin 2.1 gm/dl (2.5-4.0); Magnesium 1.7 mg/dl (1.8-2.4); Phosphorus 1.9 mg/dl (2.5-4.9); Potassium 3.7 mmol/L (3.5-5.1); Total Protein 3.8 gm/dl (6.4-8.2)
[2020-02-01 02:15] LABS: ALC (manual) 1.86 K/uL (1.2-3.4); ANC (manual) 11.72 K/uL (1.4-6.5); Lymphocytes # (manual) 1.86 K/uL (1.2-3.4); Metamyelocytes # (manual) 0.13 K/uL (0-0); Metamyelocytes % (manual) 0.9 %; Monocytes # (manual) 0.37 K/uL (0.11-0.59); Monocytes % (manual) 2.6 %; Myelocytes # (manual) 0.24 K/uL (0-0); Myelocytes % (manual) 1.7 %; Neutrophils # (manual) 11.72 K/uL (1.4-6.5); Neutrophils % (manual) 81.8 %; Polychromasia 1+
[2020-02-01] MEDS: SODIUM CHLORIDE 0.9% 1000ML 1,000 ML IV SCH ×2 (02:25→16:39)
[2020-02-01] MEDS ORDERED: ACETAMINOPHEN 325 MG TAB PO ONE (02:45)
[2020-02-01] MEDS: PANTOprazole 40 MG in DEXTROSE 5% 100 ML IV SCH ×3 (02:50→15:45)
--- NOTE | 2020-02-01 06:59 | Hospitalist Progress Note ---
Date of Service February 01, 2020 Assessment & Plan Admission and Anticipated Discharge Date Admission Date: January 28, 2020 Subjective Had bloody bowel movement. Hb dropped to 6.6. Surgery recommends teritary care transfer for IR and was accepted. Made npo. Iv fluids. ppi drip. Ordered two units of prbc while awaiting for transfer. Kristian recommended to get CTA abd/pelvis if able to do if patient gets delayed for transfer. Results & Data Results & Data ([facility]) Vital Signs (Past 12 Hours) Vital Signs Temp Pulse Pulse Resp BP BP Pulse Ox 02/01/20 06:13 36.5 C 87 18 86/48 L 99 02/01/20 05:30 36.8 C 87 18 103/49 L 99 02/01/20 04:59 36.8 C 88 20 95/62 L 100 02/01/20 04:43 36.7 C 87 18 91/55 L 100 02/01/20 04:28 36.8 C 90 20 93/56 L 100 02/01/20 04:11 36.8 C 105 H 20 101/61 100 01/31/20 23:45 97 H 01/31/20 23:00 36.6 C 97 H 18 89/51 L 97 01/31/20 19:00 36.5 C 87 20 114/69 100
--- NOTE | 2020-02-01 07:38 | Hospitalist Progress Note ---
Date of Service February 01, 2020 Assessment & Plan (1) Septic shock: -As per ED notes on 01/28/2020 " This is a 59-year-old female presenting to the emergency department for evaluation of elevated blood sugar at home. The patient states that she was not feeling very well today and has had intermittent diarrheal illness for the past few weeks. The patient did give a C. difficile sample for the [facility] lab yesterday that was negative. The patient was feeling lightheaded and confused this evening. She did not take her insulin until much later in the day compared to normal. There is possible history of unresponsive episode that did not persist and EMS was contacted. On arrival EMS noted that her blood sugar was greater than 450 and her blood pressure was roughly 60/30. The patient has several comorbidities and now presents to the ER for evaluation. She does not have reports of recent fever or exposure to Covid or other infectious disease. She does have a longstanding pressure ulcer of the right lower leg that has been treated with IV vancomycin recently. " -based on other hospitalization notes that patient initially met sepsis criteria on admission with elevated WBC, Tachycardia, Hypotension, elevated lactate and procalcitonin; initial concerns were whether these symptoms were related to wound of right lower extremity or urinary tract infection; however all her cultures (blood culture, wound culture, urine culture) had no growth -her antibiotic course has included initial vancomycin and Zosyn in the ER , then transitioned cefepime and daptomycin, then transitioned to ceftriaxone, and then oral cefdinir (the last dose of cefdinir to be completed on 02/03/2020 -01/31/2020 updates: Patient denies loose bowel movement today. Patient does not have abdomen or throat pain. Breathing comfortable on room air. No shortness of breath. No chest pain. No dizziness. Patient reports she is ambulatory. Denies other symptoms on review of systems. She reports she tolerated the liquid diet from 01/30/2020. Her diet is to be advanced to solid diabetes diet starting on 01/31/2020. Her potassium is 2.9 on 01/31/2020 likely from loose bowel movement. She is to ge additional potassium supplements in the hospital. In the AM of 01/31/2020 she had some low serum blood glucose and there is mild elevation of serum sodium to 146 and so patient will get D5 1/2 normal saline at 80 cc/hr for 1000 ml. 02/11/2020: Patient had drop in her hemoglobin by AM labs of 02/01/2020 to 6.6. She reported that she was feeling well on 01/31/2020 and ate the dinner before feeling malaise overnight but she did made bowel movement. Because of the anemia which is likely do to gastrointestinal bleed, Dr. Lacey ordered 2 units of PRBC to be transfused for 02/01/2020 and in addition, he called [facility] in [place] so that patient can be transferred to a tertiary care center in case the GI bleed requires Interventional Radiology, which is not available at [facility] and the accepting hospitalist is Vinay Roth On AM exam by day time hospitalist, patient completed 1 unit of PRBC, despite somewhat low blood pressure and mild tachycardia, patient is not in distress. She is due for 2nd unit of PRBC. Patient denies any chest pain, abdomen pain, na usea, vomiting. She is not currently dizzy. Patient is baseline mental status and answers all questions correctly. She expresses her understanding of the hospital course and plans. No other symptoms on review of systems (2) Hypotension: -patient was initially managed by ICU physician on this admission -hypotension on admission resolved, she had trial of hydrocortisone IV which was then discontinued -currently on home dose prednisone -patient receiving blood products on 02/01/2020 (3) Melena: Anemia Possible duodenal ulcer -initial concerns on admission was possible Upper Gastrointestinal Bleed because patient had reported dark stool and she presented with low hemoglobin on admission -Hgb on admission 7.5, received 1 unit PRBC on 01/29/2020; Hgb dropped to 6.5 this afternoon, received an additional 2 units PRBC on 01/30/2020 -patient also was given IV protonics -Gastroenterology was initially consulted but because patient's CT abdomen/pelvis was concerning for contained duodenal perforation, there were no plans by gastroenterology to immediately perform upper endoscopy for the patient and they requested general surgery consult -General surgery consult has followed the patient and no acute surgical interventions. Patient was given full liquid diet on 01/30/2020. -as of 01/31/2020, the hemoglobin stable around 10 to upper 9; patient diet advanced and then drop in the hemoglobin by AM of 02/01/2020 to Patient had drop in her hemoglobin by AM labs of 02/01/2020 to 6.6. blood transfusions and transfer to [facility] in [place] as above; NPO at this time Diarrhea Hypokalemia (also hypomagnesemia, hypophosphatemia -Stools negative for C.diff -loperamide prn -hypokalemia likely from GI losses; potassium supplements given on 01/31/202020. corrected as of 02/01/2020 AM labs. serum phosphate is low as 1.9 and serum magnesium 1.7 on 02/11/2020 and additional supplements to be given Bladder mass -her abdomen CT showed 4.8 x 2.8 cm oval-shaped circumscribed hyperdense focus anterior to the bladder within the space of Retzius. -patient denies hematuria -complete pelvic ultrasound on 01/31/2020 1. There are two heterogeneous hypoechoic avascular lesions within the pelvis as above, one of which is located anterior to the urinary bladder within the space of Retzius and one is located within left adnexum. These lesions are suggestive of probable endometriomas. 2. The bilateral ovaries are not visualized. 3. Urinary bladder debris is noted with nonspecific anterior urinary bladder wall thickening. Findings should be correlated with urinalysis and possibly cystoscopy if of further clinical concern. Pyoderma gangrenosum, Ulcer of right ankle -Traumatic open wound of right lower leg with delayed healing, Completed a long course of antibiotic and steroid last month -continue her current low-dose prednisone 7.5 mg daily as well as daily wound care as per dermatology Dr. 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 Troponin bumped from 0.05, then peaked to 0.66, and then trending down. no chest pain on this admission -holding the home dose lisinopril, carvedilol, and statin DVT prophylaxis: SCD on left leg because of right anderson in dressing, not on pharmacological anticoagulation because of anemia CODE STATUS: No chest compression and No cardiac defibrillation, allows for for mechanical Ventilation Admission and Anticipated Discharge Date Admission Date: January 28, 2020 Subjective Patient had drop in her hemoglobin by AM labs of 02/01/2020 to 6.6. She reported that she was feeling well on 01/31/2020 and ate the dinner before feeling malaise overnight but she did made bowel movement. Because of the anemia which is likely do to gastrointestinal bleed, Dr. Lacey ordered 2 units of PRBC to be transfused for 02/01/2020 and in addition, he called [facility] in [place] so that patient can be transferred to a tertiary care center in case the GI bleed requires Interventional Radiology, which is not available at [facility] and the accepting hospitalist is Vinay Roth On AM exam by day time hospitalist, patient completed 1 unit of PRBC, despite somewhat low blood pressure and mild tachycardia, patient is not in distress. She is due for 2nd unit of PRBC. Patient denies any chest pain, abdomen pain, nausea, vomiting. She is not currently dizzy. Patient is baseline mental status and answers all questions correctly. She expresses her understanding of the hospital course and plans. No other symptoms on review of systems Review of Systems Review of Systems: All systems reviewed & are unremarkable except as noted in Subjective Physical Exam Constitutional: comfortable Eyes: PERRL, conjunctivae normal, anicteric sclerae EOM intact bilaterally ENMT: external ear and nose normal, oropharynx normal Neck: trachea midline, no thyromegaly normal visual inspection Respiratory: normal respiratory effort, lungs clear to auscultation Cardiovascular: Rate/Rhythm: regular rhythm Gastrointestinal (Abdomen): normal bowel sounds, soft, nontender, no hepatosplenomegaly Musculoskeletal: Head/Neck/Chest: normocephalic Extremities: + lower leg abnormality (right anderson dressing) Neurologic: PERRL, EOMI, accommodation nl, no face palsy, no dysarthria CN's II-XI intact bilaterally Psychiatric: A+Ox3, euthymic affect Results & Data Results & Data ([facility]) Vital Signs (Past 12 Hours) Vital Signs Temp Pulse Pulse Resp BP BP Pulse Ox 02/01/20 07:01 36.3 C L 105 H 18 82/52 L 98 02/01/20 06:13 36.5 C 87 18 86/48 L 99 02/01/20 05:30 36.8 C 87 18 103/49 L 99 02/01/20 04:59 36.8 C 88 20 95/62 L 100 02/01/20 04:43 36.7 C 87 18 91/55 L 100 02/01/20 04:28 36.8 C 90 20 93/56 L 100 02/01/20 04:11 36.8 C 105 H 20 101/61 100 01/31/20 23:45 97 H 01/31/20 23:00 36.6 C 97 H 18 89/51 L 97
[2020-02-01] MEDS ORDERED: POTASSIUM PHOS 3 MMOL/1 ML INFUSION IV STA (07:57)
--- NOTE | 2020-02-01 08:13 | Discharge Summary ---
Date of Service February 01, 2020 Admission HPI Per Admitting Provider History obtained from patient and records. Medical history significant for chronic systolic heart failure secondary ischemic cardiomyopathy (EF 40%, TTE 2018), CAD status post CABG, PVD, PAF, HTN, DM2 insulin requiring, rheumatoid arthritis on chronic steroid Rx, chronic anemia (baseline hemoglobin 8), past tobacco abuse. Last confinement November 2023 traumatic ulcerated wound right ankle. No osteomyelitis on MRI. Probable pyoderma gangrenosum on ulcerated wound biopsy. Patient discharged on 4-week IV Vancomycin course and steroid taper with improvement of ulcerated wound as per patient. Home Methotrexate held on discharge. IV Vancomycin course completed last month. Patient currently down to usual daily prednisone dose of 7.5 mg daily for rheumatoid arthritis as per records. 2 weeks history of diarrhea symptoms, dark tarry stools without emesis with achy abdominal discomfort. No chest pain, no S OB, no cough symptoms. No issues with right ankle wound as per patient Denies OTC NSAID intake. Poor appetite. Lightheadedness symptoms and hyperglycemia more than usual noted at home the last 2 days. Outpatient stool C. difficile obtained yesterday was negative. At the ER, patient SBP noted to be 60s. Patient received Vancomycin, Zosyn, NSS for sepsis. SBP currently 80s. IV insulin given for blood glucose of 300s. 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 Principal Diagnosis Septic shock on admission (but infection ruled out) Hypotension Melena, possible duodenal ulcer and perforation, acute blood loss anemia from gastrointestinal bleed Diarrhea Hypokalemia (also hypomagnesemia, hypophosphatemia) Bladder abnormality Diabetes mellitus Type 2 with continuous churn buttermaker current use of insulin CAD (coronary artery disease), Elevated Troponin on this admission Pyoderma gangrenosum, Ulcer of right ankle Rheumatoid arthritis Discharge Exam Constitutional comfortable Eyes PERRL, conjunctivae normal, anicteric sclerae EOM intact bilaterally ENMT external ear and nose normal, oropharynx normal Neck trachea midline, no thyromegaly normal visual inspection Respiratory normal respiratory effort, lungs clear to auscultation Cardiovascular Rate/Rhythm: regular rhythm Gastrointestinal (Abdomen) normal bowel sounds, soft, nontender, no hepatosplenomegaly Musculoskeletal Head/Neck/Chest: normocephalic Extremities: + lower leg abnormality (right anderson dressing) Neurologic PERRL, EOMI, accommodation nl, no face palsy, no dysarthria CN's II-XI intact bilaterally Psychiatric A+Ox3, euthymic affect Discharge Data Allergies Allergy/AdvReac Type Severity Reaction Status Date / Time Sulfa (Sulfonamide Allergy Intermediate Rash Verified 01/28/20 00:19 Antibiotics) Consultations 01/28/20 01:24 ED Decision to Admit Stat 01/28/20 04:53 Consult Case Management - Discharge Planning Routine Consult Gastroenterology Routine Consult Factory Maintenance Manager Routine 01/28/20 07:11 Consult Orthopedic Surgery Routine 01/29/20 09:15 Consult General Surgery Routine Procedures Performed Operation Date: 01/29/20 16:00 <No data on this case meets the specified criteria> Ordered Studies 01/28/20 00:10 CT head/brain wo con Urgent 01/28/20 02:29 CT abd pelvis wo con Urgent 01/28/20 03:05 CT ankle RT wo con Urgent 01/31/20 11:00 US pelvic complete Routine US transvaginal Routine Hospital Course (1) Septic shock: -As per ED notes on 01/28/2020 " This is a 59-year-old female presenting to the emergency department for evaluation of elevated blood sugar at home. The patient states that she was not feeling very well today and has had intermittent diarrheal illness for the past few weeks. The patient did give a C. difficile sample for the [facility] lab yesterday that was negative. The patient was feeling lightheaded and confused this evening. She did not take her insulin until much later in the day compared to normal. There is possible history of unresponsive episode that did not persist and EMS was contacted. On arrival EMS noted that her blood sugar was greater than 450 and her blood pressure was roughly 60/30. The patient has several comorbidities and now presents to the ER for evaluation. She does not have reports of recent fever or exposure to Covid or other infectious disease. She does have a longstanding pressure ulcer of the right lower leg that has been treated with IV vancomycin recently. " -based on other hospitalization notes that patient initially met sepsis criteria on admission with elevated WBC, Tachycardia, Hypotension, elevated lactate and procalcitonin; initial concerns were whether these symptoms were related to wound of right lower extremity or urinary tract infection; however all her cultures (blood culture, wound culture, urine culture) had no growth -her antibiotic course has included initial vancomycin and Zosyn in the ER , then transitioned cefepime and daptomycin, then transitioned to ceftriaxone, and then oral cefdinir (the last dose of cefdinir to be completed on 02/03/2020 -01/31/2020 updates: Patient denies loose bowel movement today. Patient does not have abdomen or throat pain. Breathing comfortable on room air. No shortness of breath. No chest pain. No dizziness. Patient reports she is ambulatory. Denies other symptoms on review of systems. She reports she tolerated the liquid diet from 01/30/2020. Her diet is to be advanced to solid diabetes diet starting on 01/31/2020. Her potassium is 2.9 on 01/31/2020 likely from loose bowel movement. She is to ge additional potassium supplements in the hospital. In the AM of 01/31/2020 she had some low serum blood glucose and there is mild elevation of serum sodium to 146 and so patient will get D5 1/2 normal saline at 80 cc/hr for 1000 ml. 02/11/2020: Patient had drop in her hemoglobin by AM labs of 02/01/2020 to 6.6. She reported that she was feeling well on 01/31/2020 and ate the dinner before feeling malaise overnight but she did made bowel movement. Because of the anemia which is likely do to gastrointestinal bleed, Dr. Lacey ordered 2 units of PRBC to be transfused for 02/01/2020 and in addition, he called [facility] in [place] so that patient can be transferred to a tertiary care center in case the GI bleed requires Interventional Radiology, which is not available at [facility] and the accepting hospitalist is Vinay Roth On AM exam by day time hospitalist, patient completed 1 unit of PRBC, despite somewhat low blood pressure and mild tachycardia, patient is not in distress. She is due for 2nd unit of PRBC. Patient denies any chest pain, abdomen pain, nausea, vomiting. She is not currently dizzy. Patient is baseline mental status and answers all questions correctly. She expresses her understanding of the hospital course and plans. No other symptoms on review of systems (2) Hypotension: -patient was initially managed by ICU physician on this admission -hypotension on admission resolved, she had trial of hydrocortisone IV which was then discontinued -currently on home dose prednisone -patient receiving blood products on 02/01/2020 (3) Melena: Melena, possible duodenal ulcer and perforation, acute blood loss anemia from gastrointestinal bleed -initial concerns on admission was possible Upper Gastrointestinal Bleed because patient had reported dark stool and she presented with low hemoglobin on admission -Hgb on admission 7.5, received 1 unit PRBC on 01/29/2020; Hgb dropped to 6.5 this afternoon, received an additional 2 units PRBC on 01/30/2020 -patient also was given IV protonics -Gastroenterology was initially consulted but because patient's CT abdomen/pelvis was concerning for contained duodenal perforation, there were no plans by gastroenterology to immediately perform upper endoscopy for the patient and they requested general surgery consult -General surgery consult has followed the patient and no acute surgical interventions. Patient was given full liquid diet on 01/30/2020. -as of 01/31/2020, the hemoglobin stable around 10 to upper 9; patient diet advanced and then drop in the hemoglobin by AM of 02/01/2020 to Patient had drop in her hemoglobin by AM labs of 02/01/2020 to 6.6. blood transfusions and transfer to [facility] in [place] as above; NPO at this time Diarrhea Hypokalemia (also hypomagnesemia, hypophosphatemia) -Stools negative for C.diff -loperamide prn -hypokalemia likely from GI losses; potassium supplements given on 01/31/202020. corrected as of 02/01/2020 AM labs. serum phosphate is low as 1.9 and serum magnesium 1.7 on 02/11/2020 and additional supplements to be given Bladder mass -her abdomen CT showed 4.8 x 2.8 cm oval-shaped circumscribed hyperdense focus anterior to the bladder within the space of Retzius. -patient denies hematuria -complete pelvic ultrasound on 01/31/2020 1. There are two heterogeneous hypoechoic avascular lesions within the pelvis as above, one of which is located anterior to the urinary bladder within the space of Retzius and one is located within left adnexum. These lesions are suggestive of probable endometriomas. 2. The bilateral ovaries are not visualized. 3. Urinary bladder debris is noted with nonspecific anterior urinary bladder wall thickening. Findings should be correlated with urinalysis and possibly cystoscopy if of further clinical concern. Pyoderma gangrenosum, Ulcer of right ankle -Traumatic open wound of right lower leg with delayed healing, Completed a long course of antibiotic and steroid last month -continue her current low-dose prednisone 7.5 mg daily as well as daily wound care as per dermatology Dr. Piña on 01/30/2020; patient to make the outpatient dermatology clinic followuo Rheumatoid arthritis -her outpatient Methotrexate 15 mg every Wednesday is held while in the hospital while on antibiotics -on home dose prednisone Diabetes mellitus Type 2 with continuous churn buttermaker current use of insulin -her outpatient HgbA1c 9.9 -[facility] pharmacy glycemic control helped with glucose management while in the hospital to manage the diabetes with Lantus and novolog sliding scale CAD (coronary artery disease), Elevated Troponin on this admission -Hx of 3V CABG 08/2017 (NOWAK to LAD, SVG to D1, SVG to OM1), ischemic cardiomyopathy EF 40 to 45% 11/2017 -Elevated troponin possible related to demand ischemia due to low Hgb. Troponin bumped from 0.05, then peaked to 0.66, and then trending down. no chest pain on this admission -holding the home dose lisinopril, carvedilol, and statin DVT prophylaxis: SCD on left leg because of right anderson in dressing, not on pharmacological anticoagulation because of anemia CODE STATUS: No chest compression and No cardiac defibrillation, allows for for mechanical Ventilation Total Time Total Time Spent Total Time Spent (In Minutes): 40 minutes Total Time Includes: Examination of the Patient, Discharge Planning, Medication Reconciliation and Communication With Other Providers Discharge Plan Discharge Items Patient Disposition: Transfer Acute Care Hospital Reason For Visit: SEPTIC SHOCK Discharge Diagnosis: Septic shock on admission (but infection ruled out) Hypotension Melena, possible duodenal ulcer and perforation, acute blood loss anemia from gastrointestinal bleed Diarrhea Hypokalemia (also hypomagnesemia, hypophosphatemia) Bladder abnormality Diabetes mellitus Type 2 with retirement current use of insulin CAD (coronary artery disease), Elevated Troponin on this admission Pyoderma gangrenosum, Ulcer of right ankle Rheumatoid arthritis Condition on Discharge: Fair Activity: As commented below Activity Comment: bed rest for now Non-emergency contact: Primary Care Provider Call non-emergency contact if: you have any medication questions and your symptoms worsen Follow-up/Referrals: Cornelius Osorio MD [Primary Care Provider] - Diet: Nothing by Mouth Cristofer Attending Provider Instructions: discharge to [facility] while on Pantoprazole IV 02/11/2020: Patient had drop in her hemoglobin by AM labs of 02/01/2020 to 6.6. She reported that she was feeling well on 01/31/2020 and ate the dinner before feeling malaise overnight but she did made bowel movement. Because of the anemia which is likely do to gastrointestinal bleed, Dr. Lacey ordered 2 units of PRBC to be transfused for 02/01/2020 and in addition, he called [facility] in [place] so that patient can be transferred to a tertiary care center in case the GI bleed requires Interventional Radiology, which is not available at [facility] and the accepting hospitalist is Vinay Cleveland Fourdrinier Operator Provider Instructions: Septic shock: -As per ED notes on 01/28/2020 " This is a 59-year-old female presenting to the emergency department for evaluation of elevated blood sugar at home. The patient states that she was not feeling very well today and has had intermittent diarrheal illness for the past few weeks. The patient did give a C. difficile sample for the [facility] lab yesterday that was negative. The patient was feeling lightheaded and confused this evening. She did not take her insulin until much later in the day compared to normal. There is possible history of unresponsive episode that did not persist and EMS was contacted. On arrival EMS noted that her blood sugar was greater than 450 and her blood pressure was roughly 60/30. The patient has several comorbidities and now presents to the ER for evaluation. She does not have reports of recent fever or exposure to Covid or other infectious disease. She does have a longstanding pressure ulcer of the right lower leg that has been treated with IV vancomycin recently. " -based on other hospitalization notes that patient initially met sepsis criteria on admission with elevated WBC, Tachycardia, Hypotension, elevated lactate and procalcitonin; initial concerns were whether these symptoms were related to wound of right lower extremity or urinary tract infection; however all her cultures (blood culture, wound culture, urine culture) had no growth -her antibiotic course has included initial vancomycin and Zosyn in the ER , then transitioned cefepime and daptomycin, then transitioned to ceftriaxone, and then oral cefdinir (the last dose of cefdinir to be completed on 02/03/2020 -01/31/2020 updates: Patient denies loose bowel movement today. Patient does not have abdomen or throat pain. Breathing comfortable on room air. No shortness of breath. No chest pain. No dizziness. Patient reports she is ambulatory. Denies other symptoms on review of systems. She reports she tolerated the liquid diet from 01/30/2020. Her diet is to be advanced to solid diabetes diet starting on 01/31/2020. Her potassium is 2.9 on 01/31/2020 likely from loose bowel movement. She is to ge additional potassium supplements in the hospital. In the AM of 01/31/2020 she had some low serum blood glucose and there is mild elevation of serum sodium to 146 and so patient will get D5 1/2 normal saline at 80 cc/hr for 1000 ml. 02/11/2020: Patient had drop in her hemoglobin by AM labs of 02/01/2020 to 6.6. She reported that she was feeling well on 01/31/2020 and ate the dinner before feeling malaise overnight but she did made bowel movement. Because of the anemia which is likely do to gastrointestinal bleed, Dr. Lacey ordered 2 units of PRBC to be transfused for 02/01/2020 and in addition, he called [facility] in [place] so that patient can be transferred to a tertiary care center in case the GI bleed requires Interventional Radiology, which is not available at [facility] and the accepting hospitalist is Vinay Roth On AM exam by day time hospitalist, patient completed 1 unit of PRBC, despite somewhat low blood pressure and mild tachycardia, patient is not in distress. She is due for 2nd unit of PRBC. Patient denies any chest pain, abdomen pain, nausea, vomiting. She is not currently dizzy. Patient is baseline mental status and answers all questions correctly. She expresses her understanding of the hospital course and plans. No other symptoms on review of systems (2) Hypotension: -patient was initially managed by ICU physician on this admission -hypotension on admission resolved, she had trial of hydrocortisone IV which was then discontinued -currently on home dose prednisone -patient receiving blood products on 02/01/2020 (3) Melena: Melena, possible duodenal ulcer and perforation, acute blood loss anemia from gastrointestinal bleed -initial concerns on admission was possible Upper Gastrointestinal Bleed because patient had reported dark stool and she presented with low hemoglobin on admission -Hgb on admission 7.5, received 1 unit PRBC on 01/29/2020; Hgb dropped to 6.5 this afternoon, received an additional 2 units PRBC on 01/30/2020 -patient also was given IV protonics -Gastroenterology was initially consulted but because patient's CT abdomen/pelvis was concerning for contained duodenal perforation, there were no plans by gastroenterology to immediately perform upper endoscopy for the patient and they requested general surgery consult -General surgery consult has followed the patient and no acute surgical interventions. Patient was given full liquid diet on 01/30/2020. -as of 01/31/2020, the hemoglobin stable around 10 to upper 9; patient diet advanced and then drop in the hemoglobin by AM of 02/01/2020 to Patient had drop in her hemoglobin by AM labs of 02/01/2020 to 6.6. blood transfusions and transfer to [facility] in [place] as above; NPO at this time Diarrhea Hypokalemia (also hypomagnesemia, hypophosphatemia) -Stools negative for C.diff -loperamide prn -hypokalemia likely from GI losses; potassium supplements given on 01/31/202020. corrected as of 02/01/2020 AM labs. serum phosphate is low as 1.9 and serum magnesium 1.7 on 02/11/2020 and additional supplements to be given Bladder abnormality -her abdomen CT showed 4.8 x 2.8 cm oval-shaped circumscribed hyperdense focus anterior to the bladder within the space of Retzius. -patient denies hematuria -complete pelvic ultrasound on 01/31/2020 1. There are two heterogeneous hypoechoic avascular lesions within the pelvis as above, one of which is located anterior to the urinary bladder within the space of Retzius and one is located within left adnexum. These lesions are suggestive of probable endometriomas. 2. The bilateral ovaries are not visualized. 3. Urinary bladder debris is noted with nonspecific anterior urinary bladder wall thickening. Findings should be correlated with urinalysis and possibly cystoscopy if of further clinical concern. Pyoderma gangrenosum, Ulcer of right ankle -Traumatic open wound of right lower leg with delayed healing, Completed a long course of antibiotic and steroid last month -continue her current low-dose prednisone 7.5 mg daily as well as daily wound care as per dermatology Dr. Piña on 01/30/2020; patient to make the outpatient dermatology clinic followuo Rheumatoid arthritis -her outpatient Methotrexate 15 mg every Wednesday is held while in the hospital while on antibiotics -on home dose prednisone Diabetes mellitus Type 2 with continuous churn buttermaker current use of insulin -her outpatient HgbA1c 9.9 -[facility] pharmacy glycemic control helped with glucose management while in the hospital to manage the diabetes with Lantus and novolog sliding scale CAD (coronary artery disease), Elevated Troponin on this admission -Hx of 3V CABG 08/2017 (NOWAK to LAD, SVG to D1, SVG to OM1), ischemic cardiomyopathy EF 40 to 45% 11/2017 -Elevated troponin possible related to demand ischemia due to low Hgb. Troponin bumped from 0.05, then peaked to 0.66, and then trending down. no chest pain on this admission -holding the home dose lisinopril, carvedilol, and statin DVT prophylaxis: SCD on left leg because of right anderson in dressing, not on pharmacological anticoagulation because of anemia CODE STATUS: No chest compression and No cardiac defibrillation, allows for for mechanical Ventilation Pending Studies at Discharge: No Stand-Alone Forms: My [facility] [employer] Skilled Items Patient informed of condition?: Yes DNR: No Discharge Level of Care: Other Communicable Disease: No Discharge Prognosis: Other Lines: Peripheral IV Urinary Catheter: No Medications and DC Order Prescriptions: New insulin aspart U-100 [Novolog Flexpen U-100 Insulin] 100 unit/mL (3 mL) Insulin Pen 2 unit SC ACHS Qty: 11 RF: 1 prednisone 2.5 mg Tablet 7.5 mg PO DAILY 10 Days Qty: 30 RF: 0 cefdinir 300 mg Capsule 300 mg PO BID 7 Days Qty: 14 RF: 0 Continued Novolin 70/30 U-100 Insulin 100 unit/mL (70-30) Suspension 20 unit SUBCUT BID RF: 0 Discontinued multivitamin [One-A-Day Essential] Tablet 1 tab PO QAM RF: 0 carvedilol 6.25 mg Tablet 3.125 mg PO BID RF: 0 lisinopril 2.5 mg Tablet 2.5 mg PO QAM RF: 0 atorvastatin 20 mg Tablet 20 mg PO HS RF: 0 valacyclovir [Valtrex] 500 mg Tablet 500 mg PO DAILY RF: 0 cholecalciferol (vitamin D3) 1,250 mcg (50,000 unit) capsule 1,250 mcg PO WK RF: 0 calcium carbonate [Calcium 500] 500 mg calcium (1,250 mg) Tablet 1,000 mg PO DAILY RF: 0 acetaminophen [Tylenol Extra Strength] 500 mg Tablet 500 mg PO TID PRN (Reason: Pain) RF: 0 prednisone 5 mg tablet 7.5 mg PO DAILY RF: 0 aspirin 81 mg Tablet,Chewable 81 mg PO DAILY RF: 0 Discharge Orders: Discharge Order (Routine); Ordered 02/01/20 Ordered By: Nate Torre/Other Patient Handouts: Managing Type 2 Diabetes Admission Data Admit Date/Time: 01/28/20 02:33 Attending Provider: Kenan Galindo Admit Provider: Kenneth Llanos Primary Care Provider: Cornelius Osorio Other Providers: Kenneth Llanos ; Ivana Kerr ; Norma Krueger ; Angus Melgoza ; Linda Bueno ; Vic Jett ; Carroll Chan ; Ramesh Clement ; Segundo Oneil ; Demarco Gonzalez ; Araceli Nunn ; Ivette Daily ; Joan Sun ; Marcy Adan ; Vik Leonard ; Daniel Longo ; Bowen Trinidad Matthew D.
[2020-02-01] MEDS ORDERED: POTASSIUM PHOSPHATE 24 MMOL in SODIUM CHLORIDE 0.9% 500 ML IV ONE (08:15)
[2020-02-01] MEDS: INSULIN ASPART 100 UNITS/ML 3 ML PEN SC SCH ×2 (08:41→13:13)
[2020-02-01] MEDS: MAGNESIUM SULFATE / D5W 1 GM/100 ML BAG IV SCH ×2 (08:43→11:25)
[2020-02-01] MEDS: FOLIC ACID 1 MG in SYRINGE 9.8 ML IV SCH (08:44)
[2020-02-01] MEDS: SUCRALFATE 1 GM TAB PO SCH ×2 (08:44→16:33)
[2020-02-01] MEDS: INSULIN GLARGINE SOLOSTAR 100 UNITS/ML 3 ML PEN SC SCH (08:45)
[2020-02-01] MEDS: CEFDINIR 300 MG CAP PO SCH (08:45)
[2020-02-01] MEDS: MULTIVITAMIN TAB PO SCH (08:45)
[2020-02-01] MEDS: lisinopril 2.5 MG TAB PO SCH (08:46)
[2020-02-01] MEDS: PANTOprazole 40 MG in SYRINGE 0 ML IV SCH (08:46)
[2020-02-01] MEDS: predniSONE 2.5 MG TAB PO SCH (08:46)
[2020-02-01] MEDS: THIAMINE HCL 100 MG in SYRINGE 9 ML IV SCH (08:46)
--- NOTE | 2020-02-01 12:35 | Communication Note ---
Date of Service: February 01, 2020 hospitalist called again to [facility] in [place] report from transfer line that there is available bed and patient will go to [facility] in room 869
--- NOTE | 2020-02-01 14:06 | Procedure Note ---
Procedure Note Date of Service February 01, 2020 Procedure date: Noted above Procedure: Central venous access Pre-procedure indication: Need for large bore IV access in the setting of hypovolemic shock Post-procedure Diagnosis: same as above Prior to Procedure: Informed Consent: Emergent consent implied Attending Staff: Ondina Martinez DO Resident/APC: Not applicable Skin Prep: Chlorhexidine Anesthesia: 4 mL 1% lidocaine without epinephrine The identity of the patient was confirmed and a bedside time out was performed. Description of Procedure: After sterile prep and sterile drape utilizing standard sterile technique the superficial skin of the right subclavian area was anesthetized. The target vessel was identified and entered with an 18-gauge needle. Dark venous blood return was noted. A guidewire was inserted through the needle and into the vessel. The needle was withdrawn and a skin aren was made. A tissue dilator was advanced via Seldinger technique and removed. A double-lumen large-bore catheter was inserted via Seldinger technique and the guidewire removed. All ports nikolas and flushed easily. A Biopatch was placed, and the catheter was secured via silk suture. A sterile dressing was then applied. Complications: None during placement patient required extreme Trendelenburg to expand central venous pressure. Estimated blood loss: Trace Patient tolerated the procedure well. Coding
--- NOTE | 2020-02-01 14:07 | Procedure Note ---
Procedure Note Date of Service February 01, 2020 Procedure Date: Noted above Procedure: Endotracheal intubation Pre-procedure Diagnosis: Severe gastrointestinal hemorrhage and hypovolemic shock Post-procedure Diagnosis: same as above Prior to Procedure: Informed Consent: emergent Attending Staff: Ondina Martinez DO The identity of the patient was confirmed and a bedside time out was performed. Description of Procedure: Patient was evaluated and required intubation for impending respiratory failure. The patient was prepared in the usual fashion. A 4 glide scope laryngoscope was used. A 7.5 mm inner diameter endotrachial tube was placed endotracheally to 23 cm at the teeth. A grade 1 view was obtained. The endotracheal tube was noted to pass through the vocal cords. Chest rise was bilateral. Bilateral breath sounds were heard without air sounds in the abdomen. Mist was noted in the endotracheal tube. End-tidal CO2 measurement was positive. Chest x-ray shows proper endotracheal tube placement. Complications: None Findings: Not applicable Specimens: Not applicable Estimated blood loss: Zero Coding CPT Codes Resuscitation - Resuscitation: 75582 Endotracheal Intubation, emergency ([id number]) [facility] Procedure Codes (Charges) Resuscitation Resuscitation: 29769 Endotracheal Intubation, emergency
--- NOTE | 2020-02-01 14:09 | Critical Care Progress Note ---
Date of Service February 01, 2020 Assessment & Plan (1) Septic shock: Impression: 59-year-old female presents to the ICU with hypotension from hypovolemic shock secondary to gastrointestinal hemorrhage Neuro - Confusion: Resolved -. Ammonia within normal limits. Cardiac - Hypotension/shock: Hypovolemic -Reviewed echo previously -Noted with segmental hypokinesis with akinesis with mild global hypokinesis: -Volume expanding patient to 10 given active hemorrhage and previously elevated troponins with presumptive type II ischemia -Stress dose steroid: 100 mg Solu-Cortef given -Ordered 4 units packed red blood cells, 2 units FFP, 1 unit platelets 1 unit cryo Coronary artery disease EKG changes/abnormal EKG Elevated troponins -Likely related to decreased oxygen carrying capacity from blood loss acute anemia -Discussed with general surgery may require cardiac evaluation in future wants acute GI issues are stable -Would need significant anticoagulation which is strongly contraindicated at this time Respiratory - Intubated for cardiac and hemodynamic instability as well as transport to [facility] for interventional radiology GI - Gastrointestinal hemorrhage -Continuing Protonix drip -Carafate 1 g 3 times daily tabs -Duration to continue while in hospital unless changed per general surgery -Transfer to [facility] for embolectomy of gastroduodenal artery RENAL/LYTES - AKIlikely ATN in the setting of hypotension: Resolved - [facility] - DM type II (uncontrolled)currently hyperglycemic and A1c on previous admission of 9, repeat pending -Continue with sliding scale, Long-term steroid use -Received stress dose HEME - Acute blood loss anemia -We will have received 7 units total of packed red blood cells over the course of this hospital admission ID - Citrobacter UTI -Currently on Zosyn needs 2 more days of effective antibiotic therapy to complete 7-day course LINES/IV ACCESS - Right introducer subclavian placed 01/31, left subclavian artery arterial line placed 01/31 intubation 01/31 DVT PROPHYLAXIS - SCDs CODE STATUS: I did speak with patient regarding her CODE STATUS and she stated that in the event she were to experience cardiac arrest she would not like chest compressions or defibrillation, however she was open to intubation and mechanical ventilation should she need it along with medications. Per report from general surgery who I discussed the case with at bedside hospitalist is reporting that Dr. Pitts has accepted the patient in [place] we are currently awaiting a bed and helicopter transport. Dr. Jeronimo will be standing by in event that the patient condition worsens an hour we are unable to facilitate transfer and would require life-saving exploratory laparotomy, we both agree that embolectomy would have significant benefit over exploratory laparotomy. (2) Hypotension: (3) Sepsis: (4) DWAYNE (acute kidney injury): (5) Anemia: (6) Hyperglycemia: (7) Traumatic open wound of right lower leg with delayed healing: Admission and Anticipated Discharge Date Admission Date: January 28, 2020 Supervising Physician Co-Signing Physician Notes I have personally spent 90 minutes of critical care time in the direct management of this patient. This is a life/limb threatening event. This includes time spent evaluating patient, direct bedside care, chart review, placing orders, interpretation of diagnostic studies, discussion with consultants, patient, and/or family members regarding treatment decisions, as well as other required patient management activities. This time is exclusive of all separately billable procedures, and teaching time and separate from and in addition to any other critical care service time. Subjective Called back to bedside with report of hypotension when EMS arrived to transport patient to [place] for IR embolectomy of GDA Review of Systems Review of Systems: Complaints of being weak, passing bloody stools mild abdominal pain Physical Exam Physical Exam: General: Alert. nontoxic. Skin: Pale, dry, Head: Atraumatic Ears, nose, mouth and throat: airway patent Cardiovascular: Weak peripheral pulses, increased capillary refill Respiratory: Tachypnea Gastrointestinal: Non distended, mild tenderness with deep palpation no involuntary guarding no rebound Musculoskeletal: No deformity Results & Data Results & Data ([facility]) Vital Signs (Past 12 Hours) Vital Signs Temp Pulse Pulse Pulse Resp BP BP 02/01/20 11:26 36.7 C 87 18 93/41 L 02/01/20 08:00 36.9 C 102 H 97 H 77 18 89/51 L 02/01/20 07:57 36.9 C 91 H 18 78/48 L 02/01/20 07:01 36.3 C L 105 H 18 82/52 L 02/01/20 06:13 36.5 C 87 18 86/48 L 02/01/20 05:30 36.8 C 87 18 103/49 L 02/01/20 04:59 36.8 C 88 20 95/62 L 02/01/20 04:43 36.7 C 87 18 91/55 L 02/01/20 04:28 36.8 C 90 20 93/56 L 02/01/20 04:11 36.8 C 105 H 20 101/61 Pulse Ox 02/01/20 11:26 100 02/01/20 08:00 98 02/01/20 07:57 02/01/20 07:01 98 02/01/20 06:13 99 02/01/20 05:30 99 02/01/20 04:59 100 02/01/20 04:43 100 02/01/20 04:28 100 02/01/20 04:11 100 Laboratory Results 02/01/20 02/01/20 02/01/20 Range/Units 14:43 14:40 14:30 WBC 17.99 H (4.8-10.8) K/uL RBC 2.41 L (4.2-5.4) M/uL Hgb 6.8 L* (12.0-16.0) g/dL POC Hgb 5.4 L* (12.0-16.0) g/dl Hct 20.9 L* (37-47) % POC Hct 16 L* (37-47) % MCV 86.7 (80-100) fL MCH 28.2 (25-34) pg MCHC 32.5 (32-36) g/dL RDW Std Deviation 48.9 H (36.4-46.3) fL RDW Coeff of [place] 15.8 H (11.5-14.5) % Plt Count 153 (130-400) K/uL MPV 9.6 (7.4-10.4) fL Absolute Nucleated RBC 0.06 H (0-0) K/uL Nucleated RBC % (auto) 0.3 % Neutrophils % (Manual) 94.7 % Lymphocytes % (Manual) 3.5 % Monocytes % (Manual) 0.9 % Metamyelocytes % (Man) % Myelocytes % (Man) 0.9 % Neutrophils # (Manual) 17.04 H (1.4-6.5) K/uL Total Absolute Neuts 17.04 H (1.4-6.5) K/uL Lymphocytes # (Manual) 0.63 L (1.2-3.4) K/uL Total Abs Lymphocytes 0.63 L (1.2-3.4) K/uL Monocytes # (Manual) 0.16 (0.11-0.59) K/uL Metamyelocytes # (Man) (0-0) K/uL Myelocytes # (Manual) 0.16 H (0-0) K/uL Polychromasia 1+ Sample Site L Radial POC pH 7.45 (7.35-7.45) POC pCO2 24 L (35-46) mmHg POC pO2 56 L (80-95) mmHg POC HCO3 17 L (19-24) nora/L POC Total CO2 17 L (24-31) mmol/L POC Base Excess -7.0 (-9-1.8) nora/L ABG pH (Temp Correct) 7.454 H (7.35-7.45) ABG pCO2 (Temp Corrct 24 L (35-46) mmHg POC ABG pO2 at Pt Temp 56 POC ABG O2 Sat 91.0 (90-95) % Felice Test Pass O2 Delivery Device Ventilator POC O2 Rate 20 POC FiO2 40 % Tidal Volume 450 PEEP 5 POC Sodium 138 (135-144) mmol/L Sodium (136-145) mmol/L POC Potassium 4.6 (3.3-5.0) mmol/L Potassium (3.5-5.1) mmol/L Chloride (98-107) mmol/L Carbon Dioxide (21-32) mmol/L Anion Gap (3-11) BUN (7-18) mg/dl Creatinine (0.6-1.2) mg/dl Est Cr Clr Drug Dosing ml/min Est GFR ( Amer) Est GFR (Non-Af Amer) BUN/Creatinine Ratio (10-20) Glucose (70-99) mg/dl POC Glucose (70-99) mg/dl Calcium (8.5-10.1) mg/dl Phosphorus (2.5-4.9) mg/dl Magnesium (1.8-2.4) mg/dl Total Bilirubin (0.2-1) mg/dl AST (15-37) U/L ALT (12-78) U/L Alkaline Phosphatase (45-117) U/L Troponin I 0.130 H* (0-0.045) ng/ml Total Protein (6.4-8.2) gm/dl Albumin (3.4-5.0) gm/dl Globulin (2.5-4.0) gm/dl Albumin/Globulin Ratio (0.9-2) Blood Type Antibody Screen Crossmatch 02/01/20 02/01/20 02/01/20 Range/Units 11:36 07:48 01:38 WBC (4.8-10.8) K/uL RBC (4.2-5.4) M/uL Hgb (12.0-16.0) g/dL POC Hgb (12.0-16.0) g/dl Hct (37-47) % POC Hct (37-47) % MCV (80-100) fL MCH (25-34) pg MCHC (32-36) g/dL RDW Std Deviation (36.4-46.3) fL RDW Coeff of [place] (11.5-14.5) % Plt Count (130-400) K/uL MPV (7.4-10.4) fL Absolute Nucleated RBC (0-0) K/uL Nucleated RBC % (auto) % Neutrophils % (Manual) % Lymphocytes % (Manual) % Monocytes % (Manual) % Metamyelocytes % (Man) % Myelocytes % (Man) % Neutrophils # (Manual) (1.4-6.5) K/uL Total Absolute Neuts (1.4-6.5) K/uL Lymphocytes # (Manual) (1.2-3.4) K/uL Total Abs Lymphocytes (1.2-3.4) K/uL Monocytes # (Manual) (0.11-0.59) K/uL Metamyelocytes # (Man) (0-0) K/uL Myelocytes # (Manual) (0-0) K/uL Polychromasia Sample Site POC pH (7.35-7.45) POC pCO2 (35-46) mmHg POC pO2 (80-95) mmHg POC HCO3 (19-24) nora/L POC Total CO2 (24-31) mmol/L POC Base Excess (-9-1.8) nora/L ABG pH (Temp Correct) (7.35-7.45) ABG pCO2 (Temp Corrct (35-46) mmHg POC ABG pO2 at Pt Temp POC ABG O2 Sat (90-95) % Felice Test O2 Delivery Device POC O2 Rate POC FiO2 % Tidal Volume PEEP POC Sodium (135-144) mmol/L Sodium (136-145) mmol/L POC Potassium (3.3-5.0) mmol/L Potassium (3.5-5.1) mmol/L Chloride (98-107) mmol/L Carbon Dioxide (21-32) mmol/L Anion Gap (3-11) BUN (7-18) mg/dl Creatinine (0.6-1.2) mg/dl Est Cr Clr Drug Dosing ml/min Est GFR ( Amer) Est GFR (Non-Af Amer) BUN/Creatinine Ratio (-20) Glucose (70-99) mg/dl POC Glucose 227 H 188 H (70-99) mg/dl Calcium (8.5-10.1) mg/dl Phosphorus (2.5-4.9) mg/dl Magnesium (1.8-2.4) mg/dl Total Bilirubin (0.2-1) mg/dl AST (15-37) U/L ALT (12-78) U/L Alkaline Phosphatase (45-117) U/L Troponin I (0-0.045) ng/ml Total Protein (6.4-8.2) gm/dl Albumin (3.4-5.0) gm/dl Globulin (2.5-4.0) gm/dl Albumin/Globulin Ratio (0.9-2) Blood Type A Positive Antibody Screen NEGATIVE Crossmatch See Detail 02/01/20 02/01/20 01/31/20 Range/Units 01:38 01:38 23:51 WBC 14.33 H (4.8-10.8) K/uL RBC 2.43 L (4.2-5.4) M/uL Hgb 6.6 L* D (12.0-16.0) g/dL POC Hgb (12.0-16.0) g/dl Hct 21.1 L (37-47) % POC Hct (37-47) % MCV 86.8 (80-100) fL MCH 27.2 (25-34) pg MCHC 31.3 L (32-36) g/dL RDW Std Deviation 52.8 H (36.4-46.3) fL RDW Coeff of [place] 16.9 H (11.5-14.5) % Plt Count 154 (130-400) K/uL MPV 9.5 (7.4-10.4) fL Absolute Nucleated RBC (0-0) K/uL Nucleated RBC % (auto) % Neutrophils % (Manual) 81.8 % Lymphocytes % (Manual) 13.0 % Monocytes % (Manual) 2.6 % Metamyelocytes % (Man) 0.9 % Myelocytes % (Man) 1.7 % Neutrophils # (Manual) 11.72 H (1.4-6.5) K/uL Total Absolute Neuts 11.72 H (1.4-6.5) K/uL Lymphocytes # (Manual) 1.86 (1.2-3.4) K/uL Total Abs Lymphocytes 1.86 (1.2-3.4) K/uL Monocytes # (Manual) 0.37 (0.11-0.59) K/uL Metamyelocytes # (Man) 0.13 H (0-0) K/uL Myelocytes # (Manual) 0.24 H (0-0) K/uL Polychromasia 1+ Sample Site POC pH (7.35-7.45) POC pCO2 (35-46) mmHg POC pO2 (80-95) mmHg POC HCO3 (19-24) nora/L POC Total CO2 (24-31) mmol/L POC Base Excess (-9-1.8) nora/L ABG pH (Temp Correct) (7.35-7.45) ABG pCO2 (Temp Corrct (35-46) mmHg POC ABG pO2 at Pt Temp POC ABG O2 Sat (90-95) % Felice Test O2 Delivery Device POC O2 Rate POC FiO2 % Tidal Volume PEEP POC Sodium (135-144) mmol/L Sodium 145 (136-145) mmol/L POC Potassium (3.3-5.0) mmol/L Potassium 3.7 D (3.5-5.1) mmol/L Chloride 118 H (98-107) mmol/L Carbon Dioxide 22 (21-32) mmol/L Anion Gap 5.0 (3-11) BUN 11 (7-18) mg/dl Creatinine 1.02 (0.6-1.2) mg/dl Est Cr Clr Drug Dosing 54.9 ml/min Est GFR ( Amer) 69.2 Est GFR (Non-Af Amer) 59.7 BUN/Creatinine Ratio 11.2 (10-20) Glucose 222 H (70-99) mg/dl POC Glucose 179 H (70-99) mg/dl Calcium 6.4 L D (8.5-10.1) mg/dl Phosphorus 1.9 L D (2.5-4.9) mg/dl Magnesium 1.7 L (1.8-2.4) mg/dl Total Bilirubin 0.3 (0.2-1) mg/dl AST 13 L (15-37) U/L ALT 13 (12-78) U/L Alkaline Phosphatase 32 L (45-117) U/L Troponin I (0-0.045) ng/ml Total Protein 3.8 L (6.4-8.2) gm/dl Albumin 1.7 L (3.4-5.0) gm/dl Globulin 2.1 L (2.5-4.0) gm/dl Albumin/Globulin Ratio 0.8 L (0.9-2) Blood Type Antibody Screen Crossmatch 01/31/20 01/31/20 Range/Units 20:30 16:50 WBC (4.8-10.8) K/uL RBC (4.2-5.4) M/uL Hgb (12.0-16.0) g/dL POC Hgb (12.0-16.0) g/dl Hct (37-47) % POC Hct (37-47) % MCV (80-100) fL MCH (25-34) pg MCHC (32-36) g/dL RDW Std Deviation (36.4-46.3) fL RDW Coeff of [place] (11.5-14.5) % Plt Count (130-400) K/uL MPV (7.4-10.4) fL Absolute Nucleated RBC (0-0) K/uL Nucleated RBC % (auto) % Neutrophils % (Manual) % Lymphocytes % (Manual) % Monocytes % (Manual) % Metamyelocytes % (Man) % Myelocytes % (Man) % Neutrophils # (Manual) (1.4-6.5) K/uL Total Absolute Neuts (1.4-6.5) K/uL Lymphocytes # (Manual) (1.2-3.4) K/uL Total Abs Lymphocytes (1.2-3.4) K/uL Monocytes # (Manual) (0.11-0.59) K/uL Metamyelocytes # (Man) (0-0) K/uL Myelocytes # (Manual) (0-0) K/uL Polychromasia Sample Site POC pH (7.35-7.45) POC pCO2 (35-46) mmHg POC pO2 (80-95) mmHg POC HCO3 (19-24) nora/L POC Total CO2 (24-31) mmol/L POC Base Excess (-9-1.8) nora/L ABG pH (Temp Correct) (7.35-7.45) ABG pCO2 (Temp Corrct (35-46) mmHg POC ABG pO2 at Pt Temp POC ABG O2 Sat (90-95) % Felice Test O2 Delivery Device POC O2 Rate POC FiO2 % Tidal Volume PEEP POC Sodium (135-144) mmol/L Sodium (136-145) mmol/L POC Potassium (3.3-5.0) mmol/L Potassium (3.5-5.1) mmol/L Chloride (98-107) mmol/L Carbon Dioxide (21-32) mmol/L Anion Gap (3-11) BUN (7-18) mg/dl Creatinine (0.6-1.2) mg/dl Est Cr Clr Drug Dosing ml/min Est GFR ( Amer) Est GFR (Non-Af Amer) BUN/Creatinine Ratio (10-20) Glucose (70-99) mg/dl POC Glucose 143 H 191 H (70-99) mg/dl Calcium (8.5-10.1) mg/dl Phosphorus (2.5-4.9) mg/dl Magnesium (1.8-2.4) mg/dl Total Bilirubin (0.2-1) mg/dl AST (15-37) U/L ALT (12-78) U/L Alkaline Phosphatase (45-117) U/L Troponin I (0-0.045) ng/ml Total Protein (6.4-8.2) gm/dl Albumin (3.4-5.0) gm/dl Globulin (2.5-4.0) gm/dl Albumin/Globulin Ratio (0.9-2) Blood Type Antibody Screen Crossmatch Coding Level of Care Code Critical Care ea addt'l 30 min Diagnoses Septic shock A41.9; R65.21 Hypotension I95.9 Sepsis A41.9; R65.20; N17.9 Acute renal failure type: unspecified Sepsis acute organ dysfunction status: with acute organ dysfunction Sepsis type: sepsis due to unspecified organism Severe sepsis acute organ dysfunction type: acute renal failure Severe sepsis shock status: unspecified DWAYNE (acute kidney injury) N17.9 Anemia D64.9 Anemia type: unspecified type Hyperglycemia R73.9 Traumatic open wound of right lower leg with delayed healing S81.801D (1) Anemia Anemia type: unspecified type Qualified Code(s): D64.9 - Anemia, unspecified (2) Sepsis Acute renal failure type: unspecified Sepsis acute organ dysfunction status: with acute organ dysfunction Sepsis type: sepsis due to unspecified organism Severe sepsis acute organ dysfunction type: acute renal failure Severe sepsis shock status: unspecified Qualified Code(s): A41.9 - Sepsis, unspecified organism; R65.20 - Severe sepsis without septic shock; N17.9 - Acute kidney failure, unspecified
[2020-02-01] MEDS ORDERED: RAPID SEQUENCE INDUCTION BAG ONE (14:11)
--- NOTE | 2020-02-01 14:11 | Communication Note ---
Date of Service: February 01, 2020 EMS arrived to take patient by ground transport but patient with worsening hypotension. patient will be transferred to ICU level of care at [facility]. CBC to be rechecked and further blood transfusion ordered. hospitalist called [facility] to give them update of current situation
[2020-02-01] MEDS ORDERED: KETAMINE HCL INJ 50 MG/ML 10 ML VIAL IV STA (14:13)
[2020-02-01] MEDS ORDERED: KETAMINE HCL INJ 50 MG/ML 10 ML VIAL ONE (14:13)
[2020-02-01] MEDS ORDERED: SUCCINYLCHOLINE CHLORIDE 20 MG/ML 10 ML VIAL IV STA (14:14)
[2020-02-01] MEDS ORDERED: PHENYLEPHRINE (STAT use only) 10MG in D5W 250 ML IV SCH (14:30)
[2020-02-01] MEDS ORDERED: PIPERACILL/TAZOBAC CONSULT ACTIVE PRN (14:35)
[2020-02-01] MEDS ORDERED: fentaNYL citrate 100 MCG/2 ML VIAL ONE (14:41)
--- NOTE | 2020-02-01 14:42 | Communication Note ---
Date of Service: February 01, 2020 updated [facility] center. spoke with their ICU physician Dr. Collins who requests that patient be started on IV Zosyn, and IV antifungal. She requests additional updates but agrees that patient can have accepting bed to ICU unit in [place] once blood pressures further stabilizes . also updated [facility] general surgery team of these plans
[2020-02-01] MEDS ORDERED: fentaNYL citrate 100 MCG/2 ML VIAL IV STA (14:43)
[2020-02-01 14:44] LABS: iSTAT Allen Test Pass; iSTAT Art Bld Gas pCO2 Correct 24 mmHg (35-46); iSTAT Art Bld Gas pH Corrected 7.454 (7.35-7.45); iSTAT Arterial Blood Gas HCO3 17 meg/L (19-24); iSTAT Arterial Blood Gas pCO2 24 mmHg (35-46); iSTAT Arterial Blood Gas pH 7.45 (7.35-7.45); iSTAT Arterial Blood Gas pO2 56 mmHg (80-95); iSTAT Arterial Blood Gas pO2 C 56; iSTAT Carbon Dioxide 17 mmol/L (24-31); iSTAT FiO2 40 %; iSTAT Hematocrit 16 % (37-47); iSTAT Hemoglobin 5.4 g/dl (12.0-16.0); iSTAT Potassium 4.6 mmol/L (3.3-5.0); iSTAT Site L Radial; iSTAT Sodium 138 mmol/L (135-144)
[2020-02-01] MEDS ORDERED: MIDAZOLAM HCL 125MG/250ML D5W ONE (14:44)
[2020-02-01] MEDS ORDERED: PIPERACILLIN/TAZOBACTAM 4.5 GM in DEXTROSE 5% 100 ML IV ONE (14:45)
[2020-02-01] MEDS ORDERED: PIPERACILLIN/TAZOBACTAM 3.375 GM in DEXTROSE 5% 100 ML IV SCH (14:45)
[2020-02-01 14:53] LABS: Hematocrit (blood only) 20.9 % (37-47); Hemoglobin 6.8 g/dL (12.0-16.0); Mean Corpuscular Hemoglobin 28.2 pg (25-34); Mean Corpuscular Hgb Conc 32.5 g/dL (32-36); Mean Corpuscular Volume 86.7 fL (80-100); Mean Platelet Volume 9.6 fL (7.4-10.4); Nucleated RBC # (auto) 0.06 K/uL (0-0); Nucleated RBC % (auto) 0.3 %; Platelet Count 153 K/uL (130-400); RDW Coefficient of Variation 15.8 % (11.5-14.5); RDW Standard Deviation 48.9 fL (36.4-46.3); Red Blood Count 2.41 M/uL (4.2-5.4); White Blood Count 17.99 K/uL (4.8-10.8)
[2020-02-01] MEDS ORDERED: HYDROCORTISONE SOD SUCCINATE 100 MG/2 ML VIAL ONE (15:00)
--- NOTE | 2020-02-01 15:11 | Surgery Progress Note ---
Date of Service February 01, 2020 Assessment & Plan (1) GI bleed: discussed with Dr. Martinez. agree with PRBCs/IVF/IV steroids. If stable best plan would be transfer for IR coil if possible. Second choice would be GI attempt at clip placement/injection surgery would be last resort in light of her comorbidities. very high morbidity /mortality of ex-lap performed. Admission and Anticipated Discharge Date Admission Date: January 28, 2020 Subjective pt had re-bleed early this AM. she was to be transferred for IR intervention. I was notified this afternoon that pt was not transferred because of worsening hypotension when transport arrived. notified that she was being transferred to ICU. Physical Exam Physical Exam: pt seen. intubated abd: soft. no peritoneal signs. hypotensive. tachycardic. currently no gross blood per rectum Results & Data ([facility]) Vital Signs (Past 12 Hours) Vital Signs Temp Pulse Pulse Pulse Resp BP BP 02/01/20 14:37 92 H 14 02/01/20 14:35 99 H 14 85/50 L 02/01/20 14:08 121 H 20 87/59 L 02/01/20 11:26 36.7 C 87 18 93/41 L 02/01/20 08:00 36.9 C 102 H 97 H 77 18 89/51 L 02/01/20 07:57 36.9 C 91 H 18 78/48 L 02/01/20 07:01 36.3 C L 105 H 18 82/52 L 02/01/20 06:13 36.5 C 87 18 86/48 L 02/01/20 05:30 36.8 C 87 18 103/49 L 02/01/20 04:59 36.8 C 88 20 95/62 L 02/01/20 04:43 36.7 C 87 18 91/55 L 02/01/20 04:28 36.8 C 90 20 93/56 L 02/01/20 04:11 36.8 C 105 H 20 101/61 Pulse Ox 02/01/20 14:37 100 02/01/20 14:35 99 02/01/20 14:08 98 02/01/20 11:26 100 02/01/20 08:00 98 02/01/20 07:57 02/01/20 07:01 98 02/01/20 06:13 99 02/01/20 05:30 99 12/10/20 04:59 100 02/01/20 04:43 100 02/01/20 04:28 100 02/01/20 04:11 100 PG Care Time/CCT Total # of Minutes Spent Total Time Spent with Patient: Total time spent is greater than 50% in coordination of care (as documented) at patient's floor/unit and/or counseling patient: Coding Level of Care Code 84798 Subseq Hosp Care Lvl 3 Diagnoses GI bleed K92.2
[2020-02-01] MEDS ORDERED: CASPOFUNGIN 70 MG in SODIUM CHLORIDE 0.9% 250 ML IV ONE (15:15)
[2020-02-01 15:26] LABS: ALC (manual) 0.63 K/uL (1.2-3.4); ANC (manual) 17.04 K/uL (1.4-6.5); Lymphocytes # (manual) 0.63 K/uL (1.2-3.4); Lymphocytes % (manual) 3.5 %; Monocytes # (manual) 0.16 K/uL (0.11-0.59); Monocytes % (manual) 0.9 %; Myelocytes # (manual) 0.16 K/uL (0-0); Myelocytes % (manual) 0.9 %; Neutrophils # (manual) 17.04 K/uL (1.4-6.5); Neutrophils % (manual) 94.7 %; Polychromasia 1+
[2020-02-01] MEDS ORDERED: STAT IV Infusion **Titration per Protocol STA (15:36)
[2020-02-01] MEDS ORDERED: MIDAZOLAM BOLUS FROM BAG IV PRN (15:36)
--- NOTE | 2020-02-01 15:41 | Procedure Note ---
Procedure Note Date of Service February 01, 2020 Procedure date: Noted above Procedure: Subclavian artery cannulation Pre-procedure Diagnosis: Need for invasive monitoring, hypotension/frequent blood draws Post-procedure Diagnosis: same as above Prior to Procedure: Informed Consent: Emergent consent implied Attending Staff: Ondina Martinez DO Skin Prep: Chlorhexidine Anesthesia: 3 mL 1% lidocaine without epinephrine The identity of the patient was confirmed and a bedside time out was performed. Description of Procedure: After sterile prep and sterile drape utilizing standard sterile technique the superficial skin of the left subclavian artery was anesthetized. The target artery was identified via dynamic ultrasound guidance and entered with a 20-gauge arrow Angiocath. Pulsatile bright red blood return was noted. Via modified Seldinger technique the self-contained guidewire was advanced and the Angiocath advanced over the guidewire. The guidewire was removed and brisk arterial blood return was noted. The pressure monitor was connected, and the arterial line was secured via silk suture. A sterile dressing was then applied. Complications: None Estimated blood loss: Trace Patient tolerated the procedure well. Coding CPT Codes Tubes, Drains, and Vasc Access - Tubes, Drains, and Vasc Access: [id number] Insertion Catheter, Artery ([id number]) [facility] [place] Procedure Codes (Charges) Tubes, Drains, and Vasc Access Procedure 1: Tubes, Drains, and Vasc Access: [id number] Insertion Catheter, Artery
[2020-02-01] MEDS ORDERED: MIDAZOLAM HCL 125 MG/250 ML BAG IV SCH (15:45)
[2020-02-01] MEDS ORDERED: INSULIN ASPART 100 UNITS/ML 3 ML PEN SC SCH (16:00)
--- NOTE | 2020-02-01 16:12 | XRay Report ---
XR chest 1V portable CLINICAL HISTORY: lines COMPARISON STUDY: Chest radiograph January 28, 2020. FINDINGS: The tip of the endotracheal tube is 1.3 cm above the soham. Tip of right sided central wallace e projects over the proximal SVC. There is no pneumothorax. A catheter also projects over the left ax illary vein. Lung volumes are diminished. There is a probable small left pleural effusion. Bibasilar opacities are present. There is pulmonary vascular congestion without overt pulmonary edema. Median s ternotomy wires are noted. IMPRESSION: 1. Tip of endotracheal tube 1.3 cm as above the soham. 2. Tip of right-sided central venous catheter projects over proximal SVC. Tip of left sided venous ca theter projects over the left axillary vein. No pneumothorax. 3. Low lung volumes with bibasilar opacities. ACT 112: Negative or not required by law. Electronically signed by: Paco Hanson M.D. 02/01/2020 4:10 PM
[2020-02-01] MEDS ORDERED: PHENYLEPHRINE HCL 40 MG in SODIUM CHLORIDE 0.9% 500 ML IV SCH (16:30)
[2020-02-01] MEDS ORDERED: PHENYLEPHRINE HCL 20 MG in DEXTROSE 5% 500 ML IV SCH (16:30)
[2020-02-01 16:59] LABS: iSTAT Art Bld Gas pCO2 Correct 28 mmHg (35-46); iSTAT Art Bld Gas pH Corrected 7.386 (7.35-7.45); iSTAT Arterial Blood Gas HCO3 17 meg/L (19-24); iSTAT Arterial Blood Gas pCO2 28 mmHg (35-46); iSTAT Arterial Blood Gas pH 7.38 (7.35-7.45); iSTAT Arterial Blood Gas pO2 152 mmHg (80-95); iSTAT Arterial Blood Gas pO2 C 151; iSTAT Carbon Dioxide 17 mmol/L (24-31); iSTAT FiO2 40 %; iSTAT Hematocrit 20 % (37-47); iSTAT Hemoglobin 6.8 g/dl (12.0-16.0); iSTAT Potassium 3.6 mmol/L (3.3-5.0); iSTAT Site Art Line; iSTAT Sodium 144 mmol/L (135-144)
[2020-02-01 17:02] LABS: Base Excess ABG -6.9 mEq/L (-9-1.8); HCO3 ABG 18 mmol/L (19-24); Oxygen Saturation ABG 98.9 % (90-95); PCO2 ABG 32 mmHg (35-46); PO2 ABG 137 mmHg (80-95); pH ABG 7.36 (7.35-7.45)
[2020-02-01 17:03] LABS: Allen Test Pos (Pos)
[2020-02-01] MEDS ORDERED: PIPERACILLIN/TAZOBACTAM 4.5 GM in DEXTROSE 5% 100 ML IV SCH (20:00)
[2020-02-02] MEDS ORDERED: CASPOFUNGIN 50 MG in SODIUM CHLORIDE 0.9% 250 ML IV SCH (14:00)
== END 2020-02-01 17:45 | disposition short-term general hospital (02) | DRG 377 ==
LOC: ED 23:46 → 1E 01-28 02:33 → SUATTDRO 01-28 02:33 → 1E 01-28 04:05 → 2W 01-30 10:14 → 1E 02-01 14:19